=== PATIENT | female | born 1980 | race Caucasian/White ===

== ENCOUNTER 2016-10-04 14:00 | Emergency (ER) | payer OTHER ==
[~2016-10-04] VITALS: Ht 167.6 cm; Wt 81.8 kg
[~2016-10-04 14:00] MED LIST: BENZ1TAB7 PO; CHOL10008 PO; CLON1TAB PO; DOCU250C2 PO; DOXY1TAB3 PO; FERR-83 PO; HAL5 PO; LEVO100T6 PO; OMEG-38 PO; PRAZ2CAP2 PO
[2016-10-04 14:08] VITALS: BP 108/81; PULSE 65; O2SAT 91
--- NOTE | 2016-10-04 14:20 | ED.REPORT ---
HPI-Psychiatric Illness Date of Service Oct 04, 2016 ED Provider: Duane Goldsmith PA-C History of Present Illness: Sent by [facility] for revocation of LRO A 36 year old female with a history of PTSD, depression, anxiety, and bipolar disorder s/p previous suicide attempts and self-mutilation presents to the ED via Police from [facility] after a self-mutilation attempt earlier this week. She presents with a laceration to the LLQ of her abdomen which she claims is 48 hours old. The patient was initially cooperative but began hitting her head on the wall after she was gowned and needed to be restrained. She denies other complaints at this time. Nursing Notes Stated Complaint: EVAL Nursing Notes Reviewed: Yes ([employer], [employer] not reconciled) Allergies: Coded Allergies: No Known Allergies (Unverified , 06/28/16) UNABLE TO ASK PT. REVIEWED HX NOTES. Scheduled Benztropine Mesylate (Benztropine Mesylate) 1 Mg Tablet 1 MG PO BID Cholecalciferol (Vitamin D3) (Vitamin D3) 1,000 Unit Tab.chew 1,000 UNIT PO DAILY Clonazepam (Klonopin) 1 Mg Tablet 1 MG PO BID Docusate Sodium (Docusate Sodium) 250 Mg Capsule 250 MG PO BID Doxylamine/Pyridoxine 10-10 mg (Diclegis DR 10-10 mg) 1 Each Tablet.dr 1 TABLET PO TID Ferrous Sulfate (Ferrous Sulfate) 325 Mg Tablet 325 MG PO TID Haloperidol (Haloperidol) 5 Mg Tablet 10 MG PO TID Levothyroxine (Levothyroxine) 100 Mcg Tablet 100 MCG PO DAILY [place]-3/Dha/Epa/Fish Oil (Fish Oil 1,000 mg Softgel) 1 Each Capsule 1 EACH PO TID Prazosin (Prazosin) 2 Mg Capsule 4 MG PO HS General Time Seen by MD: 14:19 Chief Complaint Other (Self-mutilation) Hx Obtained From: Patient, Police Arrived By: Police Onset Occurred: 2 days ago Symptom Duration: Since onset Caused by: Cut self Location: : Abdomen Quality: Painful Severity: Current: Moderate Severity: Maximum: Moderate Associated with: Denies: Fever Pertinent Negative: Relieved by nothing Related History: Reports: Anxiety, Bipolar disorder, Depression, Prior suicide attempt(s) Immunizations: Unknown Recent Healthcare: No recent doctor visit Similar Sx Previous: Yes Risk-Psychiatric Illness Risk Notes: Not pertinent Suicide Risk Stratification Suicide Risk Factors - Adult: : Previous attempt: Prior psych admission RF Statements: Risk factors reviewed (not predictive) Past Medical History Past Medical History Notes: Medication list was obtained from [facility] on 10/04/2016: Prazosin 2 mg-2 caps at bedtime for nightmares Clonazepam 1 mg 1 tab by mouth twice a day for anxiety Haldol 10 mg 1 tab 3 times a day for paranoid thoughts, command hallucinations Viibryd 10mg 1 tab daily (with a note that "[place] does not have viibryd") Temazepam 15mg 1 tab PRN insomnia Cogentin 1mg 1 tab 2x day to prevent tardive dyskinesia Past Medical History PTSD Depression Anxiety Bipolar disorder Previous suicide attempts and self-mutilation Past Surgical History None Family History Noncontributory Smoking History Current Every Day Smoker Social History Pt is a . Alcohol Use: Denies alcohol use Drug Use: Denies drug use Other Social History: Local resident Ambulatory Status Independent Review of Systems HEENT: Denies congestion, headache, sore throat. Respiratory: Denies dyspnea, cough, shortness of breath, wheezing. Cardiovascular: Denies chest pain, palpitations. Gastrointestinal: Denies vomiting, diarrhea, abdominal pain. Genitourinary: Denies frequency, urgency, dysuria, hematuria. Otherwise as noted in HPI. Physical Exam General: Well appearing, well developed, well nourished, moderate distress. Head: Atraumatic, normocephalic. Eyes: No scleral icterus or injection. No discharge. Vision grossly intact. ENT: Voice clear, hearing grossly intact. Respiratory: Regular rate and rhythm. Breath sounds present, clear to auscultation and equal bilaterally. Cardiovascular: Regular rate and rhythm, without murmur, gallop or rub. No pedal edema. Gastrointestinal: Abdomen flat and non-tender without guarding or rebound. Bowel sounds normoactive. Skin: Warm and dry. 7 cm laceration through the dermis into the adipose tissue on the left lower anterior abdomen. Apparently healing 5 cm laceration on the anterior left abdomen with significant crusting and no sign of infection. Many scars on her anterior abdomen consistent with wounds similar to her acute injuries. Neurological: Tremulous Psychological: Alert and oriented, provides a reasonable story for why she is at the Hospital. Appears quite anxious, provides very limited answers to questions. Initial Vital Signs Vital Signs (First) Date Time Temp Pulse Resp B/P Pulse Ox O2 Delivery O2 Flow Rate FiO2 10/04/16 14:08 35.1 65 108/81 91 Room Air 10/04/16 14:34 20 Initial VS: Reviewed, Unavailable (incomplete, oredered), Vital signs abnormal Neck: Supple, Full range of motion Skin: Warm, Dry General/Constitutional: Awake, Alert Behavior: Positive: Uncooperative Unable to Evaluate: Positive: Uncooperative Head / Eyes: Normocephalic, PERRL Respiratory / Chest: No respiratory distress No signs of respiratory depression ABDOMEN: Numerous abdominal scars Healing chronic wound on abdomen Acute self-inflicted wound 4 cm in length, approximately 48 hrs old Interpretation & Diagnostics Lab Results Interpretation Result Diagram: 10/04/16 1559 10/04/16 1559 Test 10/04/16 14:41 10/04/16 15:48 10/04/16 15:59 10/04/16 20:55 Urine Opiates Screen Negative Urine Methadone Screen Negative Urine Barbiturates Screen Negative Urine Amphetamines Screen Negative Urine Benzodiazepines Screen Positive Urine Cocaine Metabolite Screen Negative Urine Cannabinoids Screen Negative Hold Man Top Tube Received (Received) White Blood Count 7.8th/mm3 (3.8-10.1) Red Blood Count 4.10mil/mm3 (3.90-5.20) Hemoglobin 11.8g/dL (12.0-15.6) Hematocrit 35.2% (35.0-46.0) Mean Corpuscular Volume 85.9fL (81-100) Mean Corpuscular Hemoglobin 28.8pg (27.0-35.0) Mean Corpuscular Hemoglobin Concent 33.5% (32.0-37.0) Red Cell Distribution Width 12.7% (12.3-15.4) Platelet Count 287bil/L (150-400) Neutrophils (%) (Auto) 78.4% (40-74) Lymphocytes (%) (Auto) 16.7% (14-46) Monocytes (%) (Auto) 4.4% (4-12) Eosinophils (%) (Auto) 0.1% (0-5) Basophils (%) (Auto) 0.3% (0-3) Sodium Level 139mEq/L (134-144) Potassium Level 4.4mEq/L (3.5-5.2) Chloride Level 102mEq/L (97-108) Carbon Dioxide Level 23mmol/L (18-29) Blood Urea Nitrogen 15mg/dL (6-20) Creatinine 0.89mg/dL (0.57-1.00) Estimat Glomerular Filtration Rate 103mL/min (>59) Glucose Level 98mg/dL (60-99) Calcium Level 9.1mg/dL (8.5-10.1) Total Bilirubin 0.5mg/dL (0.0-1.2) Aspartate Amino Transf (AST/SGOT) 15U/L (0-50) Alanine Aminotransferase (ALT/SGPT) 6U/L (0-32) Alkaline Phosphatase 55U/L (25-150) Total Protein 6.9g/dL (6.4-8.4) Albumin 4.1g/dL (3.4-5.0) Thyroid Stimulating Hormone (TSH) 1.140uIU/mL (0.450-4.500) Human Chorionic Gonadotropin, Qual 0.500 (Negative) Salicylates Level 3.0ug/mL (30-250) Acetaminophen Level 15.0ug/mL Rx (10-25) Alcohol, Quantitative < 10mg/dL (0-10) Urine Color Yellow (YELLOW) Urine Appearance Clear (CLEAR,HAZY) Urine pH 7.0 (5.0-8.0) Urine Specific [place] 1.020 (1.003-1.035) Urine Protein Negativemg/dL (NEG,TRACE) Urine Glucose (UA) Negativemg/dL (NEGATIVE) Urine Ketones 15mg/dL (NEGATIVE) Urine Occult Blood Small (NEGATIVE) Urine Nitrite Negative (NEGATIVE) Urine Bilirubin Negative (NEGATIVE) Urine Urobilinogen Normalmg/dL (NORMAL) Urine Leukocyte Esterase Negative (NEGATIVE) Urine RBC 11-50/hpf (0-2) Urine WBC 0-5/hpf (0-5) Urine Epithelial Cells Few/hpf (NONE-MOD) Urine Crystals None seen (NONE SEEN) Urine Bacteria Few/hpf (NONE-FEW) Urine Hyaline Casts None/lpf (NONE) Urine Granular Casts None seen (NONE SEEN) Urine Waxy Casts None seen (NONE SEEN) Urine Red Blood Cell Casts None seen (NONE SEEN) Urine White Blood Cell Casts None seen (NONE SEEN) Urine Mucus None seen (None Seen) Urine Trichomonas None seen (NONE SEEN) Urine Yeast None (NONE SEEN) Urinalysis Comment None Urine Culture Reflexed Not indicated Lab Results Interpretation: CBC normal CMP normal alcohol 0 U tox positive only for benzos which he been prescribed Procedures Procedure Notes: 7 cm laceration on the left lower quadrant, penetrate dermis into adipose tissue. 6 mL 2% lidocaine with epinephrine delivered via 27-gauge needle. Base well visualized, no foreign bodies found. Irrigated with 300 mL of normal saline. Closed with 4-0 Ethilon, 12 running sutures. Single-layer closure. Applied bacitracin, dressing. Patient tolerated procedure well, no complications. Performed by ARRON Goldsmith. Re-Eval/Medical Decision Med Decision/Clinical Course This is a 36-year-old female sent in from [facility] for revocation of LRO. Patient has an extensive psych history. She has multiple admissions, she has a history of self injury likes to cut on herself. She presented today with a large new laceration across the abdomen, that is 48 hours old. Please see the affidavits. I was called, she started to escalate, banging her head against the mcadams, required a code johns and briefly had been placed in 4. restraints. She was able to calm down, and restraints were removed. While in 4 pointrestraints, was anesthetized, cleaned, and repaired by the mid-level provider-see the note included. He was a fairly significant wound that saw about a centimeter deep into the subcutaneous tissues, not a superficial scratch by any means. There is no evidence it penetrated down to the layer of the muscle, or the peritoneum. It only required single-layer closure. Given its 48 hours it is a reasonable candidate for delayed primary closure. She is another wound that is nearly healing, no signs of active infection. U tox is negative except for benzos which she takes as a prescription, and alcohol 0. Labs are normal. I talked with the ASSEMBLING MACHINE OPERATOR, and at theDCR has been paged. The patient is being turned over to Dr. Baker At change of shift pending DCR evaluation A code Johns had to be called due to the fact that Tammy was ripping out her stitches and becoming combative. I immediately performed an evaluation during and after the code Johns. She pulled out a couple of stitches in her abdomen. She keeps reaching up towards the stitches. I feel now that we need to chemically restrain her for her safety. She has been accepted to [place]. Devonte the DCR has arranged for this. Source of Hx: Old records Re-Evaluation/Progress #1: Time of Eval: 14:26 Patient Status: Condition improved Re-Evaluation/Progress Note: A [id number] with the patient was performed when a janusz johns was called. The patient was uncooperative and banging her head on the wall, so she was placed in four-point restraints. Re-Evaluation/Progress #2: Time of Eval: 16:24 Re-Evaluation/Progress Note: Restraints removed. Re-Evaluation/Progress #3: Time of Eval: 22:25 Re-Evaluation/Progress Note: Patient remains stable and is medically cleared for psychiatric placement. Patient will be transferred to inpatient psychiatric facility in [place]. Re-Evaluation/Progress #4: Time of Eval: 23:00 Re-Evaluation/Progress Note: Janusz Man called. The patient was evaluated and placed in restraints after the patient began to rip out her stitches. Face to face evaluation done. Consultation : Consulted With: script worker Call Returned at: 22:19 Note: Spoke with the DCR, Devonte, who has secured psychiatric placement for the patient. She is [facility] by Jenniffer CHOW. Differential Diagnosis: Positive: Suicidal Discharge & Departure Shift Change Sign-Out Patient Care Transferred: Yes (Dr. Baker) Discussed Complaint(s): Yes Laboratory Evaluation: Back, reviewed by me Response to Therapy: Improved Impression: Primary Impression: Intentional self-harm Additional Impressions: Laceration of abdominal wall Encounter type: initial encounter Qualified Code: S31.119A - Laceration without foreign body of abdominal wall, unspecified quadrant without penetration into peritoneal cavity, initial encounter Deliberate self-cutting )( Condition at Discharge: Clear for psych facility Disposition: Transfer, Psychiatric Inpt Receiving Hospital: [facility] Transfer Accepted: Yes Transfer Accepted at: 22:18 Transfer Reason: Higher level of care Spoke with: Specialty physician (Jenniffer CHOW) Patient Status: Stable Patient Informed: Yes Discharge Condition All VS Reviewed: Yes Condition: Stable Referrals: NOPCP (PCP) Care Transferred to: Dr. Baker Care Transferred at: 18:00 Scribe Attestation Portions of this note were transcribed by Joanne Le and Joann Echevarria. I, Dr. Luna and Dr. Baker, personally performed the history, physical exam, and medical decision-making; I reviewed and confirmed the accuracy of the information in the transcribed note. Signed by: Jamarcus Blancas, 10/04/2016, 17:50 Signed by: Jamarcus Mcduffie, 09/27/2016, 23:18 Jeovany Luna MD Oct 04, 2016 14:20 JOANNE LE Oct 04, 2016 14:31 Duane Goldsmith PA-C Oct 04, 2016 15:50 Joann Echevarria Oct 04, 2016 22:22 Golden Baker DO Oct 04, 2016 23:14
[2016-10-04 14:34] VITALS: BP 108/76; PULSE 78; RESP 20; O2SAT 100
[2016-10-04 16:07] LABS: BASOPHILS % (AUTO) 0.3 % (0-3); EOSINOPHILS % (AUTO) 0.1 % (0-5); MONOCYTES % (AUTO) 4.4 % (4-12); Mean Corpuscular Hemoglobin 28.8 pg (27.0-35.0); Mean Corpuscular Volume 85.9 fL (81-100); NEUTROPHILS % (AUTO) 78.4 % (40-74); Platelet Count 287 bil/L (150-400)
[2016-10-04 17:41] VITALS: BP 118/85; PULSE 70; RESP 16; O2SAT 97
[2016-10-04 20:15] VITALS: BP 101/68; PULSE 72; RESP 16; O2SAT 95
[2016-10-04] MEDS ORDERED: TdaP Vaccine 0.5 mL Inj IM ONE (21:00)
[2016-10-04 21:40] LABS: APPEARANCE,URINE CLEAR (CLEAR,HAZY); COLOR,URINE YELLOW (YELLOW)
[2016-10-04 21:41] LABS: OCCULT BLOOD,URINE SMALL (NEGATIVE); UROBILINOGEN,URINE NORMAL (NORMAL)
[2016-10-04] MEDS ORDERED: Haloperidol 5 mg/mL Inj IM PRN (23:15)
[2016-10-04 23:41] VITALS: BP 100/70; PULSE 59; RESP 12; O2SAT 94
== END 2016-10-04 23:45 | disposition other institution (70) ==
LOC: SED 14:00
DX: S31.119A Laceration without foreign body of abdominal wall, unspecified quadrant without penetration into peritoneal cavity, initial encounter (principal); X78.9XXA Intentional self-harm by unspecified sharp object, initial encounter; Y92.9 Unspecified place or not applicable; Y93.89 Activity, other specified; Y99.8 Other external cause status; F31.9 Bipolar disorder, unspecified; F41.9 Anxiety disorder, unspecified; F43.10 Post-traumatic stress disorder, unspecified; F17.200 Nicotine dependence, unspecified, uncomplicated; Z91.5 Personal history of self-harm; Z23 Encounter for immunization
CPT/HCPCS: 12032; 36415; 80053; 81000; 84443; 84703; 85025; 90471; 90715; 99285; G0480

== ENCOUNTER 2017-01-01 17:34 | Inpatient (IN) | payer OTHER, MEDICAID ==
[~2017-01-01] VITALS: Ht 167.6 cm; Wt 82.0 kg
[2017-01-01 17:38] VITALS: BP 133/87; PULSE 80; RESP 18; O2SAT 97
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
[2017-01-01] MEDS ORDERED: TdaP Vaccine 0.5 mL Inj IM ONE (18:00)
[2017-01-01] MEDS ORDERED: 0.9% Sodium Chloride 1,000 ML IV ONE (18:00)
[2017-01-01 18:03] LABS: BASOPHILS % (AUTO) 0.2 % (0-3); EOSINOPHILS % (AUTO) 0 % (0-5); Mean Corpuscular Hemoglobin 28.5 pg (27.0-35.0); Mean Corpuscular Volume 86.7 fL (81-100); NEUTROPHILS % (AUTO) 75.8 % (40-74); Platelet Count 331 bil/L (150-400)
[2017-01-01] MEDS ORDERED: Haloperidol 5 mg/mL Inj IM PRN (19:30)
--- NOTE | 2017-01-01 19:33 | DRSVH ---
PROCEDURE: CT ABDOMEN AND PELVIS WITH CONTRAST TRAUMA (PNL 7509) INDICATIONS: Wound TECHNIQUE: After the administration of intravenous contrast, 5 mm thick sections acquired from the diaphragms to the symphysis. 5 mm thick coronal and sagittal reformats were acquired. Optional 10-minute delayed imaging may be performed from the kidneys to the bladder. For radiation dose reduction, the followi ng was used: automated exposure control, adjustment of mA and/or kV according to patient size. COMPARISON: None. FINDINGS: Image quality: Excellent. ABDOMEN: Lung bases: Lung bases are clear. Heart size is normal. No pericardial effusion. Inferior ribs ar e intact. No basal pleural effusions or pneumothorax. Solid organs: Liver and spleen are normal in size and enhancement, without lacerations. Gallbladder appears normal. Biliary system is non-dilated. Pancreas enhances normally, without transection. N o adrenal hematomas. Both kidneys enhance normally, without hydronephrosis or lacerations. Peritoneum and bowel: No free fluid or air. Unenhanced bowel loops demonstrate normal wall thicknes s and caliber. Nodes and vessels: No retroperitoneal or mesenteric adenopathy. Aorta and inferior vena cava are no rmal in size and enhancement. Miscellaneous: No ventral hernias. There is a ventral left-sided laceration through the skin surfac e, but not extending into the anterior left body wall, and no intra-abdominal free air is found. PELVIS: Genitourinary: Bladder wall thickness is normal. Several left-sided ovarian cysts are noted. There is a small amount of soft tissue prominence at the right posterolateral uterus border, without free fluid identified deep within the pelvis. Miscellaneous: No inguinal hernias or adenopathy. Bones: Pelvic ring and hip joints appear intact. No vertebral compression fractures. IMPRESSION: Soft tissue laceration anterior left lower abdominal body wall, not penetrating to the b paula wall border. No intra-abdominal free air. A small amount of fluid is present at the posterior r ight lateral border of the uterus, potentially a manifestation of a ruptured ovarian cyst. Dictated by: Casey Davila M.D. on 01/01/2017 at 19:27 Approved by: Casey Davila M.D. on 01/01/2017 at 19:31
[2017-01-01] MEDS ORDERED: Ketamine 100 mg/mL 5 mL Inj IV ONE (20:45)
[2017-01-01 22:21] VITALS: BP 121/74; PULSE 71; RESP 16; O2SAT 94
[2017-01-01] MEDS ORDERED: Haloperidol 5 mg/mL Inj IVPUSH ONE (23:10)
[2017-01-01] MEDS ORDERED: Dexmedetomidine 400 mCg/100 mL 400 MCG in IV Premix 1 EACH IV SCH (23:25)
[2017-01-02] VITALS (7 sets, daily range): BP systolic 104–136; BP diastolic 64–74; PULSE 60–85; RESP 12–20; O2SAT 95–98
[2017-01-02] MEDS: chlorproMAZINE 25 mg/mL Inj IM PRN ×2 (12:07→18:18)
[2017-01-02] MEDS ORDERED: LORazepam 1 mg Tablet PO PRN (16:20)
[2017-01-02] MEDS ORDERED: Alum-Mag Hydrox-Simeth 30 mL Suspension PO PRN (16:20)
[2017-01-02] MEDS ORDERED: Benzocaine-Menthol Lozenge 2/Pkg PO PRN (16:20)
[2017-01-02] MEDS ORDERED: Magnesium Hydroxide 10 mL Oral Concentration PO PRN (16:20)
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
--- NOTE | 2017-01-02 18:00 | NUR ---
Nurses Note Seclusion Patient remains on 1:1 with staff. She jumped out of her bed in her room and sat on the window sill proceeding to smash her head into the window and was unable to be redirected. Mago Man called and patient was placed in 4 point restraints for her safety.She received Thorazine 100mg IM at that time without sedation or ability to be calmed. Will continue to monitor 1:1 for safety and support. Addendum: 01/02/17 at 2019 by LUTHER SHIN RN Nurses Note 1814 Patient remains restless attempting to free self from the restraints. ROM completed and readjustment to restraints as patient has been attempting to reach her abdominal sutures.Continue 1:1 observations at arms length,encourage expression of thoughts and behavioral control.4 point restraints continue. Addendum: 01/02/17 at 2019 by LUTHRE SHIN RN Vital Signs at 1914 XP=891/70,P=85,R=16,T=36.5 Addendum: 01/02/17 at 2028 by LUTHER SHIN RN Nurses Note 2000 Patient remains in restraints,continues to struggle within them and has been unable to contract for safety and behavioral control. Patient stated "I know all that shit" when asked about previous DBT classes and mindfulness techniques. Will continue to encourage improved insight,behavioral control and ability to voice thoughts and feelings.
[2017-01-02] MEDS ORDERED: Thiamine 100 mg/mL 2 mL Inj ONE (18:14)
--- NOTE | 2017-01-02 18:29 | NUR ---
Nursing Admission Note: Patient arrived on the unit at 1408 in a wheel chair escorted by ED staff and security. JADE'd on a 72 hour hold for danger to self and others. Had been on the [place] suicide hotline and when law enforcement arrived pored a bottle of Tylenol PM down her throat. Brought in to the [facility] ED. Once upon the unit patient agreed to stay safe and was allowed to go to her room with a 1:1 staff member present and soon after fell asleep. Awoke a few hours later and climbed on top of the window sill and when staff arrived started banging her forehead on the window. It took 3 staff to assist patient off of the window sill. Mago dave called and patient put into restraints and received Thorazine 100 mg IM. Physician called and restraint orders initiated. 2 staff are with patient at present with patient struggling and pulling on the restraints. Will continue to monitor behavior and effectiveness of Thorazine.
--- NOTE | 2017-01-02 20:28 | NUR ---
Obs Dayshift Pt arrived on the unit, w/ a 1:1 in the room w/ her. Pt stayed in bed most of the day until approx dinner, got up walked the [place] and got a snack, then went back to bed. Pt shortly after climbed up on the counter in her room, refusing to get down and started banging her head into the window. Code was called as well as extra staff, and had to place hands on pt to get her down and escorted into Restraints. Pt continued for hours to pull at the restraints, pull at her weighted blanket in attempt to pull at the stitches in her stomach, sitting up and putting pressure on her stomach, etc. Laughing, and struggling against staff interventions. Continues in restraints w/ 1:1 at bedside.
[2017-01-02] MEDS: Omega-3 Fatty Acids 1,000 mg Capsule PO SCH (20:30)
--- NOTE | 2017-01-02 21:15 | NUR ---
Nurses Note Seclusion Patient received HS medications with much encouragement. Patient was moved to 2 restraints as a trial to maintain behavior control,will continue to assess.
--- NOTE | 2017-01-02 21:45 | NUR ---
Nurses Note Restraints Discontinued 2144 Patient maintained behavioral control through the trial of 2 restraints after accepting HS medications. She remained noncommittal when asked if she could remain safe but shook her head yes. Patient returned to her room,refused food and retired to bed with 1:1 staff at the door for safety and support. Addendum: 01/02/17 at 2326 by LUTHER SHIN RN Nurses Note Wound Patient has an abdominal wound left side of the abdomen approximately 6" long and has dehisced and is inflamed. Area cleansed with betadine and telfa pad with paper tape.Report to night nurse to follow up with MD in am.
[2017-01-03 01:45] VITALS: BP 118/78; PULSE 72; RESP 18
--- NOTE | 2017-01-03 01:55 | NUR ---
restraint note nursing s- patient unresponsive o- at 0045 patient went to use the toilet and removed her abdominal dressing. started to open the wound. hands were restrained. she would not agree to be safe and attempted to further injure herself. she was taken to the seclusion room and placed in 4 point restraints at 0050. dr. ayon informed of situation and gave orders at 0110. a dressing was applied. banged the wrist cuff intermittently. received 100 mg of thorazine and 2 mg of ativan in lt/rt deltoid. vs taken are wnl. has direct line of sight one to one observation. is currently restless in 4 point restraints. a- self harmful. p- assist with safety. will reduce restraint as behavior allows. beka arnold
[2017-01-03] MEDS: chlorproMAZINE 25 mg/mL Inj IM PRN ×2 (01:57→09:51)
--- NOTE | 2017-01-03 04:02 | NUR ---
restraint note nursing s- yes i'll talk to staff before i hurt myself. o- demonstrated enough behavioral control to be reduced for 4 point restraint by [place] [id number]. she continued to demonstrate safe behavior and make a marginal agreement to not harm herself. she was released form all restraints and returned to her room and bed at 0315. rapidly returned to sleep. has one to one staff direct observation. a- dressing intact, circulation and rom are wnl, no other apparent physical distress. p- continue one to one staffing for safety and assistance with maintaining safe/appropriate behavior.
--- NOTE | 2017-01-03 05:13 | NUR ---
Noc Observations Pt was in restraints at start off shift. Able to get her back to her room with 1:1 between [id number]. Asleep at 2230. She was then back up and to the bathroom where she pulled off the dressing to her wound and began banging her head in bathroom. 1:1 contacted staff and Pt was assisted back to seclusion/restraints at 0050. Pt continued to pull at restraints and try to get at wound. She did finally settle and was again trialed at 2pt restraint for half hour with calm behavior. Pt then agreed to seek staff before self-harming again. She was them moved back to her room with a 1:1 staff at 315. Pt observed via 1:1 staff and every 15 minutes as ordered
[2017-01-03] MEDS: Omega-3 Fatty Acids 1,000 mg Capsule PO SCH ×3 (08:30→20:30)
[2017-01-03] MEDS: PYRIDOXINE PO SCH ×3 (08:30→20:30)
[2017-01-03] MEDS: DOXYLAMINE PO SCH ×3 (08:30→20:30)
--- NOTE | 2017-01-03 10:42 | NUR ---
restraints 4pt at 0946 pt up on windowsill standing up banging head, resistive to getting down, with assistance sat on windowsill and escorted to bed with restraints, placed in 4 point restraints with pt giving slight resistance, continued to try to bang head, wrote order and circulation checked at time of application of restraints, debriefed patient of why she was put in restraints, "when can I get out?" asked patient if she could keep herself safe and pt did not answer, pt given IM PRNs as ordered
[2017-01-03 11:00] VITALS: BP 116/69; PULSE 81; RESP 15
--- NOTE | 2017-01-03 11:00 | NUR ---
restraint nursing note 1046 pt debriefed and each limb given ROM, pt will not verbalize ability to keep self safe, circulation checked 1:1 sitter with open door
--- NOTE | 2017-01-03 11:44 | NUR ---
restraints removed at 1142 Pt verbalized ability to keep self safe, walked to room and went to bed, haja robe on to keep pt away from incision as she has refused binder, incision with stitches still intact small open area in middle with rest well approximated
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
[2017-01-03] MEDS ORDERED: Haloperidol 5 mg/mL Inj IM PRN (12:40)
--- NOTE | 2017-01-03 17:40 | NUR ---
nursing note 7am-7pm S)"I signed the refusal of medications" O) pt refused PO medications at breakfast, ended up in restraints for banging head, removed from restraints after 2 hours with pt verbalizing that she would keep herself safe, 1:1 sitter for safety, pt out of room for snacks and drinks, no behavior outbursts or harm to self rest of shift, incision CDI stitches intact A)refusing medication before court, 1:1 sitter continues for safety P) court tomorrow, monitor pt for self harm to incision
--- NOTE | 2017-01-03 18:37 | NUR ---
Observations [id number] Pt was asleep upon start of shift. She had 1:1 observation throughout the day. Pt ended up in restraints due to self harm behavior, hitting head on the window. Pt did not attend meals, stating she was not hungry. Pt stayed in her room much of the day, sleeping and in bed. Pt was observed every 15 minutes of shift as directed.
--- NOTE | 2017-01-04 04:04 | NUR ---
nursing, nights, 11-7 s- remains non verbal. o- has one to one staffing with direct observation. appeared to sleep after 2129. up to the toilet with female staff at 2329. easily returned to sleep. up briefly for a drink at 0300. a- improved behavioral control, no apparent distress. p- monitor behavior/emotional state, quality, times and amount of sleep, use and effect of medication. beka
[2017-01-04] MEDS: DOXYLAMINE PO SCH ×3 (07:48→20:30)
[2017-01-04] MEDS: PYRIDOXINE PO SCH ×3 (07:48→20:30)
[2017-01-04] MEDS: Omega-3 Fatty Acids 1,000 mg Capsule PO SCH ×3 (07:48→20:57)
[2017-01-04 08:20] VITALS: BP 126/85; PULSE 105; RESP 20
--- NOTE | 2017-01-04 10:43 | NUR ---
Nursing: Day shift: Tammy was out for breakfast, checked tray, and returned to room without eating. She lay on her bed with covers over her head. She was cooperative with showing news writer her abdominal wound which has sutures in place and appears to be healing. Refused po a.m. medications at 0800 and again at 1000. is being observed by 1:1 staff. Met with public health social worker.
[2017-01-04] MEDS ORDERED: RES15 PO (10:58)
[2017-01-04] MEDS ORDERED: VILA10TA PO (10:58)
[2017-01-04] MEDS ORDERED: KLO1T PO (15:00)
[2017-01-04] MEDS ORDERED: OMEG1CAP56 PO (15:00)
[2017-01-04] MEDS ORDERED: MIRT30TA6 PO (15:01)
[2017-01-04] MEDS ORDERED: QUET100T69 PO (15:04)
[2017-01-04] MEDS ORDERED: QUET25TA73 PO (15:04)
--- NOTE | 2017-01-04 17:30 | NUR ---
[facility] Day Shift Pt begins shift on a 1:1 sitter status. 1:1 sitter status discontinued in the afternoon, due to pt's demonstrated ability to maintain her safety. Pt maintained behavioral control throughout the shift. Pt affect appears mostly flat, somewhat brighter when engaged with staff. Pt spends most of the shift resting in her room, occasionally pacing the hallways. Pt is not social with staff or peers when active on the unit, but is appropriate when engaged. Pt declined to attend group activities throughout the shift. Pt attended breakfast and lunch, but only ate approx 5% of lunch. Pt has not attended dinner at this time.
--- NOTE | 2017-01-04 21:53 | NUR ---
Counseling/[employer]: S/O: Patient slept 7 hours last night per staff. Unable to assess patient due to patient not wanting to cooperate. A: Patient is uncooperative, unkept, guarded, flat affect, irritable, poor insight, poor judgment. P: Follow care plan, coordinate out-patient providers, monitor behavior, unpredictable.
--- NOTE | 2017-01-04 22:09 | PCM.PNPSY ---
Subjective Date of Service Jan 04, 2017 Subjective Patient more talkative today. Requests to return home. Patient up briefly on windowsill but came down with staff direction. Abdominal wound still sutured but will heal by secondary closure. Patient indicated that med list from [place] was outdated. Sleep: 7+ Appetite: decreased Suicidal and homicidal ideation: denies Auditory hallucinations: denies Visual hallucinations: denies Other Psychotic Symptoms: denies Anxiety: denies Depression: denies Current Medications Current Medications Benztropine Mesylate 1 mg BID PO Last administered on 01/02/17 20:45; Admin Dose 1 MG; Start 01/02/17 at 20:30; Stop 01/04/17 at 12:40; Status DC Clonazepam 1 mg BID PO Last administered on 01/02/17 20:45; Admin Dose 1 MG; Start 01/02/17 at 20:30; Stop 01/04/17 at 12:40; Status DC Clonazepam 1 mg BID PRN PO Last administered on 01/04/17 14:00; Admin Dose 1 MG; Start 01/04/17 at 12:35 Docusate Sodium 250 mg BID PO Last administered on 01/02/17 20:44; Admin Dose 250 MG; Start 01/02/17 at 20:30 Haloperidol 10 mg TID PO Last administered on 01/02/17 20:45; Admin Dose 10 MG ; Start 01/02/17 at 20:30; Stop 01/04/17 at 12:40; Status DC Lorazepam 1-2mg PRN PRN IM Last administered on 01/03/17 09:56; Admin Dose 2 MG; Start 01/03/17 at 01:40 Prazosin HCl 4 mg HS PO Last administered on 01/02/17 20:44; Admin Dose 4 MG; Start 01/02/17 at 21:00 Quetiapine Fumarate 75 mg 08,1430 PO Last administered on 01/04/17 14:25; Admin Dose 75 MG; Start 01/04/17 at 14:30 Mental Status Exam Appearance: Unkept Attitude: Cooperative, Guarded Behavior: Other (withdrawn, but later more communicative) Affect: Restricted Mood: Dysthymic Thought Process/Associations: Logical/Sequential, Goal Directed Speech Production: Paucity Speech Rate: Lags/Latency Speech Articulation: Normal Thought Content: Appropriate Danger to Self/Suicidal Ideati: None Danger to Others: None Hallucinations: Auditory (Denies), Visual (Denies) Consciousness: Alert Orientation: Person, Place, Date, Situation Memory: Grossly Intact Estimate Intellectual Function: Average Basis for IQ estimate: Word use/vocabulary, Educational history Attention/Concentration & Cogn: Impaired Insight: Limited Judgement: Limited Result Diagram: 01/01/17 1745 01/01/171744 Mental Health Plan The patient is a 36-year-old female with a history of posttraumatic stress disorder, depression, borderline personality disorder, and PTSD, who presents with a self-inflicted injury to the abdomen, possible overdose, and has subsequently been detained by the [facility]. This appears to have been precipitated by her recent move out of the [facility] house which likely triggered her fear of abandonment or differentiation from parents. As the patient has been stalking the other psychiatrist on the unit, she will not be interacting with this individual but will be managed on the [facility] with primary care by this casualty underwriter or Dr. Ha. Medical will need to follow abdominal wound should it worsen. Patient has been able to leave wound alone today. Appears brighter and more cooperative. If patient maintains safety and similar affect, would likely be able to be discharged in the next few days. Patient should stay with parents until she follows up with his new therapist. [place] I: Post-traumatic stress disorder Major Depression with psychotic features, by history [place] II: Borderline personality disorder. [place] III: A 10 cm self-inflicted stab wound to the abdomen. [place] IV: Moderate. [place] V: Global Assessment of Functioning 35. Medications Vitamin D3 1000units po daily Clonazepam 1 mg 1 tab by mouth twice a day for anxiety Docusate 250mg po bid Ferrous sulfate 250mg po tid Fish Oil 1000mg three times per day Levothyroxine 100mcg po daily Mirtazapine 30mg nightly Naproxen 500mg po bid with food Prazosin 4mg at bedtime for nightmares Quetiapine 75mg bid and 100mg qhs Lorazepam 1mg po q 4hrs PRN with IM backup Chlorpromazine 100mg po q6hr PRN agitation/paranoia with IM backup Treatments 1. The patient is admitted to the Mental Health Unit. She was in restraints in the emergency department and will be transferred when appropriate. 2. She will be continued on all of her outpatient medications. 3. The patient will receive lorazepam 1 mg p.o. q.4 h. p.r.n. anxiety or agitation. She will also receive Thorazine 100mg IM/PO q.6 h. p.r.n. agitation , as haloperidol has not been effective. The patient often requires intramuscular medications and a 2nd opinion override has been requested. 4. The patient typically does not benefit from long-term hospitalizations; therefore, as soon as she has stabilized, the patient will be discharged. 5. The patient will be engaged in CBT or DBT therapy while on the unit, when available, and will be referred to her outpatient care. 6. The patient is in need of a one-to-one at this time for safety. 7. The patient is encouraged to participate with group and milieu activities. 8. The patient will be seen by the treatment team on a daily basis to assess symptoms, side effects and response to treatment. 9. [facility]. 10. Patient may be appropriate for discharge over weekend if remains stable. 11. Will file for 14 days of inpatient treatment. 12. Anticipated length of stay is 3-5 days. Nam Montalvo MD Jan 04, 2017 17:29
--- NOTE | 2017-01-05 04:39 | NUR ---
Nursing Noc Pt out to DR to watch TV and noted to socialize with other patient. Maintained behavioral control throughout this shift. Appears unkempt but cooperative with staff. Pt verbalized she would continue to maintain safety and not manipulate abdominal wound. Pt taking medications as prescribed without difficulty. Noted to be first asleep at 2230 and remained asleep throughout the night. Continuing Q15 minute safety checks throughout this shift. Monitoring emotional state, mood, behavior. BHCP
[2017-01-05] MEDS: PYRIDOXINE PO SCH (08:30)
[2017-01-05] MEDS: DOXYLAMINE PO SCH (08:30)
[2017-01-05] MEDS: Omega-3 Fatty Acids 1,000 mg Capsule PO SCH (08:49)
[2017-01-05 08:50] VITALS: BP 116/81; PULSE 91; RESP 16
--- NOTE | 2017-01-05 12:09 | PCM.DIMED ---
Discharge Instructions Date of Service Jan 05, 2017 Dates of Hospitalization Jan 02, 2017 at 14:16 Discharge Diagnosis Discharge Diagnosis [place] I: Post-traumatic stress disorder Major Depression with psychotic features, by history [place] II: Borderline personality disorder. [place] III: A 10 cm self-inflicted laceration to the abdomen, sutured on . [place] IV: Moderate. [place] V: Global Assessment of Functioning 50. Test Results CBC Test 01/01/17 17:45 White Blood Count 9.0th/mm3 (3.8-10.1) Red Blood Count 4.67mil/mm3 (3.90-5.20) Hemoglobin 13.3g/dL (12.0-15.6) Hematocrit 40.5% (35.0-46.0) Mean Corpuscular Volume 86.7fL (81-100) Mean Corpuscular Hemoglobin 28.5pg (27.0-35.0) Mean Corpuscular Hemoglobin Concent 32.8% (32.0-37.0) Red Cell Distribution Width 13.7% (12.3-15.4) Platelet Count 331bil/L (150-400) Neutrophils (%) (Auto) 75.8% (40-74) Lymphocytes (%) (Auto) 18.8% (14-46) Monocytes (%) (Auto) 5.0% (4-12) Eosinophils (%) (Auto) 0% (0-5) Basophils (%) (Auto) 0.2% (0-3) CMP Test 01/01/17 17:45 Sodium Level 138mEq/L Potassium Level 4.0mEq/L Chloride Level 102mEq/L Carbon Dioxide Level 17mmol/L Blood Urea Nitrogen 14mg/dL Creatinine 0.83mg/dL Estimat Glomerular Filtration Rate 112mL/min Glucose Level 131mg/dL Calcium Level 9.2mg/dL Total Bilirubin 0.6mg/dL Aspartate Amino Transf (AST/SGOT) 24U/L Alanine Aminotransferase (ALT/SGPT) 11U/L Alkaline Phosphatase 51U/L Total Protein 6.9g/dL Albumin 4.2g/dL Thyroid Stimulating Hormone (TSH) 2.600uIU/mL Diet No restrictions Activity No restrictions (Try to leave healing wound alone.) Call your provider Bleeding, Other (Increasing redness/swelling, pain, or pus from abdominal wound. ) Patient Instructions Should you have any thoughts of harming yourself or others, please call the crisis line, your provider, 911, or go to the nearest Emergency Department. Do not change or discontinue your medications without discussing with your provider. You have not been given a prescription your medication as you have indicated you have all of your current medications at home. Have your provider assess your abdominal wound. Sutures can be removed in 10- 14 days depending on how it is healing. Please do not remove the sutures yourself without instructions from your provider. Follow-up plan Mental Health Counselor Paige Verbal Appointment 01/07/17 at 10:00am [place] [address] [place] [address] Linda MD at 01/08/17 @ 2:00pm [address] [facility] [address] [place] [address] [place] clinic Chery Main on 01/10/17 @ 2:00pm [address] [facility] [address] [place] [address] Follow-up with PCP in: Other (For suture removal 01/12-01/16) Nam Montalvo MD Jan 05, 2017 12:09
[2017-01-05] MEDS ORDERED: NAPR250T PO (12:13)
--- NOTE | 2017-01-05 13:01 | NUR ---
Dock Guard./ c.m. S.:"I'm doing better." O.: met with pt. and MD together. Pt. slept "good" last night. She denied SI/HI, denied AH/VH or paranoid/delusional thoughts. She said that her mood and anxiety were at "pretty normal level" and she rated them at 6/10. She has follow up appt. with Gabby on January 07 at 10:00 am at [facility] in [facility] ([phone]). She has follow up appt. for meds with her Psychiatrist, Dr. Linda MD on January 08 at 14:00 at [facility] in [place] ([phone]). She also has follow up appt. with her counselor, Chery Thompson on January 10 at 14:00 at [facility] ([phone]). Pt. will stay with her parents for over the weekend and than she will go back to her own home. A.: pt. is cooperative, pleasant, has a bright affect and a good eye contact. P.: monitor behavior, follow care plan.
--- NOTE | 2017-01-05 13:01 | NUR ---
OBSERVATIONS 0900 TO 1250 Pt was pleasant and cooperative with staff. Pt appeared cheerful and positive, joking with staff, happy about discharge. Aside from interactions with staff, pt was isolative and spent most of the morning in her room. Pt decline meals. Pt discharged and was escorted from the facility at 1250.
--- NOTE | 2017-01-05 14:02 | PCM.DC.MED ---
Discharge Summary Date of Service Jan 05, 2017 Dates of Hospitalization Date of Hospital Admission Jan 02, 2017 at 14:16 Date of Discharge: Jan 05, 2017 Providers: Admitting Physician: Michael Ybarra MD Primary Care Physician: Adolfo Attending Physician: Michael Ybarra MD Diagnosis at Time of Discharge Diagnosis at Time of Discharge [place] I: Post-traumatic stress disorder Major Depression with psychotic features, by history [place] II: Borderline personality disorder. [place] III: A 10 cm self-inflicted laceration to the abdomen, sutured on . [place] IV: Moderate. [place] V: Global Assessment of Functioning 50. Brief History Chief Complaint "People are liars!" History of Present Illness The patient is a 36 year old female with history of PTSD, depression, borderline personality disorder and multiple prior suicide attempts and self- mutilation, who was brought to the emergency department by EMS after she overdosed on medication and abdominal laceration. The patient had attempted to open the wound and so had to be placed in restraint mitts. She was uncooperative with the examination and other than the chief complaint, began banging her head and had to be placed in restraints. The history is taken from the chart notes. The patient had moved out of her parents home and was living independently as of 12/20/16. The patient called crisis line to tell them about the suicide attempt and police were contacted. When police arrived the patient was combative and subsequently ketamine was given. They found two bottles of medication in the home: 0.5 mg clonazepam and Tylenol PM 500 mg and it was unclear whether ingestion had occurred. The patient was detained by the [facility]. According to prior notes, she has a long history of interpersonal conflicts and had been living at home with her parents but as noted above, had recently moved out. The patient has historically self-harmed in the context of leaving the home or feeling isolated from family. Medications in the past have included haloperidol, clonazepam, fluoxetine, and Wellbutrin. The patient currently has psychiatric care through [facility] and was last seen 12/20/16. Hospital Course The patient was admitted to the unit and initially was uncooperative and attempted to harm self by getting up on window sill and banging head on window hardware. Patient placed in restraints for safety. The day of court, she again got up on the windowsill but came down on request and remained appropriate for the remainder of the day and for the remainder of her stay. While the patient had manipulated the wound site, the sutures appeared intact. It is likely this will heal by secondary closure. Once the crisis is over, the patient typically does not benefit from further hospitalization, was requesting discharge, and was agreeable to staying with her parents over the weekend until she could be seen by her outside providers on Saturday. She also has IOP staff available over the weekend. At the time of discharge, the patient was reporting her mood as "good"and was feeling ready for discharge. Sleep was reported as "good" and appetite was reported as "could be better." Her anxiety was reported as 6/10 and depression as 6/10, which were reported as baseline for the patient. She denied auditory or visual hallucinations and any thought, intent or plan of hurting herself or others. She stated that she would be able to remain safe in the near future but acknowledged that chronic self harm is part of her behavior. She was able to acknowledge multiple support resources should she be in crisis. Exam Vital Signs (Last) Date Time Temp Pulse Resp B/P Pulse Ox O2 Delivery O2 Flow Rate FiO2 01/05/17 08:50 36.2 91 16 116/81 01/02/17 06:52 95 Room Air 01/01/17 22:21 2 Exam Discharge Mental Status Exam Appearance: Unkept Attitude: Cooperative, Pleasant Behavior: Good eye contact, smiling. Affect: Restricted, but appropriate Mood: Eager to discharge to home Thought Process/Associations: Logical/Sequential, Goal Directed Speech Production: Paucity Speech Rate: Normal Speech Articulation: Normal Thought Content: Appropriate Danger to Self/Suicidal Ideation: None, agrees to leave wound alone Danger to Others: None Hallucinations: Auditory (Denies), Visual (Denies) Consciousness: Alert Orientation: Person, Place, Date, Situation Memory: Grossly Intact Estimate Intellectual Function: Average Basis for IQ estimate: Word use/vocabulary, Educational history Attention/Concentration & Cognition: Fair Insight: Limited Judgement: Limited Test 01/01/17 17:45 01/01/17 21:36 01/01/17 21:39 White Blood Count 9.0th/mm3 (3.8-10.1) Red Blood Count 4.67mil/mm3 (3.90-5.20) Hemoglobin 13.3g/dL (12.0-15.6) Hematocrit 40.5% (35.0-46.0) Mean Corpuscular Volume 86.7fL (81-100) Mean Corpuscular Hemoglobin 28.5pg (27.0-35.0) Mean Corpuscular Hemoglobin Concent 32.8% (32.0-37.0) Red Cell Distribution Width 13.7% (12.3-15.4) Platelet Count 331bil/L (150-400) Neutrophils (%) (Auto) 75.8% (40-74) Lymphocytes (%) (Auto) 18.8% (14-46) Monocytes (%) (Auto) 5.0% (4-12) Eosinophils (%) (Auto) 0% (0-5) Basophils (%) (Auto) 0.2% (0-3) Sodium Level 138mEq/L (134-144) Potassium Level 4.0mEq/L (3.5-5.2) Chloride Level 102mEq/L (97-108) Carbon Dioxide Level 17mmol/L (18-29) Blood Urea Nitrogen 14mg/dL (6-20) Creatinine 0.83mg/dL (0.57-1.00) Estimat Glomerular Filtration Rate 112mL/min (>59) Glucose Level 131mg/dL (60-99) Calcium Level 9.2mg/dL (8.5-10.1) Total Bilirubin 0.6mg/dL (0.0-1.2) Aspartate Amino Transf (AST/SGOT) 24U/L (0-50) Alanine Aminotransferase (ALT/SGPT) 11U/L (0-32) Alkaline Phosphatase 51U/L (25-150) Total Protein 6.9g/dL (6.4-8.4) Albumin 4.2g/dL (3.4-5.0) Thyroid Stimulating Hormone (TSH) 2.600uIU/mL (0.450-4.500) Salicylates Level < 3.0ug/mL (30-250) Alcohols < 10mg/dL (0-10) Hold Urine Received (Received) Acetaminophen Level 15.0ug/mL Rx (10-25) Discharge Medications Discharge Medications Cholecalciferol (Vitamin D3) (Vitamin D3) 1,000 Unit Tab.chew 1,000 UNIT PO DAILY (Reported) Docusate Sodium (Docusate Sodium) 250 Mg Capsule 250 MG PO BID (Reported) Ferrous Sulfate (Ferrous Sulfate) 325 Mg Tablet 325 MG PO TID (Reported) Levothyroxine (Levothyroxine) 100 Mcg Tablet 100 MCG PO DAILY (Reported) Mirtazapine (Mirtazapine) 30 Mg Tablet 30 MG PO HS (Reported) [place]-3 Fatty Acids/Fish Oil ([place] 3 1,000 mg Softgel) 1 Each Capsule 1 EACH PO TID (Reported) Prazosin (Prazosin) 2 Mg Capsule 4 MG PO HS (Reported) Quetiapine Fumarate (Quetiapine Fumarate) 100 Mg Tablet 100 MG PO HS (Reported) Quetiapine Fumarate (Quetiapine Fumarate) 25 Mg Tablet 75 MG PO 0800, 1400 ( Reported) As needed Clonazepam (Clonazepam) 1 Mg Tablet 1 MG PO BID PRN PRN For Anxiety (Reported) Naproxen (Naproxen) 250 Mg Tablet 500 MG PO BIDWM PRN PRN For Pain Prescribed by: MICHAEL YBARRA MD Followup Plan Disposition: No indication for further hospitalization at this time, the patient was released from her 14 day hold into the care of her parents. The patient verbally consented to take the prescribed medications. The patient verbally expressed understanding of the risks, benefits, alternative treatment options, and risks of not taking the prescribed medication. The patient verbally expressed understanding of the medication instructions, that she will adhere to the prescribed medication, and that she will go to all aftercare scheduled appointments. Follow-up plan Mental Health Counselor Paige Verbal Appointment 01/07/17 at 10:00am [place] [address] [place] [address] Linda MD at 01/08/17 @ 2:00pm [address] [place] [id number] [place] clinic Chery Main on 01/10/17 @ 2:00pm [address] [place] [id number] Discharge Diet: No restrictions Discharge Activity: No restrictions (Try to leave healing wound alone.) Patient Instructions Should you have any thoughts of harming yourself or others, please call the crisis line, your provider, 911, or go to the nearest Emergency Department. Do not change or discontinue your medications without discussing with your provider. You have not been given a prescription your medication as you have indicated you have all of your current medications at home. Have your provider assess your abdominal wound. Sutures can be removed in 10- 14 days depending on how it is healing. Please do not remove the sutures yourself without instructions from your provider. Follow-up with PCP in: Other (For suture removal 01/12-01/16) Michael Ybarra MD Jan 05, 2017 14:02
--- NOTE | 2017-01-05 14:11 | NUR ---
[id number]. nurs. Discharge note. Pt verbalizing understanding of med plan and follow up apts. Pt had all needed meds at home, and her home meds given her from pharmacy. Pt continued to present with quiet reserved manner, isolating, coming out to unit to get needs met otherwise brief interaction, with some brief smiling and brief eye contact. Pt stating that she felt her generalized sense of anxiety was a 2/10 and that she was looking forward to going outside hospital and spending time with family. Pt denying current thoughts re. self harming and no episodes of this behaviour over noc or through day to time of dc. Pt's father transporting her home at 1250.
== END 2017-01-05 12:50 | disposition home or self-care (01) | DRG 885 ==
LOC: SED 17:34 → MHC 01-02 14:16
PROVIDERS: ADMIT Psychiatry & Neurology Psychiatry; ATTEND Psychiatry & Neurology Psychiatry
PROC: 0HQ7XZZ Repair Abdomen Skin, External Approach (ICD-10-PCS; principal; 2017-01-01)
DX: F32.3 Major depressive disorder, single episode, severe with psychotic features (principal); S31.119A Laceration without foreign body of abdominal wall, unspecified quadrant without penetration into peritoneal cavity, initial encounter; T14.91 Suicide attempt; F17.210 Nicotine dependence, cigarettes, uncomplicated; Z91.5 Personal history of self-harm; F43.10 Post-traumatic stress disorder, unspecified; F60.3 Borderline personality disorder

== ENCOUNTER 2017-01-13 10:24 | Inpatient (IN) | payer OTHER, MEDICAID ==
[~2017-01-13] VITALS: Ht 167.6 cm; Wt 82.0 kg
[~2017-01-13 10:24] MED LIST changes: -BENZ1TAB7 PO; -CLON1TAB PO; -DOXY1TAB3 PO; -HAL5 PO; +KLO1T PO; +MIRT30TA6 PO; +NAPR250T PO; -OMEG-38 PO; +OMEG1CAP56 PO; +QUET100T69 PO; +QUET25TA73 PO
[2017-01-13] MEDS ORDERED: Ketamine 100 mg/mL 5 mL Inj IM ONE ×2 (10:30→13:30)
[2017-01-13 10:34] VITALS: BP 124/76; PULSE 82; RESP 22; O2SAT 100
[2017-01-13 10:47] VITALS: BP 145/93; PULSE 85; RESP 28; O2SAT 100
[2017-01-13 11:12] VITALS: BP 149/104; PULSE 70; RESP 21; O2SAT 98
[2017-01-13 11:23] LABS: Mean Corpuscular Hemoglobin 28.1 pg (27.0-35.0); Mean Corpuscular Volume 82.3 fL (81-100)
--- NOTE | 2017-01-13 11:42 | ED.REPORT ---
HPI-Psychiatric Illness Date of Service Jan 13, 2017 ED Provider: Tha Alejandre DO Pt is a 36 year old female w/ a hx of multiple psych admits, hostile behavior towards hospital staff, PTSD, depression, anxiety, bipolar, suicide attempts and self harm, who presents to the ED via [place] police due to suicidal ideations and self harm. [place] calling Crisis Line because she was suicidal and wanting to "make the voices stop" who in turn called the police department. She was found with an unopened bottle of Tylenol PM. The patient is agitated and was aggressive with officials before arrival, stating that she does not believe the hospital or police can help her. She is agitated and aggressive at time of arrival and is placed in 4 point restraints. She also presents with a self-inflicted laceration about her right abdomen. Nursing Notes Stated Complaint: PSYCH Chief Complaint: Psychiatric Complaint Nursing Notes Reviewed: Yes Allergies: Coded Allergies: No Known Allergies (Unverified , 06/28/16) UNABLE TO ASK PT. REVIEWED HX NOTES. Scheduled Cholecalciferol (Vitamin D3) (Vitamin D3) 1,000 Unit Tab.chew 1,000 UNIT PO DAILY Docusate Sodium (Docusate Sodium) 250 Mg Capsule 250 MG PO BID Ferrous Sulfate (Ferrous Sulfate) 325 Mg Tablet 325 MG PO TID Levothyroxine (Levothyroxine) 100 Mcg Tablet 100 MCG PO DAILY Mirtazapine (Mirtazapine) 30 Mg Tablet 30 MG PO HS Claiborne-3 Fatty Acids/Fish Oil (Claiborne 3 1,000 mg Softgel) 1 Each Capsule 1 EACH PO TID Prazosin (Prazosin) 2 Mg Capsule 4 MG PO HS Quetiapine Fumarate (Quetiapine Fumarate) 100 Mg Tablet 100 MG PO HS Quetiapine Fumarate (Quetiapine Fumarate) 25 Mg Tablet 75 MG PO 0800, 1400 Scheduled PRN Clonazepam (Clonazepam) 1 Mg Tablet 1 MG PO BID PRN PRN For Anxiety Naproxen (Naproxen) 250 Mg Tablet 500 MG PO BIDWM PRN PRN For Pain General Time Seen by MD: 10:26 Chief Complaint Suicidal attempt Hx Obtained From: Patient, Police Unable to Obtain Hx: Patient condition, Uncooperative Arrived By: Police Risk-Psychiatric Illness Suicide Risk Stratification RF Statements: Risk factors reviewed Past Medical History Past Medical History Notes: [facility] Prazosin 2 mg-2 caps at bedtime for nightmares Clonazepam 1 mg 1 tab by mouth twice a day for anxiety Haldol 10 mg 1 tab 3 times a day for paranoid thoughts, command hallucinations Viibryd 10mg 1 tab daily (with a note that "[facility] does not have viibryd") Temazepam 15mg 1 tab PRN insomnia Cogentin 1mg 1 tab 2x day to prevent tardive dyskinesia Past Medical History PTSD Depression Anxiety Bipolar disorder Previous suicide attempts and self-mutilation Past Surgical History None Family History Noncontributory Smoking History Current Every Day Smoker Social History Pt is a . Alcohol Use: Denies alcohol use Drug Use: Denies drug use Other Social History: Local resident Ambulatory Status Independent Review of Systems Unable to Obtain ROS Patient condition, Uncooperative Physical Exam Initial Vital Signs Vital Signs (First) Date Time Temp Pulse Resp B/P Pulse Ox O2 Delivery O2 Flow Rate FiO2 01/13/17 10:34 36.2 82 22 124/76 100 01/13/17 10:47 Room Air Initial VS: Reviewed, Vital signs normal Head / Eyes: Atraumatic, Normocephalic, PERRL ENT: Mucous membranes moist, Conjunctiva normal, No scleral icterus Neck: Supple, Full range of motion Respiratory: Breath sounds normal, No respiratory distress Cardiovascular: Regular rate & rhythm, Heart sounds normal Extremities: Vascular intact, Neuro intact Skin: Warm, Dry General/Constitutional: Awake, Alert, Not toxic appearing No signs of trauma other than the self-inflicated laceration to the abdomen. Neurologic: Speech NL, No motor deficits, No sensory deficits Abnormal Mood/Affect: Positive: Irritable Unable to Evaluate: Positive: Uncooperative Agitated Hostile Abdomen: Atraumatic, Soft, No guarding, No rebound 8cm laceration to right side abdomen Interpretation & Diagnostics Lab Results Interpretation Result Diagram: 01/13/17 1108 01/13/17 1108 Test 01/13/17 11:08 White Blood Count 10.3th/mm3 (3.8-10.1) Red Blood Count 4.80mil/mm3 (3.90-5.20) Hemoglobin 13.5g/dL (12.0-15.6) Hematocrit 39.5% (35.0-46.0) Mean Corpuscular Volume 82.3fL (81-100) Mean Corpuscular Hemoglobin 28.1pg (27.0-35.0) Mean Corpuscular Hemoglobin Concent 34.2% (32.0-37.0) Red Cell Distribution Width 12.9% (12.3-15.4) Platelet Count 348bil/L (150-400) Sodium Level 135mEq/L (134-144) Potassium Level 4.8mEq/L (3.5-5.2) Chloride Level 100mEq/L (97-108) Carbon Dioxide Level 18mmol/L (18-29) Blood Urea Nitrogen 12mg/dL (6-20) Creatinine 0.83mg/dL (0.57-1.00) Estimat Glomerular Filtration Rate 112mL/min (>59) Glucose Level 106mg/dL (60-99) Calcium Level 9.7mg/dL (8.5-10.1) Total Bilirubin 0.4mg/dL (0.0-1.2) Aspartate Amino Transf (AST/SGOT) 19U/L (0-50) Alanine Aminotransferase (ALT/SGPT) 6U/L (0-32) Alkaline Phosphatase 58U/L (25-150) Total Protein 7.1g/dL (6.4-8.4) Albumin 4.6g/dL (3.4-5.0) Thyroid Stimulating Hormone (TSH) 1.830uIU/mL (0.450-4.500) Human Chorionic Gonadotropin, Qual Negative (Negative) Hold Man Top Tube Received (Received) Salicylates Level < 3.0ug/mL (30-250) Acetaminophen Level < 15.0ug/mL Rx (10-25) Alcohols < 10mg/dL (0-10) ECG Interpretation ECG Interpretation: Sinus rhythm rate 75 QTc 441 Time: 11:20 Interpreted by: ED physician Normal ECG Interpretation: No acute ischemic changes Procedures Laceration Management Time: 11:20 Procedure Performed by: ED physician Consent / Setup / Site Prep: No consent - emergent, Time-out performed, Hand hygiene observed, Stand sterile technique Location of Wound: Right side of the abdomen Wound Length: 8 cm Local Anesthesia: Lidocaine w epi 1% Digital Block: No Wound Preparation: Normal saline Debridement: None Irrigation: Copious Undermining / Margins: Flaps aligned Repair Skin: ___ O (3), Nylon # Sutures - Skin: 5 Closure Layers: 1 Suture Technique: Mattress Post-Procedure / Complications: Antibiotic oint applied, Dressing applied, No complications, Condition improved, Tolerated procedure well, Patient stable Re-Eval/Medical Decision Med Decision/Clinical Course Persistent psychosis not a good isabela voluntary not in a stable position to be discharged at this time. Patient will be admitted. Patient received multiple intramuscular doses of mood stabilizing medications including ketamine, Thorazine, as well as multiple doses of nausea medicine. She is medically cleared for a psychiatric facility. She was detained. Source of Hx: Old records Re-Evaluation/Progress #1: Time of Eval: 10:26 Re-Evaluation/Progress Note: The patient was placed into 4 point restraints at time of arrival due to hostility towards staff. Will attempt to remove restraints if she agrees to behave. Face to face eval performed at that time. Re-Evaluation/Progress #2: Time of Eval: 12:26 Patient Status: Condition worsened Re-Evaluation/Progress Note: Patient is agitated and has become physical with hospital staff. Mago correa called. Thorazine was ordered but unavailable. Ketamine was given. Re-Evaluation/Progress #3: Time of Eval: 16:00 Re-Evaluation/Progress Note: The patient was profusely vomiting throughout her time in the ED and was given multiple anti-emetic medications without much success. Consultation : Referral / Consult Name: Owen Ha MD Consulted With: Psychiatry Call Returned at: 16:31 Drink Mixer: Will see patient, Agrees with plan, Accepts admit Note: Agrees to admit patient. Counseled Regarding: Diagnosis, Lab results, Need for admission Discharge & Departure Impression: Primary Impression: Acute psychosis Discharge Condition All VS Reviewed: Yes Condition: Stable Referrals: NOPCP (PCP) Crit Care Except Billable Proc Time Spent: 75-104 minutes Services Performed: Patient management by me, Time spent at bedside, Reviewing test results, Reviewing imaging, Discussing patient care, Documentation in record Critical Care Notes: Acute agitation requiring multiple code flores and chemical sedation Scribe Attestation Portions of this note were transcribed by Bryant Rodriguez and Michael Cuadra. I, Dr. Alejandre personally performed the history, physical exam and medical decision-making; I reviewed and confirmed the accuracy of the information in the transcribed note. Signed by Bryant Rodriguez and Michael Cuadra, Jamarcus, 01/13/17 - 1200 [address] Cassie MAYER Jan 13, 2017 11:41 BRYANT RODRIGUEZ Jan 13, 2017 12:05 Michael Cuadra Jan 13, 2017 14:41
[2017-01-13] MEDS ORDERED: chlorproMAZINE 25 mg/mL Inj IM PRN (12:30)
[2017-01-13 13:27] VITALS: BP 114/62; PULSE 75; RESP 10; O2SAT 92
[2017-01-13] MEDS ORDERED: Promethazine 50 mg/mL Inj IM ONE (13:30)
[2017-01-13] MEDS ORDERED: Promethazine 25 mg/mL Inj ONE (13:41)
[2017-01-13 14:26] VITALS: BP 130/72; PULSE 71; RESP 14; O2SAT 99
[2017-01-13] MEDS ORDERED: Ondansetron 8 mg ODT Tablet PO ONE (14:40)
[2017-01-13] MEDS ORDERED: Magnesium Hydroxide 10 mL Oral Concentration PO PRN (16:50)
[2017-01-13] MEDS ORDERED: hydrOXYzine Pamoate 25 mg Capsule PO PRN (16:50)
[2017-01-13] MEDS ORDERED: Benzocaine-Menthol Lozenge 2/Pkg PO PRN (16:50)
[2017-01-13] MEDS ORDERED: Alum-Mag Hydrox-Simeth 30 mL Suspension PO PRN (16:50)
--- NOTE | 2017-01-13 17:00 | NUR ---
Nurses Admission Note 36 year old involuntary female JADE'd at 1500 as danger to self. Patient presented to the ER with police with a self inflicted abdominal wound right lower quadrant and then became uncooperative requiring 4 point restraints. Patient arrived to the unit in 4 point restraints as she had attempted multiple times in the ER to dehisce the wound and was combative to the ER nurse. She was awake,calm requesting to have the restraints removed "because I just want to sleep." Patient drank water and ate a jello but was nauseous from previous medications in the ER. Patient was removed from restraints before eating and has been napping. Will maintain patient on 1:1 for safety and support. Addendum: 01/13/17 at 6677 by LUTHER SHIN RN Nurses Note Evening Patient remains on 1:1 with staff for safety. She has been sleeping since after dinner. Her HS Seroquel 100mg, Minipress 4mg, Remeron 30mg.
[2017-01-13] MEDS: Omega-3 Fatty Acids 1,000 mg Capsule PO SCH (17:30)
[2017-01-14] MEDS ORDERED: OLANZapine Zydis ODT 5 mg Tablet PO PRN (03:25)
[2017-01-14 03:31] VITALS: BP 109/63; PULSE 68
--- NOTE | 2017-01-14 04:36 | NUR ---
Observations from [id number] Pt was out in the dining room getting water at 0245 and walked to the door by the nurses station, attempted to grab my badge and tried to trap me in the corner so as janusz dave was called and pt was escorted back to her room and put in 4 pt restraints. Pt was resistant to help and continued to try and resist staff. Pt has been monitored every 15 minutes.
--- NOTE | 2017-01-14 06:26 | NUR ---
Nursing Note 11pm to 7am Traffic Control Supervisor Pt with 1:1 sitter at bedside. Pt woke up and without acknowledging sitter and walked to bathroom. Affect flat and mood detached. Pt peeled off bandage covering newly applied sutures. When asked if pt. was in pain or wanting a clean dressing pt. was unresponsive and stared forward with a fixed gaze. Pt encouraged to go back to bed but instead, rapidly walked to day room with 1:1 sitter in toe and then headed for the door. 1:1 sitter attempted to redirect pt. away from door and she attempted to grab sitters badge and pushed her against the wall. Security was already present and assisted staff with moving pt. toward her room. Pt was agitated and struggling, attempting to break free, reaching toward her abdominal wound as if to reopen the incision as she has done multiple times during her inpatient stays. Mago dave called at 0247 and 4 point restraints applied at 0250. Pt required multiple staff to apply restraints and struggled with staff. Restraint order obtained from Dr. Ha at 0300. Pt given Ativan 2mg IM and Zyprexa 10 mg IM as she refused po medications. Attempted to process incident with pt during 2 hour assessment but she refused to communicate and participate in a safety plan. Circulation assessed. Pedal pulses were strong, fingers with good return, skin intact. Vital signs BP 109/63 p. 68 O2 Sat 97%. Pt released from restraints at 0645. Able to debrief with staff and verbalized agreement to refrain from self-injurious bx. Sitter at bedside. Monitored with q 15 minute face check for safety, location and accountability.
[2017-01-14] MEDS: LORazepam 2 mg Tablet PO PRN (09:26)
[2017-01-14] MEDS: Omega-3 Fatty Acids 1,000 mg Capsule PO SCH ×3 (09:30→17:30)
[2017-01-14 11:19] VITALS: BP 111/72; PULSE 67; RESP 16
--- NOTE | 2017-01-14 16:21 | NUR ---
Observations [id number] Pt observed by 1x1 throughout the shift. Pt was in restraints at start of shift and was unable to contract for stafety and put back in restraints. Pt then contracted for safety, was out of restraints for 20 minutes and began banging her head on the window and trying to reopen a wound that had been stitched. Pt was again put in restraints. Pt did not eat breakfast or lunch and states she has no appetite. Pt stated to this tag writer that she has been harming herself since she was 20 years old. Pt also states that she doesn't have any friends but wish she did. We discussed potentially volunteering or attending groups in the community and pt stated she was interested. Pt was observed every 15 minutes of shift as directed.
--- NOTE | 2017-01-14 17:29 | NUR ---
Interactive Graphic Designer./ c.m. S.:"I just want to go home." O.: met with pt. and MD together in pt.'s room. She was in bed in restrains with 1:1 sitter for safety. Pt. is JADE 72 hrs hold as DTS. She [place] [facility] [place] but she didn't stay with her parents how it was discussed originally. She admitted that it was hard for her to be in her apartment by herself. She felt restless. She didn't answer on question about SI/HI. She didn't tell about depression. She rated anxiety at 5/10. She had a hard time focusing on a conversation. A.: pt. is isolative, looks internally preoccupied and unable to focus. P.: monitor behavior, provide safety in the unit, monitor meds intake; follow care plan.
--- NOTE | 2017-01-14 19:47 | NUR ---
Nursing: Day shift: Tammy has has spent most of the day in restraints. She was observed to be escalating in self harm behavior at the end of the rutledge, was offered am meds which she refused, offered ATivan 2 mg po which she refused, and when she started banging her head against the window and tore off the dressing from her wound, a show of force was called and she code was escorted by security staff to room 230. See more below on amendment. Addendum: 01/14/17 at 2016 by RODDY WITT RN Had two restraint periods: From 0945 through 1325 and 1355 through 1755 with only 20 minutes between. During the first time, she attempted repeatedly to pick at the wound sutures. Arms were repositioned to not allow this behavior. Glove restraint was attempted but was not able to be used.At 1206, right hand restraint was removed to begin trial for pt safety to allow pt to eat lunch. Tammy did not eat any lunch. She DID not pick at wound with free right hand. Ana was offered meds scheduled meds again at noon but she refused. At 1304, restraints were reduced to 2 point restraints and at 1325, with pt agreeing to be safe, all restraints were removed. At 1353, Tammy walked to end of hallway and again banged her head twice on window. Code was called and she was transported by staff back to Room 230. Restraints reapplied at 1355. During this period, her hands were positioned so she was unable to pick at wound. By 1515, she was requesting restraint discontinuation. She was cooperative with ROM and circulation checks. Agreed verbally to behavioral contract to stay safe and restraints removed at 1755. Signed contract at 1800. PT stayed in her room with 1:1 staff until 1900. Has not tampered with wound between 1755 and 1900. A: Not safe from self harm even when she agrees to do so. P: Continue 1:1 observation staff.
--- NOTE | 2017-01-14 21:05 | NUR ---
Restraints Mago Man called @ 1929 pt attempting to pull out stitches in abdomen stating "I never gave them permission to put these in". Pt slammed her head in the window. Code team arrived and pt placed in 4 point restraints @ 1935. Dr Montalvo called and restraint order obtained @ 1941. Pt pulling at restraints and attempting to get at her abdominal stitches stating "I never gave them permission to put in my stitches". One minute pt tells her 1:1 sitter I will stay safe out of restraints and the next minute she asks "Do you got scissors? Do you have a knife?" This nursing staff attempted to debrief with patient about behaviors needed to be out restraints but pt unable to verbally agree to not hurt herself and to follow staff direction. Whil still in restraints pt attempting to position self to try and dig into to her abdominal stitches. Wrist restraints repositioned. Circulation checks performed every 15 minutes and ROM performed on limbs Q hour. Addendum: 01/14/17 at 2300 by MEGAN HILL RN 2129- Right leg restraint removed. Pt debriefed as to behavior needed to transition out of restraints. 2254- Left wrist restraint removed. Pt debriefed as to behavior needed to transition out of restraints. She verbally stated she will not hurt herself and would like to be out of restraints. Will reassess pt self harm behavior in an half hour. Addendum: 01/15/17 at 0053 by MEGAN HILL RN 2330- Pt reassessed. She had no self harm behaviors from the time of most recent reassessment. She verbally agreed to follow staff direction, stay in her room and not to self harm. Restraints ended @ 2335. 2345- Pt restrained @ 2345. Pt charged at 1:1 sitter and told the sitter she could hurt her. She did not follow through on this verbal threat. She was unable to maintain her behavioral contract and unwilling to follow staff direction. Security called and pt restrained @ 2345. Dr. Montalvo called and order obtained for restraints @ 2352. 1:1 sitter present, Q 15 minute circulation checks, Q hour ROM on limbs. Addendum: 01/15/17 at 0428 by MEGAN HILL RN 0345- Pt currently in 2 point restraints and repositioned to a more comfortable position. However she was unable to verbally agree to follow behavior contract and maintain non harm behaviors so that restraints could be fully removed. 1:1 sitter at bedside. Q 15" circulation checks and Q hourly ROM on restrained limbs. Pt has refused offered medications throughout the night stating "I do not want them. I have court tomorrow and I do not have to take them". Pt offered toileting and fluids/food Q [address] Montalvo called and notified. Restraint order obtained @ 0869. Will continue to reassess need for restraints. Addendum: 01/15/17 at 6314 by MEGAN HILL RN Pt has had no sleep tonight just intermittent periods of rest. She remains awake and unable to contract to no self harm if restraints are to be removed.
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
[2017-01-15 07:38] VITALS: BP 117/84; PULSE 89; RESP 20
[2017-01-15] MEDS: Omega-3 Fatty Acids 1,000 mg Capsule PO SCH ×3 (08:00→17:30)
--- NOTE | 2017-01-15 13:51 | NUR ---
Nursing Note Restraints S/O: Pt taken out of restraints at 0744. Asked pt what she needed to do to get out of restraints, pt replied, "Don't bang my head & don't pick at my sore." Pt taken out of restraints at 0744 after expressing understanding of rules. Pt in rutledge by exit door sitting on the floor for several hours. Pt in court this morning. She didn't not address the court, but remained silent only using head gestures for yes & no questions. Pt put on a 14 day MRO. Pt immediately left room walked down the rutledge & started banging her head against the window. Mago tenzin called at 1050. Pt refused to go to her room or stop banging her head. Pt placed in restraints at 1100 with 1:1 observation. Pt rechecked at 1130 & 1200. Pt refused to talk. She made no eye contact with staff. Circulation checks & ROM performed. ROM again checked at 1230. Pt initially fought going back into restraints, but became more compliant when reminded that she will need to be cooperative if she wants to get out of restraints. Pt had poor eye contact with no verbalization at all. Pt reassessed at 1400. Pt took Seroquel 75 mg. Pt verbally requested for restraints to be discontinued. Pt expressed understanding of behavior needed. She stated she liked to listen to music to help her calm down. Restraints discontinued at 1430. Pt walked back to her room calmly. A: Pt currently not needing restraints. P: Provide supportive environment. Monitor medications & effects. Monitor behavior. Addendum: 01/15/17 at 1445 by HARPAL MONTOYA RN Pt has bruises on bilateral inner arms from being taken to seclusion area to apply restraints
--- NOTE | 2017-01-15 15:11 | NUR ---
Commercial Fishing Vessel Operator./c.m. S./O.: pt. had court today and she was granted 14 MRO. She tried to hurt herself after that and she was put in restrains. Manufacturing Controls Engineer tried to meet with pt. but she refused to talk. Later afternoon pt. was out of restrains and she was standing in a rutledge near Nursing station. A.: pt. is isolative, unpredictable, has poor impulse control. P.: monitor behavior, provide safety in the unit; follow care plan.
[2017-01-15] MEDS: LORazepam 2 mg Tablet PO PRN (17:19)
--- NOTE | 2017-01-15 18:24 | NUR ---
Obs Dayshift Pt was sitting by the staff entrance/exit doors at the start of my shift. Pt remained there, refusing to move until her court started. Pt came out of court upset and ran out, down the rutledge and began w/ attempts to harm self. Mago dave was called and staff were needed to escort her to seclusion and placed in restraints for her own safety as well as staff and peers on the unit. Pt came out and was escorted back to her room in the afternoon and explained what was expected of her behavior while here on the unit. Pt continues to be very gamey, smiling inappropriately, answering some to none of the questions asked by staff. Pt continues w/ a 1:1 for personal safety, staff and peers safety. Pt is an elopement risk, little to no engaging w/ peers or staff. Ok ADL's, Good meals
--- NOTE | 2017-01-15 19:45 | NUR ---
Nurses Note Restraints Patient refusing to follow staff direction,digging her heels in and attempting to drag staff to the end of the hallway.Patient earlier signed a behavioral contract and is non-compliant. She refused her HS medications and continued to smile when encouraged. Patient was escorted to her room and placed into restraints as this behavior is a precursor to head banging and attempts to dehise her wounds which she earlier refused to have dressed after a shower that was 1:1 with staff. See flow sheet. Addendum: 01/15/17 at 2034 by LUTHER SHIN RN Nurses PRN Patient received Ativan 2mg and Zyprexa 10mg IM Right Deltoid for agitation that required restraints. Please refer to flow sheet.
--- NOTE | 2017-01-15 22:45 | NUR ---
Nurses Note Seclusion Discontinued Patient was removed from restraint at 2245. She refused to speak to staff during restraint to contract for safety. Patient later stated she wanted to sleep.Will remain on 1:1 with staff for safety and support. Right sided abdominal wound redressed,no drainage and approximating well.
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
[2017-01-16 03:08] VITALS: BP 106/67; PULSE 74
--- NOTE | 2017-01-16 03:27 | NUR ---
Restraints 0300- Pt placed in [address] Montalvo called & order obtained for 4 pt restraints. Pt attempting to walk down to end of hallway. Unwilling to follow staff direction, becoming agitated and resistive to staff. Non-compliant with behavioral contract. These following behaviors are precursors to her self injurious behaviors; head banging, climbing on window darell and attempting to pick at sutured self-inflicted abdominal wounds. Pt is nonverbal with staff, shook head no when offered po medication. In no physical distress, VS stable, Pulses present in all extremities. Face to face 1:1 for safety. Q15 minute circulation checks performed.
--- NOTE | 2017-01-16 04:36 | NUR ---
Discontinuation of Restraints 0418- Pt cooperative with Q15" circulation checks and ROM. She was able to verbalize behavior needed to be out of restraints. She stated "I need to listen to you guys". She said "yes" that she would listen to staff direction and not harm herself. She also agreed to stay in her room to sleep tonight. She said she was sleepy. She is covered with blankets but her hands are outside of her blankets and in view of her 1:1 sitter. Pt offered po medication but declined. She is quietly resting at this time with no self harm behaviors noted.
--- NOTE | 2017-01-16 05:53 | NUR ---
Sleep 11p-7a Pt slept from [id number] and 0445 to current time. Total sleep over 5 hours. She remains asleep with no self harm behaviors noted to current time.
[2017-01-16] MEDS: Omega-3 Fatty Acids 1,000 mg Capsule PO SCH ×3 (07:53→17:30)
--- NOTE | 2017-01-16 08:52 | NUR ---
RESTRAINTS Patient put in four point restraints at 0810 due to hitting head on window in room (x6) and picking at right flank wound, patient has removed dressing, wound appears intact, no bleeding or drainage. Multiple scratch [place] around wound, and old scars. Patient released to three point restraints at 0900 but immediately began scratching wound, patient was then retuned to four point restraints at 0905. Patient refusing to let MHA take her vital signs, denies anything to eat or drink, refused am medications at 0800. Patient observed using bathroom this morning before going into restraints approximately 0745, denies bathroom need at this time. Addendum: 01/16/17 at 1043 by RENAE NGUYEN RN REFUSING CARE Patient continues to refuse anything to eat or drink, uncooperative with MHA taking vital signs, temp 36.2, B/P 106/76. Patient was put in three point restraints at 1000 by releasing left ankle, neuro and circulation normal Q15 checks. Patient makes eye contact but has been for most part non verbal, resting quietly in bed, denies pain and care. Addendum: 01/16/17 at 1126 by RENAE NGUYEN RN RETURN TO 4 POINT Patient returned to four point restraints at 1120 due to scratching wound and uncooperative with care. Patient had been in three point left ankle released at 1000, then in two point at 1100 left hand released but continued to scratch and pick right flank wound. Patient ignored repeated warnings by nurse prior to reapplying four point restraints. Patient continues to be mostly nonverbal, denies food, water, and care. Addendum: 01/16/17 at 1555 by RENAE NGUYEN RN END OF RESTRAINTS MD in to see patient at 1310 and patient agreed to no self harm, wound not pick wound, and would not bang head. Patient released form restraints at 1330. Patient then walked halls and visited with fellow patient Paola who nurse overheard encouraging patient to not harm herself and cooperate with care. Patient ask to go outside to [facility] and nurse accompanied her there where she watched others play catch. SILVIA Brown who along with kathi CARRASCO (who is orienting) will continue 1:1 observation at 1500. Mago Johns called by SILVIA at 1530 due to patient banging head in [facility], after show of force patient agreed to go back to room. Patient currently walking halls under supervision of SILVIA Brown and LUNA armenta.
[2017-01-16 12:28] VITALS: BP 107/69; PULSE 77
--- NOTE | 2017-01-16 15:00 | NUR ---
Nurses Note Medications Patient remains on 1:1 with staff for safety.Patient had been in restraints for most of the day thus far for self injurious behaviors. Patient was on the patio with 1:1 staff and was banging her head on the windows and attempting to dehisce her abdominal wound. Patient refused to follow staff direction to stop the behaviors or move from the patio back to the unit or speak. Mago Donovan was called to return patient to the unit. Patient received Zyprexa 10mg and Ativan 2mg IM right hip at 1520 in her room. Patient has not been medication compliant refusing all medications today. She remains 1:1 with staff and currently is hiding behind her room door non verbal. Will assess medication response. Addendum: 01/16/17 at 1553 by LUTHER SIHN RN Amended: Links added.
--- NOTE | 2017-01-16 16:16 | NUR ---
Obs Dayshift Pt was in restraints at the beginning of this shift. While in restraints pt continues to refuse food and liquids, refusing meds, and any type of care. Pt gets out of restraints and quickly refuses to follow staff directions, or rules on the unit; hitting her head against the mcadams, scratching/picking at the wounds on her stomach, going beyond the boundaries on the unit, etc. Pt has need a show of support multi times today by Security, and extra staff. Pt is gamey, un-cooperative, inappropriate, staff splitting, tangential. Poor ADL's, Poor meals
--- NOTE | 2017-01-16 18:49 | NUR ---
Nipple Machine Operator/Counselor: S/O: Patient only slept 4.5 hours last night as per staff. S/I and H/I, no response. She denies auditory and visual hallucinations. Depression and anxiety, no response. A: Patient is guarded, uncooperative, anxious, blunted affect, unpredictable, limited insight, poor judgment. P: Follow care plan, coordinate out-patient providers.
--- NOTE | 2017-01-16 21:55 | NUR ---
behavior: pt. refused HS meds.
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
--- NOTE | 2017-01-17 02:03 | NUR ---
Behavior Pt picking at wound despite restraints in place. When asked why she is doing this she replied, "I can do what I want with my body." Placed sheet around patient so that she would not pick at her wound. Pt immediately wiggled out of the sheet and started to pick on her abdominal wound. Security called and patient placed in large black velcro vest to protect abdominal wound. Pt remains slightly restless. Attempts to pull off vest but unable.
--- NOTE | 2017-01-17 02:38 | NUR ---
restraint initial assessment 11-7 s- will you take my stitches out ? i don't understand. i have the right to do what i want. it's my body. o- sitting in the day room with one to one staff at the start of the shift. asked above question then made gesture to remove stitches. placed in 4 point restraints at 0000 01/17/17. dr moran gave telephone order at 0055. continues to try and reach stitches. placed in a safety vest at 0115. circ check q 15 min. rom q 1 hr x 5min. stated would maintain safety and restrains reduced to two points. has one to one direct line of sight observation. a- selectively communicative, behavior appears to be volitional, stitches appear unchanged, no apparent physical distress. p- will continue to assess and reduce restraints as behavior allows. beka Addendum: 01/17/17 at 0325 by HIPOLITO GOODMAN RN s/o- stated will comply with behavioral expectations. maintained safety after restrains reduced to 2 point at 0230. restraints removed at 0300. appeared to sleep at 0315. a- no apparent physical distress. p- remains in direct line of sight observation with one to one staffing. beka
[2017-01-17] MEDS: Omega-3 Fatty Acids 1,000 mg Capsule PO SCH ×3 (08:00→17:06)
--- NOTE | 2017-01-17 14:16 | NUR ---
Nursing Note [id number] Restraints started S/O: Pt out in dining area this morning. Early in the morning pt had head uncovered. Wound covered & pt showered. Pt started covering her head about 0900. Pt out on patio at 1115. Pt refusing to come in from patio. Pt taking dressing off wound. Pt not following behavioral contract. Mago dave called at 1220. Dr. Montalvo, RN, & security staff encouraged pt to come in. Pt offered meal, fluids, medication, & access to music. Pt con't to refused. Pt carried to room & restraints. Pt uncooperative. Not able to contract for safety. Capillary refill time checked every 15 minutes. ROM done every hour. Pt con't to be unable to contract for safety at this time. A: Pt needs use of restraints for safety. P: Provide supportive environment. Monitor medications & effects. Offer alternatives.
[2017-01-17 15:02] VITALS: BP 109/71; PULSE 77; RESP 16
--- NOTE | 2017-01-17 19:34 | NUR ---
Outdoor Education Teacher/Counselor: S/O: Patient only slept 2.5 hours last night as per staff. S/I and H/I, no response. She denies auditory and visual hallucinations. Depression and anxiety, no response. This marketing underwriter spoke with patient's parents and [facility] clinician, family meeting tomorrow with this marketing underwriter, psychiatrist, patient, patient's parents, and clinician (via telephone) at 11:30am. A: Patient is guarded, unkept, uncooperative, anxious, blunted affect, unpredictable, limited insight, poor judgment. P: Follow care plan, coordinate out-patient providers.
--- NOTE | 2017-01-17 21:35 | NUR ---
NURS Notes [id number] S: "I'm okay." O: Pt in four point restraints in pt room at start of shift. Transitioned to two point restraints at 1515. Discontinued restraints at 1553 after aravind for safety. When asked what she needed to do to get and stay out of restraints pt stated, "Stay safe. Not bang my head, not pick at my wounds, and listen to staff." No response when asked about depression, anxiety, SI, or AH Denied HI. Denied VH. Ate 100% of dinner and drank fluids, first food since on Saturday per A. A: Pt has become more cooperative. Pt continues to decline all medications. P: Continue with treatment plan. Provide clear boundaries and expectations.
--- NOTE | 2017-01-17 21:39 | NUR ---
Observations 0900 to 2130 Pt had 1:1 throughout the shift. Pt affect and mood was guarded, unpredictable, uncooperative, non verbal and labile. Pt was in her room and isolative most of the shift. Pt sat in TV area most of the morning with her mercado pulled over her head. Pt went out on patio and refused to come back in. Pt was talked to by several staff before code was called. Code madeline was called(see nurses note) Pt was minimally social when approached. Pt was offered breakfast and lunch but she declined. Pt ate 100% of dinner tonight and drank fluids. Pt was offered snack but declined. Pt was offered a shower but she declined. Pt watched [employer] game with peers in the evening. Pt was observed every 15 minutes throughout the shift as ordered.
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
--- NOTE | 2017-01-18 02:02 | NUR ---
initial seclusion note 11-7 s- selectively mute. this is bull shit. i know you think what you did was necessary. i wasn't doing anything. that's not true. why are you blowing this out of proportion. o-initially sitting with one to one then tried to push by staff after she was asked to remain in the dinning room or return to her room. responded with a blank stare when staff explained behavioral expectations. tried to erase assignment board. resisted staff intervention and continued to try to push by staff. resisted security direction to her room. required hands on and necessitating 4 point restraint to prevent self harm to sutures at midnight. is argumentative with staff about event leading to restraint when assessed. became somewhat more compliant and appropriate allowing restrain reduced to 2 point at 0200. has direct one to one observation staffing. q 15 minute circulation checks and q 1 hour rom. a- a/o x3, behavior appears volitional, entitled and manipulative during debriefing, no apparent physical distress. p- assist with demonstrating safe and appropriate behavior allowing removal from restraint. beka addendum has refrained for self harm during restraint reduction and agreed to adhere to her behavioral contract. restraints removed at 0230. is currently resting quietly with one to one direct observation. beka
--- NOTE | 2017-01-18 05:12 | NUR ---
nursing, nights, 11-7 s/o- has one to one direct line of sight observation. appeared to sleep after 0245. assessed q 15 minutes. a- no apparent distress. p- monitor behavior/emotional state, quality, times and amount of sleep, use and effect of medication. beka
[2017-01-18] MEDS: Omega-3 Fatty Acids 1,000 mg Capsule PO SCH ×3 (08:00→12:50)
[2017-01-18 09:50] VITALS: BP 97/66; PULSE 84; RESP 16
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
[2017-01-18] MEDS ORDERED: QUET100T69 PO (13:07)
--- NOTE | 2017-01-18 14:15 | NUR ---
Nursing: Day shift and discharge; One to one direct observation staff with Tammy this shift until 1315. Tammy was sitting in the corner of her room on the floor, covered by a blanket. She responded verbally and at 1000 after seeing the doctor. Initially refused a.m. medications but took them later. After 1130 family meeting with parents, she agreed to follow discharge instructions/plan, gathered belongings, and signed all forms. Pt stated she understood discharge plan. Denied any intent to self-harm as she left unit. Stated that she has ongoing depression and anxiety. No discharge prescriptions given to pt by doctor. Skin: Pt's wound on right abdomen, is healing. No redness, swelling, warmth. Sutures are in place. Pt [facility] Left unit, ambulatory, accompanied by parents at 1231.
--- NOTE | 2017-01-18 17:30 | NUR ---
Machine Washer/Counselor: S/O: Patient slept 3+ hours last night as per staff. Patient agreed to stay safe upon and after discharge. She denies H/I. She denies auditory and visual hallucinations. Out-patient appointments: WALTER Shearer, [facility], 01/21/17 and 01/23/17 at 1:00pm; Paige, [facility] [[email or web address]], [facility], 01/22/17 and 01/24/17 at 2:00pm; Grabiel Reid, [facility] [[email or web address]], 01/25/17 at 1:00pm. A: Patient is cooperative, hopeful, fair insight, fair judgment. P: Follow care plan, coordinate out-patient providers.
--- NOTE | 2017-01-21 14:19 | PCM.DC.MED ---
Discharge Summary Date of Service January 18, 2017 Dates of Hospitalization Date of Hospital Admission Jan 13, 2017 at 16:36 Date of Discharge: January 18, 2017 Providers: Admitting Physician: Owen Ha MD Primary Care Physician: Adolfo Attending Physician: Owen Ha MD Diagnosis at Time of Discharge Diagnosis at Time of Discharge [place] I: Post-traumatic stress disorder Major Depression with psychotic features, by history [place] II: Borderline personality disorder. [place] III: A 8 cm self-inflicted stab wound to the abdomen. [place] IV: Moderate. [place] V: Global Assessment of Functioning 40. Brief History Mental Health HPI Date of Service January 14, 2017 Admission Date/Time Jan 13, 2017 at 16:36 Reason for Admission Self harm, suicidal ideation, combative with police. Admission Status: Involuntary (Danger to Self) Source of Information: Patient Interview, Chart Review, Clinical Materials Accompanying, Observation Referral Agency/Hospital [facility] Chief Complaint "They put stitches in without my consent" History of Present Illness The patient is a 36 year old female with history of PTSD, depression, borderline personality disorder and multiple prior suicide attempts and self- mutilation, who was brought to the emergency department by [place] police due to suicidal ideation and self harm. [place] calling the Crisis Line reporting that she was suicidal and wanting to "make the voices stop" who in turn called the police department. She was found with an unopened bottle of Tylenol PM. The patient was agitated and was aggressive with officials before arrival, stating that she does not believe the hospital or police can help her. She is agitated and aggressive at time of arrival and is placed in 4 point restraints. She also presents with a self- inflicted laceration about her right abdomen. She required emergency doses of ketamine and Thorazine IM. The patient was only minimally cooperative with the examination and other than the chief complaint and was pulling at restraints throughout interview. The patient had recently been admitted on 01/01-01/05 and was discharged home with parents, but reportedly quickly returned to her apartment. According to prior notes, she has a long history of interpersonal conflicts and had been living at home with her parents but as noted above, had recently moved out. The patient has historically self-harmed in the context of leaving the home or feeling isolated from family. Medications in the past have included haloperidol, clonazepam, fluoxetine, and Wellbutrin. The patient currently has psychiatric care through [facility] and the [facility]. Presenting Symptoms: Mood (Months), with Psychotic Features (Days) Vegetative Functioning: Sleep (Decreased), Appetite (Decreased), Energy ( Unable to assess) Hospital Course The patient was admitted, and had another self-inflicted 8cm abdominal laceration. The 10cm previous laceration was healing well. The patient had several episodes of restraint due to attempting to manipulate laceration or other self injurious behavior such as jumping on the window sill to jump down or bang head, banging head on wall/window, etc. The patient had refrained from self-harm from the day prior to discharge up to the day of discharge. No medication changes were made per discussion with outpatient provider as quetiapine had just been increased at bedtime. A family meeting with the parents was held to discuss the increasing self-harm related to the patient's move to independent living. This was also discussed with her parents, and Gabby at [facility]. The plan was outlined as below: Spend this weekend with her parents For the next 2 weeks starting Saturday stay at her parents in the evening but go to her apartment in the morning and return by 6/630pm to her parents and spend the night. At the end of 2 weeks if everyone agrees it is the time, spend the night at her apartment. When she stays overnight at her apartment, she will have her parents come to dinner at her apartment or have them come in the evening for decaf coffee/tea, Her parents felt comfortable taking her home. We also discussed their summer plans and the tentative plan was to have patient fly to [place] directly after her parents had left in an RV, but to return home in the RV with them. [facility] was to attempt to find increased activities for her to do prior to her flight. At the time of discharge, the patient was reporting her mood was ready to go home. Sleep was reported as okay" 3+ hours per staff. And appetite was reported as down. Her anxiety was reported as its okay and depression as good. She denied auditory or visual hallucinations, paranoia, and any thought, active intent or plan of hurting herself or others. She did endorse chronic suicidal ideation. She denied medication side effects. Exam Vital Signs (Last) Date Time Temp Pulse Resp B/P Pulse Ox O2 Delivery O2 Flow Rate FiO2 01/18/17 09:50 36.4 84 16 97/66 01/13/17 14:26 99 01/13/17 13:27 Room Air Exam Discharge Mental Status Exam Appearance: Appropriate Attitude: Pleasant, generally cooperative Behavior: Somewhat anxious, incongruent smile at times, good eye contact Affect: Restricted Thought Process/Associations: Linear Speech Production: Paucity Speech Rate: Normal Speech Articulation: Normal Thought Content: Negativistic Danger to Self/Suicidal Ideation: Passive (chronic, denies acute) Danger to Others: None Hallucinations: Auditory (denies), Visual (denies) Consciousness: Alert Orientation: Person, Place, Date, Situation Memory: Grossly intact Estimate Intellectual Function: Average Basis for IQ estimate: Word use/vocabulary, Educational history, Employment history Attention/Concentration & Cognition: Slightly impaired Insight: Limited Judgement: Limited Test 01/13/17 11:08 White Blood Count 10.3th/mm3 (3.8-10.1) Red Blood Count 4.80mil/mm3 (3.90-5.20) Hemoglobin 13.5g/dL (12.0-15.6) Hematocrit 39.5% (35.0-46.0) Mean Corpuscular Volume 82.3fL (81-100) Mean Corpuscular Hemoglobin 28.1pg (27.0-35.0) Mean Corpuscular Hemoglobin Concent 34.2% (32.0-37.0) Red Cell Distribution Width 12.9% (12.3-15.4) Platelet Count 348bil/L (150-400) Sodium Level 135mEq/L (134-144) Potassium Level 4.8mEq/L (3.5-5.2) Chloride Level 100mEq/L (97-108) Carbon Dioxide Level 18mmol/L (18-29) Blood Urea Nitrogen 12mg/dL (6-20) Creatinine 0.83mg/dL (0.57-1.00) Estimat Glomerular Filtration Rate 112mL/min (>59) Glucose Level 106mg/dL (60-99) Calcium Level 9.7mg/dL (8.5-10.1) Total Bilirubin 0.4mg/dL (0.0-1.2) Aspartate Amino Transf (AST/SGOT) 19U/L (0-50) Alanine Aminotransferase (ALT/SGPT) 6U/L (0-32) Alkaline Phosphatase 58U/L (25-150) Total Protein 7.1g/dL (6.4-8.4) Albumin 4.6g/dL (3.4-5.0) Thyroid Stimulating Hormone (TSH) 1.830uIU/mL (0.450-4.500) Human Chorionic Gonadotropin, Qual Negative (Negative) Hold Man Top Tube Received (Received) Salicylates Level < 3.0ug/mL (30-250) Acetaminophen Level < 15.0ug/mL Rx (10-25) Alcohols < 10mg/dL (0-10) Discharge Medications Discharge Medications Cholecalciferol (Vitamin D3) (Vitamin D3) 1,000 Unit Tab.chew 1,000 UNIT PO DAILY (Reported) Docusate Sodium (Docusate Sodium) 250 Mg Capsule 250 MG PO BID (Reported) Ferrous Sulfate (Ferrous Sulfate) 325 Mg Tablet 325 MG PO TID (Reported) Levothyroxine (Levothyroxine) 100 Mcg Tablet 100 MCG PO DAILY (Reported) Mirtazapine (Mirtazapine) 30 Mg Tablet 30 MG PO HS (Reported) [place]-3 Fatty Acids/Fish Oil ([place] 3 1,000 mg Softgel) 1 Each Capsule 1 EACH PO TID (Reported) Prazosin (Prazosin) 2 Mg Capsule 4 MG PO HS (Reported) Quetiapine Fumarate (Quetiapine Fumarate) 25 Mg Tablet 75 MG PO 0800, 1400 ( Reported) Quetiapine Fumarate (Quetiapine Fumarate) 100 Mg Tablet 200 MG PO HS Prescribed by: MICHAEL MONTALVO MD As needed Clonazepam (Clonazepam) 1 Mg Tablet 1 MG PO BID PRN PRN For Anxiety (Reported) Naproxen (Naproxen) 250 Mg Tablet 500 MG PO BIDWM PRN PRN For Pain Prescribed by: MICHAEL MONTALVO MD Followup Plan Disposition: No indication for further retirement at this time, patient was released from hold as patient typically worsens with extended stays and parents felt comfortable that patient had returned to baseline. The patient verbally consented to take the prescribed medications. The patient verbally expressed understanding of the risks, benefits, alternative treatment options, and risks of not taking the prescribed medication. The patient verbally expressed understanding of the medication instructions, that she will adhere to the prescribed medication, and that she will go to all aftercare scheduled appointments. Follow-up plan [facility] Mon and Wed at 1pm with Celina Mtz and [place] at 2pm with IP Counselor Gabby Neff Fri at 1pm with Grabiel Reid Discharge Diet: No restrictions Discharge Activity: No restrictions Patient Instructions Should you have any thoughts of harming yourself or others, please call the crisis line, your provider, 911, or go to the nearest Emergency Department. Do not change or discontinue your medications without discussing with your provider. Your prescriptions have not been changed, continue as prescribed. Plan as discussed with family and Gabby: Spend this weekend with your parents For the next 2 weeks starting Saturday stay at your parents in the evening but go to your apartment in the morning and return 6/630pm to your parents and spend the night. At the end of 2 weeks if everyone agrees it is the time, spend the night at your apartment. When you stay overnight at your apartment, have your parents come to dinner at your apartment or have them come in the evening for decaf coffee/tea, Michael Montalvo MD January 18, 2017 22:42
== END 2017-01-18 13:55 | disposition home or self-care (01) | DRG 882 ==
LOC: SED 10:24 → MHC 16:36
PROVIDERS: ADMIT Psychiatry & Neurology Psychiatry; ATTEND Psychiatry & Neurology Psychiatry
PROC: 0HQ7XZZ Repair Abdomen Skin, External Approach (ICD-10-PCS; principal; 2017-01-13)
DX: F43.10 Post-traumatic stress disorder, unspecified (principal); R45.851 Suicidal ideations; F32.3 Major depressive disorder, single episode, severe with psychotic features; Z91.5 Personal history of self-harm; Z65.3 Problems related to other legal circumstances; F17.210 Nicotine dependence, cigarettes, uncomplicated; S31.119A Laceration without foreign body of abdominal wall, unspecified quadrant without penetration into peritoneal cavity, initial encounter; X78.9XXA Intentional self-harm by unspecified sharp object, initial encounter; Y93.9 Activity, unspecified; Y92.59 Other trade areas as the place of occurrence of the external cause; Y99.9 Unspecified external cause status; F60.3 Borderline personality disorder

== ENCOUNTER 2017-01-25 14:05 | Inpatient (IN) | payer MEDICAID, OTHER ==
[~2017-01-25] VITALS: Ht 167.6 cm; Wt 96.3 kg
[2017-01-25 14:09] VITALS: BP 130/84; PULSE 123; RESP 27; O2SAT 94
[2017-01-25 14:46] LABS: BASOPHILS % (AUTO) 0.2 % (0-3); EOSINOPHILS % (AUTO) 0 % (0-5); MONOCYTES % (AUTO) 5.7 % (4-12); Mean Corpuscular Volume 85.4 fL (81-100); NEUTROPHILS % (AUTO) 78.2 % (40-74); Platelet Count 286 bil/L (150-400)
[2017-01-25] MEDS ORDERED: ACETYLCYSTEINE IV SCH ×3 (15:35)
[2017-01-25] MEDS ORDERED: DEXTROSE 5% IV SCH ×3 (15:35)
--- NOTE | 2017-01-25 15:51 | ED.REPORT ---
HPI-Overdose/Alcohol Toxicity Date of Service January 25, 2017 ED Provider: Chas Benavides MD 36 y/o female with a hx of multiple psych admits, hostile behavior towards hospital staff, PTSD, depression, anxiety, bipolar, suicide attempts and self harm presents to the ED via EMS due to high Tylenol level of 252.6, onset 3 hours ago. The pt took 100 500 mg Tylenol pills. [facility]. She reports she vomited in the ambulance. She also has two open wounds on her abdomen that she reports inflicting on herself 2 days ago. The pt states that "little stuff happened" to her when asked about why she self-harms. The pt denies abusive childhood but reports she was jealous of the foster kids. She denies suicidal ideation. Nursing Notes Stated Complaint: OVERDOSE Chief Complaint: Psychiatric Complaint Nursing Notes Reviewed: Yes Allergies: Coded Allergies: No Known Allergies (Unverified , 06/28/16) UNABLE TO ASK PT. REVIEWED HX NOTES. Scheduled Cholecalciferol (Vitamin D3) (Vitamin D3) 1,000 Unit Tab.chew 1,000 UNIT PO DAILY Levothyroxine (Levothyroxine) 100 Mcg Tablet 100 MCG PO DAILY Mirtazapine (Mirtazapine) 30 Mg Tablet 30 MG PO HS Prazosin (Prazosin) 2 Mg Capsule 4 MG PO HS Quetiapine Fumarate (Quetiapine Fumarate) 25 Mg Tablet 75 MG PO 0800 + 1400 Quetiapine Fumarate (Quetiapine Fumarate) 100 Mg Tablet 200 MG PO HS Scheduled PRN Clonazepam (Clonazepam) 1 Mg Tablet 1 MG PO BID PRN PRN For Anxiety General Time Seen by Provider: 15:33 Chief Complaint Drug overdose Modifying Factors: Vomited post ingestion Initial Psychiatric Assessment: Deny suicidal intent/plan Hx Obtained From: Patient Arrived By: Ambulance Onset Occurred: 1 - 4 hours ago Symptom Duration: 1 - 4 hours Progression Since Onset: Constant Location: : Abdomen Quality: Painful Radiation: Does not radiate Severity: Current: Mild Severity: Maximum: Mild Recent Healthcare: Recent doctor visit Similar Sx Previous: No Past Medical History Past Medical History Notes: Medication list was obtained from [employer] [facility] on 10/04/2016: Prazosin 2 mg-2 caps at bedtime for nightmares Clonazepam 1 mg 1 tab by mouth twice a day for anxiety Haldol 10 mg 1 tab 3 times a day for paranoid thoughts, command hallucinations Viibryd 10mg 1 tab daily (with a note that "[facility] not [facility]ib[facility]") Temazepam 15mg 1 tab PRN insomnia Cogentin 1mg 1 tab 2x day to prevent tardive dyskinesia Past Medical History PTSD Depression Anxiety Bipolar disorder Previous suicide attempts and self-mutilation Past Surgical History None Family History Noncontributory Smoking History Current Every Day Smoker Social History Pt is a . Alcohol Use: Denies alcohol use Drug Use: Denies drug use Other Social History: Local resident Ambulatory Status Independent Review of Systems GI: Reports: Abdominal pain Psychiatric: Denies: Suicidal ideation Complete sys rev & neg: except as marked. Physical Exam Initial Vital Signs Vital Signs (First) Date Time Temp Pulse Resp B/P Pulse Ox O2 Delivery O2 Flow Rate FiO2 01/25/17 14:09 37.0 123 27 130/84 94 Room Air Initial VS: Reviewed Head / Eyes: Atraumatic, Normocephalic Neck: Supple, Non-tender, Full range of motion Extremities: Vascular intact, Neuro intact, No swelling, No tenderness General/Constitutional: Awake, Alert Respiratory / Chest: Atraumatic, Breath sounds NL, Breath sounds = bilat, No respiratory distress, No rales, No rhonchi, No wheezing Cardiovascular: Heart rate NL, Regular rhythm, Heart sounds NL, No gallop, No murmurs Abdomen: Soft, No guarding, No rebound Trauma - General: Positive: Laceration Vertical sagital orientation 8 cm laceration open down to the subcutaenous fat. Transverse 6cm laceration in upper abdominal quadrant. Neurologic: Oriented X3, Speech NL, No motor deficits, No sensory deficits Psychiatric: Not suicidal Abnormal Mood/Affect: Positive: Flat affect Interpretation & Diagnostics Lab Results Interpretation Result Diagram: 01/26/17 0535 01/26/17 0535 Test 01/25/17 14:10 01/25/17 18:20 Salicylates Level 3.0ug/mL (30-250) Urine Color Straw (YELLOW) Urine Appearance Clear (CLEAR,HAZY) Urine pH 6.0 (5.0-8.0) Urine Specific [place] 1.014 (1.003-1.035) Urine Protein Negativemg/dL (NEG,TRACE) Urine Glucose (UA) Negativemg/dL (NEGATIVE) Urine Ketones >80mg/dL (NEGATIVE) Urine Occult Blood Negative (NEGATIVE) Urine Nitrite Negative (NEGATIVE) Urine Bilirubin Negative (NEGATIVE) Urine Urobilinogen Normalmg/dL (NORMAL) Urine Leukocyte Esterase Negative (NEGATIVE) Urine RBC 0-2/hpf (0-2) Urine WBC 0-5/hpf (0-5) Urine Epithelial Cells Few/hpf (NONE-MOD) Urine Crystals None seen (NONE SEEN) Urine Bacteria None/hpf (NONE-FEW) Urine Hyaline Casts None/lpf (NONE) Urine Granular Casts None seen (NONE SEEN) Urine Waxy Casts None seen (NONE SEEN) Urine Red Blood Cell Casts None seen (NONE SEEN) Urine White Blood Cell Casts None seen (NONE SEEN) Urine Mucus None seen (None Seen) Urine Trichomonas None seen (NONE SEEN) Urine Yeast None (NONE SEEN) Urine Culture Reflexed Not indicated Procedures Laceration Management Time: 16:00 Procedure Performed by: ED physician Consent / Setup / Site Prep: Consent from patient, Hand hygiene observed, Stand sterile technique Location of Wound: Abdomen Wound Length: 6 cm, 8 cm Local Anesthesia: Lidocaine w epi 2% Digital Block: No Wound Preparation: Normal saline Debridement: None Irrigation: Copious Foreign Body Explore / Removal: Explored for foreign body Repair Skin: [place] Post-Procedure / Complications: Antibiotic oint applied, Dressing applied, No complications, Tolerated procedure well, Patient stable Re-Eval/Medical Decision Re-Evaluation/Progress : Time of Eval: 15:53 Re-Evaluation/Progress Note: Informed pt that her abdominal lacerations will be sutured. She understands and agrees with the plan. All questions adressed. Consultation : Referral / Consult Name: Richie Belcher MD Consulted With: Hospitalist Advanced Practice Professional: Accepts admit Counseled Regarding: Diagnosis, Lab results Discharge & Departure Impression: Primary Impression: Suicide attempt Additional Impressions: Acetaminophen overdose Encounter type: initial encounter Injury intent: intentional self-harm Qualified Code: T39.1X2A - Poisoning by 4-Aminophenol derivatives, intentional self-harm, initial encounter Stab wound of abdomen Encounter type: initial encounter Qualified Code: S31.119A - Laceration without foreign body of abdominal wall, unspecified quadrant without penetration into peritoneal cavity, initial encounter Deliberate self-cutting Disposition: ADMITTED TO HOSPITAL Discharge Condition All VS Reviewed: Yes Referrals: NOPCP (PCP) Scribe Attestation Portions of this note were transcribed by Karlo Campbell. I, , personally performed the history, physical exam and medical decision-making;I reviewed and confirmed the accuracy of the information in the transcribed note. Signed by Jamarcus Melendez. 01/25/17 1657 Chas Benavides MD January 25, 2017 15:51 Karlo Campbell January 25, 2017 16:39
[2017-01-25 16:36] VITALS: BP 146/70; PULSE 101; RESP 28; O2SAT 96
[2017-01-25] MEDS ORDERED: Ondansetron 2 mg/mL 2 mL Inj IVPUSH PRN (19:15)
[2017-01-25] MEDS ORDERED: Alum-Mag Hydrox-Simeth 30 mL Suspension PO PRN (19:15)
[2017-01-25] MEDS ORDERED: Heparin 5,000 Unit/mL Inj SUBQ SCH (19:15)
[2017-01-25] MEDS ORDERED: Polyethylene Glycol (PEG) 17 Gm Powder PO PRN (19:15)
[2017-01-25 19:16] VITALS: BP 123/86; PULSE 82; RESP 15; O2SAT 96
[2017-01-25 19:20] VITALS: BP 137/86; PULSE 79; RESP 20; O2SAT 99
[2017-01-25 19:46] LABS: APPEARANCE,URINE CLEAR (CLEAR,HAZY); COLOR,URINE STRAW (YELLOW); OCCULT BLOOD,URINE NEGATIVE (NEGATIVE); UROBILINOGEN,URINE NORMAL (NORMAL)
--- NOTE | 2017-01-25 20:06 | NUR ---
Admit Pt arrived on unit during shift change at apprx 1900 via stretcher from ED with all personal belongings. Able to transfer self to bed. VSS. Complained of nausea, administered Zofran 4mg, IV push. Oriented to room and call light. Bed locked, low position. SBA for safety. 1:1 sitter. Flat affect, cooperative with care.
--- NOTE | 2017-01-25 21:13 | PCM.HPMED ---
Subjective Date of Service January 25, 2017 Primary Provider: Admitting Physician: Richie Belcher MD Primary Care Physician: Adolfo Attending Physician: Richie Belcher MD Admit Status: From the Emergency Department, Remote Telemetry Chief Complaint: "I was trying to hurt myself" History of Present Illness: Patient is a 36-year-old white female with a history of multiple psychiatric admissions, history of hostile behavior towards hospital staff, PTSD, depression , anxiety, bipolar disorder, suicide attempts and self-harm who presented to [facility] emergency department via EMS services services due to a Tylenol overdose. According to Dr. Chas Benavides patient took 100 500 mg Tylenol tablets or pills. She then called the [place] who sent the emergency medical services. Patient reported that she vomited in the ambulance. She also had 2 open wounds on her abdomen that she reported inflicting herself 2 days ago. Patient stated that "little stuff happened" to her when ask why she self harms. Patient denies any abusive childhood but reports she was jealous of the court foster kids". She denies any suicidal ideation, she claims that she just wants to hurt herself. Patient was admitted to the hospital service for further evaluation and treatment. Review of Systems: General: Patient states she just wants to hurt herself but is not suicidal. She has no constitutional symptoms of fever, chills, sweats or other constitutional symptoms. HEENT: Patient has no headache, patient has no diplopia, patient has no changes in vision. Patient has no problems with their ears, nose or throat. Patient has no known dental problems. Patient has no pharyngitis or history of thrush. Neck: Patient has no stiffness in the neck. Patient has no lymphadenopathy. Patient has no other problems with their neck. Pulmonary: Patient has no shortness of breath, no cough, no expectoration of sputum. Patient has no pleurisy. Patient has no chest pain. Patient has no history of asthma or COPD. Cardiovascular: Patient has no chest pain. Patient has no history of heart murmur. Patient has no palpitations. Patient has no history of myocardial infarction. Patient has no history of coronary artery disease. Gastrointestinal: Patient has no history of hepatitis A, B or C. Patient has no history of peptic ulcer disease. Patient has no history of gastroesophageal reflux disease. Patient has no history of nausea, vomiting, or diarrhea. Patient has no history of hematemesis, hematochezia, or melena. Patient has no history of colitis. Renal: Patient has no history of kidney disease. No history of kidney stones. Genitourinary: Patient has no history of dysuria, frequency, or incontinence. Patient has no previous history of genitourinary problems. Musculoskeletal: Patient has no history of muscular skeletal problems. Neurologic: Patient has no history of stroke, no history of seizure, no history of TIA. Psychiatric: Patient has a history of PTSD, depression, anxiety, bipolar disorder, previous suicide attempts and self-mutilation. The remainder of the entire review of systems was reviewed with patient and is as mentioned above otherwise negative. Allergies Coded Allergies: No Known Allergies (Unverified , 06/28/16) UNABLE TO ASK PT. REVIEWED HX NOTES. Home Medications Scheduled Cholecalciferol (Vitamin D3) (Vitamin D3) 1,000 Unit Tab.chew 1,000 UNIT PO DAILY Docusate Sodium (Docusate Sodium) 250 Mg Capsule 250 MG PO BID Ferrous Sulfate (Ferrous Sulfate) 325 Mg Tablet 325 MG PO TID Levothyroxine (Levothyroxine) 100 Mcg Tablet 100 MCG PO DAILY Mirtazapine (Mirtazapine) 30 Mg Tablet 30 MG PO HS [place]-3 Fatty Acids/Fish Oil ([place] 3 1,000 mg Softgel) 1 Each Capsule 1 EACH PO TID Prazosin (Prazosin) 2 Mg Capsule 4 MG PO HS Quetiapine Fumarate (Quetiapine Fumarate) 25 Mg Tablet 75 MG PO 0800, 1400 Quetiapine Fumarate (Quetiapine Fumarate) 100 Mg Tablet 200 MG PO HS Scheduled PRN Clonazepam (Clonazepam) 1 Mg Tablet 1 MG PO BID PRN PRN For Anxiety Naproxen (Naproxen) 250 Mg Tablet 500 MG PO BIDWM PRN PRN For Pain PMH PTSD Depression Anxiety Bipolar disorder Previous suicide attempts and self-mutilation Surgical History Patient denies any history of having any surgery. She has had multiple repairs of self mutilation wounds on her abdomen. Family History Patient's father is 68 and healthy Patient's mother is 64 and healthy The patient has one brother who is healthy The patient has 1 sister who is healthy Social History Hx Alcohol Use: No Hx Substance Use: No Hx Tobacco Use: Yes (10 year smoker) Smoking Status: Former Smoker (The patient states she smoked one half a pack a day for 10 years.) Years of Smokin Living Arrangement: Alone Additional Information Patient was born in [place] and she grew up in [place]. She went to high school in [place] and graduated high school. She then went to college and a small school in [place] called [employer] studying accounting for a urinary half before dropping out. She dropped out enjoying the [employer] and after one year was honorably discharged. The reason for her discharge was for "cutting" and self mutilation. She now lives alone in an apartment and when I asked her what she does for fun she stated that she "likes soccer".. Exam Vital Signs Vital Sign - Last Date Time Temp Pulse Resp B/P Pulse Ox O2 Delivery O2 Flow Rate FiO2 01/25/17 19:20 36.6 79 20 137/86 99 Room Air Exam General: Patient is lying supine in bed with a flat affect. She does not appear to be in any distress. HEENT: Head is atraumatic and normocephalic. Eyes: Pupils are equally round and reactive to light and accommodation. Extraocular muscles are intact. Sclera are white, anicteric. Subconjunctival mucosa is pink. Ears and nose are unremarkable. Oropharynx: There is no mucosal lesions, there is no thrush, there is no pharyngitis. Neck: Is supple, there are no nodes, or masses or tenderness. Chest: Is clear to auscultation and percussion. There are no rales, rhonchi, wheezes or rubs. Heart: Rate, rhythm is regular. There is no murmur, rub or gallop appreciated. Abdomen: Good bowel sounds are present. Abdomen is obese, soft, nontender, no organomegaly or masses were appreciated. Of note there anywhere between 30 and 50 scars from "cutting" on her abdomen there are 2 bandages from today's repair , which Dr. Chas Benavides states that he had stapled closed, these bandages are clean dry and intact. Extremities: Are symmetrical and well perfused. There is no edema, there is no cellulitis, no rash. Neurologic: There are no focal neurological deficits. Cranial nerves II through XII are intact. There are no sensory or motor deficits. Psychiatric: Patients mood is calm and she shows no sign of agitation. However , her affect is very flat. Genital: Deferred Rectal: Deferred Lab and Diagnostics Result Diagram: 01/25/17 1410 01/25/17 1410 Assessment & Plan Patient is a 36-year-old white female with a history of multiple psychiatric admissions, history of hostile behavior towards hospital staff, PTSD, depression , anxiety, bipolar disorder, suicide attempts and self-harm who presented to [facility] emergency department via EMS services services due to a Tylenol overdose. According to Dr. Chas Benavides patient took 100 500 mg Tylenol tablets or pills. She then called the [facility] who sent the emergency medical services. Patient reported that she vomited in the ambulance. She also had 2 open wounds on her abdomen that she reported inflicting herself 2 days ago. Patient stated that "little stuff happened" to her when ask why she self harms. Patient denies any abusive childhood but reports she was jealous of the court foster kids". She denies any suicidal ideation, she claims that she just wants to hurt herself. Patient was admitted to the hospital service for further evaluation and treatment. # Acetaminophen overdose - Continue N-acetylcysteine per poison control recommendations - Check acetaminophen levels every 6 hours - Recommend psychiatric consult - Patient wants to harm herself and will need a sitter. - Follow labs including a CMP with liver function test in a.m. # History of PTSD, anxiety, depression, bipolar disorder and/or borderline personality disorder with history of previous self-mutilation and suicide attempts. - Patient needs a sitter - Patient needs a psychiatric consult - Continue home psychiatric medications Disposition: Patient will likely be here more than 2 midnights for the evaluation and treatment of the above conditions. Therefore, patient was admitted as an inpatient. Richie Belcher MD January 25, 2017 21:13
[2017-01-25 21:52] VITALS: BP 144/95; PULSE 70; RESP 18; O2SAT 99
[2017-01-26] MEDS: Heparin 5,000 Unit/mL Inj SUBQ SCH ×3 (00:30→14:53)
[2017-01-26 00:52] LABS: Mean Corpuscular Hemoglobin 28.4 pg (27.0-35.0); Mean Corpuscular Volume 84.1 fL (81-100)
[2017-01-26 01:12] LABS: INR 1.03 ratio
[2017-01-26 01:15] VITALS: BP 114/79; PULSE 65; RESP 18; O2SAT 98
[2017-01-26 04:51] VITALS: BP 114/79; PULSE 74; RESP 18; O2SAT 96
[2017-01-26 05:48] VITALS: PULSE 74
[2017-01-26 06:02] LABS: BASOPHILS % (AUTO) 0.1 % (0-3); EOSINOPHILS % (AUTO) 0.1 % (0-5); MONOCYTES % (AUTO) 6.5 % (4-12); Mean Corpuscular Hemoglobin 28.2 pg (27.0-35.0); Mean Corpuscular Volume 85.4 fL (81-100); NEUTROPHILS % (AUTO) 79.4 % (40-74); Platelet Count 247 bil/L (150-400)
[2017-01-26 09:28] VITALS: BP 118/82; PULSE 70; RESP 16; O2SAT 96
[2017-01-26 11:24] VITALS: PULSE 78
[2017-01-26 13:28] VITALS: BP 117/80; PULSE 75; RESP 18; O2SAT 98
--- NOTE | 2017-01-26 14:16 | NUR ---
Social Work: Screening Data: Pt is a 36 y/o female admitted for tylenol OD, abd wound/lac. Pt's PCP is not listed. Pt's insurance is [facility] and [facility] medicaid. Pt has a very recent hospitalization discharging on 01/18/17. states he will meet with pt this afternoon, and she may be medically cleared. CIRCULAR RIPSAW OPERATOR will continue to follow. DAVON Nice
--- NOTE | 2017-01-26 15:31 | PCM.DIMED ---
Discharge Instructions Date of Service January 26, 2017 Dates of Hospitalization January 25, 2017 at 18:43 Discharge Diagnosis Discharge Diagnosis Acetaminophen overdose History of PTSD, anxiety, depression, bipolar disorder and/or borderline personality disorder with history of previous self-mutilation and suicide attempts. Patient Instructions Our social insurance administrator has made appointment with mental health providers, please keep these appointments. Francis Yu MD January 26, 2017 15:31
--- NOTE | 2017-01-26 15:36 | PCM.DC.MED ---
Discharge Summary Date of Service January 26, 2017 Dates of Hospitalization Date of Hospital Admission January 25, 2017 at 18:43 Date of Discharge: January 26, 2017 Providers: Admitting Physician: Richie Belcher MD Primary Care Physician: Adolfo Attending Physician: Richie Belcher MD Diagnosis at Time of Discharge Diagnosis at Time of Discharge Acetaminophen overdose History of PTSD, anxiety, depression, bipolar disorder and/or borderline personality disorder with history of previous self-mutilation and suicide attempts. Consultations patient was seen by social service who put together a safe discharge plan for this patient; home with Mom, same meds, and mental health appointments next week.. Please see their documentation for further information. Brief History Patient is a 36-year-old white female with a history of multiple psychiatric admissions, history of hostile behavior towards hospital staff, PTSD, depression , anxiety, bipolar disorder, suicide attempts and self-harm who presented to [facility] emergency department via EMS services services due to a Tylenol overdose. According to Dr. Chas Benavides patient took 100 500 mg Tylenol tablets or pills. She then called the [place] who sent the emergency medical services. Patient reported that she vomited in the ambulance. She also had 2 open wounds on her abdomen that she reported inflicting herself 2 days ago. Patient stated that "little stuff happened" to her when ask why she self harms. Patient denies any abusive childhood but reports she was jealous of the court foster kids". She denies any suicidal ideation, she claims that she just wants to hurt herself. Patient was admitted to the hospital service for further evaluation and treatment. Hospital Course 15 -medicaloly cleared for dischargePatient is a 36-year-old white female with a history of multiple psychiatric admissions, history of hostile behavior towards hospital staff, PTSD, depression, anxiety, bipolar disorder, suicide attempts and self-harm who presented to [facility] emergency department via EMS services services due to a Tylenol overdose. According to Dr. Chas Benavides patient took 100 500 mg Tylenol tablets or pills. [facility] Patient reported that she vomited in the ambulance. She also had 2 open wounds on her abdomen that she reported inflicting herself 2 days ago. Patient stated that "little stuff happened" to her when ask why she self harms. Patient denies any abusive childhood but reports she was jealous of the court foster kids". She denies any suicidal ideation, she claims that she just wants to hurt herself. Patient was admitted to the hospital service for further evaluation and treatment. # Acetaminophen overdose, poa, resolved - N-acetylcysteine per poison control recommendations - last 2 levels < # History of PTSD, anxiety, depression, bipolar disorder and/or borderline personality disorder with history of previous self-mutilation and suicide attempts. -Social service put together a safe discharge plan with mother, mental health appointment next week, and same meds Exam Vital Signs (Last) Date Time Temp Pulse Resp B/P Pulse Ox O2 Delivery O2 Flow Rate FiO2 01/26/17 13:28 36.7 75 18 117/80 98 Room Air Exam Alert cooperative, pleasant Cardia reg GI unremarkable no tenderness no rash no edema Test 01/25/17 14:10 01/25/17 18:20 01/26/17 00:42 01/26/17 05:35 Salicylates Level 3.0ug/mL (30-250) Urine Color Straw (YELLOW) Urine Appearance Clear (CLEAR,HAZY) Urine pH 6.0 (5.0-8.0) Urine Specific [place] 1.014 (1.003-1.035) Urine Protein Negativemg/dL (NEG,TRACE) Urine Glucose (UA) Negativemg/dL (NEGATIVE) Urine Ketones >80mg/dL (NEGATIVE) Urine Occult Blood Negative (NEGATIVE) Urine Nitrite Negative (NEGATIVE) Urine Bilirubin Negative (NEGATIVE) Urine Urobilinogen Normalmg/dL (NORMAL) Urine Leukocyte Esterase Negative (NEGATIVE) Urine RBC 0-2/hpf (0-2) Urine WBC 0-5/hpf (0-5) Urine Epithelial Cells Few/hpf (NONE-MOD) Urine Crystals None seen (NONE SEEN) Urine Bacteria None/hpf (NONE-FEW) Urine Hyaline Casts None/lpf (NONE) Urine Granular Casts None seen (NONE SEEN) Urine Waxy Casts None seen (NONE SEEN) Urine Red Blood Cell Casts None seen (NONE SEEN) Urine White Blood Cell Casts None seen (NONE SEEN) Urine Mucus None seen (None Seen) Urine Trichomonas None seen (NONE SEEN) Urine Yeast None (NONE SEEN) Urine Culture Reflexed Not indicated Prothrombin Time 11.0sec (8.1-12.5) Prothromb Time International Ratio 1.03ratio White Blood Count 12.1th/mm3 (3.8-10.1) Red Blood Count 4.19mil/mm3 (3.90-5.20) Hemoglobin 11.8g/dL (12.0-15.6) Hematocrit 35.8% (35.0-46.0) Mean Corpuscular Volume 85.4fL (81-100) Mean Corpuscular Hemoglobin 28.2pg (27.0-35.0) Mean Corpuscular Hemoglobin Concent 33.0% (32.0-37.0) Red Cell Distribution Width 13.5% (12.3-15.4) Platelet Count 247bil/L (150-400) Neutrophils (%) (Auto) 79.4% (40-74) Lymphocytes (%) (Auto) 13.7% (14-46) Monocytes (%) (Auto) 6.5% (4-12) Eosinophils (%) (Auto) 0.1% (0-5) Basophils (%) (Auto) 0.1% (0-3) Sodium Level 136mEq/L (134-144) Potassium Level 3.5mEq/L (3.5-5.2) Chloride Level 100mEq/L (97-108) Carbon Dioxide Level 20mmol/L (18-29) Blood Urea Nitrogen 7mg/dL (6-20) Creatinine 0.78mg/dL (0.57-1.00) Estimat Glomerular Filtration Rate 120mL/min (>59) Glucose Level 111mg/dL (60-99) Calcium Level 8.6mg/dL (8.5-10.1) Magnesium Level 2.0mg/dL (1.6-2.6) Total Bilirubin 0.7mg/dL (0.0-1.2) Aspartate Amino Transf (AST/SGOT) 14U/L (0-50) Alanine Aminotransferase (ALT/SGPT) 7U/L (0-32) Alkaline Phosphatase 52U/L (25-150) Total Protein 5.8g/dL (6.4-8.4) Albumin 3.6g/dL (3.4-5.0) Test 01/26/17 12:32 Acetaminophen Level < 15.0ug/mL Rx (10-25) Discharge Medications Discharge Medications Cholecalciferol (Vitamin D3) (Vitamin D3) 1,000 Unit Tab.chew 1,000 UNIT PO DAILY (Reported) Levothyroxine (Levothyroxine) 100 Mcg Tablet 100 MCG PO DAILY (Reported) Mirtazapine (Mirtazapine) 30 Mg Tablet 30 MG PO HS (Reported) Prazosin (Prazosin) 2 Mg Capsule 4 MG PO HS (Reported) Quetiapine Fumarate (Quetiapine Fumarate) 25 Mg Tablet 75 MG PO 0800 + 1400 ( Reported) Quetiapine Fumarate (Quetiapine Fumarate) 100 Mg Tablet 200 MG PO HS Prescribed by: MICHAEL YBARRA MD As needed Clonazepam (Clonazepam) 1 Mg Tablet 1 MG PO BID PRN PRN For Anxiety (Reported) Followup Plan Patient Instructions Our social media campaign manager has made appointment with mental health providers, please keep these appointments. Francis Yu MD January 26, 2017 15:36
--- NOTE | 2017-01-26 16:11 | NUR ---
Discharge Patient ambulated off unit with family and sitter in a stable condition. IV DC'd intact, tele removed, all personal belongings with patient. No new medications to discuss, all other medications continued per home schedule with next due doses discussed -- patient and family verbalized understanding. Patient has scheduled appointments (made [facility] -- 4 this week) that she assured she would keep and go to all 4 of these appointments. Patient had no current suicidal ideation throughout shift or at DC, pleasant and cooperative-- discussed potential side effects (listed on patient carenotes) of acetaminophen OD in the next 48-72 hour period and when patient should to return to ED -- patient and family verbalized understanding.
--- NOTE | 2017-01-26 16:39 | NUR ---
Social Work: Discharge Data: Pt is on day 1 of hospitalization for tylenol overdose. medically cleared pt. FISHERIES TECHNICAL OFFICER completed MH assessment after speaking with psychiatry as she was recently admitted in the psych unit. See MH assessment. No d/c planning needs. Plan: Pt will d/c home via POV with her father today. See MH assessment for safety planning. DAVON Nice
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
== END 2017-01-26 16:05 | disposition home or self-care (01) | DRG 918 ==
LOC: EDUNIT# 14:05 → EDBD 14:05 → SED 14:05 → MPC 18:43
PROVIDERS: ADMIT Internal Medicine Infectious Disease; ATTEND Internal Medicine Infectious Disease
PROC: 0HQ7XZZ Repair Abdomen Skin, External Approach (ICD-10-PCS; principal; 2017-01-25)
DX: T39.1X2A Poisoning by 4-Aminophenol derivatives, intentional self-harm, initial encounter (principal); S31.119A Laceration without foreign body of abdominal wall, unspecified quadrant without penetration into peritoneal cavity, initial encounter; F17.210 Nicotine dependence, cigarettes, uncomplicated; Z91.5 Personal history of self-harm; F43.10 Post-traumatic stress disorder, unspecified; X78.9XXA Intentional self-harm by unspecified sharp object, initial encounter

== ENCOUNTER 2017-01-29 16:31 | Emergency (ER) | payer MEDICAID, OTHER ==
[~2017-01-29 16:31] MED LIST changes: -DOCU250C2 PO; -FERR-83 PO; -NAPR250T PO; -OMEG1CAP56 PO
[2017-01-29 17:10] VITALS: BP 135/95; PULSE 123; RESP 20; O2SAT 96
--- NOTE | 2017-01-29 17:26 | ED.REPORT ---
HPI-Psychiatric Illness Date of Service January 29, 2017 ED Provider: Dr. Garibay 36 y/o female with a hx of multiple psych admits, hostile behavior towards hospital staff, PTSD, depression, anxiety, bipolar, suicide attempts and self harm presents to the ED via the police for suicidal ideation, onset today. [facility] by [facility]amin[facility] overdose. The police arrived to pt holding a full bottle of pills with water glass at side, then became combative with police en route to ER. Hx at the ED was not adequately obtained due to pt being uncooperative. Nursing Notes Stated Complaint: SUICIDAL Chief Complaint: Psychiatric Complaint Nursing Notes Reviewed: Yes Allergies: Coded Allergies: No Known Allergies (Unverified , 06/28/16) UNABLE TO ASK PT. REVIEWED HX NOTES. Scheduled Cholecalciferol (Vitamin D3) (Vitamin D3) 1,000 Unit Tab.chew 1,000 UNIT PO DAILY Levothyroxine (Levothyroxine) 100 Mcg Tablet 100 MCG PO DAILY Mirtazapine (Mirtazapine) 30 Mg Tablet 30 MG PO HS Prazosin (Prazosin) 2 Mg Capsule 4 MG PO HS Quetiapine Fumarate (Quetiapine Fumarate) 25 Mg Tablet 75 MG PO 0800 + 1400 Quetiapine Fumarate (Quetiapine Fumarate) 100 Mg Tablet 200 MG PO HS Scheduled PRN Clonazepam (Clonazepam) 1 Mg Tablet 1 MG PO BID PRN PRN For Anxiety General Time Seen by MD: 17:26 Chief Complaint Suicidal ideation Hx Obtained From: Patient Arrived By: Police Onset Occurred: Just prior to arrival Symptom Duration: Since onset Severity: Current: No pain currently Severity: Maximum: No pain Recent Healthcare: Recent doctor visit Similar Sx Previous: Yes Risk-Psychiatric Illness Suicide Risk Stratification RF Statements: Risk factors reviewed Past Medical History Past Medical History Notes: Medication list was obtained from [employer] on 10/04/2016: Prazosin 2 mg-2 caps at bedtime for nightmares Clonazepam 1 mg 1 tab by mouth twice a day for anxiety Haldol 10 mg 1 tab 3 times a day for paranoid thoughts, command hallucinations Viibryd 10mg 1 tab daily (with a note that [facility]") Temazepam 15mg 1 tab PRN insomnia Cogentin 1mg 1 tab 2x day to prevent tardive dyskinesia Past Medical History PTSD Depression Anxiety Bipolar disorder Previous suicide attempts and self-mutilation Past Surgical History None Family History Noncontributory Smoking History Former Smoker Social History Pt is a . Alcohol Use: Denies alcohol use Drug Use: Denies drug use Other Social History: Local resident Ambulatory Status Independent Review of Systems Unable to Obtain ROS Uncooperative Complete sys rev & neg: except as marked. Physical Exam Initial Vital Signs Vital Signs (First) Date Time Temp Pulse Resp B/P Pulse Ox O2 Delivery O2 Flow Rate FiO2 01/29/17 17:10 37.0 123 20 135/95 96 Room Air Initial VS: Reviewed, Vital signs abnormal Head / Eyes: Atraumatic, Normocephalic, PERRL Neck: Supple, Full range of motion Respiratory: Breath sounds normal, Clear to auscultation, No respiratory distress Extremities: Vascular intact, Neuro intact, No swelling, No tenderness Skin: Warm, Dry, No cyanosis General/Constitutional: Alert Behavior: Positive: Uncooperative Reports she will not hurt herself at home by nodding. Neurologic: Oriented X3, No motor deficits, No sensory deficits Abnormal Thinking / Perception: Positive: Suicidal, with plan Cardiovascular: Regular rhythm, Heart sounds NL, No gallop, No murmurs Heart Rate / Rhythm: Positive: Tachycardia Abdomen: Soft, No guarding, No rebound Two healing lacceration. One mid-abdomen and another on left lateral abdomen. Each lacceration is greater than 6 cm. Interpretation & Diagnostics Lab Results Interpretation Test 01/29/17 17:19 Hold Urine Received (Received) Re-Eval/Medical Decision Med Decision/Clinical Course The patient has presented multiple times with the same complaint. She is not very cooperative here. For our social services specialist she did answer yes and no questions. He called her parents and they felt comfortable picking her up. With all of her suicide attempts the patient has called 911, and is unclear as to why she wants to be at our facility. 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 She did not overdose this time and did not injure herself. Police saw her graft for 1006 did not take any. Source of Hx: Old records Re-Evaluation/Progress : Time of Eval: 17:40 Re-Evaluation/Progress Note: Rechecked pt. Discussed lab, imaging results and diagnosis. Informed the pt of the plan to discharge. Pt understands and agrees with plan. F/U instructions and RTER warning given. All questions addressed. Counseled Regarding: Diagnosis, Need for follow-up, When/why to return to ED Discharge & Departure Impression: Primary Impression: Suicidal ideation Disposition: Home Discharge Condition All VS Reviewed: Yes Additional Instructions: Contact [facility] at [phone]. Follow up with your doctor for further evaluation. Return to the emergency department in case of suicide ideation. Referrals: [facility] Scribe Attestation Portions of this note were transcribed by Karlo Campbell. I, , personally performed the history, physical exam and medical decision-making;I reviewed and confirmed the accuracy of the information in the transcribed note. Signed by Jamarcus Melendez. 01/29/17 4108 copies to: [facility] Alyl Garibay MD January 29, 2017 17:26 Karlo Campbell January 29, 2017 17:36
[2017-01-29 18:45] VITALS: BP 118/78; PULSE 87; RESP 16; O2SAT 97
[2017-01-29 18:59] VITALS: BP 118/78; PULSE 87; RESP 16; O2SAT 97
== END 2017-01-29 19:01 | disposition home or self-care (01) ==
LOC: SED 16:31
DX: R45.851 Suicidal ideations (principal); F32.9 Major depressive disorder, single episode, unspecified; F31.9 Bipolar disorder, unspecified; Z91.5 Personal history of self-harm; Z87.891 Personal history of nicotine dependence

== ENCOUNTER 2017-02-13 13:19 | Inpatient (IN) | payer OTHER ==
[2017-02-13] VITALS (8 sets, daily range): BP systolic 114–135; BP diastolic 56–82; PULSE 71–121; RESP 18–36; O2SAT 96–98
[~2017-02-13] VITALS: Ht 167.6 cm; Wt 97.4 kg
[2017-02-13] MEDS ORDERED: 0.9% Sodium Chloride 1,000 ML IV ONE ×2 (13:25→15:25)
--- NOTE | 2017-02-13 13:27 | ED.REPORT ---
HPI-Overdose/Alcohol Toxicity Date of Service February 13, 2017 ED Provider: Dr. Jeovany Luna History of Present Illness: Please also see police affidavit The patient is a 36 year old female with a hx of multiple psych admits, hostile behavior towards hospital staff, PTSD, depression, anxiety, bipolar, suicide attempts and self harm presents to the ED via EMS following an overdose with 100 Tylenol PM one hour [employer] force [employer]. She called the Crisis Center herself after overdosing. When asked what day it is, the pt says it is, "misery." She is slow to respond to questions and does not provide full, coherent, sentences.Pt states she is, "afraid her mother is going to ." She was seen on 01/29/17 for suicidal ideation via acetaminophen overdose, at which time she was combative and hostile with staff. Pt is a very poor historian. Nursing Notes Stated Complaint: OVERDOSE Chief Complaint: Psychiatric Complaint Nursing Notes Reviewed: Yes ([facility], [facility] not reconciled) Allergies: Coded Allergies: No Known Allergies (Unverified , 06/28/16) UNABLE TO ASK PT. REVIEWED HX NOTES. Scheduled Cholecalciferol (Vitamin D3) (Vitamin D3) 1,000 Unit Tab.chew 1,000 UNIT PO DAILY Levothyroxine (Levothyroxine) 100 Mcg Tablet 100 MCG PO DAILY Mirtazapine (Mirtazapine) 30 Mg Tablet 30 MG PO HS Prazosin (Prazosin) 2 Mg Capsule 4 MG PO HS Quetiapine Fumarate (Quetiapine Fumarate) 25 Mg Tablet 75 MG PO 0800 + 1400 Quetiapine Fumarate (Quetiapine Fumarate) 100 Mg Tablet 200 MG PO HS Scheduled PRN Clonazepam (Clonazepam) 1 Mg Tablet 1 MG PO BID PRN PRN For Anxiety General Time Seen by Provider: 13:56 Chief Complaint Drug overdose Modifying Factors: Intentional Hx Obtained From: Patient, EMS Arrived By: Ambulance Onset Occurred: Just prior to arrival Symptom Duration: Since onset Recent Healthcare: Recent doctor visit Similar Sx Previous: Yes Risk-Overdose/Alcohol Tox )( Suicide Risk Stratification : Previous attempt: Prior psych admission (operative) RF Statements: Risk factors reviewed Past Medical History Past Medical History Notes: Medication list was obtained from [employer] on 10/04/2016: Prazosin 2 mg-2 caps at bedtime for nightmares Clonazepam 1 mg 1 tab by mouth twice a day for anxiety Haldol 10 mg 1 tab 3 times a day for paranoid thoughts, command hallucinations Viibryd 10mg 1 tab daily (with a note that [facility]") Temazepam 15mg 1 tab PRN insomnia Cogentin 1mg 1 tab 2x day to prevent tardive dyskinesia Past Medical History PTSD Depression Anxiety Bipolar disorder Previous suicide attempts and self-mutilation Past Surgical History None Family History Noncontributory Smoking History Former Smoker Social History Pt is a . Alcohol Use: Denies alcohol use Drug Use: Denies drug use Other Social History: Local resident Ambulatory Status Independent Review of Systems Unable to Obtain ROS Patient condition, Mental status Complete sys rev & neg: except as marked. Physical Exam Initial Vital Signs Vital Signs (First) Date Time Temp Pulse Resp B/P Pulse Ox O2 Delivery O2 Flow Rate FiO2 02/13/17 13:27 36.4 121 31 133/64 97 02/13/17 13:43 Room Air Initial VS: Reviewed, Unavailable (no vitals on chart) General/Constitutional: Awake Alertness: Positive: Unresponsive Respiratory / Chest: Atraumatic, Breath sounds NL, Breath sounds = bilat Cardiovascular: No murmurs Heart Rate / Rhythm: Positive: Tachycardia Abdomen: Soft 5 cm open laceration self inflicted today Neurologic: Oriented X3, No motor deficits Abnormal Mood/Affect: Positive: Depressed odd stare slow to respond to questions occasionally gives seemingly inappropriate answers cannot provide useful hx Head / Eyes: Normocephalic, PERRL, EOMI Back: Atraumatic, Full range of motion Upper Extremity / MS: Atraumatic, Full range of motion, No deformity Lower Extremity / Pelvis / MS: Atraumatic, Full range of motion, No deformity Interpretation & Diagnostics Lab Results Interpretation Result Diagram: 02/13/17 1335 02/13/17 1335 Test 02/13/17 13:35 White Blood Count 11.1th/mm3 (3.8-10.1) Red Blood Count 4.65mil/mm3 (3.90-5.20) Hemoglobin 13.0g/dL (12.0-15.6) Hematocrit 39.2% (35.0-46.0) Mean Corpuscular Volume 84.3fL (81-100) Mean Corpuscular Hemoglobin 28.0pg (27.0-35.0) Mean Corpuscular Hemoglobin Concent 33.2% (32.0-37.0) Red Cell Distribution Width 13.2% (12.3-15.4) Platelet Count 421bil/L (150-400) Sodium Level 136mEq/L (134-144) Potassium Level 4.1mEq/L (3.5-5.2) Chloride Level 99mEq/L (97-108) Carbon Dioxide Level 16mmol/L (18-29) Blood Urea Nitrogen 16mg/dL (6-20) Creatinine 1.05mg/dL (0.57-1.00) Estimat Glomerular Filtration Rate 85mL/min (>59) Glucose Level 181mg/dL (60-99) Calcium Level 9.2mg/dL (8.5-10.1) Total Bilirubin 0.5mg/dL (0.0-1.2) Aspartate Amino Transf (AST/SGOT) 19U/L (0-50) Alanine Aminotransferase (ALT/SGPT) 7U/L (0-32) Alkaline Phosphatase 63U/L (25-150) Total Protein 7.5g/dL (6.4-8.4) Albumin 4.4g/dL (3.4-5.0) Human Chorionic Gonadotropin, Qual Negative (Negative) Salicylates Level < 3.0ug/mL (30-250) Acetaminophen Level 482.7ug/mL Rx (10-25) Alcohols < 10mg/dL (0-10) Lab Results Interpretation: CBC mild leukocytosis CMP low CO2 Tylenol elevated, this is a preliminary initial Tylenol, form of 4 hours also pending Salicylates negative All negative Urine tox screen pending negative Procedures Laceration Management Time: 15:24 Procedure Performed by: ED resident Consent / Setup / Site Prep: No consent - emergent Location of Wound: Abdomen Wound Length: 4 cm Local Anesthesia: Lidocaine w epi 2% Wound Preparation: Hibiclens - Chlorhexidine Debridement: None Irrigation: Copious Foreign Body Explore / Removal: Explored for foreign body Repair Skin: Nylon (4-0 nylon) # Sutures - Skin: 9 Closure Layers: 1 Suture Technique: Simple Post-Procedure / Complications: Dressing applied, No complications Re-Eval/Medical Decision Med Decision/Clinical Course This is a 36-year-old female with an extensive psychiatric history who presents by EMS after reported overdose one hour ago with greater than 100 Tylenol PM. The patient is not physically cooperative and/or mildly sedated-although she is alert, with eyes open, she does not engage in a useful conversation right much history. I cannot confirm the history is provided by the EMS, and have very little additional contacts. The patient is multiple similar presentations and overdoses in the past. She has a mild tachycardia but no hypertension. She is not hypoxic. She is managing her without difficulty. She does have a large 4-5 cm laceration of the anterior abdomen that she tells me occurred earlier today, but is given various answers apparently to other staff. She has a history of numerous self- inflicted abdominal lacerations. She is up-to-date on tetanus. At this point careful monitoring is indicated. The patient's being hydrated. Routine blood work is being ordered, an initial Tylenol levels ordered-as well as a four-hour Tylenol level in this setting and the description of a dedicated Tylenol overdose was occurred. At this time is unclear if there are any additional coingestions beyond the Benadryl she admits to the Tylenol PM. She tells me the abdominal laceration occurred earlier today, and is being anesthetized irrigated with the plan of a laceration repair. Labs reveal an elevated Tylenol over 400, and given this is a 2 hour level N acetylcysteine is being ordered. Please note there is no appropriate order for this in [employer], so pharmacy has been consult only inputting the medication order. A 4 hour Tylenol level for formal evaluation is still ordered. Initial LFTs are normal. Patient has developed some nausea and receiving ondansetron. Patient is being admitted for continued management. She remains tachycardic and tachypneic. Source of Hx: Old records, EMS Consultation : Call Returned at: 15:15 Note: Case discussed with poison control, they agree with mucomysyt and recommend checking magnesium Differential Diagnosis: Positive: Intoxication, other drug, Overdose, intentional, Overdose, other, Suicidal attempt Counseled Regarding: Diagnosis, Lab results, Need for follow-up, When/why to return to ED Discharge & Departure Shift Change Sign-Out Patient Care Transferred: No Discussed Complaint(s): No Laboratory Evaluation: Ordered, not yet done Impression: Primary Impression: Suicide attempt Additional Impressions: Laceration of abdominal wall Encounter type: initial encounter Qualified Code: S31.119A - Laceration without foreign body of abdominal wall, unspecified quadrant without penetration into peritoneal cavity, initial encounter Acetaminophen overdose Encounter type: initial encounter Injury intent: intentional self-harm Qualified Code: T39.1X2A - Poisoning by 4-Aminophenol derivatives, intentional self-harm, initial encounter Diphenhydramine overdose Encounter type: initial encounter Injury intent: intentional self-harm Qualified Code: T45.0X2A - Poisoning by antiallergic and antiemetic drugs, intentional self-harm, initial encounter Overdose Encounter type: initial encounter Injury intent: intentional self-harm Qualified Code: T50.902A - Poisoning by unspecified drugs, medicaments and biological substances, intentional self-harm, initial encounter Metabolic acidosis Disposition: Home Discharge Condition All VS Reviewed: Yes Condition: Stable Referrals: [facility] (PCP) [facility] Care Transferred to: Mimi Attestation Portion of this note were transcribed by Nina Bruce. I, Dr. Luna, personally performed the history, physical exam, and medical decision-making: I reviewed and confirmed the accuracy for the information in the transcribed note. Signed by: mimi Flores, 02/13/17 1500 copies to: [facility] Jeovany Luna MD February 13, 2017 13:27 Nina Bruce February 13, 2017 13:30
[2017-02-13 13:54] LABS: Mean Corpuscular Volume 84.3 fL (81-100)
[2017-02-13] MEDS ORDERED: Bupivacaine 0.5%/EPI 50 mL Inj SUBQ ONE (14:15)
[2017-02-13] MEDS ORDERED: Ondansetron 2 mg/mL 2 mL Inj IVPUSH PRN (15:25)
[2017-02-13] MEDS ORDERED: Ondansetron 2 mg/mL 2 mL Inj IVPUSH ONE (15:25)
[2017-02-13] MEDS ORDERED: Alum-Mag Hydrox-Simeth 30 mL Suspension PO PRN ×2 (15:25→19:30)
[2017-02-13] MEDS ORDERED: 0.9% Sodium Chloride 1,000 ML IV SCH (15:25)
[2017-02-13] MEDS ORDERED: Acetylcysteine 5,000 mg/500 mL D5W IV ONE ×2 (16:30)
--- NOTE | 2017-02-13 17:34 | NUR ---
Admission patient arrived to room 3031 at 1715hrs, assumed care at that time. patient denies pain/discomfort. reports mild nausea and lightheadedness. patient did have one emesis enroute from ER. patient calm/cooperative with flat affect. she agrees to not harm herself or other while here. she agrees to cooperate with plan of care. 1:1 sitter.
--- NOTE | 2017-02-13 19:20 | PCM.HPMED ---
Subjective Date of Service February 13, 2017 Primary Provider: Admitting Physician: Burton Greer Primary Care Physician: [facility] Attending Physician: Burton Greer Chief Complaint: Tylenol overdose History of Present Illness: 36-year-old white female with a history of multiple psychiatric admissions, history of hostile behavior towards hospital staff, PTSD, depression, anxiety, bipolar disorder, suicide attempts and self-harm who presented to [facility] emergency department via EMS services services due to a Tylenol overdose. Patient reports taking about 100 Tylenol PM one hour prior to arrival. She called the Crisis Center herself after overdosing. She admits to trying to hurt herself but denies any suicide ideation at this time. She also reports cutting her abdomen with a blade. She notes that she has a [facility] whom she last saw about a week ago at which time she says everything was "fine". Review of Systems: Constitutional: Negative, except as otherwise mentioned in the history above. Ophthalmologic: Negative, except as otherwise mentioned in the history above. Cardiovascular: Negative, except as otherwise mentioned in the history above. Respiratory: Negative, except as otherwise mentioned in the history above. Gastrointestinal: Negative, except as otherwise mentioned in the history above. Genitourinary: Negative, except as otherwise mentioned in the history above. Musculoskeletal: Negative, except as otherwise mentioned in the history above. Neurological: Negative, except as otherwise mentioned in the history above. Psychiatric: Negative, except as otherwise mentioned in the history above. Hematologic/Lymphatic: Negative, except as otherwise mentioned in the history above. Allergic/Immunologic: Negative, except as otherwise mentioned in the history above. Allergies Coded Allergies: No Known Allergies (Unverified , 06/28/16) UNABLE TO ASK PT. REVIEWED HX NOTES. Home Medications Prazosin 2 Mg Capsule 4 Mg PO HS Clonazepam 1 Mg Tablet 1 Mg PO BID PRN Mirtazapine 30 Mg Tablet 30 Mg PO HS Quetiapine Fumarate 25 Mg Tablet 75 Mg PO BIDWM Quetiapine Fumarate 100 Mg Tablet 200 Mg PO HS Hormones And Synthetic Substit 100 Mcg PO QAM Exam Vital Signs & I/O Vital Sign- Last 8 Hours Date Time Temp Pulse Resp B/P Pulse Ox O2 Delivery O2 Flow Rate FiO2 02/13/17 17:19 36.7 91 18 135/82 97 Room Air 02/13/17 17:16 90 02/13/17 16:52 97 36 114/62 97 Room Air 02/13/17 15:08 116 31 126/63 97 Room Air 02/13/17 14:08 114 30 117/56 98 02/13/17 13:43 111 33 119/61 96 Room Air 02/13/17 13:27 36.4 121 31 133/64 97 Lab & Micro Results Laboratory Tests Test 02/13/17 13:35 02/13/17 15:58 White Blood Count 11.1th/mm3 (3.8-10.1) Red Blood Count 4.65mil/mm3 (3.90-5.20) Hemoglobin 13.0g/dL (12.0-15.6) Hematocrit 39.2% (35.0-46.0) Mean Corpuscular Volume 84.3fL (81-100) Mean Corpuscular Hemoglobin 28.0pg (27.0-35.0) Mean Corpuscular Hemoglobin Concent 33.2% (32.0-37.0) Red Cell Distribution Width 13.2% (12.3-15.4) Platelet Count 421bil/L (150-400) Sodium Level 136mEq/L (134-144) Potassium Level 4.1mEq/L (3.5-5.2) Chloride Level 99mEq/L (97-108) Carbon Dioxide Level 16mmol/L (18-29) Blood Urea Nitrogen 16mg/dL (6-20) Creatinine 1.05mg/dL (0.57-1.00) Estimat Glomerular Filtration Rate 85mL/min (>59) Glucose Level 181mg/dL (60-99) Calcium Level 9.2mg/dL (8.5-10.1) Magnesium Level 1.8mg/dL (1.6-2.6) Total Bilirubin 0.5mg/dL (0.0-1.2) Aspartate Amino Transf (AST/SGOT) 19U/L (0-50) Alanine Aminotransferase (ALT/SGPT) 7U/L (0-32) Alkaline Phosphatase 63U/L (25-150) Total Protein 7.5g/dL (6.4-8.4) Albumin 4.4g/dL (3.4-5.0) Human Chorionic Gonadotropin, Qual Negative (Negative) Salicylates Level < 3.0ug/mL (30-250) Acetaminophen Level 482.7ug/mL Rx (10-25) 324.1ug/mL Rx (10-25) Alcohols < 10mg/dL (0-10) Result Diagram: 02/13/17133402/13/171334 [facility] PTSD Depression Anxiety Bipolar disorder Previous suicide attempts and self-mutilation Surgical History Patient denies any history of having any surgery. She has had multiple repairs of self mutilation wounds on her abdomen. Family History Patient's father is 68 and healthy Patient's mother is 64 and healthy The patient has one brother who is healthy The patient has 1 sister who is healthy Social History Hx Alcohol Use: No Hx Substance Use: No Hx Tobacco Use: Yes Smoking Status: Current Every Day Smoker (/ ppd) Exam Vital Signs Vital Sign - Last Date Time Temp Pulse Resp B/P Pulse Ox O2 Delivery O2 Flow Rate FiO2 02/13/17 17:19 36.7 91 18 135/82 97 Room Air General: Alert, Oriented X3, Cooperative, No Acute Distress Head: Normal Eyes: PERRLA, EOMI, Scleral Anicteric Mouth: Mucous Membr Moist/[place] Neck: Supple Chest & Lungs: Chest Wall Normal, Clear to auscultation & percussion Cardiovascular: Regular Rate/Rhythm Pulses: NL carotid, radial, femoral, DP, PT Abdomen: Non-tender, Non-distended, Normoactive bowel tones, Soft Extremities: No cyanosis/clubbing/edma bilat Skin: Other ( Of note there anywhere between 30 and 50 scars from "cutting" on her abdomen there is a bandage from today's repair,) Neurological: Grossly Neurologically Intact, Cranial Nerves 2-12 Intact, Normal Speech Additional Information: Psych: flat affect and calm Lab and Diagnostics Result Diagram: 02/13/17133402/13/171334 Assessment & Plan 36-year-old white female with a history of multiple psychiatric admissions, history of hostile behavior towards hospital staff, PTSD, depression, anxiety, bipolar disorder, suicide attempts and self-harm who presented to [facility] emergency department via EMS services services due to a Tylenol overdose. # Acetaminophen overdose, acute and recurrent - Continue N-acetylcysteine per poison control recommendations - Check acetaminophen levels every 4 hours - Recommend psychiatric consult in am - Denies any suicidal ideation at this time but will still need a sitter over night - Follow labs including a CMP with liver function test in a.m. # History of PTSD, anxiety, depression, bipolar disorder and/or borderline personality disorder with history of previous self-mutilation and suicide attempts. - Patient needs a sitter - Patient needs a psychiatric consult - Continue home psychiatric medications for now Disposition: Patient will likely be here more than 2 midnights for the evaluation and treatment of the above conditions. GI Prophylaxis: Not indicated VTE Prophylaxis: Sub-Q Heparin (Unfractionated), SCDs Resuscitation Status: CPR: Attempt Resuscitation Time spent 45 min Burton Greer February 13, 2017 19:20
[2017-02-13] MEDS ORDERED: Polyethylene Glycol (PEG) 17 Gm Powder PO PRN (19:30)
[2017-02-13] MEDS: Ondansetron 2 mg/mL 2 mL Inj IVPUSH PRN (19:43)
[2017-02-13] MEDS ORDERED: MetoCLOpramide 5 mg/mL 2 mL Inj IVPUSH PRN (20:15)
[2017-02-13] MEDS ORDERED: ACETYLCYSTEINE IV SCH ×2 (20:30)
[2017-02-13] MEDS ORDERED: D5W IV SCH ×2 (20:30)
--- NOTE | 2017-02-13 22:16 | NUR ---
Nausea/Vomiting Pt complained of nausea. Administered Zofran 4mg, ineffective. Pt vomited apprx 50 cc emesis x2. notified. New order: Reglan 5mg IV push. Pt reports "some relief." No complaints of n/v at this time. Pt resting in bed with eyes closed. Will continue to monitor. Addendum: 02/14/17 at 0119 by DANIEL HOSKINS RN N/V Reglan, effective. No further complaints of n/v at this time. Call light within reach, using appropriately. Will continue to monitor.
[2017-02-14 00:48] VITALS: BP 124/83; PULSE 71; RESP 18; O2SAT 98
--- NOTE | 2017-02-14 03:39 | PCM.PNMED ---
Subjective Date of Service Feb 14, 2017 Subjective Nurse called to report that patient was agitated and threatening to leave the hospital She was trying to mess around with a wound in her abdomen [facility] called. Four point restraint ordered and indicated Naeem Mac MD Feb 14, 2017 03:39
[2017-02-14] MEDS ORDERED: Ziprasidone 20 mg/mL Inj IM ONE (05:00)
--- NOTE | 2017-02-14 05:06 | NUR ---
Behavior/Restraints/ Mago Man/ Denisha At apprx 0300 pt became restless, pulled off abd dressing and tried to pull out IV line. When asked why pt wanted to remove dressing pt stated, "I want to pull out my stitches." Pt then stated while laughing, "Im leaving. I don't want to stay here. You can't keep me here. I'm not JADE'd" Pt smiling while telling RN, "I want to hurt myself." " Do you know how many times I've overdosed and nothing has ever happened?" "Just let me ." Pt refused to sign a no harm contract. Refused HS medications or PRN medications to help with anxiety. Pt also denied agreeing to a verbal no harm contract during day shift.Behaviors accelerated she became even more agitated. Mago Man called. notified. Nursing general car yard supervisor notified. Spoke with JOSE Ritter from [facility]. Stone contacted [facility] and spoke with Ashely. RN notifed to call [facility] to get further instructions. 's new order: 4 pt locked restraints and an order for a CDMHP evaluation. It took 2 members of security and 6 staff members to restrain pt. Pt continued to be agitated despite being in restraints. She is continually trying to pull of abd dressing on right side, trying to pick at wounds on both left and right side and pull out IV line. notified. New order: Geodon 10mg IM. Sitter at bedside. Restraints documented q 2hrs and Restrain forms signed by , in chart. RN spoke with [facility] Ashely will will call [facility] after contacting [place]. Call light within reach. Continuing to monitor.
[2017-02-14 05:48] VITALS: PULSE 75
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
[2017-02-14 08:00] VITALS: PULSE 54
[2017-02-14 08:43] VITALS: BP 130/77; PULSE 82; RESP 22; O2SAT 95
--- NOTE | 2017-02-14 11:29 | NUR ---
Wound Note Wound orders received, patient seen at bedside, 36 yo female in 4 point restraints. Admitted to [facility] for Tylenol overdose, per ER MD patient has extensive history [facility] and a history of self harm. Today patient presents with multiple scars on her abdomen and a 5 cm recently sutured laceration at her left abdomen, there is no drainage or induration noted at wound, should heal by primary intention unless patient removes her own sutures prematurely which she verbalizes that she probably will once she gets home. Discouraged this behavior and placed a xeroform over the incision and sutures followed by an island dressing. No further wound needs at this time, dressing should not need changing during current hospitalization.
--- NOTE | 2017-02-14 11:52 | NUR ---
Social Work: Screening Data: Pt is a 36 y/o female admitted for overdose. Pt's PCP is Beni Neff [place], pt's insurance is [facility]. EMR reviewed, readmit score is 4, high. Pt has frequent admissions for suicidal attempts. MD ordered Psych to consult on pt. SIZING MACHINE OPERATOR will continue to follow. Assessment: Pt with MH history of multiple suicide attempts. Plan: SIZING MACHINE OPERATOR will continue to follow and will review Psych and MD recommendations. DAVON Nice
[2017-02-14 12:24] VITALS: BP 129/80; PULSE 66; RESP 20; O2SAT 99
[2017-02-14 14:38] LABS: Mean Corpuscular Hemoglobin 27.8 pg (27.0-35.0); Mean Corpuscular Volume 84.2 fL (81-100)
[2017-02-14 14:55] LABS: INR 1.11 ratio
[2017-02-14 15:09] LABS: Magnesium 1.9 mg/dL (1.6-2.6)
--- NOTE | 2017-02-14 17:01 | NUR ---
Restraints Cooperative behavior and requesting to sign no harm contract. Restraints d/cd. 2 attempts to pull IV line within 15 minutes and 1 attempt to pull dressing. Mago Man called and Provider notified resulting in 4pt locking restraints re-applied. Educated pt on need for medical hold at this time.
--- NOTE | 2017-02-14 17:26 | PCM.PNMED ---
Subjective Date of Service Feb 14, 2017 Subjective Patient just saying that she can go home and begins picking and pulling at IVs and her wounds. Exam Vital Signs Vital Sign - Last Date Time Temp Pulse Resp B/P Pulse Ox O2 Delivery O2 Flow Rate FiO2 02/14/17 12:24 36.5 66 20 129/80 99 Room Air Intake and Output 02/13/17 02/13/17 02/14/17 Cumulative From/Thru 15:00 23:00 07:00 02/13/17 13:27 - 02/14/17 06:29 Intake Total 1000 ml 1154 ml 1192 ml 3346 ml Output Total 50 ml 50 ml Balance 1000 ml 1104 ml 1192 ml 3296 ml Intake Oral 0 ml 0 ml IV Total 1000 ml 1154 ml 1192 ml 3346 ml Output Emesis 50 ml 50 ml # Bowel Movements 0 0 Exam Gen.-Obese female had seen her lying in bed in restraints as well as sitting up in a chair when it required 9 people to get her back in bed into the restraints that she was not cooperating and had been picking at her IV and wounds. Eyes- open conjunctiva clear, pupils equal nonicteric ENT- ears normal, nose normal Neck- supple/trach midline CVS- RRR no murmur or gallop Lungs regular nonlabored GI-generous abdomen Musc- moving 4 no obvious deformity Neuro- cranial nerves II through XII intact to gross examination, nonfocal Skin- warm and dry, no rashes/lesions/wounds noted Psych-silent/oppositional Lab and Diagnostics Result Diagram: 02/14/17 1425 02/14/17 1425 Assessment & Plan 36-year-old white female with a history of multiple psychiatric admissions, history of hostile behavior towards hospital staff, PTSD, depression, anxiety, bipolar disorder, suicide attempts and self-harm who presented to [facility] emergency department via EMS services services due to a Tylenol overdose. 02/14 patient has required restraints, she needs social work to clear her for suicidal ideation tomorrow she will be medically stable for discharge 02/15. Not candidate for inpatient psychiatry at [facility]. Complex patient being met for first time, high risk for complications. # Acetaminophen overdose, acute and recurrent- resolved May DC Mucomyst as well as IVs, patient continues to require 4-point restraints to keep herself from picking stuff - Continue N-acetylcysteine per poison control recommendations - Check acetaminophen levels every 4 hours - Recommend psychiatric consult in am - Denies any suicidal ideation at this time but will still need a sitter over night - Follow labs including a CMP with liver function test in a.m. # History of PTSD, anxiety, depression, bipolar disorder and/or borderline personality disorder with history of previous self-mutilation and suicide attempts. - Patient needs a sitter - Continue home psychiatric medications for now we have gotten psychiatry consult thank you very much -Recommendations are to continue [facility] psychotropic medication regimen without changes. This patient is not a candidate for psychiatric care at this facility given personality issues and their inability to make progress Disposition: Patient will likely be here more than 2 midnights for the evaluation and treatment of the above conditions. GI Prophylaxis: Not indicated VTE Prophylaxis: Sub-Q Heparin (Unfractionated), SCDs VTE Mechanical Devices: Venous Foot Pump Resuscitation Status: CPR: Attempt Resuscitation Santana Lozano MD Feb 14, 2017 17:26
[2017-02-14 18:15] VITALS: BP 129/83; PULSE 69; RESP 19; O2SAT 97
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
--- NOTE | 2017-02-15 05:31 | NUR ---
Restraints/ NOC Shift pt remains in 4 point locked restraints at this time. Every 2hrs the restraints have been removed for ROM and position changes. pt offered food/drink at those times, pt has continuously declined. pt verbalized that she would not say "yes" to those items even if she wanted them. pt declined to use the restroom for voiding needs or to have a bowel movement. pt did accept ind oral care and a new gown, but declined to take a bath, pt did received clean bed sheets. pt declined to take HS meds. pt denied having any pain during the night. reports shoulders "hurt" only when arms are above head, not when down by her sides. pt was able to remove both abd dressings x1 during NOC shift, dressings re-applied, abd binder in place to protect dressings and wounds. sitter at bedside. RN asked if pt had thoughts of hurting herself, pt replied "I will when I get out of here" pt requested to be removed from restraints, RN verbalized if the patient is able to not grab/pull/tug at abd dressings/wounds or IV that the need for restraints will be re-assessed. pt has declined to cooperate. pt has refused vital signs during the night. she has continued to flex her muscles during blood pressure attempts-unable to get a reading, pt has continued to wiggle out of the pulse oximeter-unable to get a reading. multiple unsuccessful attempts at different times have been tried to obtain vital signs. pt has not been cooperative with care during the night.
[2017-02-15 05:32] VITALS: PULSE 73
[2017-02-15] MEDS: Ondansetron 2 mg/mL 2 mL Inj IVPUSH PRN ×2 (07:43→12:37)
[2017-02-15 08:00] VITALS: PULSE 84
--- NOTE | 2017-02-15 12:43 | NUR ---
Social work Note - Mental Health evaluation ' Tammy Colon is a 36 yr old admitted for intentional Tylenol overdose. She was admitted on 02/13/17 for medical treatment. She is medically stable today. Pt states that she took a bottle of pills on Saturday because she was upset that her mother went to [place] on vacation. She states she took the pills and then waited about a half an hour before she called [facility] crisis line. EMS brought her to the ED for treatment. Current Mental Status: Pt is awake, alert x3. She recognized SUPERVISOR RECLAMATION from previous hospital stays. She is able to share information in short, clipped conversation, does not volunteer any information. Pt is in 4 point restraints as she is constantly cutting into her abdominal wounds, ripping out her IV's. She denies any current thoughts of suicidal ideation - states that she just wants to go home. She admits to constant thoughts of self harm - "they never go away". Pt is impulsive, appropriate hygiene, holds intensive eye contact. Pt has refused to eat or drink while in the hospital. She refuses to urinate - needed to be straight cathed, non-compliant with care. Pt has limited insight, impaired judgement. Psychiatric History: Pt has had multiple voluntary and involuntary hospitalizations - is connected with [facility] - SUPERVISOR RECLAMATION called [facility] and left a message for team. Pt is followed by the [facility] in [place]. Chemical Dependency: No hx of Drug use, ETOH Use Legal hx: None Suicide Risk: Pt denies any current suicidal ideation - states she will continue to self harm. Diagnosis: PTSD, Major Depressive Disorder, Borderline personality disorder Plan: SUPERVISOR RECLAMATION was directed by psychiatrist and MD to ask for [facility] for evaluation for inpt psych. Pt continues to show pattern of self harm, refusing to eat or drink or urinate. She needs to remain in 4 point restraints. KELSEY Ayala
--- NOTE | 2017-02-15 14:43 | NUR ---
INGOT CAR OPERATOR called [facility] asking for [facility] evaluation. [facility] states that they need [facility] to come to evaluate. INGOT CAR OPERATOR had called [facility] at 11:30 today - Pt's clinician Gabby is out of the office today and Pt's team was to call me back - at this time no calls or check in from [facility]. [facility] will reach out to [facility] to talk with clinician. Plan: Continue to work for [facility] to evaluate pt for [facility] hospitalization. KELSEY Ayala
--- NOTE | 2017-02-15 15:50 | NUR ---
Social work note NEWS VIDEO EDITOR and Aamir Marino Godinez crossing supervisor, met with pt - Pt is not willing to share information, and states that she wants to go home. She continues to refuse to eat, refuse to urinate and she admits that she would go home and cut herself. NEWS VIDEO EDITOR spoke with Barry at [facility] who will have [facility] dispatched to the room for eval. NEWS VIDEO EDITOR printed out records and relayed information to Floor RN and NEWS VIDEO EDITOR. Plan: [facility] to evaluate for involuntary placement. KELSEY Ayala
--- NOTE | 2017-02-15 16:31 | PCM.DIMED ---
Discharge Instructions Date of Service Feb 15, 2017 Dates of Hospitalization February 13, 2017 at 15:42 Discharge Diagnosis Discharge Diagnosis Tylenol overdose, self harm/cutting of abdomen Diet Discharge Diet: No restrictions Activity Discharge Activity: No restrictions Call your provider Call your provider for: Other (feeling like or actually harming yourself) Patient Instructions Follow-up plan Follow-up with outpatient treatment plan as previously once discharged from mental health unit Follow-up Provider: [facility] Follow-up with PCP in: 1 week Santana Lozano MD Feb 15, 2017 16:31
--- NOTE | 2017-02-15 16:41 | PCM.DC.MED ---
Discharge Summary Date of Service Feb 15, 2017 Dates of Hospitalization Date of Hospital Admission February 13, 2017 at 15:42 Date of Discharge: Feb 15, 2017 Providers: Admitting Physician: Burton Greer [facility] Attending Physician: Burton Greer Diagnosis at Time of Discharge Diagnosis at Time of Discharge Tylenol overdose, self harm/cutting of abdomen Consultations Psychiatry, Katia Brief History 36-year-old white female with a history of multiple psychiatric admissions, history of hostile behavior towards hospital staff, PTSD, depression, anxiety, bipolar disorder, suicide attempts and self-harm who presented to [facility] emergency department via EMS services services due to a Tylenol overdose. Patient reports taking about 100 Tylenol PM one hour prior to arrival. She called the Crisis Center herself after overdosing. She admits to trying to hurt herself but denies any suicide ideation at this time. She also reports cutting her abdomen with a blade. She notes that she has a psychiatrist at [facility] whom she last saw about a week ago at which time she says everything was "fine". Hospital Course 36-year-old white female with a history of multiple psychiatric admissions, history of hostile behavior towards hospital staff, PTSD, depression, anxiety, bipolar disorder, suicide attempts and self-harm who presented to [facility] emergency department via EMS services services due to a Tylenol overdose. 02/14 patient has required restraints, she needs social work to clear her for suicidal ideation tomorrow she will be medically stable for discharge 02/15. Not candidate for inpatient psychiatry at [facility]. Complex patient being met for first time, high risk for complications. 02/15 multiple attempts have been made to get this patient out of restraints and every time is pulling on her IV and her wounds. Despite signing behavioral contract she immediately returns to the same behaviors. We have spent the day trying to get social work, her personal counselor as well as [facility] to clear her as she has been medically clear for discharge since this morning. Because of her behaviors and need for CT torso even with heart restraints in place she manages to maneuver to pick at and damaged her wounds we have kept her and needed to continue renewing heart restraints. 02/16 at 1900 hrs. 02/15 I still was not sure what this patient's disposition was going to be. She was still in 4-point restraints and mental health was still evaluating her. Patient was finally admitted to the mental health unit here at [facility] in 4-point restraints, and as noted they attempted to remove them at least once overnight patient continued to be difficult to not comply and 4. heart restraints were replaced. It is a very sad and trying situation. # Acetaminophen overdose, acute and recurrent- resolved May DC Mucomyst as well as IVs, patient continues to require 4-point restraints to keep herself from picking stuff 02/14 - Continue N-acetylcysteine per poison control recommendations, course completed cinnamon and level less than 15 02/14 - psychiatric consult appreciated. [facility] Patient is not a candidate for inpatient psychiatry as her behaviors prevent any good from coming and she is very disruptive to the unit - Denies any suicidal ideation at this time but will still needs sitter, immediately picks at IVs and will soon as she is released 02/15 # History of PTSD, anxiety, depression, bipolar disorder and/or borderline personality disorder with history of previous self-mutilation and suicide attempts. - Patient needs a sitter - Continue home psychiatric medications -Recommendations are to continue [facility] psychotropic medication regimen without changes. This patient is not a candidate for psychiatric care at this facility given personality issues and their inability to make progress Exam Vital Signs (Last) Date Time Temp Pulse Resp B/P Pulse Ox O2 Delivery O2 Flow Rate FiO2 02/15/17 08:00 84 02/14/17 18:15 37.1 19 129/83 97 Room Air Exam Gen.-Obese female had seen her lying in bed in restraints as well as sitting up in a chair when it required 9 people to get her back in bed into the restraints that she was not cooperating and had been picking at her IV and wounds. Eyes- open conjunctiva clear, pupils equal nonicteric ENT- ears normal, nose normal Neck- supple/trach midline CVS- RRR no murmur or gallop Lungs regular nonlabored GI-generous abdomen, scars across all of it, on left lateral rectus 5 cm wound stitched up C/D/I, on the right 5 cm cut seems to be granulating well no evidence of infection healing by secondary intention Musc- moving 4 no obvious deformity Neuro- cranial nerves II through XII intact to gross examination, nonfocal Skin- warm and dry, no rashes/lesions/wounds noted Psych-silent/oppositional Test 02/13/17 13:35 02/14/17 14:25 02/15/17 13:25 02/15/17 16:05 Human Chorionic Gonadotropin, Qual Negative (Negative) Salicylates Level < 3.0ug/mL (30-250) White Blood Count 7.5th/mm3 (3.8-10.1) Red Blood Count 4.36mil/mm3 (3.90-5.20) Hemoglobin 12.1g/dL (12.0-15.6) Hematocrit 36.7% (35.0-46.0) Mean Corpuscular Volume 84.2fL (81-100) Mean Corpuscular Hemoglobin 27.8pg (27.0-35.0) Mean Corpuscular Hemoglobin Concent 33.0% (32.0-37.0) Red Cell Distribution Width 13.3% (12.3-15.4) Platelet Count 333bil/L (150-400) Prothrombin Time 11.9sec (8.1-12.5) Prothromb Time International Ratio 1.11ratio Activated Partial Thromboplast Time 27.8sec (22.8-33.0) Sodium Level 139mEq/L (134-144) Potassium Level 3.9mEq/L (3.5-5.2) Chloride Level 105mEq/L (97-108) Carbon Dioxide Level 17mmol/L (18-29) Blood Urea Nitrogen 9mg/dL (6-20) Creatinine 0.85mg/dL (0.57-1.00) Estimat Glomerular Filtration Rate 109mL/min (>59) Glucose Level 94mg/dL (60-99) Calcium Level 8.9mg/dL (8.5-10.1) Magnesium Level 1.9mg/dL (1.6-2.6) Total Bilirubin 0.9mg/dL (0.0-1.2) Aspartate Amino Transf (AST/SGOT) 19U/L (0-50) Alanine Aminotransferase (ALT/SGPT) 6U/L (0-32) Alkaline Phosphatase 50U/L (25-150) Total Protein 6.2g/dL (6.4-8.4) Albumin 3.8g/dL (3.4-5.0) Acetaminophen Level < 15.0ug/mL Rx (10-25) Hepatitis B Surface Antigen Negative (Negative) Hepatitis C Antibody <0.1s/co ratio (0.0-0.9) HIV (1&2) Ag and Ab, 4th Generation Non reactive (Non Reactive) HIV (1&2) Antibody Rapid Negative (Negative) Alcohols < 10mg/dL (0-10) Urine Opiates Screen Negative Urine Methadone Screen Negative Urine Barbiturates Screen Negative Urine Amphetamines Screen Negative Urine Benzodiazepines Screen Positive Urine Cocaine Metabolite Screen Negative Urine Cannabinoids Screen Negative Discharge Medications Discharge Medications Cholecalciferol (Vitamin D3) (Vitamin D3) 1,000 Unit Tab.chew 1,000 UNIT PO QAM (Reported) Levothyroxine (Levothyroxine) 100 Mcg Tablet 100 MCG PO QAM (Reported) Mirtazapine (Mirtazapine) 30 Mg Tablet 30 MG PO HS (Reported) Prazosin (Prazosin) 2 Mg Capsule 4 MG PO HS (Reported) Quetiapine Fumarate (Quetiapine Fumarate) 25 Mg Tablet 75 MG PO BIDWM (Reported ) 0800 AND 1400 Quetiapine Fumarate (Quetiapine Fumarate) 100 Mg Tablet 200 MG PO HS Prescribed by: MICHAEL YBARRA MD As needed Clonazepam (Clonazepam) 1 Mg Tablet 1 MG PO BID PRN PRN For Anxiety (Reported) Followup Plan Follow-up plan Follow-up with outpatient treatment plan as previously Discharge Diet: No restrictions Discharge Activity: No restrictions Follow-up Provider: [facility] Follow-up with PCP in: 1 week Santana Lozano MD Feb 15, 2017 16:41 Follow-up with outpatient treatment plan as previously Discharge Diet: No restrictions Discharge Activity: No restrictions Follow-up Provider: [facility] Follow-up with PCP in: 1 week Santana Lozano MD Feb 15, 2017 16:41
--- NOTE | 2017-02-15 18:19 | PCM.PNMED ---
Subjective Date of Service Feb 15, 2017 Subjective Trying to discharge the patient or transfer to psych unit. Every time she is taken out of 4 point restraints she attempts self-harm. She has a wound on her abdomen that should not keep her hospitalized as an inpatient. Exam Vital Signs Vital Sign - Last Date Time Temp Pulse Resp B/P Pulse Ox O2 Delivery O2 Flow Rate FiO2 02/15/17 08:00 84 02/14/17 18:15 37.1 19 129/83 97 Room Air Intake and Output 02/14/17 02/14/17 02/15/17 Cumulative From/Thru 15:00 23:00 07:00 02/13/17 13:27 - 02/15/17 00:00 Intake Total 1144 ml 4490 ml Output Total 800 ml 850 ml Balance 344 ml 3640 ml Intake Oral 0 ml 0 ml IV Total 1144 ml 4490 ml Output Urine Total 800 ml 800 ml Emesis 50 ml # Bowel Movements 0 Exam Gen.-Obese female had seen her lying in bed in restraints as well as sitting up in a chair when it required 9 people to get her back in bed into the restraints that she was not cooperating and had been picking at her IV and wounds. Eyes- open conjunctiva clear, pupils equal nonicteric ENT- ears normal, nose normal Neck- supple/trach midline CVS- RRR no murmur or gallop Lungs regular nonlabored GI-generous abdomen, scars across all of it, on left lateral rectus 5 cm wound stitched up C/D/I, on the right 5 cm cut seems to be granulating well no evidence of infection healing by secondary intention Musc- moving 4 no obvious deformity Neuro- cranial nerves II through XII intact to gross examination, nonfocal Skin- warm and dry, no rashes/lesions/wounds noted Psych-silent/oppositional Lab and Diagnostics Result Diagram: 02/14/17 1425 02/14/17 1425 Assessment & Plan 36-year-old white female with a history of multiple psychiatric admissions, history of hostile behavior towards hospital staff, PTSD, depression, anxiety, bipolar disorder, suicide attempts and self-harm who presented to [facility] emergency department via EMS services services due to a Tylenol overdose. 02/14 patient has required restraints, she needs social work to clear her for suicidal ideation tomorrow she will be medically stable for discharge 02/15. Not candidate for inpatient psychiatry at [facility]. Complex patient being met for first time, high risk for complications. 02/15 multiple attempts have been made to get this patient out of restraints and every time is pulling on her IV and her wounds. Despite signing behavioral contract she immediately returns to the same behaviors. We have spent the day trying to get social work, her personal counselor as well as CDP to clear her as she has been medically clear for discharge since this morning. Because of her behaviors and need for CT torso even with heart restraints in place she manages to maneuver to pick at and damaged her wounds we have kept her and needed to continue renewing heart restraints. Working with risk management, [facility] to get this both for this patient. She continues to be medically clear we can put a binder over her wounds to minimize her access to them. Easily an hour of time has been spent probably more trying to determine and arrange disposition for her today. # Acetaminophen overdose, acute and recurrent- resolved May DC Mucomyst as well as IVs, patient continues to require 4-point restraints to keep herself from picking stuff 02/14 - Continue N-acetylcysteine per poison control recommendations, course completed cinnamon and level less than 15 02/14 - psychiatric consult appreciated. [facility]. Patient is not a candidate for inpatient psychiatry as her behaviors prevent any good from coming and she is very disruptive to the unit - Denies any suicidal ideation at this time but will still needs sitter, immediately picks at IVs and will soon as she is released 02/15 # History of PTSD, anxiety, depression, bipolar disorder and/or borderline personality disorder with history of previous self-mutilation and suicide attempts. - Patient needs a sitter - Continue home psychiatric medications -Recommendations are to continue [facility] without changes. This patient is not a candidate for psychiatric care at this facility given personality issues and their inability to make progress GI Prophylaxis: Not indicated VTE Prophylaxis: Sub-Q Heparin (Unfractionated), SCDs VTE Mechanical Devices: Venous Foot Pump Resuscitation Status: CPR: Attempt Resuscitation Santana Lozano MD Feb 15, 2017 18:19
[2017-02-15 19:27] VITALS: BP 135/60; PULSE 80; RESP 20; O2SAT 99
--- NOTE | 2017-02-15 19:41 | NUR ---
SHIFT NOTE PT refused all meals and oral fluids during shift. Pt denied any pain but did report nausea, Zofran given X2, pt still vomited X3 during shift. Pt denied having to void during shift, bladder scanned @ 1530 >999. Pt then agreed to try and void after scan. Restrain were removed at 1600. Pt voided 600ml of dark urine. After using the bathroom pt sat in chair and stated that she did not want to go back into the bed. This RN had the pt sign the non-harm contract and stated to her that if she attempted at any time to hurt herself, a staff member, or remove her IV that she would be placed back into restraints. Pt then removed abdominal binder and left sided abd dressing. This RN attempted to put abd binder back on and pt refused. This RN called security and pt was placed back into her bed with 4 point restraints. Pt only mildly resist.
--- NOTE | 2017-02-15 20:19 | NUR ---
PREPARING FOR TRANSFER TO RN called to give report at 1999, spoke w/ Dulce, informed that receiving RN in on another call, and will call [facility] RN when finished w/ call. Pts saline lock IV discontinued. Remote telemetry discontinued. Pts restraints repositioned, ROM provided. Awaiting return phone call so report can be given. Sitter in room. Continue to monitor. Addendum: 02/15/17 at 2026 by BARB ELIZABETH RN Attempted to administer evening medications. Pt refused. Addendum: 02/15/17 at 2042 by BARB ELIZABETH RN Report given to JOSE Bishop in . Dario informed [facility] RN that pt will not be able to be transferred to until 2229, "after medication pass." Pt will be transferred via bed, w/ sitter and security.
--- NOTE | 2017-02-15 22:49 | NUR ---
PT TRANSFERRED TO Pt transferred to via hospital bed @ 2235, which pt will stay in. Pt continues to be in locked restraints. Pt escorted via bed by [facility] RN, LUNA, sitter and 2 security staff members. Pt placed in seclusion room. Pts chart and all belongings and paperwork transferred w/ pt. Belongings given to JOSE Bishop. Sitter remained w/ pt.
--- NOTE | 2017-02-16 01:17 | NUR ---
NOC OBS Pt arrived to unit in 4point restraints via hospital bed from [facility]. After about an hour Pt was willing to sign a behavior contract and agree to be safe to be out of restraints. Pt to room with 1:1 changed into scrubs, brushed teeth and went to bed. Noted nausea and vomiting prior to arrival to unit. Observed via 1:1 throughout shift.
--- NOTE | 2017-02-16 01:23 | NUR ---
Nursing Admit note Pt arrival at [address] [facility] via bed in four point restraints. Pt was JADE'ed at 1999 on 02/15/17. Reported that patient on 02/13 ingested 100 tylenol PM and cut her abdomen on left and right side. Pt medically cleared and admitted to our unit in four point restraints. Explained that patient has not eaten since admission or taken PO fluids. Pt received IV fluids through 02/14/17 for maintenance hydration. Pt reports generalized abdomen discomfort with zero rebound tenderness, also reports nausea. PRN medications offered and refused. Scheduled medications offered and refused. 1:1 sitter in use. Restraints discontinued at 2345, patient voided upon release of restraints and drank 900cc of water. Pt to room at that time, signed a behavioral contract and went to sleep in her bed. 1:1 sitter remains in use. Addendum: 02/16/17 at 0356 by MICHAEL LANCASTER RN Restraints Pt awakened at 0315 got out of bed removed safety vest, abdominal binder and dressings as she walked through the 1:1 sitter and out of room. Pt ambulated to end of unit and refused to cooperate with staff. After 15 minutes of attempted therapeutic communication, patient was ambulated back to seclusion with the assist of security personnel. informed and order received.
[2017-02-16] MEDS ORDERED: Benzocaine-Menthol Lozenge 2/Pkg PO PRN (06:20)
[2017-02-16] MEDS ORDERED: Magnesium Hydroxide 10 mL Oral Concentration PO PRN (06:20)
[2017-02-16] MEDS ORDERED: Alum-Mag Hydrox-Simeth 30 mL Suspension PO PRN (06:20)
--- NOTE | 2017-02-16 12:38 | PROG NOTE ---
[address] [address] PROGRESS NOTE PATIENT: CUAUHTEMOC DIAZ : 1980 MR#: [id number] ADMIT: 02/13/2017 JOB ID: [id number] DATE: 02/16/2017 SUBJECTIVE: I was asked by Dr. Ha, the psychiatrist, to evaluate the patient's right abdominal wound. The patient is currently in the psych justice, and she has an open wound on her right lower abdomen and a left-sided wound that has sutures on it. Looking through her medical records, she was found to have a right-sided abdominal self-inflicted laceration on January 13, and it was repaired by Dr. Tyler Alejandre in the emergency department with sutures. The patient is known to pick at her sutures and take them out. This right-sided abdominal wound has been mentioned several times in the subsequent ED visits. PHYSICAL EXAMINATION: The patient is currently in the psych justice in four-point restraints. Her vital signs showed temperature of 37.4, blood pressure 135/60, pulse is 80, respirations 20. She is currently in the psych justice being held down by nursing staff, and she is in four-point restraints. She is awake. The right abdominal wound is open. It is clean. There is healthy granulation tissue. It is approximately 8 cm in length in the right lower quadrant. There is no cellulitis surrounding this wound. The left abdominal wound has sutures in place, and there is no obvious drainage. ASSESSMENT AND PLAN: This is a 36-year-old female, who is currently in the psych justice with two self-inflicted abdominal wounds. The left side has sutures, and the right side seems to have occurred initially on January 13. Given that this is not a fresh wound, I would recommend wet-to-dry dressing changes at this time rather than closing up an old wound with either sutures or russell. I have discussed my recommendations with Dr. Ha, the psychiatrist that is working today. The patient does not need IV antibiotics for this right abdominal wound.
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
[2017-02-16 15:07] VITALS: BP 125/87; PULSE 87; RESP 14
--- NOTE | 2017-02-16 18:12 | NUR ---
WOUND CARE Patient remove sutures from right abdominal wound, Dr Main in to assess and wanted to close wound with sutures or russell but patient refused to have this done. Dr Main then directed nurse to pack wound wet to dry and cover with ABD dressing. Nurse then dress wound per instructions. Dr Main to consult with Dr Ha as to how to proceed, and it determined to let wound close without sutures at this time, monitor for signs of infection, and change dressing as needed. Patient remains in restraints due to continued picking at wounds and attempts to removing sutures on left abdominal wound. Patient refusing medications, food, and only drinking minimal water (50mls) this shift.
--- NOTE | 2017-02-16 18:35 | NUR ---
NURS Note Dayshift Pt in 4-point restraints at start of shift. Transitioned pt to 2 pt restraints at 0800. Pt stated that she could stay safe, not pick at wounds, not bang head, and comply with staff instructions and restraints discontinued at 1010. Pt [facility] to [facility] with 1:1 sitter. At 1040, pt removed bandages from wounds. Sitter and machine sign writer responded by asking patient to stop picking at open wound/remove stiches. When pt did not comply, we held pt's wrists to prevent self harm behavior. Pt notified that this behavior represented violation of contract and that pt would need to return to restraints PT refused to walk self willingly to seclusion room. Mago dave was called at 1040. 6 personnel responded, carried pt to seclusion and placed pt in 4 pt restraints at 1050. Pt has multiple scars and two wounds on abdomen. One wound is recently sutured the other is open. See note on wound care. 1:1 sitter with pt throughout shift. Performed ROM and repositioned limbs Q1H. Pt did not follow staff instructions during ROM exercises. Pt attempted to get out of restraints and pick at wound frequently while in restraints. Discussed stepwise plan to get pt out of restraints. The first step is that the pt need to demonstrate that we can trust her to follow staff instructions and not to self harm by following staff instructions during ROM exercises and not attempting to "get out" or removed binding/bandages. Pt had 1/3 of a large water cup at 0800 and no other fluids. Pt urinated at 1030, but has not since.
--- NOTE | 2017-02-17 01:18 | NUR ---
Seclusion ended @ 0110 Pt requested to take medication she had refused earlier in the evening. Pt agreed to no self harm behavior and to follow staff direction. Pt cooperative with care and returned to her room once seclusion ended. 1:1 staffing present to monitor for safety.
--- NOTE | 2017-02-17 02:11 | NUR ---
2230 Restraints to seclusion. Pt demonstrating ability to remain safe and verbalizes contract of no self harm at this time. Pt still refusing scheduled medications. Restraints discontinued pt voided and took po liquid. To seclusion at this time with safety vest in place. Addendum: 02/17/17 at 0510 by MICHAEL LANCASTER RN Pt has maintained safety throughout the shift after returning to room from seclusion. Noted to be asleep directly after returning to room at 0110. Pt also drank water and took medications as prescribed. 1:1 sitter in use.
--- NOTE | 2017-02-17 06:33 | NUR ---
Observations 1900 - 0700 Pt was in restraints in seclusion when the shift started. Pt has had 1:1 sitter during this shift. Pt was observed to be gamey, guarded, and uncooperative at start of the shift. Pt later agreed to stay safe and cooperate. Pt went to room 219 (see nurses note) Pt speech and eye contact was good. Pt was offered snack but she refused. Pt first appeared asleep at 0145 and has slept through the night. Pt was observed every 15 minutes through the night as ordered.
--- NOTE | 2017-02-17 12:35 | PCM.PNPSY ---
Subjective Date of Service Feb 17, 2017 Subjective I spent 30 minutes both reviewing treatment plan with our clinical team, interviewing the patient and providing supportive/educational psychotherapy. I spent more than 50% of the time counseling the patient. I reviewed the treatment plan with the patient and discussed options available including the potential risks, benefits and side effects. brandon reports a marked improvement in thought organization and mood stability. Staff reports that she has been cooperative, refraining from self-harm denying suicidal ideation and participating well in one-to-one with staff. She slept 10 hours and denies depression or psychotic symptoms review. She was worked out of seclusion and restraint last night. Her right abdominal wound has been wet and dry packed by the nursing staff. She has been taught how to change the dressing. She denies medication side effects. She was able to identify her medications and what they were used to treat. Current Medications Current Medications Cholecalciferol 1,000 unit DAILY PO Last administered on 02/17/17 09:06; Admin Dose 1,000 UNIT; Start 02/16/17 at 08:30 Levothyroxine Sodium 100 mcg DAILYAC PO Last administered on 02/17/17 09:06; Admin Dose 100 MCG; Start 02/16/17 at 07:30 Mirtazapine 30 mg HS PO Last administered on 02/17/17 00:51; Admin Dose 30 MG; Start 02/16/17 at 21:00 Prazosin HCl 4 mg HS PO Last administered on 02/17/17 00:50; Admin Dose 4 MG; Start 02/16/17 at 21:00 Quetiapine Fumarate 75 mg BIDWM PO Last administered on 02/17/17 09:07; Admin Dose 75 MG; Start 02/16/17 at 08:00 Quetiapine Fumarate 200 mg HS PO Last administered on 02/17/17 00:51; Admin Dose 200 MG; Start 02/16/17 at 21:00 Mental Status Exam Appearance: Neat/well groomed Attitude: Pleasant, Cooperative Behavior: No unusual behavior Affect: Well Modulated/Appropriate Mood: Euthymic Thought Process/Associations: Logical/Sequential, Goal Directed Speech Production: Normal Speech Rate: Normal Speech Articulation: Normal Thought Content: Appropriate Danger to Self/Suicidal Ideati: None Danger to Others: None Consciousness: Alert Orientation: Person, Place, Date, Situation Memory: Grossly Intact Estimate Intellectual Function: Average Basis for IQ estimate: Awareness current events, Word use/vocabulary, Educational history, Employment history Attention/Concentration & Cogn: Impaired Insight: Good Judgement: Limited Result Diagram: 02/14/17 1425 02/14/17 1425 Mental Health Plan The patient is a 36-year-old female with a history of posttraumatic stress disorder, depression, borderline personality disorder, and PTSD, who presents after an acetaminophen overdose on 02/13/2017 (Acetaminophen level on 02/13/2017 was initially 482, on 02/14/2017 it had come down to 15) and a self-inflicted reinjury to her right abdomen wound (she has 2 self- inflicted abdominal wounds, one on the left with 12 sutures and one on the right which had been packed and bandaged, per chart notes these were both Inflicted on 01/25/2017). This current episode appears to have been precipitated by her mother going to [place] and the imminent planned vacation on 02/18/17 with her planned flight to [facility] 02/23/17. This likely triggered her fear of abandonment. When I evaluated her today she had been out of restraints for several hours. She has been appropriate and following staff directions. She denies suicidal ideation and is no longer accounting self-harm behavior. We talked at length about a safety plan and Different coping mechanisms she could use to deal with stressful feelings of abandonment. [place] Bristol I: Post-traumatic stress disorder Major Depression with psychotic features, by history [place] II: Borderline personality disorder. [place] III: Acetaminophen overdose, self-inflicted lacerations. [place] IV: Moderate. [place] V: Global Assessment of Functioning 35. Medications Vitamin D3 1000 units daily Clonazepam 1mg po bid prn Docusate 250mg po bid FeSO4 324-325 po tid Synthroid 0.1mg po daily Naproxen 500mg po bid prn pain Quetiapine 75mg po bid and 200mg po at bedtime Prazosin 4mg at bedtime for nightmares Mirtazapine 30mg at bedtime. Treatments Patient is being provided with a high degree of safety through structure (one-to -one, seclusion and restraint) and active adult engagement. We will focus on developing improved coping skills and identifying stressors that may have led to current episode. We will attempt to: Integrate into therapeutic groups, milieu and individual therapy. Maintain in a closely monitored and structured unit Provide low-stimulation environment Obtain collateral data to assist in treatment planning Assess degree of lability of affect and impulse control Complete safety plan Decrease frequency of relapse and need for re-hospitalization Denies thoughts of harm to self and/or others Establish a consistent sleep pattern Medication effective in stabilization of mood and/or thought process Reduce the risk of imminent harm to self and/or others by providing a safe environment Tolerates medication without side effects Patient will be on the following psychiatric medications: Clonazepam 1mg po bid prn Quetiapine 75mg po bid and 200mg po at bedtime Prazosin 4mg at bedtime for nightmares Mirtazapine 30mg at bedtime. patient's legal status Patient is on a 72 involuntary treatment hold. Patient will be given the opportunity to talk to her cloud engagement partner and the ballistics expert forensic on saturday Disposition: home once patient is able to safety plan and has a period of stability here on the unit. Anticipated length of stay: 24-72 hours. Owen Ha MD Feb 17, 2017 12:34
[2017-02-17 17:09] VITALS: BP 94/63; PULSE 90; RESP 16
[2017-02-17] MEDS ORDERED: LORazepam 2 mg Tablet PO PRN (17:45)
--- NOTE | 2017-02-17 18:17 | NUR ---
[facility] Note At 1300 this sock and stocking ironer came onto the unit to sit with her on a 1:1 basis. It was reported that she was having a good day and that she was behaviorally appropriate. Patient was sleeping at the time until 1345. She then was resting in her room until 1415 where she got up and removed her brace. At this time, patient was asked if she was able to remove the brace around her torso or if she needed to keep it on. Trust was emphasized and a verbal contract was agreed upon. It was at 1430 that the nurse came in and informed this sock and stocking ironer that the torso brace needed to be kept on for the sake of the wounds on her abdomen. Patient was mute and smiling when she was addressed regarding the verbal agreement previously mentioned as well as the nurses conveyance of a behavioral contract already established. Patient smiled and denied stating that it was okay to remove the brace. She continued to either remain flat and mute or smiling and monosyllabic. Patient was given about five minutes of engagement to get her to put the brace on. At this point she got up and walked down the hallway to the corner by the door to get to the staff lounge. She remained guarded but smiling when speaking. She even made some jokes. Security was called and she was escorted down to the seclusion area of the unit after refusing to do so of her own volition. Patient was put into restraints with her abdomen brace back on. At 1650 patient was noted to have picked at her abdominal wounds despite the restrains and brace. A show of support was the used to reposition her and dress the wounds. Patient began to pick at her wounds three separate times after that with interventions
--- NOTE | 2017-02-17 18:36 | NUR ---
NURS Notes Dayshift Pt came out of restraints/seclusion at 0110 last night and was in the room with 1:1 sitter. Pt contracted for safety and agreed to follow staff instructions as a condition of remaining out of seclusion. At 1430, check writer went to pt for assessment. Pt had removed abdominal binder. In place for wound care ad safety. When check writer asked pt to put binder back on pt refused. Community Liaison Officer informed pt that her choice was to put the binder back on or check writer would call Dr. Ha for further instructions. Pt looked at check writer, smiled, and refused to answer verbally. While check writer was on the the phone with doctor, pt left , walked end of the rutledge, and stood at unit doors further violating behavioral contract. Per conversation with Dr. Ha, check writer informed pt that if she went back to and did not make any gestures to remove bandage that she could stay out of the binder. Pt smiled at check writer, refused to return to or respond to to requests. Staff called security at 1445. After several requests for pt to return to room with security present, pt continued to smile and was verbally unresponsive. temporary staff accountant informed pt that not following staff instruction represented a breach of the behavioral contract and that pt would need to return to seclusion. temporary staff accountant made several requests for pt to walk to seclusion without assistance which pt refused. Two security guards assisted pt in standing, pt walked to seclusion with security at each arm. Presented pt with option of going into seclusion, sat down on seclusion floor with door open, and proceeded to pick at bandage, at which point pt was put into 4 pt restraints. Staff returned for ROM at 1515. Pt struggled with staff returning to restraints. Once pt was returned to restraints, pt attempted to undo sutures. Gauze and Tegaderm was applied and binder replaced. Pt removed bandage and Velcro vest was applied. Pt continued to struggle against restraints and reach under vest. Pt was sweating, straining, struggling against restraints, and not responding to questions when staff arrive . Tightened restraints and administered 2 mg Ativan IM and 10 mg Olanzapine IM for agitation and anxiety per doctors orders. Staff has responded multiple times for similar events since. Staff will continue to monitor safety and adjust restraints as needed.
--- NOTE | 2017-02-17 19:14 | NUR ---
FATHER (NURS) Pt's father called. Parent's going to [place] for three weeks for sister's wedding, leaving Saturday02/19/17.
--- NOTE | 2017-02-17 22:16 | NUR ---
Seclusion ended @ 2154 Pt verbally agreed to maintain safety. She has not attempted self harm and has been cooperative with staff direction. She took oral medications & full glass of water, cooperated with full ROM of limbs, tolerated the removal of right leg restraint @ 2044 and left hand restraint @ 2114 with no self harm behaviors. All restraints removed @ 2154. Pt has abdominal dressing on and safety smock and has not attempted removal of either. 1:1 present at bedside for monitoring and safety. Addendum: 02/18/17 at 0511 by MEGAN HILL RN Pt continues with 1:1 sitter at bedside. She has been asleep in her room since 2299 with no self harm behavior or noted awakening. Total sleep this shift 7+ hours.
[2017-02-18 08:35] VITALS: BP 106/69; PULSE 101; RESP 16
--- NOTE | 2017-02-18 13:17 | PCM.DIMED ---
Discharge Instructions Date of Service Feb 18, 2017 Dates of Hospitalization February 13, 2017 at 15:42 Discharge Diagnosis Discharge Diagnosis [place] I: Post-traumatic stress disorder Major Depression with psychotic features, by history [place] II: Borderline personality disorder. [place] III: Acetaminophen overdose, self-inflicted lacerations on abdomen and left side with proximally 12 stitches right side with wet-to-dry wound dressing. [place] IV: Moderate. [place] V: Global Assessment of Functioning 45. Diet Discharge Diet: No restrictions Activity Discharge Activity: No restrictions Call your provider Call your provider for: Fever or Chills, Other (feeling like or actually harming yourself) Patient Instructions Patient Instructions I Strongly encouraged patient to follow up with outpatient care: 1-Recommended patient takes medication as prescribed and not alter this unless under the direct care of a provider. 2-Recommend client refrain from recreational drugs and alcohol while taking psychiatric medications. 3--Recommend patient attempt to find a therapist or group to deal with impulse control and interpersonal relationship issues Follow-up plan Follow-up with outpatient [facility] Follow-up with PCP in: 2 weeks Owen Ha MD Feb 18, 2017 13:17
--- NOTE | 2017-02-18 14:21 | NUR ---
nursing note: "Pt has been isolating in her room w/ the exception of lunch which she took in the group room.(Declined breakfast) She will respond appropriately(minimally) to staff questions and still contracts for safety inc after she leaves. Observed and coached her in her abd dressing change and she did well. She has supplies for several days after discharge. Her wounds : L abd incision is clean with approximated edges and no drainage, reddness or swelling. The wound on her right is also clean and open approximately 1 1/2 inches (when sitting up) red with about 1/2 inch area in the center that is lamar. . And drainage on the dressing was serosanguineous. No odor noted.
--- NOTE | 2017-02-18 15:50 | NUR ---
Observations [id number] Pt had 1:1 observations in the morning. Pt isolated to room, laying in bed. She let this contract technical writer obtain vitals and spoke to father on the phone. Pt met with doctor and discharge will occur at 1700. Pt did not eat breakfast, but did attend lunch. She sat in group room and played ping pong with another patient. Pt was observed every 15 minutes of shift as directed.
--- NOTE | 2017-02-18 17:10 | NUR ---
Discharge: Reviewed and signed all discharge paperwork with patient and she verbalizes understanding of meds and wound care. She was discharged to the care of her parents, with belongings, including valuables from the safe, and dressing/suture removal kit and instructions. Left @ 1700
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
== END 2017-02-18 17:00 | disposition home or self-care (01) | DRG 918 ==
LOC: SED 13:19 → MPC 15:42 → UNDODISIN 02-15 22:37 → MHC 02-15 23:28
PROVIDERS: ADMIT Internal Medicine; ATTEND Internal Medicine
PROC: 0HQ7XZZ Repair Abdomen Skin, External Approach (ICD-10-PCS; principal; 2017-02-13)
DX: T39.1X2A Poisoning by 4-Aminophenol derivatives, intentional self-harm, initial encounter (principal); F33.3 Major depressive disorder, recurrent, severe with psychotic symptoms; Y92.9 Unspecified place or not applicable; S31.119A Laceration without foreign body of abdominal wall, unspecified quadrant without penetration into peritoneal cavity, initial encounter; X78.8XXA Intentional self-harm by other sharp object, initial encounter; F17.210 Nicotine dependence, cigarettes, uncomplicated; F43.10 Post-traumatic stress disorder, unspecified; F60.3 Borderline personality disorder

== ENCOUNTER 2017-03-19 09:22 | Inpatient (IN) | payer OTHER ==
[~2017-03-19] VITALS: Ht 165.1 cm; Wt 90.9 kg
--- NOTE | 2017-03-19 09:22 | ED.REPORT ---
HPI-Psychiatric Illness Date of Service Mar 19, 2017 ED Provider: Dr. Alejandre Pt is a 37 y/o female with an extensive psych history including PTSD, major depression, anxiety, bipolar, multiple suicide attempts, abdominal self- mutilation, and borderline personality disorder, presenting to the ED via EMS and PD due to agitation and combativeness onset today. Per police report - At 07 :59 [place] Police were dispatched to her location because she called the [place] crisis line and told them that she was going to take 100 Tylenol and kill herself. She was located at a [place] trail along [facility]. Police found her with a new bottle of Tylenol PM. Police asked her if she would go to the hospital willingly which she refused and therefore she was taken into protective custody which she resisted. Medics were called and administered 300 mg of Ketamine with good results. She arrives to the ED sedated with 2 lacerations about her abdomen consistent with self harm. She states the wound on the left is 4 days old and the one on the right was inflicted just prior to police arriving. She was last admitted late January 2017 for a suicide attempt with Tylenol. No further history is able to be obtained secondary to combativeness. Nursing Notes Stated Complaint: MENTAL HEALTH EVALUATION Nursing Notes Reviewed: Yes Allergies: Coded Allergies: No Known Allergies (Unverified , 06/28/16) UNABLE TO ASK PT. REVIEWED HX NOTES. Scheduled Cholecalciferol (Vitamin D3) (Vitamin D3) 1,000 Unit Tab.chew 1,000 UNIT PO QAM Levothyroxine (Levothyroxine) 100 Mcg Tablet 100 MCG PO QAM Mirtazapine (Mirtazapine) 30 Mg Tablet 30 MG PO HS Prazosin (Prazosin) 2 Mg Capsule 4 MG PO HS Quetiapine Fumarate (Quetiapine Fumarate) 25 Mg Tablet 75 MG PO BIDWM 0800 AND 1400 Quetiapine Fumarate (Quetiapine Fumarate) 100 Mg Tablet 200 MG PO HS Scheduled PRN Clonazepam (Clonazepam) 1 Mg Tablet 1 MG PO BID PRN PRN For Anxiety General Time Seen by MD: 09:22 Chief Complaint Aggressive behavior Hx Obtained From: EMS, Police Unable to Obtain Hx: Uncooperative, Mental status Arrived By: Ambulance Onset Occurred: 1 - 4 hours ago Symptom Duration: Since onset Progression Since Onset: Constant Risk-Psychiatric Illness Suicide Risk Stratification RF Statements: Risk factors reviewed Past Medical History Past Medical History Notes: Medication list was obtained from [facility] on 10/04/2016: Prazosin 2 mg-2 caps at bedtime for nightmares Clonazepam 1 mg 1 tab by mouth twice a day for anxiety Haldol 10 mg 1 tab 3 times a day for paranoid thoughts, command hallucinations Viibryd 10mg 1 tab daily (with a note that "[facility] does not have viibry[facility]") Temazepam 15mg 1 tab PRN insomnia Cogentin 1mg 1 tab 2x day to prevent tardive dyskinesia Past Medical History PTSD Depression Anxiety Bipolar disorder Previous suicide attempts and self-mutilation Hypothyroid Past Surgical History None Family History Noncontributory Smoking History Current Every Day Smoker Social History Pt is a . Alcohol Use: Denies alcohol use Drug Use: Denies drug use Other Social History: Local resident Ambulatory Status Independent Review of Systems Unable to Obtain ROS Uncooperative, Mental status Physical Exam Initial Vital Signs Vital Signs (First) Date Time Temp Pulse Resp B/P Pulse Ox O2 Delivery O2 Flow Rate FiO2 03/19/17 09:41 36.2 101 16 150/70 94 Room Air Initial VS: Reviewed, Vital signs normal Head / Eyes: Atraumatic, Normocephalic, PERRL ENT: Mucous membranes moist, Conjunctiva normal, No scleral icterus Neck: Supple Respiratory: Breath sounds normal, Clear to auscultation, No respiratory distress Cardiovascular: Regular rate & rhythm, Heart sounds normal, Intact distal pulses Extremities: Vascular intact, Neuro intact, No swelling Skin: Warm, Dry, No cyanosis Alertness: Positive: Sedated Exam limited due to sedation from Ketamine given by medics Neurologic: No motor deficits Exam limited due to sedation from Ketamine given by medics PSYCH: Exam limited due to sedation from Ketamine given by medics Told police she was suicidal with plan to take Tylenol She was combative on scene Abdomen: Soft 2 7 cm deep lacerations with bandages already present. One on left appears to be old and healing One on right is acute and will require sutures Interpretation & Diagnostics Lab Results Interpretation Result Diagram: 03/19/1758 03/19/1758 Test 03/19/17 09:41 03/19/17 09:58 Hold Urine Received (Received) White Blood Count 8.9th/mm3 (3.8-10.1) Red Blood Count 4.39mil/mm3 (3.90-5.20) Hemoglobin 12.0g/dL (12.0-15.6) Hematocrit 36.6% (35.0-46.0) Mean Corpuscular Volume 83.4fL (81-100) Mean Corpuscular Hemoglobin 27.3pg (27.0-35.0) Mean Corpuscular Hemoglobin Concent 32.8% (32.0-37.0) Red Cell Distribution Width 14.0% (12.3-15.4) Platelet Count 332bil/L (150-400) Neutrophils (%) (Auto) 82.0% (40-74) Lymphocytes (%) (Auto) 12.8% (14-46) Monocytes (%) (Auto) 4.9% (4-12) Eosinophils (%) (Auto) 0% (0-5) Basophils (%) (Auto) 0.1% (0-3) Sodium Level 137mEq/L (134-144) Potassium Level 4.3mEq/L (3.5-5.2) Chloride Level 101mEq/L (97-108) Carbon Dioxide Level 20mmol/L (18-29) Blood Urea Nitrogen 10mg/dL (6-20) Creatinine 0.91mg/dL (0.57-1.00) Estimat Glomerular Filtration Rate 100mL/min (>59) Glucose Level 120mg/dL (60-99) Calcium Level 9.1mg/dL (8.5-10.1) Total Bilirubin 0.5mg/dL (0.0-1.2) Aspartate Amino Transf (AST/SGOT) 18U/L (0-50) Alanine Aminotransferase (ALT/SGPT) 8U/L (0-32) Alkaline Phosphatase 62U/L (25-150) Total Protein 6.7g/dL (6.4-8.4) Albumin 4.2g/dL (3.4-5.0) Thyroid Stimulating Hormone (TSH) 1.210uIU/mL (0.450-4.500) Human Chorionic Gonadotropin, Qual Negative (Negative) Salicylates Level < 3.0ug/mL (30-250) Acetaminophen Level < 15.0ug/mL Rx (10-25) Alcohols < 10mg/dL (0-10) Procedures Laceration Management Laceration Management: Performed by medical student and resident with observation and approval from Dr. Alejandre Required multiple doses of Ketamine to perform successfully Time: 16:45 Procedure Performed by: ED physician Consent / Setup / Site Prep: No consent - emergent (mental status), Hand hygiene observed, Stand sterile technique Location of Wound: Right abdomen Wound Length: 7 cm Local Anesthesia: Lidocaine w epi 1% Wound Preparation: Hibiclens - Chlorhexidine Debridement: None Irrigation: Copious Undermining / Margins: Flaps aligned Repair Skin: ___ O (3), Nylon # Sutures - Skin: 8 Closure Layers: 1 Suture Technique: Mattress Post-Procedure / Complications: Antibiotic oint applied, Dressing applied, No complications, Condition improved, Tolerated procedure well, Patient stable Re-Eval/Medical Decision Med Decision/Clinical Course Patient arrives reportedly suicidal and having said she was planning to take Tylenol however she did not. She admits to giving herself a laceration to the right side of her abdomen just prior to initiating contact with the police. The left side of her abdomen was cut approximately 4 days ago and for this reason is not sutured in the ER. Care is transferred to Dr. Baker pending the [facility] Source of Hx: Old records, EMS Re-Evaluation/Progress #1: Time of Eval: 09:22 Re-Evaluation/Progress Note: Face to face evaluation performed by Dr. Alejandre at time of arrival when 4 point restraints were placed for patient and staff safety Re-Evaluation/Progress #2: Time of Eval: 17:17 Re-Evaluation/Progress Note: Pt rechecked after sutures placed by medical student and resident. She is calmer now but still medicated with ketamine. Consultation : Consulted With: elementary school social worker Call Returned at: 11:41 Media Production Manager: Will see patient, Agrees with eval, Agrees with plan Counseled Regarding: Diagnosis, Lab results Discharge & Departure Impression: Primary Impression: Acute psychosis Additional Impressions: Suicidal ideation Intentional self-harm Laceration of abdominal wall Encounter type: initial encounter Qualified Code: S31.119A - Laceration without foreign body of abdominal wall, unspecified quadrant without penetration into peritoneal cavity, initial encounter Discharge Condition All VS Reviewed: Yes Condition: Stable [facility] Care Transferred to: Dr. Baker Care Transferred at: 18:00 Crit Care Except Billable Proc Time Spent: 30-74 minutes Services Performed: Patient management by me, Time spent at bedside, Reviewing test results, Reviewing imaging, Discussing patient care, Documentation in record Scribe Attestation Portions of this note were transcribed by Bryant Rodriguez. I, Dr. Alejandre, personally performed the history, physical exam and medical decision-making; I reviewed and confirmed the accuracy of the information in the transcribed note. Signed by Jamarcus Deleon, 03/19/17 - [id number] copies to: [facility] Tha Alejandre DO Mar 19, 2017 09:22 BRYANT RODRIGUEZ Mar 19, 2017 09:25
[2017-03-19 09:41] VITALS: BP 150/70; PULSE 101; RESP 16; O2SAT 94
[2017-03-19 10:07] LABS: BASOPHILS % (AUTO) 0.1 % (0-3); EOSINOPHILS % (AUTO) 0 % (0-5); MONOCYTES % (AUTO) 4.9 % (4-12); Mean Corpuscular Hemoglobin 27.3 pg (27.0-35.0); Mean Corpuscular Volume 83.4 fL (81-100); Platelet Count 332 bil/L (150-400)
[2017-03-19 10:18] VITALS: BP 109/70; PULSE 78; RESP 24; O2SAT 100
[2017-03-19] MEDS ORDERED: chlorproMAZINE 25 mg/mL Inj IM PRN (11:00)
[2017-03-19 11:57] VITALS: BP 111/64; PULSE 80; RESP 22; O2SAT 99
[2017-03-19] MEDS ORDERED: Ketamine 100 mg/mL 5 mL Inj IM ONE ×4 (13:25→16:35)
[2017-03-19 13:50] VITALS: BP 107/71; PULSE 93; RESP 16; O2SAT 100
[2017-03-19 17:37] VITALS: BP 118/76; PULSE 99; RESP 15; O2SAT 100
[2017-03-19 20:30] VITALS: BP 106/77; PULSE 92; RESP 18; O2SAT 97
[2017-03-19] MEDS: Haloperidol 5 mg/mL Inj IM PRN (20:38)
[2017-03-20] MEDS ORDERED: Haloperidol 5 mg/mL Inj IM PRN (02:35)
[2017-03-20] MEDS: Haloperidol 5 mg/mL Inj IM PRN (02:44)
[2017-03-20 07:53] VITALS: BP 113/81; PULSE 85; RESP 16; O2SAT 96
[2017-03-20 12:48] VITALS: BP 101/65; PULSE 92; RESP 16; O2SAT 97
[2017-03-20] MEDS ORDERED: OLANZapine Zydis ODT 5 mg Tablet PO SCH (15:30)
[2017-03-20 16:43] VITALS: BP 101/72; PULSE 88; RESP 18; O2SAT 96
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
[2017-03-20 20:32] VITALS: BP 102/72; PULSE 88; RESP 18; O2SAT 95
[2017-03-21 00:11] VITALS: BP 120/78; PULSE 89; RESP 18; O2SAT 99
[2017-03-21 05:49] VITALS: BP 112/79; PULSE 86; RESP 16; O2SAT 96
[2017-03-21 10:11] VITALS: BP 124/80; PULSE 87; RESP 18; O2SAT 98
[2017-03-21] MEDS ORDERED: Benzocaine-Menthol Lozenge 2/Pkg PO PRN (17:35)
[2017-03-22 00:45] VITALS: BP 123/86; PULSE 81; RESP 18; O2SAT 97
[2017-03-22 05:50] VITALS: BP 118/84; PULSE 86; RESP 16; O2SAT 98
[2017-03-22 07:14] VITALS: BP 110/77; PULSE 85; RESP 18; O2SAT 95
[2017-03-22 15:00] VITALS: BP 118/63; PULSE 85; RESP 20; O2SAT 97
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
[2017-03-23 05:54] VITALS: BP 98/64; PULSE 88; RESP 18; O2SAT 97
[2017-03-23 10:20] VITALS: BP 82/54; PULSE 90; RESP 16; O2SAT 97
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
[2017-03-23 13:57] VITALS: BP 130/88; PULSE 105; RESP 20; O2SAT 100
--- NOTE | 2017-03-23 14:12 | DIS ---
[address] [address] DISCHARGE SUMMARY PATIENT: CUAUHTEMOC DIAZ : 1980 MR#: [id number] ADMIT: 03/21/2017 JOB ID: [id number] DIS: IDENTIFICATION: The patient is a 37-year-old white female with a history of depression, borderline personality disorder, and PTSD. REASON FOR ADMISSION: Client presented to the ED with self-inflicted injuries to the abdomen and a plan to overdose on Tylenol. HOSPITAL COURSE: Client was admitted to the emergency department. She was unable to be admitted to the psych unit due to conflicts of interest with other patients on the unit. She was unable to be transferred to another crisis inpatient unit and was treated in the emergency department. Client was provided with a high degree of safety and structure in the ER with a seclusion room and a one-to-one staff. For the first three days she continued to have a desire to harm herself. She was restarted on her medications Klonopin, Seroquel, and Remeron. She tolerated these without difficulty. Each day of her admission she showed a decrease in the intensity of suicidal ideation and an increase in a desire to live. This morning when I met with her she denied suicidal ideation, plan, or intent. We had a long talk about safety planning and different coping strategies she could use. We were unable to identify the specific stressor that brought her in but she talked about being well supported with her psychiatrist at the [facility] and three different credit support specialist at [place] including a case fitter, a peer counselor, and a professional counselor. She is requesting discharge and I believe this is appropriate at this time. MENTAL STATUS: Client neatly dressed with a hospital gown. Her behavior was calm. Her attitude was cooperative and pleasant. Speech normal rate and rhythm. Mood dysphoric. Affect congruent, but with normal intensity. Thought process: Client was able to relate a coherent history. She did not appear to be responding to internal stimuli. Her thought process was generally logical, coherent, and spontaneous. Thought content: Significant for future planning how to take care of her needs. She denied suicidal ideation. She detailed a reasonable safety plan to me. Alert and oriented to person, place, and date. Insight and judgment appropriate. Impulse control highly contained yet rigid. Continues to have a difficult time handling impulses of anger, fear, and guilt. Reality testing intact. Competence to handle current stressors appears to have returned to baseline. DISCHARGE DIAGNOSIS: Wayne I: 1. Post-traumatic stress disorder. 2. Major depression with psychotic features by history. Wayne II: Borderline personality disorder. Wayne III: Two self-inflicted wounds to the abdomen. Wayne IV: Moderate. Wayne V: Current Global Assessment of Functioning equal to 40. DISCHARGE PLAN: Client to follow up with the CT, Dr. Richards, this following Saturday. Client is to follow up with [facility] case fitter, peer counselor, and professional counselor. DISCHARGE MEDICATIONS: 1. Klonopin 1 twice a day. 2. Seroquel 75 twice a day, 200 h.s. 3. Remeron 30 at h.s. 4. Prazosin 40 mg h.s. ACTIVITY AND DIET: Recommend client refrain from recreational drugs and alcohol while taking psychiatric medications. Recommend she not change her medications unless under the supervision of a physician. I have encouraged the client to follow up with all the above appointments. CONDITION ON DISCHARGE: Good. PROGNOSIS: Guarded. Client has a severe case of both PTSD, borderline depression, and major depressive disorder with psychotic features. CC: Dr. Richards at the [facility] case fitter
[2017-03-23 14:24] VITALS: BP 130/88; PULSE 105; RESP 20; O2SAT 100
== END 2017-03-23 14:26 | disposition home or self-care (01) | DRG 882 ==
LOC: SED 09:22 → OFED 03-21 14:27
PROVIDERS: ADMIT Psychiatry & Neurology Psychiatry; ATTEND Psychiatry & Neurology Psychiatry
PROC: 0HQ7XZZ Repair Abdomen Skin, External Approach (ICD-10-PCS; principal; 2017-03-21)
DX: F43.10 Post-traumatic stress disorder, unspecified (principal); F32.3 Major depressive disorder, single episode, severe with psychotic features; F60.3 Borderline personality disorder; E03.9 Hypothyroidism, unspecified; F17.210 Nicotine dependence, cigarettes, uncomplicated; S31.119A Laceration without foreign body of abdominal wall, unspecified quadrant without penetration into peritoneal cavity, initial encounter; X78.9XXA Intentional self-harm by unspecified sharp object, initial encounter

== ENCOUNTER 2017-03-27 18:39 | Inpatient (IN) | payer OTHER ==
[~2017-03-27] VITALS: Ht 167.6 cm; Wt 98.1 kg
[2017-03-27 18:46] VITALS: BP 143/88; PULSE 124; RESP 18; O2SAT 98
[2017-03-27] MEDS ORDERED: 0.9% Sodium Chloride 1,000 ML IV ONE (19:46)
[2017-03-27 19:52] LABS: Mean Corpuscular Hemoglobin 27.2 pg (27.0-35.0); Mean Corpuscular Volume 83.6 fL (81-100)
[2017-03-27 20:07] LABS: INR 0.91 ratio
--- NOTE | 2017-03-27 20:35 | ED.REPORT ---
HPI-General Illness Date of Service Mar 27, 2017 ED Provider: Hamilton Velasquez MD Pt is a 37 y/o female with an extensive psych history including PTSD, major depression, anxiety, bipolar, multiple suicide attempts, abdominal self- mutilation, and borderline personality disorder, presenting to the ED via EMS after an acetaminophen overdose in an attempt to end her life. 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 Denies any notable alleviating or exacerbating factors that would bring her feelings on. States that her depression is severe and feels similar to previous. She used a razor blade to cut herself on the R side of her abdomen. States that she previously had cut the L side of her abdomen but the doctor she saw decided to leave it open because it had been a couple of days. She denies overdosing on any other medication, fever, chills, nausea, chest pain, sob, hallucinations, or homicidal ideation. Pt has an extensive hx of psych admits and was most recently seen at [facility] on 03/19/17 and admitted for 3 days. Nursing Notes Stated Complaint: OVERDOSE Chief Complaint: Psychiatric Complaint Nursing Notes Reviewed: Yes Allergies: Coded Allergies: No Known Allergies (Unverified , 03/27/17) UNABLE TO ASK PT. REVIEWED HX NOTES. Scheduled Cholecalciferol (Vitamin D3) (Vitamin D3) 1,000 Unit Tab.chew 1,000 UNIT PO QAM Levothyroxine (Levothyroxine) 100 Mcg Tablet 100 MCG PO QAM Mirtazapine (Mirtazapine) 30 Mg Tablet 30 MG PO HS Prazosin (Prazosin) 2 Mg Capsule 4 MG PO HS Quetiapine Fumarate (Quetiapine Fumarate) 25 Mg Tablet 75 MG PO BIDWM 0800 AND 1400 Quetiapine Fumarate (Quetiapine Fumarate) 100 Mg Tablet 200 MG PO HS Scheduled PRN Clonazepam (Clonazepam) 1 Mg Tablet 1 MG PO BID PRN PRN For Anxiety General Time Seen by MD: 19:32 Chief Complaint Other (acetominophen overdose) Hx Obtained From: Patient, EMS Arrived By: Ambulance Sudden in Onset?: Yes Onset Occurred: 1 - 4 hours ago Symptom Duration: Since onset Recent Healthcare: Recent doctor visit, Recent hospitalization, Recent testing , Previous diagnosis Similar Sx Previous: Yes Past Medical History Past Medical History Notes: Medication list was obtained from [employer] on 10/04/2016: Prazosin 2 mg-2 caps at bedtime for nightmares Clonazepam 1 mg 1 tab by mouth twice a day for anxiety Haldol 10 mg 1 tab 3 times a day for paranoid thoughts, command hallucinations Viibryd 10mg 1 tab daily (with a note that "[place] does not have viibryd") Temazepam 15mg 1 tab PRN insomnia Cogentin 1mg 1 tab 2x day to prevent tardive dyskinesia Past Medical History PTSD Depression Anxiety Bipolar disorder Previous suicide attempts and self-mutilation Hypothyroid Past Surgical History None Family History Noncontributory Smoking History Never Smoker Social History Pt is a . Alcohol Use: Denies alcohol use Drug Use: Denies drug use Other Social History: Local resident Ambulatory Status Independent Review of Systems Full Review of Systems Constitutional: Denies: Chills, Fever Cardiovascular: Denies: Chest pain GI: Denies: Nausea Psychiatric: Reports: Depression, Suicidal ideation, Denies: Hallucinations, auditory, Hallucinations, visual, Homicidal ideation Complete sys rev & neg: except as marked. Physical Exam Nursing note and vitals reviewed. Constitutional: Well-developed, well-nourished. Not diaphoretic. Head: Normocephalic and atraumatic. Mouth/Throat: Oropharynx is clear and moist. No oropharyngeal exudate. Eyes: EOM are normal. Pupils are equal, round, and reactive to light. Neck: Supple, no tracheal deviation. Cardiovascular: Tachycardic, regular rhythm. Equal and intact distal pulses throughout. Pulmonary/Chest: Effort normal and breath sounds normal. No respiratory distress. Abdominal: Right sided 9 cm laceration deep into subcutaneous fat but does not appear to violate fascia. Another 7 cm laceration open to the left side of the abdomen that appears to be healing. No active bleeding. Musculoskeletal: Range of motion intact. No edema or tenderness appreciated. Neurological: AOx3. Grossly nonfocal exam. Strength and sensation intact and equal to bilateral upper and lower extremities. Skin: Warm and dry, no rashes or pallor appreciated. Psychiatric: Confirms suicidal ideation with plan as per above, denies homicidal ideation, or hallucinations . Flat affect Vital Signs Vital Signs Date Time Temp Pulse Resp B/P Pulse Ox O2 Delivery O2 Flow Rate FiO2 03/27/17 22:08 37.0 104 17 138/82 99 Room Air 03/27/17 18:46 37.1 124 18 143/88 98 Room Air Initial VS: Reviewed Interpretation & Diagnostics Lab Results Interpretation Result Diagram: 03/27/17 1935 03/27/17 1935 Test 03/27/17 19:35 03/27/17 21:24 White Blood Count 8.6th/mm3 (3.8-10.1) Red Blood Count 3.97mil/mm3 (3.90-5.20) Hemoglobin 10.8g/dL (12.0-15.6) Hematocrit 33.2% (35.0-46.0) Mean Corpuscular Volume 83.6fL (81-100) Mean Corpuscular Hemoglobin 27.2pg (27.0-35.0) Mean Corpuscular Hemoglobin Concent 32.5% (32.0-37.0) Red Cell Distribution Width 14.5% (12.3-15.4) Platelet Count 335bil/L (150-400) Prothrombin Time 9.7sec (8.1-12.5) Prothromb Time International Ratio 0.91ratio Activated Partial Thromboplast Time 27.9sec (22.8-33.0) Sodium Level 140mEq/L (134-144) Potassium Level 3.7mEq/L (3.5-5.2) Chloride Level 106mEq/L (97-108) Carbon Dioxide Level 18mmol/L (18-29) Blood Urea Nitrogen 10mg/dL (6-20) Creatinine 0.84mg/dL (0.57-1.00) Estimat Glomerular Filtration Rate 110mL/min (>59) Glucose Level 135mg/dL (60-99) Calcium Level 8.4mg/dL (8.5-10.1) Total Bilirubin 0.2mg/dL (0.0-1.2) Aspartate Amino Transf (AST/SGOT) 15U/L (0-50) Alanine Aminotransferase (ALT/SGPT) < 5U/L (0-32) Alkaline Phosphatase 61U/L (25-150) Total Protein 6.2g/dL (6.4-8.4) Albumin 3.8g/dL (3.4-5.0) Hold Man Top Tube Received (Received) Salicylates Level < 3.0ug/mL (30-250) Acetaminophen Level 237.8ug/mL Rx (10-25) Alcohols < 10mg/dL (0-10) Hold Urine Received (Received) ECG Interpretation ECG Interpretation: LVH with secondary repolarization abnormality prolonged QT interval Time: 19:42 Interpreted by: ED physician Rhythm / Conduction: Tachycardia (RATE 112) CT Abd / Pelvis Interpretation IMPRESSION: Multiple abdominal laceration/soft tissue defect with surrounding subcutaneous stranding. Left adnexal ring-enhancing structure possibly hemorrhagic left ovarian cyst, likely nonspecific. Further assessment could be performed with pelvic ultrasound in the nonemergent setting. No acute intra-abdominal abnormality. Dictated by: Edgar Heard M.D. on 03/27/2017 at 20:47 Approved by: Edgar Heard M.D. on 03/27/2017 at 20:51 Study type: Abdominal CT no contrast Interpretation / Wet Read by: Interpret - Radiologist Procedures Laceration Management Laceration Management: Right sided, abdominal, 9cm laceration deep into subcutaneous fat. Another 7cm by 7cm laceration open to the left side of the abdomen. Time: 23:52 Procedure Performed by: ED physician Consent / Setup / Site Prep: Informed consent provided, Consent from patient , Hand hygiene observed, Stand sterile technique Wound Length: 9 cm Local Anesthesia: Lidocaine w epi 1% Wound Preparation: Betadine Debridement: None Irrigation: Copious Foreign Body Explore / Removal: Explored for foreign body Repair Skin: Nylon # Sutures - Skin: 8 Repair Subcutaneous: ___ O (3), Vicryl Suture Technique: Running Post-Procedure / Complications: Antibiotic oint applied, Dressing applied, No complications, Condition improved, Tolerated procedure well, Patient stable Re-Eval/Medical Decision Med Decision/Clinical Course In summary, 37-year-old female with extensive psychiatric history presenting to the ED for evaluation after an admitted intentional overdose on approximately 100 pills of Tylenol PM. This happened about 30 minutes prior to her arrival here in the emergency department. Given the patient's history and clear time of ingestion, decision was made to start empiric N-acetylcysteine treatment here in the ED. She was also given activated charcoal. Laboratory studies reviewed, notable for currently normal LFTs (likely still too early postingestion), elevated Tylenol level though not currently at the 4 hour dalia. EKG demonstrates sinus tachycardia with a prolonged QT interval. Patient has numerous scars to her abdomen from previous cutting. The laceration on the right side of her abdomen from today appears to be deep with extensive involvement of subcutaneous tissue and fat, however upon repair of this complex laceration, no evidence of fascial penetration. CT scan of the patient's abdomen was obtained and did not demonstrate any intra-abdominal free air. Given the above, patient will be admitted for further evaluation and management of her toxic acetaminophen overdose, suicidal attempt. Patient is potentially critically ill without intervention though stable upon admission. Time of Eval: 19:32 Re-Evaluation/Progress Note: Pt checked. Ingestion within 4 hrs of arrival, activated charcoal was given. Time of Eval: 23:40 Re-Evaluation/Progress Note: Complex laceration repair performed. Pt tolerated procedure well. Consultation : Referral / Consult Name: Nahomi Curtis MD Consulted With: Hospitalist Call Returned at: 23:57 Furnace Cleaner: Agrees with eval, Agrees with plan, Accepts admit Note: Case discussed. Dr. Curtis accepts admit. Counseled Regarding: Diagnosis, Lab results, Need for admission Discharge & Departure Primary Impression: Acetaminophen overdose Encounter type: initial encounter Injury intent: intentional self-harm Qualified Code: T39.1X2A - Poisoning by 4-Aminophenol derivatives, intentional self-harm, initial encounter Additional Impressions: Laceration of abdominal wall Encounter type: initial encounter Qualified Code: S31.119A - Laceration without foreign body of abdominal wall, unspecified quadrant without penetration into peritoneal cavity, initial encounter Acute situational disturbance Self-mutilation Intentional self-harm Acetaminophen toxicity Encounter type: initial encounter Injury intent: intentional self-harm Qualified Code: T39.1X2A - Poisoning by 4-Aminophenol derivatives, intentional self-harm, initial encounter Disposition: ADMITTED TO HOSPITAL Discharge Condition All VS Reviewed: Yes Condition: Critical Referrals: [facility] Crit Care Except Billable Proc Time Spent: 75-104 minutes Services Performed: Patient management by me, Time spent at bedside, Reviewing test results, Reviewing imaging, Discussing patient care, Documentation in record Critical Care Notes: Please see MDM. [facility] Attestation Portion of this note were transcribed by Nina Bruce. I, Dr. Velasquez, personally performed the history, physical exam, and medical decision-making: I reviewed and confirmed the accuracy for the information in the transcribed note. Signed by: mimi Flores, 03/27/17 [id number] copies to: [facility] Hamilton Velasquez MD Mar 27, 2017 20:35 Nina Bruce Mar 27, 2017 21:03
--- NOTE | 2017-03-27 20:53 | DRSVH ---
PROCEDURE: CT ABDOMEN AND PELVIS WITH CONTRAST (PNL-7102) INDICATIONS: large lac to abdomen; eval for intraperitoneal air TECHNIQUE: After the administration of intravenous contrast, 5 mm thick sections acquired from the diaphragm to the symphysis. 5 mm coronal and sagittal reformats were acquired. For radiation dose reduction, the following was used: automated exposure control, adjustment of mA and/or kV according to patient siz e. COMPARISON: None. FINDINGS: Image quality: Degraded by motion artifact. ABDOMEN: Lung bases: Dependent atelectasis/scarring in the lung bases. Solid organs: Liver and spleen are normal in size and enhancement. Gallbladder negative. Biliary s ystem is non dilated. Pancreas enhances normally. No adrenal nodules. Kidneys demonstrate normal s ize and enhancement, without hydronephrosis. Peritoneum and bowel: Bowel loops demonstrate normal wall thickness and caliber. No free fluid or a ir. Appendix appears normal Nodes and vessels: No retroperitoneal or mesenteric adenopathy by size criteria. Aorta and inferior vena cava are normal in size. Miscellaneous: Small fat-containing umbilical hernia. Abdominal lacerations involving the anterior ab dominal wall. There is anterior abdominal wall subcutaneous stranding. PELVIS: Genitourinary: Bladder wall thickness is normal. There is a rim enhancing left adnexal lesion measu ring 1.5 cm which could be hemorrhagic cyst, indeterminate. Miscellaneous: No inguinal hernias or adenopathy. Bones: No suspicious bony lesions. No vertebral body compression fractures. IMPRESSION: Multiple abdominal laceration/soft tissue defect with surrounding subcutaneous stranding. Left adnexal ring-enhancing structure possibly hemorrhagic left ovarian cyst, likely nonspecific. Fur ther assessment could be performed with pelvic ultrasound in the nonemergent setting. No acute intra-abdominal abnormality. Dictated by: Edgar Heard M.D. on 03/27/2017 at 20:47 Approved by: Edgar Heard M.D. on 03/27/2017 at 20:51
[2017-03-27] MEDS ORDERED: Acetylcysteine 5,000 mg/500 mL D5W IV SCH ×2 (21:00)
[2017-03-27 22:08] VITALS: BP 138/82; PULSE 104; RESP 17; O2SAT 99
[2017-03-28] VITALS (7 sets, daily range): BP systolic 118–144; BP diastolic 77–96; PULSE 66–87; RESP 18; O2SAT 98–100
[2017-03-28] MEDS ORDERED: Ondansetron 2 mg/mL 2 mL Inj IVPUSH PRN (00:50)
[2017-03-28] MEDS ORDERED: Alum-Mag Hydrox-Simeth 30 mL Suspension PO PRN (00:50)
[2017-03-28] MEDS ORDERED: Polyethylene Glycol (PEG) 17 Gm Powder PO PRN (00:50)
[2017-03-28] MEDS ORDERED: D5W IV SCH ×2 (01:00)
[2017-03-28] MEDS ORDERED: ACETYLCYSTEINE IV SCH ×2 (01:00)
--- NOTE | 2017-03-28 01:39 | PCM.HPMED ---
Subjective Date of Service Mar 28, 2017 Primary Provider: Admitting Physician: Nahomi Curtis MD [facility] [place] Attending Physician: Nahomi Curtis MD Chief Complaint: Tylenol Overdose History of Present Illness: 37-year-old female with history of PTSD, major depression, borderline personality disorder, and multiple suicide attempts who presents to the ED by EMS after a suicide attempt by Tylenol overdose. After calling the crisis hotline, authorities found her next to an empty bottle of Tylenol PM. She reports that she took the whole bottle around 600pm, which was a 100 count bottle. She states that she had a tough therapy session earlier today, so she was stressed out and wanted to end her life. She also has a history of mutilation of her abdomen, which she used a razor blade to cut herself on the RLQ during this episode. She also reports a laceration on her LLQ that is a few days old. She denied any other associated symptoms including f/c, n/v, CP, SOB, DUARTE, dizziness, hallucinations, or HI. She also denied using any other drugs or overdosing on any other medications. Of note, she has had over a dozen SA in the past year and has been hospitalized here multiple times. She also had a previous Tylenol OD in January. Upon arrival to the ER, she was administered activated charcoal and initiated on NAC. She was noted to be mildly tachycardic and had a Tylenol level of 237. She had a large right abdominal lac that was sutured in the ED. There was also a large left abd lac that will require wound care. Review of Systems: Comprehensive review of systems was conducted with the patient and found to be negative except as noted above in HPI. Allergies Coded Allergies: No Known Allergies (Unverified , 03/27/17) UNABLE TO ASK PT. REVIEWED HX NOTES. Home Medications DISCHARGE MEDICATIONS from last admission 1. Vitamin D3 1000 units per day. 2. Klonopin 1 mg b.i.d. p.r.n. 3. Docusate 250 p.o. b.i.d. 4. FeSO4, 325 t.i.d. 5. Synthroid 0.1 daily. 6. Seroquel 75 twice a day and 200 h.s. 7. Prazosin 4 mg h.s. 8. Mirtazapine 30 mg h.s. PMH PTSD Depression Anxiety Bipolar disorder Previous suicide attempts and self-mutilation Surgical History Multiple abd lac repairs Family History Reports grandfather with diabetes Social History Occupation: unemployed currently Hx Alcohol Use: No Hx Substance Use: No Hx Tobacco Use: Yes (0.5 ppd) Smoking Status: Never Smoker Living Arrangement: Alone Exam Vital Signs Vital Sign - Last Date Time Temp Pulse Resp B/P Pulse Ox O2 Delivery O2 Flow Rate FiO2 03/27/17 22:08 37.0 104 17 138/82 99 Room Air Intake and Output 03/27/17 03/27/17 03/28/17 Cumulative From/Thru 14:59 22:59 06:59 03/27/17 18:46 - 03/27/17 19:56 Intake Total 1000 ml 1000 ml Balance 1000 ml 1000 ml Intake IV Total 1000 ml 1000 ml Exam General:Obese female who appears in NAD during my exam. She is cooperative and quiet. HEENT: Normocephalic, atraumatic. PERRLA, EOMI. Anicteric sclerae, moist conjunctivae, and no lid lag. Oropharynx free of erythema and cobble stoning with moist mucosa. Neck: Soft, NT, trachea midline Cardiovascular: Regular rate and rhythm with no murmurs, rubs, or gallops appreciated Pulmonary: Clear to auscultation bilaterally with no crackles, wheezes, or rhonchi. Normal respiratory effort with no use of accessory muscles. Abdomen: Soft, large 9cm laceration sutured and covered in clear dressing on RLQ , large 7 cm opened linear laceration on LLQ, wound bed is fibrinous and full of slough, mild periwound erythema. Extremities: No clubbing, cyanosis, edema, or lymphadenopathy appreciated. Skin: Other than lacerations on abdomen, skin is warm, dry and intact Neurological: Cranial nerves grossly intact. MS grossly intact, no focal weakness Psychiatric: Flat affect with poor judgment and insight. She is Alert and oriented Lab and Diagnostics Result Diagram: 03/27/17193403/27/[id number] X-Rays, CTs and MRIs PROCEDURE: CT ABDOMEN AND PELVIS WITH CONTRAST ([id number]) IMPRESSION: Multiple abdominal laceration/soft tissue defect with surrounding subcutaneous stranding. Left adnexal ring-enhancing structure possibly hemorrhagic left ovarian cyst, likely nonspecific. Further assessment could be performed with pelvic ultrasound in the nonemergent setting. No acute intra-abdominal abnormality. 12-lead ECG ECG Interpretation: LVH with secondary repolarization abnormality prolonged QT interval Time: 19:42 Interpreted by: ED physician Rhythm / Conduction: Tachycardia (RATE 112) Assessment & Plan 37-year-old female with history of PTSD, major depression, borderline personality disorder, and multiple suicide attempts who presents to the ED by EMS after a suicide attempt by Tylenol overdose. Acetaminophen overdose, acute and recurrent - Continue N-acetylcysteine per pharmacy protocol - Check acetaminophen levels Q4h - Recommend psychiatric consult in AM - Suicide Precautions in place - Placed on Telemetry for CV monitoring - Monitor LFTs - IV NS at 100mls/hr Mood disorders with Suicide Attempt, POA - History of PTSD, MDD, Bipolar d/o, Borderline PD - Will have a sitter for safety - Psych consult in the AM. - Plan to continue psychiatric regimen. Abdominal lacerations, POA -RLQ lac has been repaired by ED physician -Will obtain Wound care for LLQ lac that has been left open for a few days now. No s/s of systemic infection CODE STATUS: Full resuscitation Patient is admitted under inpatient status with expected length of stay greater than 2 midnights due to severity of presenting symptoms, risk of adverse event, and complexity of treatment plan. Pain Evaluation: Adequate Pain Control VTE Prophylaxis: Sub-Q Heparin (Unfractionated) Resuscitation Status: CPR: Attempt Resuscitation Attending Statement Pt seen and examined by myself and agree with above plan. Juan M Hoyos DO Mar 28, 2017 01:11 Nahomi Curtis MD Mar 28, 2017 06:13
[2017-03-28] MEDS: 0.9% Sodium Chloride 1,000 ML IV SCH ×3 (01:50→20:50)
--- NOTE | 2017-03-28 03:32 | NUR ---
Pt admitted to room 3021 at approx 0130, she was calm and cooperative during the admission interview and assessment, She has 2 resent cuts on her abdomen, both approximately 3 inches long. numerous self inflicted scars across her stomach and abdomen. Sat quietly during admission, denied any plan to harm herself yet refused to sign a no harm contract. Vital signs unremarkable , denies pain, . Pt received 2 doses of Acetylcysteine in ER. was just beginning the third dose when she pulled her IV out and has refused to allow an IV to be placed. Has refused to take PO medications. Has been placed in restraints , restraint orders have been signed by . Pt is oriented to self , has distorted perception of place and time. When asked what she would do if she were released immediately she just smiled, said she wouldn't tell us because she didn't want us to know what he had in mind Sitter at bedside. Tele: SR 30-90. Room Air.
[2017-03-28 07:06] LABS: BASOPHILS % (AUTO) 0.2 % (0-3); EOSINOPHILS % (AUTO) 0 % (0-5); MONOCYTES % (AUTO) 7.9 % (4-12); Mean Corpuscular Hemoglobin 27.2 pg (27.0-35.0); Mean Corpuscular Volume 83.4 fL (81-100); NEUTROPHILS % (AUTO) 68.5 % (40-74); Platelet Count 291 bil/L (150-400)
[2017-03-28] MEDS: Heparin 5,000 Unit/mL Inj SUBQ SCH ×2 (08:30→16:07)
[2017-03-28 09:12] LABS: INR 1.02 ratio
--- NOTE | 2017-03-28 13:52 | NUR ---
Restraints/Behavior Pt has denied any pain today. Pt refused all po medications. Patient has been of 4point restraints all shift. Pt has remained cooperative. Able to release each restraint and do range of motion and patient remained cooperative. Sitter at bedside. Cont to monitor.
--- NOTE | 2017-03-28 15:27 | NUR ---
Social Work: Screening / Multidisciplinary Rounds Data: Pt is a 37 y/o female admitted for aceteminophen overdose. Pt's PCP is [facility], pt's insurance is [employer]. Pt well known to hospital for suicidal attempts. Psych has been ordered. DISTRIBUTION CENTER SUPERVISOR ordered for consultation. DISTRIBUTION CENTER SUPERVISOR will follow up post psychiatric consultation and recommendations. Typically this pt returns home with her extensive support services, as inpt treatment has proved to be unsuccessful for her in the past. DISTRIBUTION CENTER SUPERVISOR will continue to follow. Assessment: Pt with mental health history, multiple suicide attempts. Plan: DISTRIBUTION CENTER SUPERVISOR will follow up post psychiatry. DISTRIBUTION CENTER SUPERVISOR will continue to follow. DAVON Nice
--- NOTE | 2017-03-28 16:11 | NUR ---
Wound Care 37 yo female with self inflicted abdominal wounds,right abdominal wound has been closed with sutures primarily, left abdominal wound is 6 cm x 2.5 cm x 0.6 cm deep, wound bed is granular in nature, needed minimal mechanical debridement today, no sign of infection. Redressed with aquacell ag and an island dressing. This patient is in restraints so dressing should remain in place for a while. Can be changed by nursing on q 48 hour basis.
[2017-03-28] MEDS ORDERED: Acetadote Dosing per Pharmacy XX SCH (17:00)
--- NOTE | 2017-03-28 18:34 | NUR ---
Discontinuation of Restraints 4 point restraints removed @ 1500 per provider request, provider present during removal. Sitter at the bedside. Patient agreeable to take seroquel 200mg (hs dose) and clonazepam for anxiety. Currently sleeping w/ sitter at the bedside. Has since been out of bed to void, refused meal tray, psych evaluation in the a.m. & likely discharge home if able. Passive, will answer questions appropriately otherwise likes to be left alone.
--- NOTE | 2017-03-28 18:37 | NUR ---
No IV Access Provider/Dr. Hull order to leave out IV access d/t patient ripping out her last one. Order to be written by primary RN.
--- NOTE | 2017-03-28 20:41 | PCM.PNMED ---
Subjective Date of Service Mar 28, 2017 Subjective Pt is not suicidal/homicidal. She was in restrains and the restrains were removed during this visit. Large abd lacerations, new and old, self-inflicted, very large open wound on left side. Several old superficial lacerations. States She cuts in abd to hide it. Acetaminophen levels normal. Exam Vital Signs Vital Sign - Last Date Time Temp Pulse Resp B/P Pulse Ox O2 Delivery O2 Flow Rate FiO2 03/28/17 13:07 66 03/28/17 12:07 36.4 18 122/79 98 Room Air Intake and Output 03/27/17 03/27/17 03/28/17 Cumulative From/Thru 15:00 23:00 07:00 03/27/17 18:46 - 03/28/17 01:51 Intake Total 1000 ml 1000 ml Balance 1000 ml 1000 ml IV Total 1000 ml 1000 ml Exam General: Laying in bed, no obvious signs of agitation HEENT: Piercing over her chin Heart: RRR, no s3/s4 Lungs: CTA, no crackles or wheezes Abd: Soft, Non distended, non-tender, large lacerations on either side of mid- abd, R side is repaired but not the left Ext: No edema Psych: Flat affect, no agitation, cooperative Neuro: No focal deficits IVs and Medications IV Fluids NSS 100 cc/hr Medications Reviewed: Medications were reviewed in detail Lab and Diagnostics Result Diagram: 03/28/1762103/28/17621 X-Rays, CTs and MRIs PROCEDURE: CT ABDOMEN AND PELVIS WITH CONTRAST (PNL-7102) IMPRESSION: Multiple abdominal laceration/soft tissue defect with surrounding subcutaneous stranding. Left adnexal ring-enhancing structure possibly hemorrhagic left ovarian cyst, likely nonspecific. Further assessment could be performed with pelvic ultrasound in the nonemergent setting. No acute intra-abdominal abnormality. 12-lead ECG ECG Interpretation: LVH with secondary repolarization abnormality prolonged QT interval Time: 19:42 Interpreted by: ED physician Rhythm / Conduction: Tachycardia (RATE 112) Assessment & Plan 37-year-old female with history of PTSD, major depression, borderline personality disorder, and multiple suicide attempts who presents to the ED by EMS after a suicide attempt by Tylenol overdose. Acetaminophen overdose, acute and recurrent - Charcoal was given in the er. Continue N-acetylcysteine per pharmacy protocol , 2 doses are given - Check acetaminophen levels Q4h: Normalized, we can discontinue - Suicide Precautions in place - Placed on Telemetry for CV monitoring - Monitor LFTs - IV NS at 100mls/hr -- Discontinue telemetry. No longer need to monitor acetaminophen levels -- Social Work behavioral assessment Mood disorders with Suicide Attempt, POA - History of PTSD, MDD, Bipolar d/o, Borderline PD - Will have a sitter for safety - Psych consult in the AM: Dr. Ha will see pt at 9AM on 03/29. I told him she will be medically ok for discharge. He he is asking to know if felt that the patient wants to go to psych unit versus home. Patient denies suicidal homicidal inclinations, and was to return home - Plan to continue psychiatric regimen. -- She did not take any medications but did agree to take medications this afternoon after it seen her. Restraints were discontinued. Abdominal lacerations, POA -RLQ lac has been repaired by ED physician -Will obtain Wound care for LLQ lac that has been left open for a few days now. No s/s of systemic infection -- Wound care following the left-sided laceration CODE STATUS: Full resuscitation Patient is admitted under inpatient status with expected length of stay greater than 2 midnights due to severity of presenting symptoms, risk of adverse event, and complexity of treatment plan. VTE Prophylaxis: Sub-Q Heparin (Unfractionated) Resuscitation Status: CPR: Attempt Resuscitation Time spent 25 minutes Santa Hull DO Mar 28, 2017 16:10
[2017-03-29] MEDS: Heparin 5,000 Unit/mL Inj SUBQ SCH ×2 (00:30→09:58)
[2017-03-29] MEDS: 0.9% Sodium Chloride 1,000 ML IV SCH (00:36)
--- NOTE | 2017-03-29 06:12 | NUR ---
Behavior Withdrawn during assessment with minimal interaction with RN. During suicide assessment when questioned regarding any active thoughts or suicide or a plan patient states "I would rather not answer that question". 1:1 provide for patient safety.
[2017-03-29 06:38] VITALS: BP 116/77; PULSE 83; RESP 18; O2SAT 98
[2017-03-29 11:29] VITALS: BP 119/82; PULSE 71; RESP 18; O2SAT 99
--- NOTE | 2017-03-29 12:34 | PCM.DIMED ---
Discharge Instructions Date of Service Mar 29, 2017 Dates of Hospitalization Mar 28, 2017 at 00:48 Discharge Diagnosis Discharge Diagnosis suicidal ideations, multiple psychiatric diagnoses including PTSD, MDD, Anxiety , Bipolar d/o, Self Mutilation Diet Discharge Diet: No restrictions Activity Discharge Activity: No restrictions Call your provider Call your provider for: Fever or Chills, Shortness of breath, Bleeding, Chest pain, Vomitting, Excessive diarrhea, Weakness (unilateral), Other Patient Instructions Patient Instructions Please take keflex as prescribed. Take probiotics to avoid diarrhea. Follow-up plan Please f/u with your psychiatrist in one week Please f/u with PACS as before. Please f/u with [facility] clinic in 2 days for wound care. Santa Hull DO Mar 29, 2017 12:05
[2017-03-29] MEDS ORDERED: CEPH-512 PO (12:36)
--- NOTE | 2017-03-29 13:41 | PCM.DC.MED ---
Discharge Summary Date of Service Mar 29, 2017 Dates of Hospitalization Date of Hospital Admission Mar 28, 2017 at 00:48 Date of Discharge: Mar 29, 2017 Providers: Admitting Physician: Nahomi Curtis MD Primary Care Physician: [facility] Attending Physician: Santa Almeida DO Diagnosis at Time of Discharge Diagnosis at Time of Discharge Suicidality, bipolar, borderline, , PTSD, MDD Consultations Psychiatric Procedures XRay, CTs & MRIs PROCEDURE: CT ABDOMEN AND PELVIS WITH CONTRAST (PNL-7102) IMPRESSION: Multiple abdominal laceration/soft tissue defect with surrounding subcutaneous stranding. Left adnexal ring-enhancing structure possibly hemorrhagic left ovarian cyst, likely nonspecific. Further assessment could be performed with pelvic ultrasound in the nonemergent setting. No acute intra-abdominal abnormality. ECG 12 Lead ECG Interpretation: LVH with secondary repolarization abnormality prolonged QT interval Time: 19:42 Interpreted by: ED physician Rhythm / Conduction: Tachycardia (RATE 112) Brief History 37-year-old female with history of PTSD, major depression, borderline personality disorder, and multiple suicide attempts who presents to the ED by EMS after a suicide attempt by Tylenol overdose. After calling the crisis hotline, authorities found her next to an empty bottle of Tylenol PM. She reports that she took the whole bottle around 600pm, which was a 100 count bottle. She states that she had a tough therapy session earlier today, so she was stressed out and wanted to end her life. She also has a history of mutilation of her abdomen, which she used a razor blade to cut herself on the RLQ during this episode. She also reports a laceration on her LLQ that is a few days old. She denied any other associated symptoms including f/c, n/v, CP, SOB, DUARTE, dizziness, hallucinations, or HI. She also denied using any other drugs or overdosing on any other medications. Of note, she has had over a dozen SA in the past year and has been hospitalized here multiple times. She also had a previous Tylenol OD in January. Upon arrival to the ER, she was administered activated charcoal and initiated on NAC. She was noted to be mildly tachycardic and had a Tylenol level of 237. She had a large right abdominal lac that was sutured in the ED. There was also a large left abd lac that will require wound care. Hospital Course 37-year-old female with history of PTSD, major depression, borderline personality disorder, and multiple suicide attempts who presents to the ED by EMS after a suicide attempt by Tylenol overdose. Acetaminophen overdose, acute and recurrent - Charcoal was given in the er. Continue N-acetylcysteine per pharmacy protocol , 2 doses are given - Check acetaminophen levels Q4h: Normalized, we can discontinue - Suicide Precautions in place - Placed on Telemetry for CV monitoring - Monitor LFTs - IV NS at 100mls/hr -- Discontinue telemetry. No longer need to monitor acetaminophen levels -- Social Work behavioral assessment: Psychiatrist Dr. Ha has seen the patient and cleared her for discharge, recommended outpatient treatment -- Patient's serum acetaminophen levels have normalized, she received 3 doses of an acetylcysteine Mood disorders with Suicide Attempt, POA - History of PTSD, MDD, Bipolar d/o, Borderline PD - sitter for safety - Psych consult in the AM: Dr. Ha will see pt at 9AM on 03/29. I told him she will be medically ok for discharge. He he is asking to know if felt that the patient wants to go to psych unit versus home. Patient denies suicidal homicidal inclinations, and was to return home -- She did not take any medications but did agree to take medications this afternoon after it seen her. Restraints were discontinued. On 03/28 -- Patient is seen ambulating in the hallways, taking her medications. She says she wants to go home, she denies homicidal and suicidal ideations. -- Patient will be seen by her psychiatrist for follow-up, continued PA-C Support system Abdominal lacerations, POA -RLQ lac has been repaired by ED physician -Will obtain Wound care for LLQ lac that has been left open for a few days now. No s/s of systemic infection -- Wound care following the left-sided laceration -- Patient is asked to follow up with [facility] wound care in 2 days for follow-up Soft tissue skin infection -- Patient is seen to have some purulence at the site of laceration repair, on the right side -- Keflex was given for 10 days with probiotics I recommended Hemorrhagic ovarian cyst F seen on the abdominal imaging -- Left adnexal ring-enhancing structure possibly hemorrhagic left ovarian cyst , likely nonspecific. Further assessment could be performed with pelvic ultrasound in the nonemergent setting. -- We will recommend that the PCP follows this 1 with a pelvic ultrasound CODE STATUS: Full resuscitation Patient is admitted under inpatient status with expected length of stay greater than 2 midnights due to severity of presenting symptoms, risk of adverse event, and complexity of treatment plan. Exam Vital Signs (Last) Date Time Temp Pulse Resp B/P Pulse Ox O2 Delivery O2 Flow Rate FiO2 03/29/17 11:29 36.4 71 18 119/82 99 Room Air Exam General: Laying in bed, no obvious signs of agitation HEENT: Piercing over her chin Heart: RRR, no s3/s4 Lungs: CTA, no crackles or wheezes Abd: Soft, Non distended, non-tender, large lacerations on either side of mid- abd, R side is repaired but not the left. Purulence is noted near the laceration site on the right side. Left-sided appears to be clean Ext: No edema Psych: Flat affect, no agitation, cooperative Neuro: No focal deficits Test 03/27/17 19:35 03/27/17 21:24 03/28/17 06:22 03/28/17 08:38 Hold Man Top Tube Received (Received) Salicylates Level < 3.0ug/mL (30-250) Alcohols < 10mg/dL (0-10) Hold Urine Received (Received) White Blood Count 8.7th/mm3 (3.8-10.1) Red Blood Count 4.04mil/mm3 (3.90-5.20) Hemoglobin 11.0g/dL (12.0-15.6) Hematocrit 33.7% (35.0-46.0) Mean Corpuscular Volume 83.4fL (81-100) Mean Corpuscular Hemoglobin 27.2pg (27.0-35.0) Mean Corpuscular Hemoglobin Concent 32.6% (32.0-37.0) Red Cell Distribution Width 14.7% (12.3-15.4) Platelet Count 291bil/L (150-400) Neutrophils (%) (Auto) 68.5% (40-74) Lymphocytes (%) (Auto) 23.2% (14-46) Monocytes (%) (Auto) 7.9% (4-12) Eosinophils (%) (Auto) 0% (0-5) Basophils (%) (Auto) 0.2% (0-3) Sodium Level 140mEq/L (134-144) Potassium Level 3.9mEq/L (3.5-5.2) Chloride Level 107mEq/L (97-108) Carbon Dioxide Level 17mmol/L (18-29) Blood Urea Nitrogen 7mg/dL (6-20) Creatinine 0.87mg/dL (0.57-1.00) Estimat Glomerular Filtration Rate 106mL/min (>59) Glucose Level 111mg/dL (60-99) Calcium Level 8.0mg/dL (8.5-10.1) Total Bilirubin 0.3mg/dL (0.0-1.2) Aspartate Amino Transf (AST/SGOT) 15U/L (0-50) Alanine Aminotransferase (ALT/SGPT) 5U/L (0-32) Alkaline Phosphatase 49U/L (25-150) Total Protein 5.7g/dL (6.4-8.4) Albumin 3.5g/dL (3.4-5.0) Prothrombin Time 10.9sec (8.1-12.5) Prothromb Time International Ratio 1.02ratio Activated Partial Thromboplast Time 27.5sec (22.8-33.0) Test 03/28/17 19:35 Acetaminophen Level < 15.0ug/mL Rx (10-25) Discharge Medications Discharge Medications Cephalexin (Keflex) 500 Mg Capsule 500 MG PO BID Prescribed by: SANTA ALMEIDA DO Cholecalciferol (Vitamin D3) (Vitamin D3) 1,000 Unit Tab.chew 1,000 UNIT PO QAM (Reported) Levothyroxine (Levothyroxine) 100 Mcg Tablet 100 MCG PO QAM (Reported) Mirtazapine (Mirtazapine) 30 Mg Tablet 30 MG PO HS (Reported) Prazosin (Prazosin) 2 Mg Capsule 4 MG PO HS (Reported) Quetiapine Fumarate (Quetiapine Fumarate) 25 Mg Tablet 75 MG PO BIDWM (Reported ) 0800 AND 1400 Quetiapine Fumarate (Quetiapine Fumarate) 100 Mg Tablet 200 MG PO HS Prescribed by: MICHAEL YBARRA MD As needed Clonazepam (Clonazepam) 1 Mg Tablet 1 MG PO BID PRN PRN For Anxiety (Reported) Time spent 35 minutes Santa Almeida DO Mar 29, 2017 12:07
--- NOTE | 2017-03-29 14:01 | NUR ---
Social Work Note - Discharge note Tammy Colon is a 37 yr old well know to this worker who was admitted after an intentional OD of Tylenol. Pt states she was feeling anxious, tried to call Crisis line and impulsively took medications - she could not identify what was stressing her out. Pt states that Dr Ha met with her today. Pt denies any suicidal ideation - wants to go home. Pt is cooperative with care, is aravind for safety. She states she has an appointment on Saturday at 1500 with Gabby Kearns at [facility]. Pt wants to d/c home with her parents who are willing to come and pick her up. Please see Dr Ha's note for full mental health assessment. SCOURING TRAIN OPERATOR spoke with Dr Ha who agrees that pt can be d/c home. SCOURING TRAIN OPERATOR called [facility] [phone] Spoke with Grabiel, Clinician who confirmed Pt's appointment on Saturday. Pt denies any needs, has crisis line phone number memorized. Plan: home with family, follow up on Saturday with [facility]. KELSEY Ayala
--- NOTE | 2017-03-29 14:04 | CONS ---
[address] [address] CONSULTATION REPORT PATIENT: CUAUHTEMOC DIAZ : 1980 MR#: [id number] ADMIT: 03/28/2017 JOB ID: [id number] DATE OF SERVICE: 03/29/2017 IDENTIFICATION: The patient is a 37-year-old white female with a history of PTSD, major depression and borderline personality disorder. She lives with her parents. REASON FOR ADMISSION: Client took a bottle of Tylenol approximately 100 on March 27, 2017. She then called for the EMS and was taken to the emergency department and transferred to internal medicine for treatment of a Tylenol overdose. REASON FOR CONSULT: I was asked to consult on the patient for evaluation and treatment of suicide potential. I met with her for a 60 minute evaluation and reviewed course and records kept by [facility]. Please refer to multiple recent consults and history and physicals done at [facility] on the patient. I have been consulted on her multiple times on the floor and on the psych unit during this and the previous year. Client's main issue is chronic suicidal ideation related to PTSD. Co-occurring issues are depression and a lack of social engagement. The condition is chronic and has been present for years. It is currently manifesting with symptoms of impulsivity and multiple suicide attempts due to lack of coping. All the above are made worse when she is not with her family, when she does not sleep well and when she is under stress. Today she denied suicidal ideation, plan or intent. She was showing no signs of emotional liability or cognitive deficits. Her judgment and insight appeared appropriate. For example, she detailed a safety plan which included returning to the [place] counter caser, counselor and therapist. She agreed to call the emergency department or her counselors if the suicidal thoughts return. She denied psychiatric review of systems for psychosis or lan. ALLERGIES: None. MEDICATIONS: 1. Klonopin 1 b.i.d. p.r.n. 2. Prazosin 4 h.s. 3. Mirtazapine 30 h.s. 4. Seroquel 75 twice a day, 200 h.s. 5. Synthroid 0.1 daily. 6. Iron sulfate 325 t.i.d. PAST MEDICAL HISTORY: Client has two abdominal lacerations in early stages of healing. FAMILY MEDICAL HISTORY: Grandfather had diabetes. PAST PSYCHIATRIC HISTORY: 1. PTSD. 2. Depression. 3. Anxiety. 4. Bipolar disorder. 5. Multiple previous suicide attempts and self-mutilation. PSYCHOSOCIAL HISTORY: See previous evaluations. MENTAL STATUS EXAMINATION: The client dressed in hospital gown lying comfortably on her bed. She had good eye contact. Her behavior was calm. Her attitude was cooperative and pleasant. Speech normal rate and rhythm. Mood euthymic. Affect congruent. No emotional liability. Normal intensity. Thought process: Client is able to relate a coherent history. No signs of psychosis. Her thought process is somewhat concrete, but she was able to appreciate both simple and complex abstractions. Thought content was significant for denying suicidal ideation and talking about a safety plan. She was future planning and talked a lot about not wanting to because she wanted to be there to be present with her cat. Alert and oriented to person, place and date. Insight and judgment appear to be at baseline and appropriate. Impulse control highly contained yet rigid. Has a difficult time handling impulses of anger, fear or guilt. Reality testing intact. Competence to handle current stressors appears to be at baseline. IMPRESSION: The patient is a 37-year-old white female with a history of unclear trauma who has developed a rather severe case of borderline personality disorder with chronic suicidal ideation and multiple recent suicide attempts. She and I worked to put together the best safety plan we could. She appeared to be an active partner in this process and consistently denied suicidal ideation while she was with me. She was future planning and I believe it is appropriate for discharge to home. DIAGNOSIS: AXIS I Posttraumatic stress disorder. AXIS II Borderline personality disorder. AXIS III Recent Tylenol overdose. AXIS IV Moderate. AXIS V Current global assessment of functioning equal to 40. DISCHARGE PLAN: 1. Recommend client be discharged to home on current psych medications Klonopin, Seroquel, prazosin and mirtazapine. 2. Recommend she followup with [facility] therapist or prescriber, Celina Suazo, counter caser, Gabby Kearns and peer counselor Grabiel. Thank you for a very interesting consult.
--- NOTE | 2017-03-29 16:00 | NUR ---
Discharge nursing Note: Patient was discharged to home at 1600. Patient had no IV to remove . All of patients discharge information was reviewed with her and her questions were answered to her satisfaction. Patient is to follow up with wound care clinic for her abdominal wound in two days. Extra bandages were given to patient to dress her wound at home as needed after discharge.Patient was escorted to the hospital lobby by nursing staff member and she was driven to home by her father.
== END 2017-03-29 16:02 | disposition home or self-care (01) | DRG 918 ==
LOC: EDBD 18:39 → SED 18:39 → EDUNIT# 18:39 → MPC 03-28 00:48
PROVIDERS: ADMIT Specialist; ATTEND Specialist
PROC: 0HQ7XZZ Repair Abdomen Skin, External Approach (ICD-10-PCS; principal; 2017-03-28)
DX: T39.1X2A Poisoning by 4-Aminophenol derivatives, intentional self-harm, initial encounter (principal); Y92.9 Unspecified place or not applicable; E03.9 Hypothyroidism, unspecified; S31.113A Laceration without foreign body of abdominal wall, right lower quadrant without penetration into peritoneal cavity, initial encounter; X78.8XXA Intentional self-harm by other sharp object, initial encounter; E66.9 Obesity, unspecified; F43.12 Post-traumatic stress disorder, chronic; F60.3 Borderline personality disorder; F32.9 Major depressive disorder, single episode, unspecified; Z68.34 Body mass index [BMI] 34.0-34.9, adult

== ENCOUNTER 2017-04-14 20:08 | Inpatient (IN) | payer OTHER ==
[~2017-04-14] VITALS: Ht 167.6 cm; Wt 94.0 kg
[2017-04-14 20:08] VITALS: BP 133/71; PULSE 113; RESP 20; O2SAT 99
[~2017-04-14 20:08] MED LIST changes: +CEPH-512 PO
--- NOTE | 2017-04-14 20:14 | ED.REPORT ---
HPI-Overdose/Alcohol Toxicity Date of Service Apr 14, 2017 ED Provider: Mark Jarrett MD Pt is a 37 y/o female w/ a hx of frequent intentional acetaminophen overdoses ( 6 in [place] records), PTSD, major depression, anxiety, bipolar, hypothyroid, presenting to the ED via EMS due to suicide attempt by ingesting 100 capsules of Tylenol PM (500 mg Tylenol, 25 mg Benadryl) at 16:00 today. She states she did vomit a small amount 30 minutes after ingestion. She denies alcohol or drug use. Nursing Notes Stated Complaint: OVERDOSE Chief Complaint: Substance Abuse Nursing Notes Reviewed: Yes Allergies: Coded Allergies: No Known Allergies (Unverified , 04/14/17) UNABLE TO ASK PT. REVIEWED HX NOTES. Scheduled Cephalexin (Keflex) 500 Mg Capsule 500 MG PO BID Cholecalciferol (Vitamin D3) (Vitamin D3) 1,000 Unit Tab.chew 1,000 UNIT PO QAM Levothyroxine (Levothyroxine) 100 Mcg Tablet 100 MCG PO QAM Mirtazapine (Mirtazapine) 30 Mg Tablet 30 MG PO HS Prazosin (Prazosin) 2 Mg Capsule 4 MG PO HS Quetiapine Fumarate (Quetiapine Fumarate) 25 Mg Tablet 75 MG PO BIDWM 0800 AND 1400 Quetiapine Fumarate (Quetiapine Fumarate) 100 Mg Tablet 200 MG PO HS Scheduled PRN Clonazepam (Clonazepam) 1 Mg Tablet 1 MG PO BID PRN PRN For Anxiety General Time Seen by Provider: 20:15 Chief Complaint Ingestion, acetaminophen Modifying Factors: Intentional Initial Psychiatric Assessment: Danger to self Hx Obtained From: Patient, EMS Arrived By: Ambulance Onset Occurred: 1 - 4 hours ago Symptom Duration: Since onset Severity: Current: No pain currently Severity: Maximum: No pain Recent Healthcare: Recent doctor visit, Recent testing, Previous diagnosis, Prior workup Similar Sx Previous: Yes Past Medical History Past Medical History Notes: Multiple visits to the ED for psychosis requiring 4 point restraints. Requires high doses of ketamine for sedation. Vomits after ketamine. Recurrent abdominal wall self-mutilation Past Medical History PTSD Depression Anxiety Bipolar disorder Multiple suicide attempts and self-mutilation Many suicide attempts with Tylenol Hypothyroid Past Surgical History None Family History Noncontributory Smoking History Never Smoker Social History Pt is a . Alcohol Use: Denies alcohol use Drug Use: Denies drug use Other Social History: Local resident Ambulatory Status Independent Review of Systems GI: Reports: Nausea, Vomiting Psychiatric: Reports: Depression, Suicidal ideation Complete sys rev & neg: except as marked. Physical Exam Initial Vital Signs Vital Signs (First) Date Time Temp Pulse Resp B/P Pulse Ox O2 Delivery O2 Flow Rate FiO2 04/14/17 20:08 37.6 113 20 133/71 99 Room Air Initial VS: Reviewed, Vital signs abnormal Head / Eyes: Atraumatic, Normocephalic, PERRL ENT: Mucous membranes moist, Conjunctiva normal, No scleral icterus Neck: Supple, Full range of motion Extremities: Vascular intact, Neuro intact, No swelling Skin: Warm, Dry, No cyanosis General/Constitutional: Awake, Alert, No acute distress, Cooperative, Not toxic appearing Respiratory / Chest: Breath sounds NL, Breath sounds = bilat, No respiratory distress, No rales, No rhonchi, No wheezing Cardiovascular: Regular rhythm, Heart sounds NL, No murmurs Heart Rate / Rhythm: Positive: Tachycardia Abdomen: Soft, Non-tender, No guarding, No rebound, No distention Multiple healed lacerations about the diffuse abdominal wall RLQ chronic well healing 4 cm laceration no drainage or discharge. LLQ 4 cm laceration into subcutaneous tissue with no active bleeding or discharge. Just medial to that is a 2 cm laceration which is chronic with no surrounding erythema or discharge. Neurologic: Oriented X3, Speech NL, No motor deficits, Memory NL Psychiatric: Affect NL, Mood NL Abnormal Thinking / Perception: Positive: Suicidal, with plan Calm and cooperative at time of interview/exam Interpretation & Diagnostics Lab Results Interpretation Result Diagram: 04/14/17203504/14/172035 Test 04/14/17 20:36 White Blood Count 10.5th/mm3 (3.8-10.1) Red Blood Count 4.27mil/mm3 (3.90-5.20) Hemoglobin 11.3g/dL (12.0-15.6) Hematocrit 34.8% (35.0-46.0) Mean Corpuscular Volume 81.5fL (81-100) Mean Corpuscular Hemoglobin 26.5pg (27.0-35.0) Mean Corpuscular Hemoglobin Concent 32.5% (32.0-37.0) Red Cell Distribution Width 14.5% (12.3-15.4) Platelet Count 407bil/L (150-400) Sodium Level 136mEq/L (134-144) Potassium Level 3.6mEq/L (3.5-5.2) Chloride Level 99mEq/L (97-108) Carbon Dioxide Level 15mmol/L (18-29) Blood Urea Nitrogen 12mg/dL (6-20) Creatinine 0.86mg/dL (0.57-1.00) Estimat Glomerular Filtration Rate 107mL/min (>59) Glucose Level 179mg/dL (60-99) Calcium Level 9.0mg/dL (8.5-10.1) Total Bilirubin 0.6mg/dL (0.0-1.2) Aspartate Amino Transf (AST/SGOT) 12U/L (0-50) Alanine Aminotransferase (ALT/SGPT) 5U/L (0-32) Alkaline Phosphatase 62U/L (25-150) Total Protein 7.4g/dL (6.4-8.4) Albumin 4.2g/dL (3.4-5.0) Salicylates Level < 3.0ug/mL (30-250) Acetaminophen Level 272.6ug/mL Rx (10-25) Alcohols < 10mg/dL (0-10) ECG Interpretation ECG Interpretation: Sinus tachycardia rate 116 Prolonged QT interval, QTc 524 Time: 20:52 Interpreted by: ED physician Normal ECG Interpretation: No acute ischemic changes Procedures Laceration Management Time: 20:24 Procedure Performed by: ED physician Consent / Setup / Site Prep: Consent from patient, Hand hygiene observed, Stand sterile technique Location of Wound: LLQ Wound Length: 4 cm Wound Preparation: Hibiclens - Chlorhexidine Debridement: None Undermining / Margins: Flaps aligned Repair Skin: [place] # Sutures - Skin: 8 Post-Procedure / Complications: No complications, Condition improved, Tolerated procedure well, Patient stable Re-Eval/Medical Decision Med Decision/Clinical Course 37 year old female started depression, bipolar, numerous suicide attempts presenting after intentional ingestion of 100 Tylenol PM's containing acetaminophen 500 mg and Benadryl 25 mg 4 hours prior to arrival. On arrival she was alert and oriented. She has a new laceration to her left lower quadrant into the subcutaneous which I stapled. Up-to-date tetanus. Her QTC is prolonged at 520. Her Tylenol level was grossly elevated 270s at 4 hours post-ingestion. She was given N-acetylcysteine. Case was discussed with poison control who had no further recommendations other than cardiac monitoring and supportive care. Patient was admitted to ICU. Re-Evaluation/Progress : Time of Eval: 22:00 Re-Evaluation/Progress Note: Pt rechecked. Informed pt of need for admission. Pt understands and agrees with plan for admission. All questions addressed. Consultation : Referral / Consult Name: Naeem Mac MD Consulted With: Hospitalist Call Returned at: 22:00 Store Clerk Cashier: Will see patient, Agrees with eval, Agrees with plan, Accepts admit Counseled Regarding: Diagnosis, Lab results, Need for admission Discharge & Departure Impression: Primary Impression: Intentional acetaminophen overdose Encounter type: initial encounter Qualified Code: T39.1X2A - Poisoning by 4- Aminophenol derivatives, intentional self-harm, initial encounter Additional Impressions: Suicide attempt Prolonged QT interval Self-mutilation Laceration of abdominal wall Encounter type: initial encounter Qualified Code: S31.119A - Laceration without foreign body of abdominal wall, unspecified quadrant without penetration into peritoneal cavity, initial encounter Intentional diphenhydramine overdose Encounter type: initial encounter Qualified Code: T45.0X2A - Poisoning by antiallergic and antiemetic drugs, intentional self-harm, initial encounter Major depression Major depression recurrence: recurrent Active/Remission status: currently active Major depression episode severity: severe Psychotic features: with psychotic features Qualified Code: F33.3 - Major depressive disorder, recurrent, severe with psychotic symptoms Disposition: ADMITTED TO HOSPITAL Discharge Condition All VS Reviewed: Yes Condition: Stable Referrals: [facility] (PCP) Crit Care Except Billable Proc Time Spent: 30-74 minutes Services Performed: Patient management by me, Time spent at bedside, Reviewing test results, Reviewing imaging, Discussing patient care, Documentation in record Scribe Attestation Portions of this note were transcribed by Bryant Rodriguez. I, Dr. Jarrett personally performed the history, physical exam and medical decision-making; I reviewed and confirmed the accuracy of the information in the transcribed note. copies to: [facility] Mark Jarrett MD Apr 14, 2017 20:14 BRYANT RODRIGUEZ Apr 14, 2017 20:24
[2017-04-14 20:42] LABS: Mean Corpuscular Hemoglobin 26.5 pg (27.0-35.0); Mean Corpuscular Volume 81.5 fL (81-100)
[2017-04-14 21:16] VITALS: BP 116/70; PULSE 98; RESP 26; O2SAT 96
[2017-04-14] MEDS ORDERED: Alum-Mag Hydrox-Simeth 30 mL Suspension PO PRN (21:50)
[2017-04-14 22:16] VITALS: BP 118/70; PULSE 96; RESP 26; O2SAT 97
[2017-04-14 22:42] VITALS: BP 126/74; PULSE 83; RESP 19; O2SAT 98
[2017-04-14] MEDS ORDERED: Acetylcysteine 5,000 mg/500 mL D5W IV ONE ×2 (23:00)
[2017-04-14 23:03] VITALS: BP 139/92; PULSE 99; RESP 29; O2SAT 99
[2017-04-15] VITALS (8 sets, daily range): BP systolic 121–149; BP diastolic 56–88; PULSE 60–101; RESP 19–28; O2SAT 96–99
--- NOTE | 2017-04-15 02:47 | PCM.HPMED ---
Subjective Date of Service Apr 14, 2017 Primary Provider: Admitting Physician: Primary Care Physician: Ryan,[facility] Attending Physician: Admit Status: From the Emergency Department Chief Complaint: Tylenol Overdose History of Present Illness: Tammy Colon is a 37-year-old female with a past medical history of multiple acetaminophen overdoses within the past 3 months, PTSD, major depression, anxiety, bipolar disorder, hypothyroidism who presents with suicide attempt with acetaminophen overdose. Per her report, she had approximately 100 capsules of Tylenol PM (500 mg Tylenol, 25 mg Benadryl) at approximately 1600 today. She says that she took the Tylenol with the intent to end her life, because she's upset at life. She does not mention any specific stressors. She reports that she did not overdose on any other medications or take any other illicit drugs or alcohol. She denies any recent sexual activity or any possibility of being . She also presents with self-inflicted razor blade lacerations on her left lower quadrant, made earlier today, and right lower quadrant, made 5 days ago. She also ripped out her IV because she didnt want it, even though she understood that it was required for her treatment. She says that she is nauseous and vomited throughout the encounter. She denies any chest pain, shortness of breath, headache, dizziness, fever or chills, dysuria, hematuria, changes in bowel habits, homicidal ideations, and visual or auditory hallucinations. It should be noted she's been here several times over the last couple of months for tylenol overdose and abdominal laceration. In the ED she was started on N-acetylcysteine and had LLQ wound stapled. Review of Systems: A comprehensive review of systems was conducted with the patient and found to be negative except as above in the History of Present Illness. Allergies Coded Allergies: No Known Allergies (Unverified , 04/14/17) UNABLE TO ASK PT. REVIEWED HX NOTES. Home Medications Scheduled Cephalexin (Keflex) 500 Mg Capsule 500 MG PO BID Cholecalciferol (Vitamin D3) (Vitamin D3) 1,000 Unit Tab.chew 1,000 UNIT PO QAM Levothyroxine (Levothyroxine) 100 Mcg Tablet 100 MCG PO QAM Mirtazapine (Mirtazapine) 30 Mg Tablet 30 MG PO HS Prazosin (Prazosin) 2 Mg Capsule 4 MG PO HS Quetiapine Fumarate (Quetiapine Fumarate) 25 Mg Tablet 75 MG PO BIDWM 0800 AND 1400 Quetiapine Fumarate (Quetiapine Fumarate) 100 Mg Tablet 200 MG PO HS Scheduled PRN Clonazepam (Clonazepam) 1 Mg Tablet 1 MG PO BID PRN PRN For Anxiety PMH PTSD Depression Anxiety Bipolar disorder Multiple suicide attempts and self-mutilation Many suicide attempts with Tylenol Hypothyroid Surgical History None Family History Grandfather with Diabetes Social History Hx Alcohol Use: No Hx Substance Use: No Hx Tobacco Use: Yes (0.5 ppd) Exam Vital Signs Vital Sign - Last Date Time Temp Pulse Resp B/P Pulse Ox O2 Delivery O2 Flow Rate FiO2 04/14/17 21:16 98 26 116/70 96 Room Air 04/14/17 20:08 37.6 Exam General: No acute distress, well-developed, well-nourished, actively dry heaving and vomiting throughout encounter HEENT: Normocephalic, atraumatic. External ears without defect. Pupils equal, round, and reactive to light and accommodation. Anicteric sclerae, moist conjunctivae, and no lid lag. Neck: Supple with full range of motion. No bruits. No lymphadenopathy or thyromegaly. Cardiovascular: Regular rate and rhythm with no murmurs, rubs, or gallops appreciated Pulmonary: Clear to auscultation bilaterally with no crackles, wheezes, or rhonchi. Normal respiratory effort with no use of accessory muscles. Abdomen: Bowel tones present. Soft, nontender, nondistended. No hepatosplenomegaly or masses appreciated. See skin below Extremities: No clubbing, cyanosis, edema, or lymphadenopathy appreciated. Skin: RLQ and LLQ with ~4 inch laceration. RLQ wound with pustluar drainage, covered with wound dressing. LLQ stapled without drainage. Abdominal wall with several well healed 4-6 inch laceration scars. Normal temperature, turgor, and texture; no rash, ulcers, or subcutaneous nodules appreciated. Neurological: Cranial nerves grossly intact. Normal muscle strength, tone, and bulk. Reflexes, coordination, and sensory function within normal limits. No known gait impairment. Psychiatric: Alert and oriented to person, place, and time. Patient had intent to kill herself with overdose as she was upset at life. She is refusing treatment and pulled out IV line. Lab and Diagnostics Labs Item Value Date Time Acetaminophen Level 237.8 ug/mL Rx *H 03/27/171934 Alcohols < 10 mg/dL 03/27/171934 Salicylates Level < 3.0 ug/mL L 03/27/171934 Lactic Acid Level 3.6 mmol/L H 04/14/172246 Aspartate Amino Transf (AST/SGOT) 12 U/L 04/14/172035 Alanine Aminotransferase (ALT/SGPT) 5 U/L 04/14/172035 Total Bilirubin 0.6 mg/dL 04/14/172035 Alkaline Phosphatase 62 U/L 04/14/172035 Result Diagram: 04/14/17203504/14/172035 12-lead ECG Sinus Tachycardia Prolonged QTc (524) Assessment & Plan Tammy Colon is a 37-year-old female with history of PTSD, major depression, borderline personality disorder, and multiple suicide attempts who presents to the ED after a suicide attempt by Tylenol overdose. Acute Acetaminophen Overdose, Present on Admission, Active - Continue N-acetylcysteine per pharmacy protocol - Check acetaminophen levels Q4h - Monitor LFT - Psychiatric consultation - Trend lactic acid Q2h Mood disorders with Suicide Attempt, Present on Admission, Active - History of PTSD, MDD, Bipolar d/o, Borderline PD - Will have a sitter for safety - Patient on 4 point restraints for safety. Q4h provider check. - Plan to continue psychiatric regimen. Abdominal lacerations, POA Patient with two new lacerations on abdomen, LLQ and RLQ - ED stapled LLQ wound - RLQ lac wound care consult Code Status: Full code Patient Status: Patient is admitted under inpatient status with expected length of stay greater than 2 midnights due to severity of presenting symptoms, risk of adverse event, and complexity of treatment plan. VTE Prophylaxis: Sub-Q Heparin (Unfractionated) VTE Mechanical Devices: Intermittant Pneumatic CD Resuscitation Status: CPR: Attempt Resuscitation Time spent 1 hour critical care time spend Attending Statement The patient was seen and examined together with Dr. Cedeno on 04/14 and I agree with the history, exam and plan as outlined in the note above. Naeem Cedeno DO Apr 14, 2017 22:01 Naeem Mac MD Apr 15, 2017 03:04
[2017-04-15] MEDS ORDERED: Alum-Mag Hydrox-Simeth 30 mL Suspension PO PRN (02:50)
[2017-04-15] MEDS ORDERED: Polyethylene Glycol (PEG) 17 Gm Powder PO PRN (02:50)
[2017-04-15] MEDS ORDERED: Senna-Docusate 8.6-50 mg Tablet PO PRN (02:50)
[2017-04-15] MEDS ORDERED: D5W IV ONE ×2 (03:00)
[2017-04-15] MEDS ORDERED: ACETYLCYSTEINE IV ONE ×2 (03:00)
[2017-04-15 03:01] LABS: BASOPHILS % (AUTO) 0.1 % (0-3); EOSINOPHILS % (AUTO) 0 % (0-5); MONOCYTES % (AUTO) 7.1 % (4-12); Mean Corpuscular Hemoglobin 26.7 pg (27.0-35.0); Mean Corpuscular Volume 79.8 fL (81-100); NEUTROPHILS % (AUTO) 79.3 % (40-74); Platelet Count 339 bil/L (150-400)
--- NOTE | 2017-04-15 04:24 | NUR ---
Admission Pt admitted to CCU from the ER. Pt transferred herself from the ER [facility] to the hospital bed. Pt calm and cooperative. Pt has a flat affect. Pt answers questions with one word but for the most part appear to be accurate. Admission assessments and med. rec. completed. IV patent in patient's left wrist infusing Acetylcysteine bag #1. TELE: SR, SpO2 >95% on RA. VSS/WNL. Pt has fresh abdominal wound to left lateral abdomen that is put together with 8 russell by the ER MD. Pt has an abdominal wound to her right lateral abdomen that is covered with a dressing. Minimal secretions on dressing. Wound is un-approximated and the size of a deck of cards length-padron.
--- NOTE | 2017-04-15 04:29 | NUR ---
Violent Restraints Pt ripped out her IV line. 1:1 sitter who came up with patient from the ER called for this RN to come in and dress/speak with patient. Pt even further withdrawn. Pt states she didn't want the IV any longer. Dressing applied, bleeding stopped. Pt silently objecting to care at this time. Resident MDs in to speak with patient in person/assess the patient. Pt refusing IV. Since patient was admitted to hospital with a Tylenol Overdose/Suicide attempt, it was discussed with MD that she was unable to refuse care at this time. Security called along with multiple RNs to restrain patient in 4 point locked restraints. IV started in patient's right AC with single attempt. Restraints started 04/[address] Mac to see patient within 15 minutes, signed violent restraint form and assessed patient. Pt reaching towards and attempting to undo/re-open wound to left and right lateral abdomen. 0400-Patient less agitated. Patient given Ativan 1mg IVP twice with good effect. Pt calm and occasionally cooperative with care. Pt still withdrawn and maintains a flat affect. Pt removed from 4 point restraints and placed in 2 point restraints because she still occasionally reaches for abdominal wounds. 1:1 sitter with patient due to extreamely high risk for suicide/close observation.
--- NOTE | 2017-04-15 08:21 | NUR ---
Called and spoke with Pratima in patient access at [facility] and this patient is 100% service connected permanent and total. Pratima is checking with inpatient psych and then she is looking at bed census but at this time there is no beds available. Updated JOURNEYMAN LINEMAN
[2017-04-15] MEDS: Heparin 5,000 Unit/mL Inj SUBQ SCH ×2 (08:30→16:30)
--- NOTE | 2017-04-15 08:54 | NUR ---
Restraints At 0825 pt became restless throwing her legs off the side of the bed and pulled a staple out of her left abdominal incision. Security called. Placed pt in 4 point restraints and administered 1mg Ativan IV push. Pt has a large (4 inches) in length open laceration with no dressing. Wound care called and nursing order placed. Pt receives seroquel PO, order for NPO at this time.
--- NOTE | 2017-04-15 13:12 | NUR ---
Inpatient Wound Nurse Patient seen by [facility] for wound care of abdominal lacerations. Patient stated that she makes these with a razor blade. Evidence of numerous healed lacerations noted across entire abdomen. L abdomen: Most lateral wound has been stapled with opening at proximal end. 6.25 cm L x 0.5 cm W x 2 cm D at proximal end. Beefy red tissue noted, bleeds easily. Wound was cleansed with NS, blotted dry, periwound swabbed with skin prep, then approximated with one steristrip. Moving medially, a second wound was found, measuring 4 cm L x 1 cm W x 0.2 cm D. This wound appears to be well into healing process, epithelialized and crusting with slight ooze. Wound was cleansed with NS, blotted dry, periwound swabbed with skin prep, then covered with Adaptic. These L abdominal wounds were covered with one bordered Mepilex that covered both. R abdomen: Most lateral wound was gaping open, measured 9 cm L x 2 cm W x 2.5 cm D, draining serosanguinous fluid. It was cleansed with NS, blotted dry, periwound swabbed with skin prep and wound bed filled with Aquacel Ag Extra. Two additional wounds noted moving in a medial direction, each crusted and epithelialized with dry wound beds. They were cleansed, blotted dry, and these R abdominal wounds were covered with one sacral bordered Mepilex that covered all three. Dressings can be changed every other day unless draining or dressings become saturated. DEEPTI will follow.
--- NOTE | 2017-04-15 14:59 | NUR ---
NUTRITION ASSESSMENT Assess: 37 YO F admitted for acetaminophen overdose. Pt requiring restraints and sitter. Psych consult pending. Pt with self-inflicted abdominal lacerations. Diet advanced to general but pt has refused. PMHX: PTSD, depression, bipolar disorder, suicide attempts, self mutilation, hypothyroid. DIET: General. PO refusal. LABS: Glu 131. MEDICATIONS: Reviewed. GI: No BM noted. SKIN: Multiple abdominal lacerations. orthopedic cast specialist following. ANTHROPOMETRICS: Wt: 99.0 kg, BMI 35.2 kg/m2, Admit wt: 98.7 kg, IBW: 59.1 kg. ESTIMATED NEEDS: BMI Calories: 9461-0755 kcal/day (20-22 kcal/kg BW) Protein: 71-89 g/day (1.2-1.5 g/kg IBW) NUTRITION DIAGNOSIS: 1) Inadequate oral intake related to psych issues as evidenced by refusal of meals. INTERVENTION: 1) Continue current diet as ordered. If PO intake remains low, will consider adding supplements though it may not be beneficial if pt is refusing to eat due to psych issues. MONITOR/EVALUATE: PO intake, supplement needs, labs, wounds, GI/nutrition status. Follow per moderate nutrition risk guidelines.
--- NOTE | 2017-04-15 16:21 | NUR ---
Nausea Pt was offered a bedpan for toileting, pt refused and agreed she would be cooperative and cause no harm to self or others with getting to BSC and back to bed if restraints were released temporarily. Security called and waited outside room. Pt was cooperative and pleasant with following directions. Urine dumped before RN could send sample. WC placed dressings to be changed every other day. Pt refused lab draws and PO medications. General diet ordered, pt refused meal r/t nausea and emesis. notified no new orders for anti-nausea meds at this time. Prolonged QT. Pt mother called and stated she would check on her cat and to tell pt "they are not mad at her".
--- NOTE | 2017-04-15 19:15 | NUR ---
Vomiting Pt vomited small amt clear yellow emesis onto floor. Per sitter, emesis was sudden. Pt voiced no residual feelings of nausea. Pt continues to have poor po intake, declined dinner.
--- NOTE | 2017-04-15 20:16 | PCM.PNMED ---
Subjective Date of Service Apr 15, 2017 Subjective Assessment: Patient in 4-point restraints on exam. Patient remains actively suicidal, she states that she does not want any medical intervention at this time. She continues to fight nurses from attaining labs and for this reason resolution area sediment the levels were not obtained. Events Overnight: Patient was combative and attempted to take out her IV lines and remove russell from abdominal laceration. For this reason 4-point strengths were required. ROS: Denies fever/chills, nausea/vomiting, headache, weakness, abdominal pain, chest pain, shortness of breath, increased swelling in hands or feet. Exam Vital Signs Vital Sign - Last Date Time Temp Pulse Resp B/P Pulse Ox O2 Delivery O2 Flow Rate FiO2 04/15/17 16:02 36.6 73 19 147/88 99 Room Air Intake and Output 04/14/17 04/14/17 04/15/17 Cumulative From/Thru 15:00 23:00 07:00 04/14/17 20:08 - 04/15/17 05:19 Intake Total 742 ml 742 ml Output Total 400 ml 400 ml Balance 342 ml 342 ml Intake Oral 0 ml 0 ml IV Total 742 ml 742 ml Emesis 400 ml 400 ml # Voids 0 0 Exam General: No acute distress, well-developed, well-nourished HEENT: Normocephalic, atraumatic. External ears without defect. Pupils equal, round, and reactive to light and accommodation. Anicteric sclerae, moist conjunctivae. Cardiovascular: Regular rate and rhythm with no murmurs, rubs, or gallops appreciated Pulmonary: Clear to auscultation bilaterally with no crackles, wheezes, or rhonchi. Normal respiratory effort with no use of accessory muscles. Abdomen: Bowel tones present. Soft, obese, nondistended. Multiple abdominal lacerations, 10 cm purulent laceration on the right flank, 8 cm laceration on the left flank closed with russell. Extremities: No clubbing, cyanosis, edema Skin: Normal temperature, turgor, and texture; no rash, ulcers, or subcutaneous nodules appreciated. Neurological: Cranial nerves grossly intact. Reflexes, coordination, and sensory function within normal limits. Normal muscle strength, tone, and bulk. Psychiatric: Alert and oriented to person, place, and time. States that she does not want to be in the hospital and would prefer if we would "let her ." IVs and Medications IV Fluids 1 L normal saline delivered with IV medications. Medications Reviewed: Medications were reviewed in detail Medications High-risk medications include: Clonazepam Ativan Lab and Diagnostics Result Diagram: 04/15/1724904/15/17249 12-lead ECG Sinus Tachycardia Prolonged QTc (524) Assessment & Plan Tammy Colon is a 37-year-old female with history of PTSD, major depression, borderline personality disorder, and multiple suicide attempts who presents to the ED after a suicide attempt by Tylenol overdose. Acute Acetaminophen Overdose, Present on Admission, Active - N-acetylcysteine per pharmacy protocol finished at 1900 - Acetaminophen levels ordered Q4h, patient not cooperating with lab draws, however we can safely assume based on decreasing acetaminophen levels already seen that after the acetaminophen protocol the patient's acetaminophen level was essentially 0. - Last acetaminophen level draw 36.9 - LFT remained within normal range - Psychiatric consultation in place, Dr. Ha to see her tomorrow when she is medically cleared. - Lactic acid returned to normal levels. Mood disorders with Suicide Attempt, Present on Admission, Active - History of PTSD, MDD, Bipolar d/o, Borderline PD - Will have a sitter for safety - Patient on 4 point restraints for safety. Q4h provider check. - Plan to continue psychiatric regimen. Abdominal lacerations, POA Patient with two new lacerations on abdomen, LLQ and RLQ - ED stapled LLQ wound - RLQ lac wound care consult Code Status: Full code Patient Status: Patient will remain in the hospital overnight and when she is medically cleared she will be seen by psychiatry for inpatient evaluation. VTE Prophylaxis: Sub-Q Heparin (Unfractionated) VTE Mechanical Devices: Intermittant Pneumatic CD Resuscitation Status: CPR: Attempt Resuscitation Attending Statement The patient was seen and examined together with Dr. Lai on 04/15/2017 and I agree with the history, exam and plan as outlined in the note above. . Wan Lai DO Apr 15, 2017 20:16 Clayton Galvez MD Apr 18, 2017 18:31
[2017-04-15] MEDS ORDERED: KCl 40 mEq/D5W 500 mL 40 MEQ in IV Premix 1 EACH IV ONE (22:55)
[2017-04-16] MEDS: Heparin 5,000 Unit/mL Inj SUBQ SCH ×3 (00:25→08:24)
[2017-04-16 02:57] VITALS: BP 143/77; PULSE 78; RESP 17; O2SAT 96
--- NOTE | 2017-04-16 06:51 | NUR ---
P) LOC Pt. alert and agitated, non-compliant with almost every request, 1:1 sitter in attendance, attempts to reach abdominal dressings even with restraints, refused PO medications, fought lab draws, pulling frequently against restraints, unable to reason with pt. I) Continue 1:1 monitoring for pt. safety, cont. restraints, E) Currently resting quietly with eyes closed, frequently agitated when she wakes.
[2017-04-16 07:18] VITALS: BP 113/64; PULSE 84; RESP 21; O2SAT 97
--- NOTE | 2017-04-16 07:35 | NUR ---
Social Work Note: Brief Note Data& Assessment: EMR reviewed. Tammy Colon is a 37 year old female admitted on 04/14/2017 for overdose. Pt has [employer] insurance coverage. Pt discussed with MD. Per , psych plans to see pt today once pt is medically clear. SW to rule out a call to [facility] for [facility] dispatch pending medical clearance and appropriateness for detainment. SW to await for psych MD consult and MD orders. SW to continue to follow. Plan: Pt is not medically cleared at this time. Per , psych to see pt today. SW to follow for MD orders. DAVON Tran
--- NOTE | 2017-04-16 08:25 | NUR ---
Refusing all medications.
[2017-04-16 12:23] VITALS: BP 109/68; PULSE 80; RESP 17; O2SAT 98
--- NOTE | 2017-04-16 13:06 | PCM.PNMED ---
Subjective Date of Service Apr 16, 2017 Subjective Tammy Colon is a 37-year-old female with history of PTSD, major depression, borderline personality disorder, and multiple suicide attempts who presents to the ED after a suicide attempt by Tylenol overdose. Assessment: Patient in 4-point restraints at this time as she continues to be actively opposed to her medical care, and remains a danger to staff as well as to herself. Patient states that she would like to return home but suggest that if she were able to do so she would continue the same course of action which she has taken over the last couple of months in trying to end her life. Events Overnight: No acute events overnight. ROS: Denies fever/chills, nausea/vomiting, headache, weakness, abdominal pain, chest pain, shortness of breath, increased swelling in hands or feet. Exam Vital Signs Vital Sign - Last Date Time Temp Pulse Resp B/P Pulse Ox O2 Delivery O2 Flow Rate FiO2 04/16/17 12:23 36.9 80 17 109/68 98 Room Air Intake and Output 04/15/17 04/15/17 04/16/17 Cumulative From/Thru 15:00 23:00 07:00 04/14/17 20:08 - 04/16/17 06:26 Intake Total 832 ml 713 ml 2287 ml Output Total 1350 ml 0 ml 1750 ml Balance -518 ml 713 ml 537 ml Intake Oral 0 ml 0 ml 0 ml IV Total 832 ml 713 ml 2287 ml Output Urine Total 1000 ml 0 ml 1000 ml Emesis 350 ml 750 ml # Voids 0 # Bowel Movements 0 0 0 Exam General: No acute distress, well-developed, well-nourished HEENT: Normocephalic, atraumatic. External ears without defect. Pupils equal, round, and reactive to light and accommodation. Anicteric sclerae, moist conjunctivae. Cardiovascular: Regular rate and rhythm with no murmurs, rubs, or gallops appreciated Pulmonary: Clear to auscultation bilaterally with no crackles, wheezes, or rhonchi. Normal respiratory effort with no use of accessory muscles. Abdomen: Bowel tones present. Soft, obese, nondistended. Multiple abdominal lacerations, 10 cm purulent laceration on the right flank, 8 cm laceration on the left flank closed with russell. Extremities: No clubbing, cyanosis, edema Skin: Normal temperature, turgor, and texture; no rash, ulcers, or subcutaneous nodules appreciated. Neurological: Cranial nerves grossly intact. Reflexes, coordination, and sensory function within normal limits. Normal muscle strength, tone, and bulk. Psychiatric: Alert and oriented to person, place, and time. States that she does not want to be in the hospital and would prefer if we would "let her ." IVs and Medications IV Fluids No IV fluids required. Medications Reviewed: Medications were reviewed in detail Medications No high-risk medications required. Lab and Diagnostics Result Diagram: 04/15/17 0250 04/15/17 2140 12-lead ECG Sinus Tachycardia Prolonged QTc (524) Assessment & Plan Tammy Colon is a 37-year-old female with history of PTSD, major depression, borderline personality disorder, and multiple suicide attempts who presents to the ED after a suicide attempt by Tylenol overdose. Acute Acetaminophen Overdose, Present on Admission, Active - N-acetylcysteine per pharmacy protocol finished at 1900 on 04/15 - Initially Acetaminophen levels ordered Q4h, levels now normal, no more labs required this time. - Last draw 2100 on 04/15 shows a sedimentation medicine levels below threshold. - LFTs remained within normal range - Lactic acid returned to normal levels. - Patient is medically cleared at this time to be able to proceed with inpatient psych placement - Psychiatric consultation in place, Dr. Ha saw her today and suggest that she will be made inpatient, there is some question as to which facility she will be placed in however psychiatry will coordinate with social work to ensure that appropriate placement is made. Mood disorders with Suicide Attempt, Present on Admission, Active - History of PTSD, MDD, Bipolar d/o, Borderline PD - Will have a sitter for safety - Patient on 4 point restraints for safety. Q4h provider check. - Plan to continue psychiatric regimen. - Patient refusing meds today. Continue with inpatient psych evaluation and placement Abdominal lacerations, POA Patient with two new lacerations on abdomen, LLQ and RLQ - ED stapled LLQ wound - RLQ lac wound care consult Code Status: Full code Disposition: Patient medically cleared at this time. Dr. Ha saw the patient today and will make recommendations as to where she may be placed for inpatient therapy. Per Dr. Ha this may require another 24-48 hours to coordinate. VTE Prophylaxis: Sub-Q Heparin (Unfractionated) VTE Mechanical Devices: Intermittant Pneumatic CD Resuscitation Status: CPR: Attempt Resuscitation Attending Statement The patient was seen and examined together with Dr. Lai on 04/16/2017 and I agree with the history, exam and plan as outlined in the note above. . Wan Lai DO Apr 16, 2017 13:06 Clayton Galvez MD Apr 18, 2017 18:32
--- NOTE | 2017-04-16 13:38 | CONS ---
[address] [address] CONSULTATION REPORT PATIENT: CUAUHTEMOC DIAZ : 1980 MR#: [id number] ADMIT: 04/14/2017 JOB ID: [id number] DATE OF SERVICE: 04/16/2017 IDENTIFICATION: The patient is a 37-year-old, white female with a history of both major depression, borderline personality and posttraumatic stress disorder. She is a and was in the [facility]. She is well known to the [facility] and has had multiple recent admissions to the ER and the medical floor for suicidal behavior and overdoses. She currently lives with her parents. Client is well followed by the intensive outpatient team through nearly daily case management, therapy, and psychiatric care. REASON FOR ADMISSION: Client attempted overdose by ingesting 100 capsules of Tylenol P.M. (500 mg Tylenol/25 mg Benadryl) at around 4 p.m. on April 14, 2017. She states she waited 4 hours trying to ensure that the overdose would be potentially lethal before calling paramedics. REASON FOR CONSULT: I was asked to consult for evaluation and treatment of suicidal potential. I met with the patient for a 60-minute evaluation and reviewed course and records kept by [facility]. Please refer to multiple recent consults or history and physicals done at [facility] on this patient. I myself have been consulted multiple times on the floor and have treated her on our inpatient psych unit over this past and previous year. She is also well known to my colleagues, Dr. Montalvo and Dr. Espinoza. Client's main issue is chronic suicidal ideation related to loss of meaning and purpose after she was discharged from the [facility]. Co-occurring issues are depression, lack of social engagement, and poor coping skills. The condition is chronic and has been present for years. It is currently manifesting with symptoms of impulsivity and multiple recent suicide attempts due to lack of coping. She tends to isolate in her apartment with her cat and then after several days and weeks begins first cutting on herself. This temporarily relieves emotional pain of anxiety and depression. When this stops working, she tends to escalate using increasingly lethal doses of Tylenol. She states it produces a euphoria and a sedation that she finds pleasant. When she becomes scared of dying, she calls the emergency department. All the above symptoms are made worse when she is not with her family, when she does not sleep well, or when she is not have people to help her process her stress. Today, she denies suicidal ideation, plan or intent. Although she did not show signs of emotional liability, her insight and judgment remain impaired and I am concerned about the imminent risk of danger if she was discharged home. She was unable to detail a safety plan for me. She denied psychiatric review of systems for psychosis or lan. ALLERGIES: None. MEDICATIONS: 1. Seroquel 75 twice a day, 200 h.s. 2. Prazosin 4 h.s. 3. Mirtazapine 30 h.s. 4. Levothyroxine 100 daily. 5. Klonopin 1 mg b.i.d. as needed. PAST MEDICAL HISTORY: Client has had two abdominal lacerations due to cutting a month ago. FAMILY MEDICAL HISTORY: Grandfather had diabetes. PAST PSYCHIATRIC HISTORY: Multiple previous suicide attempts and self-mutilation, major depression, borderline personality disorder, and PTSD. PSYCHOSOCIAL HISTORY: See previous evaluations. Client has had extensive documentation of her psychosocial history. MENTAL STATUS: Client dressed in hospital gown, lying in two-point restraints. Prior to my interview, she had been wrestling with the nurses, trying to take off her IV, even though she was in two-point restraints. With me, she had good eye contact and her behavior was calm. Her attitude was cooperative and pleasant, and speech normal rate and rhythm. Mood euthymic. Affect was congruent with normal solubility, normal intensity. Her thought process: Client is unable to relate a coherent history. Although she shows no signs of psychosis, her thought process is concrete and she sees suicide as her only option. It is very black and white thinking with tunnel vision. Her thought content was significant for reporting no suicidal ideation but unable to detail a safety plan. She was no longer future planning, and I had the sense that she was continuing to desire . Alert and oriented to person, place, and date. Insight and judgment remain impaired. Impulse control poor. Client is continuing to require two-point restraints in order to prevent self-harm. Reality testing is difficult to assess in her current situation. Her competence to handle current stressors is currently being overwhelmed. IMPRESSION: Client is a 37-year-old, white female with a history of unclear trauma, who has developed a rather severe case of borderline personality disorder with chronic suicidal ideation and three different severe Tylenol overdoses in the past month requiring intensive care unit care each time. She and I attempted to work out a safety plan, but she was unable to do this and was not in a space where she was future planning for her self-care. I had the distinct impression that if she was released she would be in imminent risk of self-harm. DIAGNOSIS: [place] I. 1. Major depressive disorder, 2. Posttraumatic stress disorder. [place] II. Borderline personality disorder. [place] III. Recent Tylenol overdose. [place] IV. Moderate. [place] V. Current Global Assessment of Functioning equal to 30. PLAN: Client is not a good isabela voluntary. Recommend DM be called to do an evaluation for alf. Unfortunately, the patient is presently stalking one of our psychiatrists and he is currently working this week on the unit. As a result, we are not able to take her on our unit and will need to transfer her to another inpatient residential treatment program. I will follow her on a daily basis until we can get her transferred. I agree with current medications and requirement for ongoing two-point restraints until client can demonstrate the ability to work with nursing staff. I will continue to follow with you. Thanks for including me in this consult.
[2017-04-16 16:11] VITALS: BP 108/84; PULSE 94; RESP 23; O2SAT 97
--- NOTE | 2017-04-16 17:31 | NUR ---
Sitter at bedside, interacting intermittently. Denies pain. No PO intake this shift, though encouraged. IVFs TKO. UOP 2200mls, up to BSC with SBA. No stool. Mental Health consult today. Vitals signs stable, afebrile.
--- NOTE | 2017-04-16 18:00 | NUR ---
Social Work Note: Continue Discharge Planning/VOA Data& Assessment: Per MD, pt is medically clear. Per Psych MD, pt requires inpt hospitalization (see mental health evaluation by psychiatrist) and recommended [facility] dispatch. SW called [facility] and requested dispatch, [facility] states that pt [facility] must be contacted first to see if they would like to evaluate pt themselves. [facility] contacting [facility], if IOP agrees with detainment, [facility] will dispatch [facility]. GIL compiled packet for either [facility] or [facility] and placed on pt chart, fnps and LINE LOCATOR notified. SW to continue to follow and follow up with [facility] vs. [facility] depending on who comes to see pt tonight. Plan: [facility] contacted and information for [facility] dispatch provided. Per [facility] either [facility] or [facility] will come to see pt tonight. Packet on chart for the clinician who comes to see her. All updated and agreeable to plan. If pt is detained, bed search to begin as our own care center does not have a bed that is appropriate for pt at this time. DAVON Tran
[2017-04-16 20:22] VITALS: PULSE 80; RESP 24; O2SAT 96
[2017-04-16] MEDS: Dextrose 5% 0.45% NaCl 1,000 ML IV SCH (20:24)
[2017-04-17] MEDS: Heparin 5,000 Unit/mL Inj SUBQ SCH ×4 (00:30→17:00)
[2017-04-17] MEDS: Dextrose 5% 0.45% NaCl 1,000 ML IV SCH ×2 (05:43→18:09)
--- NOTE | 2017-04-17 06:27 | NUR ---
PT REFUSES TO GET OUT OF BED AND REFUSED VITAL SIGNS ALL SHIFT PT SAID SHE DOES NOT HAVE TO URINATE
--- NOTE | 2017-04-17 07:47 | NUR ---
Safety/behavior Pt has been refusing BP checks despite education, rarely answers to yes/no questions when asked or moves head side to side for a NO, 1:1 sitter at bedside, locked wrist restraints on, pt still pulls on restraints and fidgety in bed. Pt refused po nourishments when offered and has not voided through the shift. Denies any urges to void.
[2017-04-17 08:16] VITALS: BP 101/58; PULSE 85; RESP 22; O2SAT 96
[2017-04-17 12:30] VITALS: BP 129/70; PULSE 80; RESP 22; O2SAT 98
--- NOTE | 2017-04-17 13:02 | NUR ---
Inpatient Wound Nurse Patient seen in follow up for self-inflicted lacerations to L and R abdomen. Patient had removed all dressings applied two days ago, stated that she did not want wound care, did not care if wounds became infected, wanted them to remain unhealing. She was combative despite restraints, security was called to provide additional safety so that wound care could be completed. Wound on R lateral abdomen noted with scattered pattern of very thin, loose yellow film that was cleansed out of wound bed. Bed is beefy red and granulating, non-odorous, edges well adhered but far from approximated. Drainage is serosanguinous. Wound was filled with Aquacel Ag and covered with bordered 4x4 Mepilex. Wound on lateral L abdomen appears with fewer russell, patient admits to having removed "as many as I can." Most of wound remains approximated, entire wound was covered with steristrips. More medial wound appears as a wide, shallow glossy pink wound bed, slight granulation at wound edges, draining small amount of serosanguinous fluid, non-odorous. One bordered 4 x 4 Mepilex was used to cover both wounds. Hopefully these dressings can remain in place 48 hours and CWON will change on Saturday.
--- NOTE | 2017-04-17 13:02 | PCM.PNPSY ---
Subjective Date of Service Apr 17, 2017 Subjective I spent 30 minutes both reviewing treatment plan with our clinical team, interviewing the patient and providing supportive/educational psychotherapy. I spent more than 50% of the time counseling the patient. I reviewed the treatment plan with the patient and discussed options available including the potential risks, benefits and side effects. Ana reports a marked improvement in thought organization and mood stability. Staff reports that she has been requiring a 1-1 and that if she does not have that she tends to pull out her IVs and pick at her wounds. She reports good sleep and denies manic or psychotic symptoms review. She reports an ongoing suicidal ideation with intent to successfully kill herself and leave this world. The only thing keeping her from successfully committing the attempt is the sadness that she imagines her parents would feel and the abandonment that her Would experience. She denies medication side effects. She was able to identify her medications and what they were used to treat. Current Medications Current Medications Dextrose/Sodium Chloride 1,000 ml @ 80 mls/hr [id number] IV Last administered on 05:43; Admin Dose 80 MLS/HR; Start 04/16/17 at 17:40 Potassium Chloride In D5W 40 meq/Premix 500 ml @ 125 mls/hr Q4H ONCE IV Last administered on 04/16/17 00:20; Admin Dose 125 MLS/HR; Start 04/15/17 at 22:55; Stop 04/16/17 at 02:54; Status DC Mental Status Exam Vital Signs Vital Signs Date Time Temp Pulse Resp B/P Pulse Ox O2 Delivery O2 Flow Rate FiO2 04/17/17 12:30 37.0 80 22 129/70 98 Room Air 04/17/17 08:16 36.8 85 22 101/58 96 Room Air Appearance: Neat/well groomed Attitude: Pleasant Behavior: No unusual behavior Affect: Restricted Mood: Depressed Thought Process/Associations: Goal Directed Speech Production: Normal Speech Rate: Normal Speech Articulation: Normal Thought Content: Negativistic Danger to Self/Suicidal Ideati: Active, Plan (to overdose on Tylenol or to produce a laceration the results in a significant amount of blood to produce ), Intent Danger to Others: None Consciousness: Alert Orientation: Person, Place, Date, Situation Memory: Grossly Intact Estimate Intellectual Function: Above Average Basis for IQ estimate: Awareness current events, Word use/vocabulary, Educational history, Employment history Attention/Concentration & Cogn: Grossly Intact Cognitive Testing Method: Abstract Reasoning during interview, Proverb interpretation, Serial computations Insight: Limited Judgement: Poor Result Diagram: 04/15/17 0250 04/15/17 2140 Mental Health Plan [place] : [place] I. 1. Major depressive disorder, 2. Posttraumatic stress disorder. [place] II. Borderline personality disorder. [place] III. Recent Tylenol overdose. [place] IV. Moderate. [place] V. Current Global Assessment of Functioning equal to 30. Treatments Patient is being provided with a high degree of safety through monitoring in the intensive care unit, and a 1-1 sitter providing active adult engagement . I am focusing on improved coping skills and identifying stressors that may have led to current episode. Recommend an involuntary treatment hold be pursued per social work and that a [facility] designated mental health professional evaluation be performed We will attempt to: * Maintain in a closely monitored and structured unit * Provide low-stimulation environment * Assess degree of lability of affect and impulse control * Complete safety plan * Decrease frequency of relapse and need for re-hospitalization * Denies thoughts of harm to self and/or others * Establish a consistent sleep pattern * Medication effective in stabilization of mood and/or thought process * Reduce the risk of imminent harm to self and/or others by providing a safe environment * Tolerates medication without side effects Patient will be on the following psychiatric medications: Seroquel 75 twice a day 200 at bedtime Prazosin for at bedtime Remeron 30 at bedtime Levothyroxine 100 g daily Klonopin 1 mg twice a day when necessary anxiety Patient's legal status Patient not a good isabela voluntary recommend [facility] dispatched inpatient be placed on an involuntary hold. Anticipated number of hospital days to achieve above goals: 7 Disposition: Home Owen Ha MD Apr 17, 2017 13:02
--- NOTE | 2017-04-17 14:02 | NUR ---
Social Work-continued d/c planning: Data & assessment:EMR Reviewed. SW updated by RN at rounds that no one from either IOP or [facility] came to see pt last night. SW placed a call to [facility] who informed SW that IOP was supposed to reach out to SW. GIL placed a call to Gabby Kearns at [facility] [phone]. Gabby states she has spoken with her dispatch supervisor Aamir and they are in agreement that detainment would not be beneficial for the pt. [facility] will not dispatch a [facility] unless IOP is in agreement. Gabby and IOP feel like detainment has not benefited pt at all. Gabby confirms they will will follow up with pt and she can provide transport home for pt. Gabby states pt typically discharges to her parents home and she can either set this up or SW can assist. SW to meet with pt and discuss. SW to update MD. SW will continue to follow. Plan:Pt to likely discharge home when medically stable. [facility] will not dispatch [facility] unless IOP is in agreement with plan. IOP does not agree and feels like pt could be served on an outpt basis. IOP can provide transport home.SW will continue to follow. DAVON Anders
--- NOTE | 2017-04-17 14:11 | NUR ---
NUTRITION FOLLOW-UP Assess: 37 YO F admitted for acetaminophen overdose. Pt requiring restraints and sitter. Psych is following. Pt has a general diet order but she is refusing all meals. She has had poor/minimal PO intake x3 days. PMHX: PTSD, depression, bipolar disorder, suicide attempts, self-mutilation, hypothyroid. DIET: General. PO refusal. LABS: Reviewed. K 3.4 MEDICATIONS: Reviewed. GI: No BM noted. SKIN: Multiple abdominal lacerations. call specialist following. ANTHROPOMETRICS: Wt: 97.9 kg, BMI 34.8 kg/m2, Admit wt: 98.7 kg, IBW: 59.1 kg. ESTIMATED NEEDS: BMI Calories: 2131-1500 kcal/day (20-22 kcal/kg BW) Protein: 70-90 g/day (1.2-1.5 g/kg IBW) NUTRITION DIAGNOSIS: 1) Inadequate oral intake related to psych issues as evidenced by refusal of meals. --PERSISTS INTERVENTION: 1) Continue current diet as ordered. At this time, adding supplements will not be beneficial as pt is refusing to eat due to psych issues. 2) If pt continues to refuse PO intake x7 days, recommend nutrition support be considered at pt is full code MONITOR/EVALUATE: PO intake, labs, wounds, GI/nutrition status. Follow per high nutrition risk guidelines.
--- NOTE | 2017-04-17 15:32 | NUR ---
Patient has been communicating appropriately and has request and Addendum: 04/17/17 at 1534 by WILDER LAM CNA *and request to use the bathroom, she allowed staff to assist her to bathroom. She is still requesting to be discharged home.
[2017-04-17 16:41] VITALS: BP 128/79; PULSE 78; RESP 24; O2SAT 98
--- NOTE | 2017-04-17 17:38 | NUR ---
Social Work: Continued d/c planning Data: CHEESE WEIGHER spoke with MD and explained the IOP did not feel pt needed inpt treatment and therefore [facility] would not be dispatched. MD requested phone number for pt's IOP and spoke with them. MD updated CHEESE WEIGHER that IOP now feels pt could benefit from inpt treatment. CHEESE WEIGHER asked what changed and MD states that they feel that pt has been escalating. CHEESE WEIGHER paged [facility] to request a page to IOP for CHEESE WEIGHER as it is now after their work hours. ED CHEESE WEIGHER will be paged by IOP and follow up on this case tonight regarding IOP seeing pt tonight and getting an affidavit of if they believe pt needs inpt or not. Then possibly following up with [facility]. CHEESE WEIGHER updated RN, , and pt. Plan: ED CHEESE WEIGHER awaiting phone call from pt's IOP regarding seeing pt tonight and getting an affidavit of if they believe pt needs inpt or not. Then possibly following up with [facility]. CHEESE WEIGHER will continue to follow. DAVON Nice
--- NOTE | 2017-04-17 18:15 | PCM.PNMED ---
Subjective Date of Service Apr 17, 2017 Subjective Assessment: Patient assessed again this morning in 2. restraints, continues to state that she is opposed to her care and would like to be discharged from hospital. Events Overnight: No acute events overnight. ROS: Denies fever/chills, nausea/vomiting, headache, weakness, abdominal pain, chest pain, shortness of breath, increased swelling in hands or feet. Due to the patient being comatose, a review of systems was unable to be obtained. Exam Vital Signs Vital Sign - Last Date Time Temp Pulse Resp B/P Pulse Ox O2 Delivery O2 Flow Rate FiO2 04/17/17 16:41 36.9 78 24 128/79 98 Room Air Intake and Output 04/16/17 04/16/17 04/17/17 Cumulative From/Thru 15:00 23:00 07:00 04/14/17 20:08 - 04/17/17 06:25 Intake Total 120 ml 947 ml 3354 ml Output Total 2200 ml 0 ml 3950 ml Balance -2080 ml 947 ml -596 ml Intake Oral 0 ml 0 ml 0 ml IV Total 120 ml 947 ml 3354 ml Output Urine Total 2200 ml 0 ml 3200 ml Emesis 750 ml # Voids 0 0 # Bowel Movements 0 0 0 Exam General: No acute distress, well-developed, well-nourished HEENT: Normocephalic, atraumatic. External ears without defect. Pupils equal, round, and reactive to light and accommodation. Anicteric sclerae, moist conjunctivae. Cardiovascular: Regular rate and rhythm with no murmurs, rubs, or gallops appreciated Pulmonary: Clear to auscultation bilaterally with no crackles, wheezes, or rhonchi. Normal respiratory effort with no use of accessory muscles. Abdomen: Bowel tones present. Soft, obese, nondistended. Multiple abdominal lacerations, 10 cm purulent laceration on the right flank, 8 cm laceration on the left flank closed with russell. Extremities: No clubbing, cyanosis, edema Skin: Normal temperature, turgor, and texture; no rash, ulcers, or subcutaneous nodules appreciated. Neurological: Cranial nerves grossly intact. Reflexes, coordination, and sensory function within normal limits. Normal muscle strength, tone, and bulk. Psychiatric: Alert and oriented to person, place, and time. States that she does not want to be in the hospital and would prefer if we would "let her ." IVs and Medications Medications Reviewed: Medications were reviewed in detail Lab and Diagnostics Result Diagram: 04/15/17 0250 04/15/17 2140 12-lead ECG Sinus Tachycardia Prolonged QTc (524) Assessment & Plan Tammy Colon is a 37-year-old female with history of PTSD, major depression, borderline personality disorder, and multiple suicide attempts who presents to the ED after a suicide attempt by Tylenol overdose. Acute Acetaminophen Overdose, Present on Admission, Active - N-acetylcysteine per pharmacy protocol finished at 1900 on 04/15 - Initially Acetaminophen levels ordered Q4h, levels now normal, no more labs required this time. - Last draw 2100 on 04/15 shows a sedimentation medicine levels below threshold. - LFTs remained within normal range - Lactic acid returned to normal levels. - Patient is medically cleared at this time to be able to proceed with inpatient psych placement - Psychiatric consultation in place, Dr. Ha saw her on 04/15 and suggest that she will be made inpatient, - [facility] was contacted via social work who stated that her outpatient psych provider was not recommending inpatient services at this time, and based on these recommendations [facility] was unable to proceed. - Through a conversation with the patient's outpatient psychiatric provider we discussed the fact that previous attempts at inpatient psych have been unsuccessful in changing her behavior. It appears that these short jaunts of inpatient treatment have been unsuccessful, however the current situation as it stands is also not helpful to the patient, and is in fact dangerous. Based on this history, I highly recommend the patient be admitted to a psych facility with a long-term goal of healing rather than solely medication management. The patient's outpatient provider is in agreement with these goals. - [facility] will be contacted again and made aware that the patient's outpatient provider is now on board with inpatient management. - At the moment, there is some question as to which facility she will be placed in, however, psychiatry will coordinate with social work to ensure that appropriate placement is made. Mood disorders with Suicide Attempt, Present on Admission, Active - History of PTSD, MDD, Bipolar d/o, Borderline PD - Will have a sitter for safety - Patient on 4 point restraints for safety. Q4h provider check. - Plan to continue psychiatric regimen. - Patient refusing meds today. Continue with inpatient psych evaluation and placement Abdominal lacerations, POA Patient with two new lacerations on abdomen, LLQ and RLQ - ED stapled LLQ wound - RLQ lac wound care consult Code Status: Full code Disposition: Patient medically cleared at this time. Dr. Ha saw the patient in 04/15 and will make recommendations as to where she may be placed for inpatient therapy. Per Dr. Ha this may require another 24-48 hours to coordinate. VTE Prophylaxis: Sub-Q Heparin (Unfractionated) VTE Mechanical Devices: Intermittant Pneumatic CD Resuscitation Status: CPR: Attempt Resuscitation Attending Statement The patient was seen and examined together with Dr. Lai on 04/17/2017 and I agree with the history, exam and plan as outlined in the note above. . Wan Lai DO Apr 17, 2017 18:15 Clayton Galvez MD Apr 18, 2017 18:32
--- NOTE | 2017-04-17 18:19 | NUR ---
Refusing Care/Ripping off Abdominal Dressings Pt. has refused care throughout shift and refused meals throughout the day. Pt. has also refused scheduled medications. Throughout shift Pt. has been trying to rip off her abdominal dressing succeeding in ripping the right lower lateral dressing off twice and failed attempts to rip off left lower lateral dressing. Pt. states she wants to tear off the russell on the left lateral dressing. Pt. has been appropriate otherwise not being violent to staff.
[2017-04-17 20:31] VITALS: BP 127/85; PULSE 82; RESP 20; O2SAT 98
--- NOTE | 2017-04-17 20:34 | NUR ---
Social Work Note D/A/P: Pt was seen and evaluated by Ritu Bauer with [facility]. Per Ritu, Pt was able to safety plan and was willing to be discharged home to meet with her decorating and assembly supervisor Gabby tomorrow at 1400. Ritu indicated to OFFICE REP that she did not feel that she could recommend hospitalization or evaluation by [facility] and so did not provide an affidavit. OFFICE REP spoke with Karolina at [facility] who explained that, because Pt is able to safety plan for discharge home, this constitutes a reasonable, less restrictive option and so no [facility] could be dispatched tonight. OFFICE REP paged the hospitalist and is still awaiting a response. Cheryl Armenta, OFFICE REP, AAC
[2017-04-18] MEDS: Heparin 5,000 Unit/mL Inj SUBQ SCH ×3 (00:30→16:30)
[2017-04-18 04:35] VITALS: BP 114/81; PULSE 75; RESP 22; O2SAT 96
--- NOTE | 2017-04-18 06:29 | NUR ---
Pt was calm and cooperative through the night. Still refusing meds and refusing to eat. Up to BSC without difficulty. Sitter at bedside. Drsg to right abd changed.
[2017-04-18] MEDS: Dextrose 5% 0.45% NaCl 1,000 ML IV SCH (06:44)
[2017-04-18] MEDS ORDERED: Ondansetron 2 mg/mL 2 mL Inj IVPUSH ONE (11:10)
--- NOTE | 2017-04-18 11:51 | NUR ---
Social Work-continued d/c planning: Data & assessment:EMR Reviewed. Pt is on day 4 of hospitalization for overdose per H&P. GIL updated by this morning that he would like to speak with Ritu from [employer], phone number provided. called GIL back after discussion with Ritu and states that Ritu would prefer for Gabby Kearns pt's regular therapist to come and see pt today and make that decision. GIL placed a call to Gabby and she states she can come to the hospital and see pt. Gabby saw pt and is now in agreement of detainment through [facility]. Gabby to complete Affidavit and fax this back to GIL. Once this has been obtained, SW to call [facility] to dispatch [facility]. GIL will continue to follow. Plan:YOLANDA has seen pt and is now in agreement with [facility], affidavit to be completed and faxed over, once this is obtained SW to call [facility]. GIL will continue to follow. DAVON Anders
--- NOTE | 2017-04-18 14:25 | PCM.PNPSY ---
Subjective Date of Service Apr 18, 2017 Subjective I spent 30 minutes both reviewing treatment plan with our clinical team, interviewing the patient and providing supportive/educational psychotherapy. I spent more than 50% of the time counseling the patient. I reviewed the treatment plan with the patient and discussed options available including the potential risks, benefits and side effects. Ana reports a desire to go home today. She sits in two point restraint due to actively attempting to open her abdominal wound if not in restraint. Staff reports that she has been requiring a 1-1 and that if she does not have that she tends to pick at an open her self-inflicted abdominal wounds. She denies manic or psychotic symptoms review. She reports an ongoing suicidal ideation with intent to successfully kill herself and leave this world. The only thing keeping her from successfully committing the attempt is the sadness that she imagines her parents would feel and the abandonment that they would potentially experience. She denies medication side effects. She was able to identify her medications and what they were used to treat. Current Medications Current Medications Dextrose/Sodium Chloride 1,000 ml @ 80 mls/hr [id number] IV Last administered on 06:44; Admin Dose 80 MLS/HR; Start 04/16/17 at 17:40 Ondansetron HCl 4 mg ONCE ONCE IVPUSH Last administered on 04/18/17 11:37; Admin Dose 4 MG; Start 04/18/17 at 11:10; Stop 04/18/17 at 11:14; Status DC Mental Status Exam Appearance: Neat/well groomed Attitude: Pleasant Behavior: No unusual behavior Affect: Restricted Mood: Depressed Thought Process/Associations: Goal Directed Speech Production: Normal Speech Rate: Normal Speech Articulation: Normal Thought Content: Negativistic Danger to Self/Suicidal Ideati: Active, Plan (to overdose on Tylenol or to produce a laceration the results in a significant amount of blood to produce ), Intent Danger to Others: None Consciousness: Alert Orientation: Person, Place, Date, Situation Memory: Grossly Intact Estimate Intellectual Function: Above Average Basis for IQ estimate: Awareness current events, Word use/vocabulary, Educational history, Employment history Attention/Concentration & Cogn: Grossly Intact Cognitive Testing Method: Abstract Reasoning during interview, Proverb interpretation, Serial computations Insight: Limited Judgement: Poor Result Diagram: 04/15/17 0250 7/2139 Mental Health Plan Tammy is a 37-year-old, white female with a history of unclear trauma, who has a severe case of borderline personality disorder with chronic suicidal ideation and three different severe Tylenol overdoses in the past month requiring intensive care unit care each time. Again today She and I revisited working on a safety plan, but she was unable to do this and was not able to participate in up future planning for her self- care. She was unable to work with me to develop a reasonable safety plan. It is my impression that if she was released to a less restrictive she would be in imminent risk of self-harm. [place] I. 1. Major depressive disorder, 2. Posttraumatic stress disorder. [place] II. Borderline personality disorder. [place] III. Recent Tylenol overdose. [place] IV. Moderate. [place] V. Current Global Assessment of Functioning equal to 30. Treatments Patient is being provided with a high degree of safety through monitoring in the intensive care unit, and a 1-1 sitter providing active adult engagement . I am focusing on improved coping skills and identifying stressors that may have led to current episode. Recommend an involuntary treatment hold be pursued per social work and that a [facility] designated mental health professional evaluation be performed We will attempt to: * Maintain in a closely monitored and structured unit * Provide low-stimulation environment * Assess degree of lability of affect and impulse control * Complete safety plan * Decrease frequency of relapse and need for re-hospitalization * Denies thoughts of harm to self and/or others * Establish a consistent sleep pattern * Medication effective in stabilization of mood and/or thought process * Reduce the risk of imminent harm to self and/or others by providing a safe environment * Tolerates medication without side effects Patient will be on the following psychiatric medications: Seroquel 75 twice a day 200 at bedtime Prazosin for at bedtime Remeron 30 at bedtime Levothyroxine 100 g daily Klonopin 1 mg twice a day when necessary anxiety Patient's legal status Patient not a good isabela voluntary recommend [facility] dispatched inpatient be placed on an involuntary hold. Anticipated number of hospital days to achieve above goals: 7 Disposition: Home Owen Ha MD Apr 18, 2017 14:25
--- NOTE | 2017-04-18 14:49 | PCM.PNMED ---
Subjective Date of Service Apr 18, 2017 Subjective Tammy Colon is a 37-year-old female with history of PTSD, major depression, borderline personality disorder, and multiple suicide attempts who presents to the ED after a suicide attempt by Tylenol overdose. Assessment: I discussed with the patient this morning the barriers that we are currently facing at having her admitted as an inpatient and reiterated the reasons that I feel so strongly that this should happen. The pt continues to state that she does not want this intervention, however, per nursing staff she stated that if she could be placed in an inpatient facility that is really willing to work with her as apposed to just throwing medications at her, that she would agree to this treatment. At this time, she does not believe that such a place exists and is therefore averse to inpatient therapy. I discussed with her the fact that it may take some time to accomplish this, however, I am willing to do whatever it takes to make this happen for her. The current system of stapling her each time she comes in and kicking her out the door a few days later based on recommendations of care providers who seem to be unfamiliar with the gravity of her situation is not beneficial to her. Tammy also recognizes this fact and states that she feels as though no one cares about her situation. Overnight: [facility] was contacted and sent out an IOP who came this morning to evaluate the pt and wrote a note saying that she does not think that Tammy needs to be referred to inpatient psych. ROS: Nausea, vomiting, anorexia. Denies CP, abdominal pain, SOB, headache, swelling of arms or legs. Exam Vital Signs Vital Sign - Last Date Time Temp Pulse Resp B/P Pulse Ox O2 Delivery O2 Flow Rate FiO2 04/18/17 04:35 36.5 75 22 114/81 96 Room Air Intake and Output 04/17/17 04/17/17 04/18/17 Cumulative From/Thru 15:00 23:00 07:00 04/14/17 20:08 - 04/18/17 06:05 Intake Total 974 ml 0 ml 4328 ml Output Total 0 ml 402 ml 4352 ml Balance 974 ml -402 ml -24 ml Intake Oral 0 ml 0 ml 0 ml IV Total 974 ml 4328 ml Output Urine Total 0 ml 400 ml 3600 ml Emesis 2 ml 752 ml # Voids 1 1 # Bowel Movements 0 1 1 Exam General: No acute distress, well-developed, well-nourished HEENT: Normocephalic, atraumatic. External ears without defect. Pupils equal, round, and reactive to light and accommodation. Anicteric sclerae, moist conjunctivae. Cardiovascular: Regular rate and rhythm with no murmurs, rubs, or gallops appreciated Pulmonary: Clear to auscultation bilaterally with no crackles, wheezes, or rhonchi. Normal respiratory effort with no use of accessory muscles. Abdomen: Bowel tones present. Soft, obese, nondistended. Multiple abdominal lacerations, 10 cm purulent laceration on the right flank, 8 cm laceration on the left flank closed with russell. Extremities: No clubbing, cyanosis, edema Skin: Normal temperature, turgor, and texture; no rash, ulcers, or subcutaneous nodules appreciated. Neurological: Cranial nerves grossly intact. Reflexes, coordination, and sensory function within normal limits. Normal muscle strength, tone, and bulk. Psychiatric: Alert and oriented to person, place, and time. States that she does not want to be in the hospital and would prefer if we would "let her ." IVs and Medications IV Fluids 130 mL per hour dextrose/normal saline Medications Reviewed: Medications were reviewed in detail Lab and Diagnostics Result Diagram: 04/15/17 0250 04/15/17 2140 12-lead ECG Sinus Tachycardia Prolonged QTc (524) Assessment & Plan Tammy Colon is a 37-year-old female with history of PTSD, major depression, borderline personality disorder, and multiple suicide attempts who presents to the ED after a suicide attempt by Tylenol overdose. On 04/17 [facility] was contacted via social work who stated that her outpatient psych provider was not recommending inpatient services at this time, and based on these recommendations [facility] was unable to proceed. Through a conversation with the patient's outpatient psychiatric provider we discussed the fact that previous attempts at inpatient psych have been unsuccessful in changing her behavior. It appears that these short jaunts of inpatient treatment have been unsuccessful, however the current situation as it stands is also not helpful to the patient, and is in fact dangerous. Her outpatient provider agreed to assess the patient again and produce the affidavit required. Social work was contacted and another social work nurse from her [facility] came to assess the patient. On 04/18 I came to the floor to find a note placed by the [facility] suggesting again that the patient should not be admitted as an inpatient. I discussed with this provider her reasoning for this recommendation. She states that previous to this encounter she was familiar with Tammy's case, however she had not yet met the patient. Her recommendations were based solely on this single encounter. After discussion she stated that if the patient's primary outpatient psych provider was on board with the plan to provide inpatient care, that she would also agree to this plan. A query was sent out that morning to the patient's outpatient provider who swiftly came and was able to fill out the affidavit. I discussed with the patient this morning the barriers that we are currently facing at having her admitted as an inpatient and reiterated the reasons that I feel so strongly that this should happen. The pt continues to state that she does not want this intervention, however, per nursing staff she stated that if she could be placed in an inpatient facility that is really willing to work with her as apposed to just throwing medications at her, that she would agree to this treatment. At this time, she does not believe that such a place exists and is therefore averse to inpatient therapy. I discussed with her the fact that it may take some time to accomplish this, however, I am willing to do whatever it takes to make this happen for her. The current system of stapling her each time she comes in and kicking her out the door a few days later based on recommendations of care providers who seem to be unfamiliar with the gravity of her situation, or simply unsure what to do in this case is not beneficial to Tammy. Tammy also recognizes this fact and states that she feels as though no one cares about her situation. For these reasons, I highly recommend the patient be admitted to an inpatient facility where she is able to receive the treatment that she needs including cognitive behavioral therapy, in conjunction with the long-term goal of healing rather than solely medication management. As the patient is a , there would be a variety of programs in which she may be able to participate which could provide the care that she needs. The patient's outpatient provider is in agreement with these goals. Acute Acetaminophen Overdose, Present on Admission, Active - N-acetylcysteine per pharmacy protocol finished at 1900 on 04/15 - Initially Acetaminophen levels ordered Q4h, levels now normal, no more labs required this time. - Last draw 2100 on 04/15 shows a sedimentation medicine levels below threshold. - LFTs remained within normal range - Lactic acid returned to normal levels. - Patient is medically cleared at this time to be able to proceed with inpatient psych placement - Psychiatric consultation in place, Dr. Ha saw her on 04/15 and suggest that she will be made inpatient, - [facility] was contacted again and made aware that the patient's outpatient provider is now on board with inpatient management. - At the moment, there is some question as to which facility she will be placed in, however, psychiatry will coordinate with social work to ensure that appropriate placement is made. Mood disorders with Suicide Attempt, Present on Admission, Active - History of PTSD, MDD, Bipolar d/o, Borderline PD - Will have a sitter for safety - Patient on 4 point restraints for safety. Q4h provider check. - Plan to continue psychiatric regimen. - Patient refusing meds today. Continue with inpatient psych evaluation and placement Abdominal lacerations, POA Patient with two new lacerations on abdomen, LLQ and RLQ - ED stapled LLQ wound - RLQ lac wound care consult Code Status: Full code Disposition: Patient medically cleared at this time. Dr. Ha saw the patient in 04/15 and will make recommendations as to where she may be placed for inpatient therapy. The [facility] is now contacted and will make recommendations for inpatient psych placement. VTE Prophylaxis: Sub-Q Heparin (Unfractionated) VTE Mechanical Devices: Intermittant Pneumatic CD Resuscitation Status: CPR: Attempt Resuscitation Attending Statement The patient was seen and examined together with Dr. Lai on 04/18/2017 and I agree with the history, exam and plan as outlined in the note above. . Wan Lai DO Apr 18, 2017 14:49 Clayton Galvez MD Apr 21, 2017 16:16
[2017-04-18] MEDS ORDERED: Promethazine Inj 25 MG in Dextrose 5%-Pha MIX 50 ML IV ONE (16:45)
[2017-04-18 16:47] VITALS: BP 131/81; PULSE 82; RESP 16; O2SAT 98
--- NOTE | 2017-04-18 17:38 | NUR ---
Social Work: Brief Note PHOTOLITHOGRAPHIC STRIPPER obtained affidavit from [facility] counselor Paige Kearns. PHOTOLITHOGRAPHIC STRIPPER attempted to [facility], their phone number is not in services. Paige gave another number to PHOTOLITHOGRAPHIC STRIPPER to try, this number was not for the correct service. Floor PHOTOLITHOGRAPHIC STRIPPER passed this along to ED PHOTOLITHOGRAPHIC STRIPPER who will follow up this evening. PHOTOLITHOGRAPHIC STRIPPER updated and RN. DAVON Nice
--- NOTE | 2017-04-18 18:23 | NUR ---
Restraints/Vomiting/[facility] Visit Pt. has been out of 2pt restraints since ~1500 when parents where to visit her. Pt. up till now has been compliant and has shown no indication that she wants to pull out her IV or her abdominal dressings. Pt. has been nauseated through out shift and vomited twice. MD made aware. DMHP will arrive in ~1hr per ER SW, urine sent to lab for urine toxic screen and test. Pt. still has 1:1 sitter. Will continue to monitor.
[2017-04-18 18:37] LABS: APPEARANCE,URINE SLIGHTLY CLOUDY (CLEAR,HAZY); COLOR,URINE YELLOW (YELLOW); OCCULT BLOOD,URINE NEGATIVE (NEGATIVE); PH,URINE 5.5 (5.0-8.0); UROBILINOGEN,URINE NORMAL (NORMAL)
[2017-04-18 20:26] VITALS: BP 128/76; PULSE 84; RESP 17; O2SAT 96
[2017-04-18 21:16] VITALS: BP 133/92; PULSE 79; RESP 18; O2SAT 95
--- NOTE | 2017-04-18 21:30 | NUR ---
Transfer / refused meds Patient transferred by wheelchair to room 1005. Transfer uneventful. Security unlocked belongings from closet in 2014 and placed them in her new closet in 1005. Medications given to JOSE Valdez. Sitter remains at bedside. Prior to transfer patient refused her HS medications. "They don't help me anyways". Reported to TREVER GARCIA.
--- NOTE | 2017-04-19 00:15 | NUR ---
Refusing evening meds states they don't help. No attempts of self harm so far tonight. resting quietly with sitter at bedside.
[2017-04-19] MEDS: Heparin 5,000 Unit/mL Inj SUBQ SCH ×3 (00:30→16:30)
[2017-04-19 04:37] VITALS: BP 116/79; PULSE 86; RESP 18; O2SAT 96
[2017-04-19 09:13] VITALS: BP 115/82; PULSE 84; RESP 24; O2SAT 96
--- NOTE | 2017-04-19 11:50 | PCM.PNPSY ---
Subjective Date of Service Apr 19, 2017 Subjective I spent 30 minutes providing supportive/educational psychotherapy. I spent more than 50% of the time counseling the patient. I reviewed the treatment plan with the patient and discussed options available including the potential risks, benefits and side effects. Ana reports a desire to go home today yesterday also complains of suicidal ideation and believes that she would cut on herself or overdose on Tylenol within the next several days if discharged. The nursing staff was able to work her out of two point restraint and she has been able to follow staff directions for the past 12 hours. She denies manic or psychotic symptoms review. She reports an ongoing suicidal ideation with intent to successfully kill herself and leave this world. The only thing keeping her from successfully committing the attempt is the sadness that she imagines her parents would feel and the abandonment that they would potentially experience. She denies medication side effects. She was able to identify her medications and what they were used to treat. Current Medications Current Medications Ondansetron HCl 4 mg 4 mg ONCE ONCE IVPUSH Last administered on 04/18/17 11:37 ; Admin Dose 4 MG; Start 04/18/17 at 11:10; Stop 04/18/17 at 11:14; Status DC Promethazine HCl/ Dextrose/Water 51 ml @ 153 mls/hr ONCE ONCE IV Last administered on 04/18/17 17:27; Admin Dose 153 MLS/HR; Start 04/18/17 at 16:45; Stop 04/18/17 at 17:04; Status DC Mental Status Exam Vital Signs Vital Signs Date Time Temp Pulse Resp B/P Pulse Ox O2 Delivery O2 Flow Rate FiO2 04/19/17 09:13 37.0 84 24 115/82 96 Room Air 04/19/17 04:37 36.8 86 18 116/79 96 Room Air Appearance: Neat/well groomed Attitude: Pleasant Behavior: No unusual behavior Affect: Restricted Mood: Depressed Thought Process/Associations: Goal Directed Speech Production: Normal Speech Rate: Normal Speech Articulation: Normal Thought Content: Negativistic Danger to Self/Suicidal Ideati: Active, Plan (to overdose on Tylenol or to produce a laceration the results in a significant amount of blood to produce ), Intent Danger to Others: None Consciousness: Alert Orientation: Person, Place, Date, Situation Memory: Grossly Intact Estimate Intellectual Function: Above Average Basis for IQ estimate: Awareness current events, Word use/vocabulary, Educational history, Employment history Attention/Concentration & Cogn: Grossly Intact Cognitive Testing Method: Abstract Reasoning during interview, Proverb interpretation, Serial computations Insight: Limited Judgement: Poor Result Diagram: 04/15/17 0250 04/15/172139 Mental Health Plan Tammy is a 37-year-old, white female with a history of unclear trauma, who has a severe case of borderline personality disorder with chronic suicidal ideation and three different severe Tylenol overdoses in the past month requiring intensive care unit care each time. She and I revisited working on a safety plan, but she was unable to do this and was not able to participate in up future planning for her self- care. She was unable to work with me to develop a reasonable safety plan. It is my impression that if she was released to a less restrictive she would be in imminent risk of self-harm. Today she remains extremely dysphoric and intent on committing suicide. Toluca Toluca I. 1. Major depressive disorder, 2. Posttraumatic stress disorder. Toluca II. Borderline personality disorder. Toluca III. Recent Tylenol overdose. Toluca IV. Moderate. Toluca V. Current Global Assessment of Functioning equal to 30. Treatments Patient is being provided with a high degree of safety through monitoring in the intensive care unit, and a 1-1 sitter providing active adult engagement . I am focusing on improved coping skills and identifying stressors that may have led to current episode. Recommend an involuntary treatment hold be pursued per social work and that a [facility] designated mental health professional evaluation be performed We will attempt to: * Maintain in a closely monitored and structured unit * Provide low-stimulation environment * Assess degree of lability of affect and impulse control * Complete safety plan * Decrease frequency of relapse and need for re-hospitalization * Denies thoughts of harm to self and/or others * Establish a consistent sleep pattern * Medication effective in stabilization of mood and/or thought process * Reduce the risk of imminent harm to self and/or others by providing a safe environment * Tolerates medication without side effects Patient will be on the following psychiatric medications: Seroquel 75 twice a day 200 at bedtime Prazosin for at bedtime Remeron 30 at bedtime Levothyroxine 100 g daily Klonopin 1 mg twice a day when necessary anxiety Patient's legal status Patient not a good isabela voluntary recommend [facility] dispatched inpatient be placed on an involuntary hold. Anticipated number of hospital days to achieve above goals: 7 Disposition: Home Owen Ha MD Apr 19, 2017 11:50
--- NOTE | 2017-04-19 12:07 | NUR ---
Inpatient Wound Nurse This NEHALON RN stopped in patient's room to check on her and patient stated, "No! not you!" although she was grinning and laughed. DEEPTI RN explained that no wound care was needed if dressings were intact and patient stated that they were. Her primary RN confirmed that dressings were intact. Patient was instructed to keep dressing clean and dry and avoid removing them and that if they were removed, NEHALON RN would reapply. Patient encouraged to follow safety plan and attend all discharge appointments. Wound care will follow patient daily until discharge, expect every other day dressing changes.
[2017-04-19 12:35] VITALS: BP 123/84; PULSE 78; RESP 20; O2SAT 98
--- NOTE | 2017-04-19 13:35 | NUR ---
NUTRITION FOLLOW-UP Assess: 37 YO F admitted for acetaminophen overdose. Pt requiring restraints and sitter. Psych is following. Pt has a general diet order but she is refusing all meals. She has had poor/minimal PO intake x5 days. Pt experienced n/v x2 on 04/18. PMHX: PTSD, depression, bipolar disorder, suicide attempts, self-mutilation, hypothyroid. DIET: General. PO refusal x5 days LABS: Reviewed. (last labs 04/15) MEDICATIONS: Reviewed. GI: BMx2 04/18 SKIN: Multiple abdominal lacerations. qi specialist following. ANTHROPOMETRICS: Wt: 98.5 kg, BMI 35.0 kg/m2, Admit wt: 98.7 kg, IBW: 59.1 kg. ESTIMATED NEEDS: BMI Calories: 1211-0910 kcal/day (20-22 kcal/kg BW) Protein: 70-90 g/day (1.2-1.5 g/kg IBW) NUTRITION DIAGNOSIS: 1) Inadequate oral intake related to psych issues as evidenced by refusal of meals. --PERSISTS INTERVENTION: 1) Continue current diet as ordered. At this time, adding supplements will not be beneficial as pt is refusing to eat due to psych issues. 2) If pt continues to refuse PO intake x7 days, recommend nutrition support be considered at pt is full code MONITOR/EVALUATE: PO intake, labs, wounds, GI/nutrition status. Follow per high nutrition risk guidelines.
--- NOTE | 2017-04-19 13:47 | PCM.PNMED ---
Subjective Date of Service Apr 19, 2017 Subjective No new complaints or events. Awaiting [facility] eval for inpatient psych admission Exam Vital Signs Vital Sign - Last Date Time Temp Pulse Resp B/P Pulse Ox O2 Delivery O2 Flow Rate FiO2 04/19/17 12:35 36.5 78 20 123/84 98 Room Air Intake and Output 04/18/17 04/18/17 04/19/17 Cumulative From/Thru 15:00 23:00 07:00 04/14/17 20:08 - 04/19/17 05:17 Intake Total 1707 ml 0 ml 6035 ml Output Total 2000 ml 6352 ml Balance -293 ml 0 ml -317 ml Intake Oral 0 ml 0 ml 0 ml IV Total 1707 ml 6035 ml Output Urine Total 2000 ml 5600 ml Emesis 752 ml # Voids 1 2 4 # Bowel Movements 1 0 2 Exam General: No acute distress, well-developed, well-nourished HEENT: Normocephalic, atraumatic. External ears without defect. Pupils equal, round, and reactive to light and accommodation. Anicteric sclerae, moist conjunctivae. Cardiovascular: Regular rate and rhythm with no murmurs, rubs, or gallops appreciated Pulmonary: Clear to auscultation bilaterally with no crackles, wheezes, or rhonchi. Normal respiratory effort with no use of accessory muscles. Abdomen: Bowel tones present. Soft, obese, nondistended. Multiple abdominal lacerations, 10 cm laceration on the right flank, 8 cm laceration on the left flank closed with russell. Extremities: No clubbing, cyanosis, edema Skin: Normal temperature, turgor, and texture; no rash, ulcers, or subcutaneous nodules appreciated. Neurological: Cranial nerves grossly intact. Reflexes, coordination, and sensory function within normal limits. Normal muscle strength, tone, and bulk. Psychiatric: Alert and oriented to person, place, and time. States that she does not want to be in the hospital and would prefer if we would "let her ." IVs and Medications Medications Reviewed: Medications were reviewed in detail Lab and Diagnostics Result Diagram: 04/15/17 0250 04/15/17 2140 12-lead ECG Sinus Tachycardia Prolonged QTc (524) Assessment & Plan Tammy Colon is a 37-year-old female with history of PTSD, major depression, borderline personality disorder, and multiple suicide attempts who presents to the ED after a suicide attempt by Tylenol overdose. Acute Acetaminophen Overdose, Present on Admission, Active - N-acetylcysteine per pharmacy protocol finished at 1900 on 04/15 - Initially Acetaminophen levels ordered Q4h, levels now normal, no more labs required this time. - Last draw 2100 on 04/15 shows below threshold. - LFTs remained within normal range - Lactic acid returned to normal levels. - Patient is medically cleared at this time to be able to proceed with inpatient psych placement - Psychiatric consultation in place, Dr. Ha saw her on 04/15 and suggest that she will be made inpatient, - [facility] was contacted again and made aware that the patient's outpatient provider is now on board with inpatient management. - At the moment, there is some question as to which facility she will be placed in, however, psychiatry will coordinate with social work to ensure that appropriate placement is made. Mood disorders with Suicide Attempt, Present on Admission, Active - History of PTSD, MDD, Bipolar d/o, Borderline PD - Will have a sitter for safety - Patient on 4 point restraints for safety. Q4h provider check. - Plan to continue psychiatric regimen. - Patient refusing meds today. Continue with inpatient psych evaluation and placement Abdominal lacerations, POA Patient with two new lacerations on abdomen, LLQ and RLQ - ED stapled LLQ wound - RLQ lac wound care consult Code Status: Full code Disposition: Patient medically cleared at this time. psych saw her gave recommendations as to where she may be placed for inpatient therapy. The [facility] is now contacted and will make recommendations for inpatient psych placement. VTE Prophylaxis: Sub-Q Heparin (Unfractionated) VTE Mechanical Devices: Intermittant Pneumatic CD Resuscitation Status: CPR: Attempt Resuscitation Manuel Avila MD Apr 19, 2017 13:47
--- NOTE | 2017-04-19 14:48 | NUR ---
Social Work: Continued d/c planning Pt was detained on a 72 hour hold by the [facility] on 04/18/17 at 20:50pm. They attempted to find placement that night, unsuccessfully. [facility] [facility] called the following mental health units for placement for pt today: [facility], : No beds today, accepted referral and will call back regarding pt. [facility]: [phone]: Calling back regarding bed availability. [facility], : No beds available. [facility], : No bed available. [facility], : No bed available. Locations unable to take pt at any time: [facility]: Cannot take pt due to her stalking one of the Psychiatrists currently on staff. [facility]: States they are unable to deal with pt's wound". [facility] will continue to call for placement for this pt. DAVON Nice Addendum: 04/19/17 at 1543 by RHEA MAURO [facility] called [facility] back, states that they cannot take pt due to her abdominal wounds and the acuity on their unit is too high. DAVON Nice Addendum: 04/19/17 at 1601 by RHEA SERRANO [place] called [facility], they cannot take pt due to her open wounds and behaviors. DAVON Nice
[2017-04-19 16:39] VITALS: BP 127/86; PULSE 88; RESP 16; O2SAT 97
--- NOTE | 2017-04-19 19:27 | NUR ---
Med Refusal Patient continues to refuse medications this shift. Patient answers questions appropriately, with no attempts of self harm this shift. Care is ongoing.
[2017-04-19 20:00] VITALS: BP 144/91; PULSE 81; RESP 20; O2SAT 96
[2017-04-20] MEDS: Heparin 5,000 Unit/mL Inj SUBQ SCH ×3 (00:30→16:30)
[2017-04-20 04:02] VITALS: BP 118/81; PULSE 78; RESP 22; O2SAT 96
--- NOTE | 2017-04-20 04:58 | NUR ---
Med Refusal Patient continues to refuse medication despite education. 1:1 sitter present all evening. Pt had an uneventful night, and appeared to have been able to get some sleep. Will continue to monitor and continue Q1 hour checks.
--- NOTE | 2017-04-20 12:36 | PCM.PNMED ---
Subjective Date of Service Apr 20, 2017 Subjective No new complaints or events. Exam Vital Signs Vital Sign - Last Date Time Temp Pulse Resp B/P Pulse Ox O2 Delivery O2 Flow Rate FiO2 04/20/17 04:02 36.6 78 22 118/81 96 Room Air Intake and Output 04/19/17 04/19/17 04/20/17 Cumulative From/Thru 15:00 23:00 07:00 04/14/17 20:08 - 04/20/17 06:08 Intake Total 474 ml 800 ml 7309 ml Output Total 300 ml 475 ml 7127 ml Balance 174 ml 325 ml 182 ml Intake Oral 474 ml 800 ml 1274 ml IV Total 6035 ml Output Urine Total 475 ml 6075 ml Emesis 752 ml Other 300 ml 300 ml # Voids 0 2 6 # Bowel Movements 0 2 Exam General: No acute distress, well-developed, well-nourished HEENT: Normocephalic, atraumatic. External ears without defect. Cardiovascular: Regular rate and rhythm with no murmurs, rubs, or gallops appreciated Pulmonary: Clear to auscultation bilaterally with no crackles, wheezes, or rhonchi. Normal respiratory effort with no use of accessory muscles. Abdomen: Bowel tones present. Soft, obese, nondistended. Multiple abdominal lacerations, 10 cm laceration on the right flank, 8 cm laceration on the left flank closed with russell. Extremities: No clubbing, cyanosis, edema Skin: Normal temperature, turgor, and texture; no rash, ulcers, or subcutaneous nodules appreciated. Neurological: Cranial nerves grossly intact. Reflexes, coordination, and sensory function within normal limits. Normal muscle strength, tone, and bulk. Psychiatric: Alert and oriented to person, place, and time. States that she does not want to be in the hospital and would prefer if we would "let her ." IVs and Medications Medications Reviewed: Medications were reviewed in detail Lab and Diagnostics Result Diagram: 04/15/17 0250 04/15/17 2140 12-lead ECG Sinus Tachycardia Prolonged QTc (524) Assessment & Plan Tammy Colon is a 37-year-old female with history of PTSD, major depression, borderline personality disorder, and multiple suicide attempts who presents to the ED after a suicide attempt by Tylenol overdose. Acute Acetaminophen Overdose, Present on Admission, Active - N-acetylcysteine per pharmacy protocol finished at 1900 on 04/15 - Initially Acetaminophen levels ordered Q4h, levels now normal, no more labs required this time. - Last draw 2100 on 04/15 shows below threshold. - LFTs remained within normal range - Lactic acid returned to normal levels. - Patient is medically cleared at this time to be able to proceed with inpatient psych placement - Psychiatric consultation in place, Dr. Ha saw her on 04/15 and suggest that she will be made inpatient, - [facility] was contacted again and made aware that the patient's outpatient provider is now on board with inpatient management. - At the moment, there is some question as to which facility she will be placed in, however, psychiatry will coordinate with social work to ensure that appropriate placement is made. Mood disorders with Suicide Attempt, Present on Admission, Active - History of PTSD, MDD, Bipolar d/o, Borderline PD - Will have a sitter for safety - Patient on 4 point restraints for safety. Q4h provider check. - Plan to continue psychiatric regimen. - Patient refusing meds today. Continue with inpatient psych evaluation and placement Abdominal lacerations, POA Patient with two new lacerations on abdomen, LLQ and RLQ - ED stapled LLQ wound - RLQ lac wound care consult Code Status: Full code Disposition: Patient medically cleared at this time. psych saw her gave recommendations as to where she may be placed for inpatient therapy. The [facility] is now contacted and will make recommendations for inpatient psych placement.72 hr involuntary hold will on Saturday VTE Prophylaxis: Sub-Q Heparin (Unfractionated) VTE Mechanical Devices: Intermittant Pneumatic CD Resuscitation Status: CPR: Attempt Resuscitation Manuel Avila MD Apr 20, 2017 12:36
--- NOTE | 2017-04-20 13:22 | NUR ---
Behavior Patient has been passive this shift. She is pleasant, calm, and answers questions when you ask her. During AM assessment, this RN spent about 30 minutes in the patient's room talking with her and charting. During this time, the patient didn't initiate conversation but did participate. Patient has had a poor appetite during this shift and when asked patient states it's not out of her normal not to have breakfast or lunch. Continuing to offer food options that patient might enjoy eating. Morning medications were refused by the patient this AM, but will continue to offer during each rounding and when they are scheduled to be taken. 1:1 sitter at bedside for safety.
--- NOTE | 2017-04-20 14:48 | PCM.PNPSY ---
Subjective Date of Service Apr 20, 2017 Subjective The patient stated that the precipitant for her current admission was President [employer] actions towards transgender individuals in the and her concern that gays and lesbians could be discriminated against in the workplace. The patient also noted that she had a change in her therapist and does not get along with her current therapist and is requesting an alternate. She reports she did get along with a previous male therapist but he was switched to a different therapist following 2 overdoses. The patient currently follows up with [facility] twice a week and with a peer counselor once a week. We discussed the fact that she has little interaction with others outside of her medical issues resulting from self-harm. She reports that the internal thoughts are that she would "be a pussy if I don't [manipulate her wounds]... I would be a bad Marine." She reports medications are effective when she takes them but has been medication non-adherent in the hospital. The patient reports that she is stopped taking quetiapine recently as she is afraid that she will not hear people if they come into her home. Sleep: "Not so good" Appetite: "Holding down water." Suicidal and homicidal ideation: Denies current but is expressed chronic and recent acute. Auditory hallucinations: Denies Visual hallucinations: Denies Other Psychotic Symptoms: Anxiety: "High due to uncertainty." Depression: "It is okay, I just talk to my sister." Current Medications Current Medications Promethazine HCl/ Dextrose/Water 51 ml @ 153 mls/hr ONCE ONCE IV Last administered on 04/18/17t 17:27; Admin Dose 153 MLS/HR; Start 04/18/17 at 16:45; Stop 04/18/17 at 17:04; Status DC Mental Status Exam Appearance: Neat/well groomed Attitude: Pleasant Behavior: No unusual behavior Affect: Restricted Mood: Anxious Thought Process/Associations: Goal Directed Speech Production: Normal Speech Rate: Normal Speech Articulation: Normal Thought Content: Negativistic Danger to Self/Suicidal Ideati: Passive Danger to Others: None Hallucinations: Auditory (Denies), Visual (Denies) Consciousness: Alert Orientation: Person, Place, Date, Situation Memory: Grossly Intact Estimate Intellectual Function: Average Basis for IQ estimate: Awareness current events, Word use/vocabulary, Educational history, Employment history Attention/Concentration & Cogn: Grossly Intact Cognitive Testing Method: Abstract Reasoning during interview, Proverb interpretation, Serial computations Insight: Limited Judgement: Poor Result Diagram: 04/15/17 0250 04/15/172139 Mental Health Plan The patient is a 37-year-old female with borderline personality disorder and chronic suicidal ideation and three different severe Tylenol overdoses in the past month requiring intensive care following each episode. The patient has been unable to create a safety plan so far. We discussed the need to have increased contact in a meaningful way with her family and suggested dinner twice a week and a sleepover once per week. The patient stated that she was willing to try as things are becoming worse and "I could not get any lower." Given her behavior last week and her failure to take medications she is still at significant risk of harm and we will need to continue to pursue inpatient placement. Should the patient begin taking medication and engage in a safety plan, it may be more appropriate for organization with the [place], [facility] , and discharge. Acworth Acworth I. 1. Major depressive disorder, 2. Posttraumatic stress disorder. Acworth II. Borderline personality disorder. Acworth III. Recent acetaminophen overdose. Acworth IV. Moderate. Acworth V. Current Global Assessment of Functioning equal to 30. Medications Quetiapine 75 twice a day and 200 at bedtime Prazosin 4 mg at bedtime Mirtazapine 30 at bedtime Levothyroxine 100 g daily Clonazepam 1 mg twice a day when necessary anxiety Treatments 1. The patient is admitted to the intensive care unit 2. The patient has consistently reported suicidal ideation and has manipulated her wounds. She is also declining medications and is therefore in need of continued one-to-one 3. The patient will be followed by a psychiatrist on a daily basis to assess symptoms, side effects and response to treatment. 4. The patient will be encouraged to take her medications as prescribed. 5. As the patient has been stalking a psychiatrist currently present on the mental health unit as she is not appropriate for admission to the unit and has typically not benefited from services there. 6. Encouraged patient to contact family as noted above. If successful patient may be appropriate for discharge early next week. 7. If patient continues to refuse medications will need to file for additional inpatient time. Nam Montalvo MD Apr 20, 2017 14:48 Acworth I. 1. Major depressive disorder, 2. Posttraumatic stress disorder. Acworth II. Borderline personality disorder. Acworth III. Recent Tylenol overdose. Acworth IV. Moderate. Acworth V. Current Global Assessment of Functioning equal to 30. Treatments Patient is being provided with a high degree of safety through monitoring in the intensive care unit, and a 1-1 sitter providing active adult engagement . I am focusing on improved coping skills and identifying stressors that may have led to current episode. Recommend an involuntary treatment hold be pursued per social work and that a [facility] designated mental health professional evaluation be performed We will attempt to: * Maintain in a closely monitored and structured unit * Provide low-stimulation environment * Assess degree of lability of affect and impulse control * Complete safety plan * Decrease frequency of relapse and need for re-hospitalization * Denies thoughts of harm to self and/or others * Establish a consistent sleep pattern * Medication effective in stabilization of mood and/or thought process * Reduce the risk of imminent harm to self and/or others by providing a safe environment * Tolerates medication without side effects Patient will be on the following psychiatric medications: Seroquel 75 twice a day 200 at bedtime Prazosin for at bedtime Remeron 30 at bedtime Levothyroxine 100 g daily Klonopin 1 mg twice a day when necessary anxiety Patient's legal status Patient not a good isabela voluntary recommend [facility] dispatched inpatient be placed on an involuntary hold. Anticipated number of hospital days to achieve above goals: 7 Disposition: Home Nam Montalvo MD Apr 20, 2017 14:48
--- NOTE | 2017-04-20 18:35 | NUR ---
Patient continues to refuse all medications. Stated "I just want to take my nighttime meds.". Encouraged patient to take the medications on a correct schedule to improve function. She has also refused all meals this shift and has minimal to drink as well. Continuing to encourage increased PO intake. 1:1 sitter at bedside and sitter continues to encouraged PO intake. Rounding continues. Safety precautions in place.
[2017-04-20 19:20] VITALS: BP 115/79; PULSE 79; RESP 22; O2SAT 97
[2017-04-20 23:37] VITALS: BP 100/68; PULSE 88; RESP 20; O2SAT 96
[2017-04-21] MEDS: Heparin 5,000 Unit/mL Inj SUBQ SCH ×3 (00:10→15:38)
--- NOTE | 2017-04-21 02:56 | NUR ---
Behavior/Medication Patient A&OX3 and pleasant this evening. Remains passive in nature but participates in assessment and answers questions as needed. This evening patient also agreed to take all evening medications, except for the 0030 heparin. 1:1 sitter at bedside. Will continue to monitor and continue Q1 hour checks.
[2017-04-21 04:21] VITALS: BP 99/66; PULSE 78; RESP 22; O2SAT 97
--- NOTE | 2017-04-21 08:35 | NUR ---
Social Work: Continued d/c planning Pt was detained on a 72 hour hold by the [facility] on 04/18/17 at 20:50pm. The 72 hour hold does not include the weekend. TOUR CONSULTANT called the following mental health units for placement for pt today: Left voice mail, awaiting phone call back: -[facility], : Left voice mail. -[facility], : Left voice mail. -[facility], : No answer, voice mail service down. No beds available this AM: -[facility], : No beds available. -[facility], : No bed available. -[facility], : No bed available. Locations unable to take pt at any time: -[facility]: Cannot take pt due to her stalking one of the Psychiatrists currently on staff. -[place]: States they are unable to deal with pt's wound. -[facility], : cannot take pt due to her open wounds and behaviors. -[facility]: [phone]: cannot take pt due to her abdominal wounds and the acuity on their unit is too high. -[facility], : Only accepts voluntary pts. TOUR CONSULTANT will continue to call daily regarding bed availability for this pt. DAVON Nice Addendum: 04/21/17 at 1434 by RHEA SERRANO DAVON received a voice mail back from [facility] who is an only adolescent facility. She gave T[facility] CONSULTANT the phone number for [facility]. [facility], : They have no beds available today. They state they may have some discharges tomorrow. DAVON Nice
--- NOTE | 2017-04-21 11:41 | PCM.PNMED ---
Subjective Date of Service Apr 21, 2017 Subjective No new complaints or events.still suicidal and requests a sitter Exam Vital Signs Vital Sign - Last Date Time Temp Pulse Resp B/P Pulse Ox O2 Delivery O2 Flow Rate FiO2 04/21/17 04:21 36.6 78 22 99/66 97 Room Air Intake and Output 04/20/17 04/20/17 04/21/17 Cumulative From/Thru 15:00 23:00 07:00 04/14/17 20:08 - 04/21/17 06:06 Intake Total 150 ml 220 ml 7679 ml Output Total 0 ml 600 ml 7727 ml Balance 150 ml -380 ml -48 ml Intake Oral 150 ml 220 ml 1644 ml IV Total 6035 ml Output Urine Total 0 ml 600 ml 6675 ml Emesis 752 ml Other 300 ml # Voids 1 7 # Bowel Movements 0 2 Exam General: No acute distress, well-developed, well-nourished HEENT: Normocephalic, atraumatic. External ears without defect. Cardiovascular: Regular rate and rhythm with no murmurs, rubs, or gallops appreciated Pulmonary: Clear to auscultation bilaterally with no crackles, wheezes, or rhonchi. Normal respiratory effort with no use of accessory muscles. Abdomen: Bowel tones present. Soft, obese, nondistended. Multiple abdominal lacerations, 6 cm laceration on the right flank, 4 cm laceration on the left flank closed with russell. Extremities: No clubbing, cyanosis, edema Skin: Normal temperature, turgor, and texture; no rash, ulcers, or subcutaneous nodules appreciated. Neurological: Cranial nerves grossly intact. Reflexes, coordination, and sensory function within normal limits. Normal muscle strength, tone, and bulk. Psychiatric: Alert and oriented to person, place, and time. States that she does not want to be in the hospital and would prefer if we would "let her ." IVs and Medications Medications Reviewed: Medications were reviewed in detail Lab and Diagnostics Result Diagram: 04/15/17 0250 04/15/17 2140 12-lead ECG Sinus Tachycardia Prolonged QTc (524) Assessment & Plan Tammy Colon is a 37-year-old female with history of PTSD, major depression, borderline personality disorder, and multiple suicide attempts who presents to the ED after a suicide attempt by Tylenol overdose. Acute Acetaminophen Overdose, Present on Admission, Active - N-acetylcysteine per pharmacy protocol finished at 1900 on 04/15 - Initially Acetaminophen levels ordered Q4h, levels now normal, no more labs required this time. - Last draw 2100 on 04/15 shows below threshold. - LFTs remained within normal range - Lactic acid returned to normal levels. - Patient is medically cleared at this time to be able to proceed with inpatient psych placement - Psychiatric consultation in place, Dr. Ha saw her on 04/15 and suggest that she will be made inpatient, - [facility] was contacted again and made aware that the patient's outpatient provider is now on board with inpatient management. - At the moment, there is some question as to which facility she will be placed in, however, psychiatry will coordinate with social work to ensure that appropriate placement is made. Mood disorders with Suicide Attempt, Present on Admission, Active - History of PTSD, MDD, Bipolar d/o, Borderline PD - Will have a sitter for safety - Patient on 4 point restraints for safety. Q4h provider check. - Plan to continue psychiatric regimen. - Patient refusing meds today. Continue with inpatient psych evaluation and placement Abdominal lacerations, POA Patient with two new lacerations on abdomen, LLQ and RLQ - ED stapled LLQ wound - RLQ lac wound care consult Code Status: Full code Disposition: Patient medically cleared at this time. psych saw her gave recommendations as to where she may be placed for inpatient therapy. The [facility] is contacted and will make recommendations for inpatient psych placement.72 hr involuntary hold will on Saturday VTE Prophylaxis: Sub-Q Heparin (Unfractionated) VTE Mechanical Devices: Intermittant Pneumatic CD Resuscitation Status: CPR: Attempt Resuscitation Manuel Avila MD Apr 21, 2017 11:41
--- NOTE | 2017-04-21 12:26 | PCM.PNPSY ---
Subjective Date of Service Apr 21, 2017 Subjective The patient reports doing better today. She took her medications last night and today. She reports no side effects. She does indicate that quetiapine had been increased to 400 mg, prazosin to 5 mg, and mirtazapine to 45 mg recently. She stated that she contacted her parents and that she will have dinner with them on and Saturday and as Saturday is often a trigger night, she will stay overnight on Sundays. If released from her hold on Saturday or Saturday, she would stay with her family. She reports a willingness to work on safety planning as "I am just tired of coming to the hospital so much." She is unable to say other reasoning for her change in attitude. The patient reports that she has been able to take some food and has been taking in fluids. She did not have a problem with nausea with medications. Sleep: "Pretty good" Appetite: "Better." Suicidal and homicidal ideation: Denies current but is expressed chronic and recent acute. Auditory hallucinations: Denies Visual hallucinations: Denies Other Psychotic Symptoms: N/A Anxiety: "Just wanting to get out of here." Depression: "It is a little better" Mental Status Exam Vital Signs Vital Signs Date Time Temp Pulse Resp B/P Pulse Ox O2 Delivery O2 Flow Rate FiO2 04/21/17 04:21 36.6 78 22 99/66 97 Room Air Appearance: Neat/well groomed Attitude: Pleasant Behavior: No unusual behavior Affect: Restricted Mood: Anxious Thought Process/Associations: Goal Directed Speech Production: Normal Speech Rate: Normal Speech Articulation: Normal Thought Content: Negativistic Danger to Self/Suicidal Ideati: Passive Danger to Others: None Hallucinations: Auditory (Denies), Visual (Denies) Consciousness: Alert Orientation: Person, Place, Date, Situation Memory: Grossly Intact Estimate Intellectual Function: Average Basis for IQ estimate: Awareness current events, Word use/vocabulary, Educational history, Employment history Attention/Concentration & Cogn: Grossly Intact Cognitive Testing Method: Abstract Reasoning during interview, Proverb interpretation, Serial computations Insight: Limited Judgement: Limited Result Diagram: 04/15/17 0250 04/15/17 2140 Mental Health Plan The patient is a 37-year-old female with borderline personality disorder and chronic suicidal ideation and three different severe Tylenol overdoses in the past month requiring intensive care following each episode. The patient has been unable to create a safety plan so far. We discussed the need to have increased contact in a meaningful way with her family and suggested dinner twice a week and a sleepover once per week. The patient stated that she was willing to try as things are becoming worse and "I could not get any lower." Given her behavior last week and her failure to take medications she was felt to be at high risk of self-harm and so further inpatient treatment had been requested. At this time, the patient is taking medications and is cooperating with a safety and discharge plan. She is also being proactive about medication adjustments and the need for a new therapist. Should we be able to find a new therapist for her through the ID, further half-way would likely not be beneficial. Shelby Shelby I. 1. Major depressive disorder, 2. Posttraumatic stress disorder. Shelby II. Borderline personality disorder. Shelby III. Recent acetaminophen overdose. Shelby IV. Moderate. Shelby V. Current Global Assessment of Functioning equal to 30. Medications Per Review of ID records, Medications should be: Quetiapine 75 twice a day and 400 at bedtime Prazosin 5 mg at bedtime Mirtazapine 45 at bedtime Levothyroxine 100 g daily (, but appears to need renewal as outpatient) Clonazepam 1 mg twice a day when necessary anxiety Treatments 1. The patient is admitted to the intensive care unit 2. The patient has consistently reported suicidal ideation and has manipulated her wounds. She is also declining medications and is therefore in need of continued one-to-one 3. The patient will be followed by a psychiatrist on a daily basis to assess symptoms, side effects and response to treatment. 4. The patient will be encouraged to take her medications as prescribed. 5. As the patient has been stalking a psychiatrist currently present on the mental health unit as she is not appropriate for admission to the unit and has typically not benefited from services there. 6. Adjust medications as noted above. 7. If alternate therapist is located on Saturday anticipated discharge Saturday or Saturday to the care of her parents. 8. If patient continues to refuse medications or develops more self-harm behavior will need to file for additional inpatient time. Nam Montalvo MD Apr 21, 2017 12:26
[2017-04-21 13:07] VITALS: BP 98/61; PULSE 86; RESP 21; O2SAT 97
--- NOTE | 2017-04-21 15:38 | NUR ---
Meds/mood Pt pleasant and cooperative with care. Takes medications as ordered, except for Heparin injections. She does make eye contact and smile/laugh with nursing staff. Denies current plans/thoughts of hurting herself or others. Ambulated in halls multiple times with sitter. 1:1 sitter present in room at all times. Abd dressing x2 changed per instructions.
[2017-04-21 20:21] VITALS: BP 104/72; PULSE 84; RESP 20; O2SAT 96
[2017-04-22] MEDS: Heparin 5,000 Unit/mL Inj SUBQ SCH ×2 (00:30→07:56)
--- NOTE | 2017-04-22 05:10 | NUR ---
Mood / Safety Continues to be passive and cooperative with care (continues to decline heparin shot.) Disinclined to engage in conversation. Observed sleeping well through night. 1:1 sitter present in room at all times for safety.
[2017-04-22 06:54] VITALS: BP 103/69; PULSE 85; RESP 20; O2SAT 94
--- NOTE | 2017-04-22 12:23 | NUR ---
Inpatient Wound Nurse Patient seen in follow up for abdominal wounds. L most lateral wound with small amount of odorous, purulent drainage noted on removed dressing. Patient was squirming away from CWON and would not answer if periwound was tender with palpation. No erythema noted. Some russell remain, all steristrips were removed with dressing as they were saturated. Wound medial to this wound is healing slowly, shallow wound bed is beefy red and granulating, no apparent drainage. Wounds were cleansed, lateral wound was covered with steristrips and both wounds covered with one bordered Mepilex dressing. R abdominal wound requires absorbant filler and so Silverlon was removed, as it is not as absorbant as Aquacel Extra Ag, which was cut to fit and placed into wound bed after cleansing. Wound is beefy red and granulating, patient was a bit squirmy, made measurments difficult but wound does appear to be filling in. Sacral bordered Mepilex was placed over wound and adjacent (medial) wound which remains crusted and closed. Patient was instructed not to open wounds or remove dressings, steristrips or packing. She was reminded that since discharge is her goal, compliance with wound care would likely help her meet her goal. She did not indicate understanding or intended compliance, sitter and patient's primary RN are aware. CWON will continue to follow patient. If dressings remain intact, they can be changed Q 48 hours. If they are noted with increased drainage, they should be changed more frequently.
--- NOTE | 2017-04-22 13:33 | NUR ---
NUTRITION FOLLOW-UP Assess: 37 YO F admitted for acetaminophen overdose. Pt requiring restraints and sitter. Psych is following. Pt has a general diet order but she is refusing most meals. Pt has eaten a small amount of 2 meals in the last 3 days. She has had poor/minimal PO intake x 8 days. PMHX: PTSD, depression, bipolar disorder, suicide attempts, self-mutilation, hypothyroid. DIET: General. PO refusal-25%. 15-25% X 2 meals. LABS: Reviewed. (last labs 04/15) MEDICATIONS: Reviewed. GI: BM x 2 (04/18) SKIN: Multiple abdominal lacerations. nuclear medicine specialist following. ANTHROPOMETRICS: Wt: 94.0 kg, BMI 33.4 kg/m2, Admit wt: 98.7 kg, IBW: 59.1 kg. ESTIMATED NEEDS: BMI Calories: 6197-5932 kcal/day (20-22 kcal/kg BW) Protein: 70-90 g/day (1.2-1.5 g/kg IBW) NUTRITION DIAGNOSIS: 1) Inadequate oral intake related to psych issues as evidenced by refusal of meals. --PERSISTS/SLIGHTLY IMPROVED. INTERVENTION: 1) Continue current diet as ordered. At this time, adding supplements will not be beneficial as pt is refusing to eat due to psych issues. 2) If pt continues to refuse PO intake, consider nutrition support. MONITOR/EVALUATE: PO intake, labs, wounds, GI/nutrition status. Follow per high nutrition risk guidelines.
--- NOTE | 2017-04-22 15:11 | PCM.DIMED ---
Nam Montalvo MD 04/22/17 1511: Discharge Instructions Date of Service Apr 22, 2017 Dates of Hospitalization Apr 14, 2017 at 21:57 Discharge Diagnosis Discharge Diagnosis [place] I. 1. Major depressive disorder, 2. Posttraumatic stress disorder. [place] II. Borderline personality disorder. [place] III. Recent acetaminophen overdose, abdominal laceration. [place] IV. Moderate. [place] V. Current Global Assessment of Functioning equal to 40. Test Results Test Results CBC Test 04/15/17 02:50 White Blood Count 8.6th/mm3 (3.8-10.1) Red Blood Count 4.20mil/mm3 (3.90-5.20) Hemoglobin 11.2g/dL (12.0-15.6) Hematocrit 33.5% (35.0-46.0) Mean Corpuscular Volume 79.8fL (81-100) Mean Corpuscular Hemoglobin 26.7pg (27.0-35.0) Mean Corpuscular Hemoglobin Concent 33.4% (32.0-37.0) Red Cell Distribution Width 14.6% (12.3-15.4) Platelet Count 339bil/L (150-400) Neutrophils (%) (Auto) 79.3% (40-74) Lymphocytes (%) (Auto) 13.3% (14-46) Monocytes (%) (Auto) 7.1% (4-12) Eosinophils (%) (Auto) 0% (0-5) Basophils (%) (Auto) 0.1% (0-3) CMP Test 04/15/17 04:45 04/15/17 21:40 Lactic Acid Level 0.8mmol/L Sodium Level 140mEq/L Potassium Level 3.4mEq/L Chloride Level 102mEq/L Carbon Dioxide Level 18mmol/L Blood Urea Nitrogen 9mg/dL Creatinine 0.81mg/dL Estimat Glomerular Filtration Rate 115mL/min Glucose Level 93mg/dL Calcium Level 9.1mg/dL Total Bilirubin 0.9mg/dL Aspartate Amino Transf (AST/SGOT) 18U/L Alanine Aminotransferase (ALT/SGPT) 6U/L Alkaline Phosphatase 56U/L Total Protein 6.9g/dL Albumin 4.0g/dL Diet Discharge Diet: No restrictions Activity Discharge Activity: Other (avoid placing tension on wound.) Call your provider Call your provider for: Fever or Chills, Bleeding, Other (worsening redness, pus) Patient Instructions Patient Instructions Should you have any thoughts of harming yourself or others, please call the crisis line, your provider, 911, or go to the nearest Emergency Department. Do not change or discontinue your medications without discussing with your provider. You have been given a prescription for 30 days supply of your new medication Have your provider assess your abdominal wound every other day at the wound care clinic and follow their directions. Your russell will need to come out after approximately 14 days. Follow-up plan Prescriber Dr. Linda MD on 04/23/17 @ 10:00am (per patient report) [address] [address] [facility] Chery Rossy on 04/23/17 @ 10:30am (per patient report) [address] [address] Mental Health Counselor Gabby on 04/25/17 at 14:00 (2pm) [facility] [address] [place] [address] Gabby on 04/29/17 at 12:00 [facility] [address] [place] [address] Peer Counselor Grabiel on 04/26/17 at 13:00 (1pm) [facility] [address] [place] [address] Manuel Avila MD 04/22/17 1528: Discharge Instructions Patient Instructions Additional Information Please follow-up with wound care clinic every other day for wound care/dressing change No indication for antibiotics Nam Montalvo MD Apr 22, 2017 15:11 Manuel Avila MD Apr 22, 2017 15:28
[2017-04-22] MEDS ORDERED: MIRT45TA5 PO (15:14)
[2017-04-22] MEDS ORDERED: QUET100T69 PO (15:14)
[2017-04-22] MEDS ORDERED: PRAZ5CAP PO (15:14)
--- NOTE | 2017-04-22 15:26 | PCM.DC.MED ---
Discharge Summary Date of Service Apr 22, 2017 Dates of Hospitalization Date of Hospital Admission Apr 14, 2017 at 21:57 Date of Discharge: Apr 22, 2017 Providers: Admitting Physician: Naeem Mac MD Primary Care Physician: Ryan,[facility] Attending Physician: Manuel Avila MD Diagnosis at Time of Discharge Diagnosis at Time of Discharge [place] I. 1. Major depressive disorder, 2. Posttraumatic stress disorder. [place] II. Borderline personality disorder. [place] III. Recent acetaminophen overdose, abdominal laceration. [place] IV. Moderate. [place] V. Current Global Assessment of Functioning equal to 40. Consultations Psychiatry/medicine coordinating care while on medical unit. Procedures ECG 12 Lead Sinus Tachycardia Prolonged QTc (524) Brief History Per Dr. Ha's initial consultation: IDENTIFICATION: The patient is a 37-year-old, white female with a history of both major depression, borderline personality and posttraumatic stress disorder. She is a and was in the [facility]. She is well known to the [facility] and has had multiple recent admissions to the ER and the medical floor for suicidal behavior and overdoses. She currently lives with her parents. Client is well followed by the intensive outpatient team through nearly daily case management, therapy, and psychiatric care. REASON FOR ADMISSION: Client attempted overdose by ingesting 100 capsules of Tylenol P.M. (500 mg Tylenol/25 mg Benadryl) at around 4 p.m. on April 14, 2017. She states she waited 4 hours trying to ensure that the overdose would be potentially lethal before calling paramedics. REASON FOR CONSULT: I was asked to consult for evaluation and treatment of suicidal potential. I met with the patient for a 60-minute evaluation and reviewed course and records kept by [facility]. Please refer to multiple recent consults or history and physicals done at [facility] on this patient. I myself have been consulted multiple times on the floor and have treated her on our inpatient psych unit over this past and previous year. She is also well known to my colleagues, Dr. Ybarra and Dr. Espinoza. Client's main issue is chronic suicidal ideation related to loss of meaning and purpose after she was discharged from the [facility]. Co-occurring issues are depression, lack of social engagement, and poor coping skills. The condition is chronic and has been present for years. It is currently manifesting with symptoms of impulsivity and multiple recent suicide attempts due to lack of coping. She tends to isolate in her apartment with her cat and then after several days and weeks begins first cutting on herself. This temporarily relieves emotional pain of anxiety and depression. When this stops working, she tends to escalate using increasingly lethal doses of Tylenol. She states it produces a euphoria and a sedation that she finds pleasant. When she becomes scared of dying, she calls the emergency department. All the above symptoms are made worse when she is not with her family, when she does not sleep well, or when she is not have people to help her process her stress. Today, she denies suicidal ideation, plan or intent. Although she did not show signs of emotional liability, her insight and judgment remain impaired and I am concerned about the imminent risk of danger if she was discharged home. She was unable to detail a safety plan for me. She denied psychiatric review of systems for psychosis or lan. Per Medical: Tammy Colon is a 37-year-old female with a past medical history of multiple acetaminophen overdoses within the past 3 months, PTSD, major depression, anxiety, bipolar disorder, hypothyroidism who presents with suicide attempt with acetaminophen overdose. Per her report, she had approximately 100 capsules of Tylenol PM (500 mg Tylenol, 25 mg Benadryl) at approximately 1600 today. She says that she took the Tylenol with the intent to end her life, because she's upset at life. She does not mention any specific stressors. She reports that she did not overdose on any other medications or take any other illicit drugs or alcohol. She denies any recent sexual activity or any possibility of being . She also presents with self-inflicted razor blade lacerations on her left lower quadrant, made earlier today, and right lower quadrant, made 5 days ago. She also ripped out her IV because she didnt want it, even though she understood that it was required for her treatment. She says that she is nauseous and vomited throughout the encounter. She denies any chest pain, shortness of breath, headache, dizziness, fever or chills, dysuria, hematuria, changes in bowel habits, homicidal ideations, and visual or auditory hallucinations. It should be noted she's been here several times over the last couple of months for tylenol overdose and abdominal laceration. In the ED she was started on N-acetylcysteine and had LLQ wound stapled. Hospital Course The patient was admitted to the medical unit as she has reportedly been attempting to follow one of the inpatient psychiatrists while he is in the community and it was felt to be counter-therapeutic to have them on the same unit at the same time. She was therefore followed by psychiatry on the medical floor. The patient has not participated in activities when at the [facility] in the past and it was not felt to adversely affect her treatment course. The patient was initially quite suicidal and despondent and was attempting to manipulate her wound, requiring restraints to prevent self harm. The patient was seen by an IOP member who did not feel that the patient needed extended inpatient treatment. The patient refused medications until 04/20/17 at which point she began taking medications as prescribed. She was continued on her medications which were verified as current at the [facility]. Following this, she was also able to avoid manipulating her wound and actively engaged in a discussion of her current symptoms. The patient expressed a renewed desire to engage in a more effective treatment plan as she stated that she felt that she had hit bottom and was not finding the recurrent cycle of self-harm and hospitalization to be meeting her needs. She expressed a desire to have a more involved therapist who was more task based, working on incidents and responses/resolution as they arise. Her mother expressed a renewed hope given the patient's improved engagement and was wanting to work with the IOP program to find an appropriate, integrated therapist who could meet the patient's needs and IOP needs. We discussed the need to work with her peer counselor/case packer and sealer to determine what needs were not being met in her current therapy and what she felt that she did need in a new therapist. We also discussed the need to not have a therapist in a silo given the risk of splitting/fragmentation of care. We had previously attempted to have the patient engage with her parents more frequently but were unsuccessful. The patient was more pro-active during this stay and discussed with her family that she will go to her parents house on and Saturday for dinner and stay overnight on Saturday as this is a trigger day for her. Hopefully, this will allow the patient to have a better sense of connection with her parents such that when she is alone in her apartment or they are on trips it does not result in self-harm behavior. We also reviewed a CBT thought record form which she felt (in principal) was helpful and could use as an example with her therapist should she so choose. The patient demonstrated no side effects and was reporting no active suicidality. The patient planned to stay with her parents overnight and then go to appointments at the [facility] in the morning. She was released from her hold to the care of her parents. At the time of discharge, the patient was reporting her mood as "ready to go." Sleep was reported as "pretty good" and appetite was reported as "better" reporting that she had eating approximately half of her evening meal. Her anxiety and depression were reported as stable. She endorsed chronic passive suicidality without specific plan or intent. She denied auditory or visual hallucinations and any thought, intent or plan of hurting others. Per Medical: Tammy Colon is a 37-year-old female with history of PTSD, major depression, borderline personality disorder, and multiple suicide attempts who presents to the ED after a suicide attempt by Tylenol overdose. Acute Acetaminophen Overdose, Present on Admission, Active - N-acetylcysteine per pharmacy protocol finished at 1900 on 04/15 - Initially Acetaminophen levels ordered Q4h, levels now normal, no more labs required this time. - Last draw 2100 on 04/15 shows below threshold. - LFTs remained within normal range - Lactic acid returned to normal levels. - Patient is medically cleared at this time to be able to proceed with inpatient psych placement - Psychiatric consultation in place, Dr. Ha saw her on 04/15 and suggest that she will be made inpatient, - [facility] was contacted again and made aware that the patient's outpatient provider is now on board with inpatient management. - At the moment, there is some question as to which facility she will be placed in, however, psychiatry will coordinate with social work to ensure that appropriate placement is made. Mood disorders with Suicide Attempt, Present on Admission, Active - History of PTSD, MDD, Bipolar d/o, Borderline PD - Will have a sitter for safety - Patient on 4 point restraints for safety. Q4h provider check. - Plan to continue psychiatric regimen. - Patient refusing meds today. Continue with inpatient psych evaluation and placement Abdominal lacerations, POA Patient with two new lacerations on abdomen, LLQ and RLQ - ED stapled LLQ wound - RLQ lac wound care consult Code Status: Full code Disposition: Patient medically cleared at this time. psych saw her gave recommendations as to where she may be placed for inpatient therapy. The [facility] is contacted and will make recommendations for inpatient psych placement.72 hr involuntary hold will on Saturday night Exam Vital Signs (Last) Date Time Temp Pulse Resp B/P Pulse Ox O2 Delivery O2 Flow Rate FiO2 04/22/17 06:54 36.7 85 20 103/69 94 Room Air Exam Discharge Mental Status Exam Appearance: Neat/well groomed Attitude: Pleasant Behavior: No unusual behavior Affect: Restricted but appropriate Mood: Mildly anxious Thought Process/Associations: Goal Directed Speech Production: Normal Speech Rate: Normal Speech Articulation: Normal Thought Content: Negativistic Danger to Self/Suicidal Ideation: Chronic, passive with no plan or intent at this time. Danger to Others: None Hallucinations: Auditory (Denies), Visual (Denies) Consciousness: Alert Orientation: Person, Place, Date, Situation Memory: Grossly Intact Estimate Intellectual Function: Average Basis for IQ estimate: Awareness current events, Word use/vocabulary, Educational history, Employment history Attention/Concentration & Cognition: Grossly Intact Cognitive Testing Method: Abstract Reasoning during interview, Proverb interpretation, Serial computations Insight: Improving Judgment: Improving Test 04/14/17 20:36 04/15/17 02:50 04/15/17 04:45 04/15/17 21:15 Prothrombin Time 10.7sec (8.1-12.5) Prothromb Time International Ratio 1.00ratio Salicylates Level < 3.0ug/mL (30-250) Alcohols < 10mg/dL (0-10) White Blood Count 8.6th/mm3 (3.8-10.1) Red Blood Count 4.20mil/mm3 (3.90-5.20) Hemoglobin 11.2g/dL (12.0-15.6) Hematocrit 33.5% (35.0-46.0) Mean Corpuscular Volume 79.8fL (81-100) Mean Corpuscular Hemoglobin 26.7pg (27.0-35.0) Mean Corpuscular Hemoglobin Concent 33.4% (32.0-37.0) Red Cell Distribution Width 14.6% (12.3-15.4) Platelet Count 339bil/L (150-400) Neutrophils (%) (Auto) 79.3% (40-74) Lymphocytes (%) (Auto) 13.3% (14-46) Monocytes (%) (Auto) 7.1% (4-12) Eosinophils (%) (Auto) 0% (0-5) Basophils (%) (Auto) 0.1% (0-3) Lactic Acid Level 0.8mmol/L (0.4-2.0) Acetaminophen Level < 15.0ug/mL Rx (10-25) Test 04/15/17 21:40 04/18/17 18:18 Sodium Level 140mEq/L (134-144) Potassium Level 3.4mEq/L (3.5-5.2) Chloride Level 102mEq/L (97-108) Carbon Dioxide Level 18mmol/L (18-29) Blood Urea Nitrogen 9mg/dL (6-20) Creatinine 0.81mg/dL (0.57-1.00) Estimat Glomerular Filtration Rate 115mL/min (>59) Glucose Level 93mg/dL (60-99) Calcium Level 9.1mg/dL (8.5-10.1) Total Bilirubin 0.9mg/dL (0.0-1.2) Aspartate Amino Transf (AST/SGOT) 18U/L (0-50) Alanine Aminotransferase (ALT/SGPT) 6U/L (0-32) Alkaline Phosphatase 56U/L (25-150) Total Protein 6.9g/dL (6.4-8.4) Albumin 4.0g/dL (3.4-5.0) Urine Color Yellow (YELLOW) Urine Appearance Slightly cloudy Urine pH 5.5 (5.0-8.0) Urine Specific Secor 1.020 (1.003-1.035) Urine Protein Negativemg/dL (NEG,TRACE) Urine Glucose (UA) Negativemg/dL (NEGATIVE) Urine Ketones 40mg/dL (NEGATIVE) Urine Occult Blood Negative (NEGATIVE) Urine Nitrite Negative (NEGATIVE) Urine Bilirubin Negative (NEGATIVE) Urine Urobilinogen Normalmg/dL (NORMAL) Urine Leukocyte Esterase Negative (NEGATIVE) Urine RBC 0-2/hpf (0-2) Urine WBC 0-5/hpf (0-5) Urine Epithelial Cells Moderate/hpf (NONE-MOD) Urine Crystals None seen (NONE SEEN) Urine Bacteria Moderate/hpf (NONE-FEW) Urine Hyaline Casts None/lpf (NONE) Urine Granular Casts None seen (NONE SEEN) Urine Waxy Casts None seen (NONE SEEN) Urine Red Blood Cell Casts None seen (NONE SEEN) Urine White Blood Cell Casts None seen (NONE SEEN) Urine Mucus None seen (None Seen) Urine Trichomonas None seen (NONE SEEN) Urine Yeast None (NONE SEEN) Urinalysis Comment None Urine Culture Reflexed Indicated Urine Opiates Screen Negative Urine Methadone Screen Negative Urine Barbiturates Screen Negative Urine Amphetamines Screen Negative Urine Benzodiazepines Screen Positive Urine Cocaine Metabolite Screen Negative Urine Cannabinoids Screen Negative Discharge Medications Discharge Medications Cholecalciferol (Vitamin D3) (Vitamin D3) 1,000 Unit Tab.chew 1,000 UNIT PO QAM (Reported) Levothyroxine (Levothyroxine) 100 Mcg Tablet 100 MCG PO QAM (Reported) Mirtazapine (Mirtazapine) 45 Mg Tablet 45 MG PO HS Prescribed by: MICHAEL YBARRA MD Prazosin (Minipress) 5 Mg Capsule 5 MG PO HS Prescribed by: MICHAEL YBARRA MD Quetiapine Fumarate (Quetiapine Fumarate) 25 Mg Tablet 75 MG PO BIDWM (Reported ) 0800 AND 1400 Quetiapine Fumarate (Quetiapine Fumarate) 100 Mg Tablet 400 MG PO HS Prescribed by: MICHAEL YBARRA MD As needed Clonazepam (Clonazepam) 1 Mg Tablet 1 MG PO BID PRN PRN For Anxiety (Reported) Followup Plan Disposition: No indication for further hospitalization at this time, the patient was released from her 72 hour hold into the care of her parents with follow-up and coordination with her outpatient team. The patient verbally consented to take the prescribed medications. The patient verbally expressed understanding of the risks, benefits, alternative treatment options, and risks of not taking the prescribed medication. The patient verbally expressed understanding of the medication instructions, that she will adhere to the prescribed medication, and that she will go to all aftercare scheduled appointments. Follow-up plan Prescriber Dr. Linda MD on 04/23/17 @ 10:00am (per patient report) [address] [address] [facility] Chery Blair on 04/23/17 @ 10:30am (per patient report) [address] [address] Mental Health Counselor Gabby on 04/25/17 at 14:00 (2pm) [facility] [address] [place] [address] Gabby on 04/29/17 at 12:00 [facility] [address] [place] [address] Peer Counselor Grabiel on 04/26/17 at 13:00 (1pm) [facility] [address] [place] [address] DBT groups at 10am [facility] [address] [place] [address] Discharge Diet: No restrictions Discharge Activity: Other (avoid placing tension on wound.) Patient Instructions Should you have any thoughts of harming yourself or others, please call the crisis line, your provider, 911, or go to the nearest Emergency Department. Do not change or discontinue your medications without discussing with your provider. You have been given a prescription for 30 days supply of your new medication Have your provider assess your abdominal wound every other day at the wound care clinic and follow their directions. Your russell will need to come out after approximately 14 days. Chery Blair has requested a copy of this note be faxed to Michael Ybarra MD Apr 22, 2017 15:26
--- NOTE | 2017-04-22 15:32 | PCM.DIMED ---
Discharge Instructions Date of Service Apr 22, 2017 Dates of Hospitalization Apr 14, 2017 at 21:57 Discharge Diagnosis Discharge Diagnosis #Acute Acetaminophen Overdose, Present on Admission, Active -Received N-acetylcysteine #Mood disorders with Suicide Attempt, Present on Admission, Active Please follow psychiatric discharge instructions #Abdominal lacerations, POA Laceration healing well. No sign of infection. Please follow-up wound care clinic for dressing change No indication for antibiotics Diet Discharge Diet: No restrictions Activity Discharge Activity: Other (avoid placing tension on wound.) Call your provider Call your provider for: Fever or Chills, Bleeding, Other (worsening redness, pus) Patient Instructions Patient Instructions Should you have any thoughts of harming yourself or others, please call the crisis line, your provider, 911, or go to the nearest Emergency Department. Do not change or discontinue your medications without discussing with your provider. You have been given a prescription for 30 days supply of your new medication Have your provider assess your abdominal wound every other day at the wound care clinic and follow their directions. Your russell will need to come out after approximately 14 days. Follow-up plan Prescriber Dr. Linda MD on 04/23/17 @ 10:00am (per patient report) [address] [address] [facility] Chery Blair on 04/23/17 @ 10:30am (per patient report) [address] [address] Mental Health Counselor Gabby on 04/25/17 at 14:00 (2pm) [facility] [address] [place] [address] Gabby on 04/29/17 at 12:00 [facility] [address] [place] [address] Peer Counselor Grabiel on 04/26/17 at 13:00 (1pm) [facility] [address] [place] [address] Follow-up Provider: [facility] Follow-up with PCP in: 1 week Provider: [facility],WOUND Manuel Avila MD Apr 22, 2017 15:32
--- NOTE | 2017-04-22 15:43 | PCM.PNMED ---
Subjective Date of Service Apr 22, 2017 Subjective RLQ abdominal laceration healing. scanty nonpurulent discharge. Exam Vital Signs Vital Sign - Last Date Time Temp Pulse Resp B/P Pulse Ox O2 Delivery O2 Flow Rate FiO2 04/22/17 06:54 36.7 85 20 103/69 94 Room Air Intake and Output 04/21/17 04/21/17 04/22/17 Cumulative From/Thru 15:00 23:00 07:00 04/14/17 20:08 - 04/22/17 05:38 Intake Total 1040 ml 100 ml 8819 ml Output Total 0 ml 7727 ml Balance 1040 ml 100 ml 1092 ml Intake Oral 1040 ml 100 ml 2784 ml IV Total 6035 ml Output Urine Total 0 ml 6675 ml Emesis 752 ml Other 300 ml # Voids 1 0 8 # Bowel Movements 0 2 Exam General: No acute distress, well-developed, well-nourished HEENT: Normocephalic, atraumatic. External ears without defect. Cardiovascular: Regular rate and rhythm with no murmurs, rubs, or gallops appreciated Pulmonary: Clear to auscultation bilaterally with no crackles, wheezes, or rhonchi. Normal respiratory effort with no use of accessory muscles. Abdomen: Bowel tones present. Soft, obese, nondistended. Multiple abdominal lacerations, 6 cm laceration on the right flank, 4 cm laceration on the left flank closed with russell. Extremities: No clubbing, cyanosis, edema Skin: Normal temperature, turgor, and texture; no rash, ulcers, or subcutaneous nodules appreciated. Neurological: Cranial nerves grossly intact. Reflexes, coordination, and sensory function within normal limits. Normal muscle strength, tone, and bulk. Psychiatric: Alert and oriented to person, place, and time. States that she does not want to be in the hospital and would prefer if we would "let her IVs and Medications Medications Reviewed: Medications were reviewed in detail Lab and Diagnostics 12-lead ECG Sinus Tachycardia Prolonged QTc (524) Assessment & Plan The patient was admitted to the medical unit as she has reportedly been attempting to follow one of the inpatient psychiatrists while he is in the community and it was felt to be counter-therapeutic to have them on the same unit at the same time. She was therefore followed by psychiatry on the medical floor. The patient has not participated in activities when at the [facility] in the past and it was not felt to adversely affect her treatment course. The patient was initially quite suicidal and despondent and was attempting to manipulate her wound, requiring restraints to prevent self harm. The patient refused medications until 04/20/17 at which point she began taking medications as prescribed. She was also able to avoid manipulating her wound and actively engaged in a discussion of her current symptoms. The patient expressed a renewed desire Per Medical: Tammy Colon is a 37-year-old female with history of PTSD, major depression, borderline personality disorder, and multiple suicide attempts who presents to the ED after a suicide attempt by Tylenol overdose. Acute Acetaminophen Overdose, Present on Admission, Active - N-acetylcysteine per pharmacy protocol finished at 1900 on 04/15 - Initially Acetaminophen levels ordered Q4h, levels now normal, no more labs required this time. - Last draw 2100 on 04/15 shows below threshold. - LFTs remained within normal range - Lactic acid returned to normal levels. - Patient is medically cleared at this time to be able to proceed with inpatient psych placement versus home. deferred to psychiatric Mood disorders with Suicide Attempt, Present on Admission, Active - History of PTSD, MDD, Bipolar d/o, Borderline PD - Required a sitter for safety - Plan to continue psychiatric regimen. Abdominal lacerations, POA Patient with two new lacerations on abdomen, LLQ and RLQ - ED stapled LLQ wound - RLQ lac wound care following. Laceration healing. Follow-up wound care clinic for dressing changes every other day. No need for antibiotics. Code Status: Full code Disposition: Patient medically cleared at this time. Medicine service signed off. Psychiatrist Dr Montalvo discussed and coordinated outpatient follow-up with multiple mental health providers and discharged patient home. I thank Dr Montalvo and drug abuse social worker Luana for working tirelessly on her discharge VTE Prophylaxis: Sub-Q Heparin (Unfractionated) VTE Mechanical Devices: Intermittant Pneumatic CD Resuscitation Status: CPR: Attempt Resuscitation Manuel Avila MD Apr 22, 2017 15:43
--- NOTE | 2017-04-22 16:01 | NUR ---
Social Work: Discharge/Multidisciplinary Rounds/Psychiatric Consult Rounding D: EMR reviewed. Pt is on day 8 of hospitalization. Pt was detained JADE and on 72 hour hold. Pt discussed in multidisciplinary rounds. Per multidisciplinary rounds, pt is medically stable for discharge. Discharge pending psychiatry evaluation and 72 hold. SW discussed pt with Psychiatry and Psychiatry is willing to release pt and has worked with pt to develop a safe discharge plan. A: Per Psychiatry, pt stated that she contacted her parents and that she will have dinner with them on and Saturday and as Saturday is often a trigger night, she will stay overnight on Sundays. Pt released from her hold and will discharge home with mom today. Pt to stay with mother evonne and follow-up with MH therapist Gabby Kearns at [facility]. Pt reports a willingness to work on safety planning as "I am just tired of coming to the hospital so much." Sleep: "Pretty good" Appetite: "Better." Suicidal and homicidal ideation: Denies current but is expressed chronic and recent acute. Auditory hallucinations: Denies. Visual hallucinations: Denies. Other Psychotic Symptoms: N/A. Anxiety: "Just wanting to get out of here." Depression: "It is a little better." Per Pyschiatry, no indication for further hospitalization at this time, the patient was released from her 72 hour hold into the care of her parents with follow-up and coordination with her outpatient team. The patient verbally consented to take the prescribed medications. The patient verbally expressed understanding of the risks, benefits, alternative treatment options, and risks of not taking the prescribed medication. The patient verbally expressed understanding of the medication instructions, that she will adhere to the prescribed medication, and that she will go to all aftercare scheduled appointments. Follow-up plan: Prescriber Dr. Linda MD on 04/23/17 @ 10:00am (per patient report) [address] [facility] [address] [place] [address] [facility] Chery Blair on 04/23/17 @ 10:30am (per patient report) [address] [facility] [address] [place] [address] Mental Health Counselor Gabby on 04/25/17 at 14:00 (2pm) [facility] [address] [place] [address] Gabby on 04/29/17 at 12:00 [facility] [address] [place] [address] Peer Counselor Grabiel on 04/26/17 at 13:00 (1pm) [facility] [address] [place] [address] Discharge Diet: No restrictions Discharge Activity: Other (avoid placing tension on wound.) Patient Instructions Should you have any thoughts of harming yourself or others, please call the crisis line, your provider, 911, or go to the nearest Emergency Department. Do not change or discontinue your medications without discussing with your provider. You have been given a prescription for 30 days supply of your new medication Have your provider assess your abdominal wound every other day at the wound care clinic and follow their directions. Your russell will need to come out after approximately 14 days. P: SW placed T/C to pt's mother after receiving clearance to discharge pt from Psychiatry. Pt to discharge home with mother to transport via POV at 1600 today. DAVON Harris
--- NOTE | 2017-04-22 16:18 | NUR ---
Discharge Patient DC to home with her dad. Discharge education and emphasis on following up on outpatient appointments and getting prescriptions filled. IV access DC'd with no signs or symptoms of infection. Mental health plan emphasized with patient and father. Patient verbalizes understanding of all.
== END 2017-04-22 16:04 | disposition home or self-care (01) | DRG 908 ==
LOC: SED 20:08 → CCU 21:57 → PCC 04-15 10:15 → OSC 04-18 21:09
PROVIDERS: ADMIT Hospitalist; ATTEND Internal Medicine
PROC: 0JQ80ZZ Repair Abdomen Subcutaneous Tissue and Fascia, Open Approach (ICD-10-PCS; principal; 2017-04-14)
DX: T39.1X2A Poisoning by 4-Aminophenol derivatives, intentional self-harm, initial encounter (principal); F33.3 Major depressive disorder, recurrent, severe with psychotic symptoms; F43.10 Post-traumatic stress disorder, unspecified; E03.9 Hypothyroidism, unspecified; S31.114A Laceration without foreign body of abdominal wall, left lower quadrant without penetration into peritoneal cavity, initial encounter; X78.9XXA Intentional self-harm by unspecified sharp object, initial encounter; Z91.5 Personal history of self-harm; Y92.009 Unspecified place in unspecified non-institutional (private) residence as the place of occurrence of the external cause; Y93.9 Activity, unspecified

== ENCOUNTER 2017-06-15 10:03 | Inpatient (IN) | payer OTHER ==
[2017-06-15] VITALS (9 sets, daily range): BP systolic 125–147; BP diastolic 74–97; PULSE 66–110; RESP 16–33; O2SAT 96–100
[~2017-06-15] VITALS: Ht 167.6 cm; Wt 98.0 kg
[~2017-06-15 10:03] MED LIST changes: -CEPH-512 PO; -MIRT30TA6 PO; +MIRT45TA5 PO; -PRAZ2CAP2 PO; +PRAZ5CAP PO
[2017-06-15] MEDS ORDERED: 0.9% Sodium Chloride 1,000 ML IV ONE ×2 (10:12→14:30)
--- NOTE | 2017-06-15 10:14 | ED.REPORT ---
HPI-Psychiatric Illness Date of Service Jun 15, 2017 ED Provider: Jeovany Luna MD The pt is a 37 y/o female with hx of self-mutilation, bipolar disorder, depression, anxiety, violent behavior, and suicide attempt who presents to the ED via EMS due to a Tylenol overdose. The pt reports taking 7 tabs of Tylenol PM at 0730 this morning, but denies attempting suicide. Pt called the Crisis line after her ingestion. She states she is "scared someone wants to hurt me." She denies any other ingestions. The pt self-mutilated on the L abdomen this morning and on the R abdomen on Saturday. Both wounds are bandaged well with materials from wound care. The pt last saw her psychiatrist a week ago. She denies taking her medications but will not state why. Pt does not give credible answers upon interview. Nursing Notes Stated Complaint: OVERDOSE Nursing Notes Reviewed: Yes ([employer], [employer] not reconciled) Allergies: Coded Allergies: No Known Allergies (Unverified , 04/14/17) UNABLE TO ASK PT. REVIEWED HX NOTES. Scheduled Cholecalciferol (Vitamin D3) (Vitamin D3) 1,000 Unit Tab.chew 1,000 UNIT PO QAM Levothyroxine (Levothyroxine) 100 Mcg Tablet 100 MCG PO QAM Mirtazapine (Mirtazapine) 45 Mg Tablet 45 MG PO HS Prazosin (Minipress) 5 Mg Capsule 5 MG PO HS Quetiapine Fumarate (Quetiapine Fumarate) 25 Mg Tablet 75 MG PO BIDWM 0800 AND 1400 Quetiapine Fumarate (Quetiapine Fumarate) 100 Mg Tablet 400 MG PO HS Scheduled PRN Clonazepam (Clonazepam) 1 Mg Tablet 1 MG PO BID PRN PRN For Anxiety General Time Seen by MD: 10:12 Chief Complaint Drug overdose-intentional Hx Obtained From: Patient Arrived By: Ambulance Onset Occurred: 1 - 4 hours ago Symptom Duration: Since onset Caused by: Cut self, Overdose Location: : Abdomen (R and L) Pertinent Negative: Pt denies other symptoms Immunizations: Unknown Recent Healthcare: Recent doctor visit, Recent hospitalization Similar Sx Previous: Yes Risk-Psychiatric Illness Suicide Risk Stratification Suicide Risk Factors - Adult: : Previous attempt: Prior psych admission RF Statements: Risk factors reviewed (not predictive) Past Medical History Past Medical History Notes: Multiple visits to the ED for psychosis requiring 4 point restraints. (Multiple admissions for both acetaminophen overdoses, and psychosis, last admit 04/14-04/22/17) Requires high doses of ketamine for sedation. Vomits after ketamine. Recurrent abdominal wall self-mutilation Past Medical History PTSD Depression Anxiety Bipolar disorder Multiple suicide attempts and self-mutilation Many suicide attempts with Tylenol Hypothyroid Past Surgical History Laceration repair multiple Family History Noncontributory Smoking History Current Every Day Smoker Social History Pt is a . Alcohol Use: Denies alcohol use Drug Use: Denies drug use Other Social History: Local resident Ambulatory Status Independent Review of Systems Unable to Obtain ROS Patient condition, Mental status Physical Exam Initial Vital Signs Vital Signs (First) Date Time Temp Pulse Resp B/P Pulse Ox O2 Delivery O2 Flow Rate FiO2 06/15/17 10:45 35.0 110 20 131/76 99 Room Air Initial VS: Reviewed, Unavailable (none on chart, ordered) Head / Eyes: Atraumatic, Normocephalic, PERRL Respiratory: Breath sounds normal, Clear to auscultation, No respiratory distress Cardiovascular: Regular rate & rhythm, Heart sounds normal, Intact distal pulses Extremities: Vascular intact, Neuro intact General/Constitutional: Awake answers questions but is slow Mental Status: Positive: Pharmacologically sedated mildy sedated Speech is clear but slow Abnormal Mood/Affect: Positive: Depressed, Flat affect Decreased psychomotor activity Limited insight Poor judgement Suicidal ENT: Mucous membranes moist Trauma / Burn / Environmental: Positive: Laceration Not warm and dry Numerous scarring from previous self-mutilation to abdomen Small superficial self-inflicted wound on the L forearm large 7 cm subcutaneous laceration on the left abdomen from this morning, and equally large laceration on the right side that is multiple days old with no signs of infection Interpretation & Diagnostics Lab Results Interpretation Result Diagram: 06/15/17 1010 06/15/17 1010 Test 06/15/17 10:10 06/15/17 10:28 06/15/17 10:30 White Blood Count 17.7th/mm3 (3.8-10.1) Red Blood Count 4.63mil/mm3 (3.90-5.20) Hemoglobin 11.9g/dL (12.0-15.6) Hematocrit 36.6% (35.0-46.0) Mean Corpuscular Volume 79.0fL (81-100) Mean Corpuscular Hemoglobin 25.7pg (27.0-35.0) Mean Corpuscular Hemoglobin Concent 32.5% (32.0-37.0) Red Cell Distribution Width 16.1% (12.3-15.4) Platelet Count 492bil/L (150-400) Sodium Level 138mEq/L (134-144) Potassium Level 3.5mEq/L (3.5-5.2) Chloride Level 99mEq/L (97-108) Carbon Dioxide Level 15mmol/L (18-29) Blood Urea Nitrogen 12mg/dL (6-20) Creatinine 0.88mg/dL (0.57-1.00) Estimat Glomerular Filtration Rate 104mL/min (>59) Glucose Level 284mg/dL (60-99) Calcium Level 8.6mg/dL (8.5-10.1) Total Bilirubin 0.6mg/dL (0.0-1.2) Aspartate Amino Transf (AST/SGOT) 15U/L (0-50) Alanine Aminotransferase (ALT/SGPT) 7U/L (0-32) Alkaline Phosphatase 77U/L (25-150) Total Protein 7.4g/dL (6.4-8.4) Albumin 4.4g/dL (3.4-5.0) Human Chorionic Gonadotropin, Qual Negative (Negative) Hold Urine Received (Received) Salicylates Level < 3.0ug/mL (30-250) Acetaminophen Level 471.9ug/mL Rx (10-25) Alcohols < 10mg/dL (0-10) Lab Results Interpretation: CBC nonspecific with acidosis CMP mildly low CO2, mild hyperglycemia LFTs normal Bowel: Negative Salicylates negative Serum osmolality is normal, cochlear osmolality is 285 a match with no osmolar gap Screen positive for benzos and TCAs Tylenol elevated negative ECG Interpretation ECG Interpretation: sinus tachycardic 104 mild QTC prolongation unchanged from previous no other toxidromic findings Time: 10:28 Interpreted by: ED physician Re-Eval/Medical Decision Med Decision/Clinical Course This is a 37-year-old female who has a long history of mental illness, multiple overdoses, presents admitting to a Tylenol PM overdose claimed she only took "7 tabs". The patient is currently, cooperative- but she has often had agitation requiring chemical sedation and or restraint in the past. She has several recent admissions for psychosis and significant Tylenol overdoses requiring medical therapy. She gives an initial ingestion time of approximately 3 and half hours ago. She also admits to cutting on herself again, with a cut on the left side of her abdomen metastases from earlier today, and a cut on the right side she claims is from the beginning of this past week. On exam, she is slow, soft flat affect, and seems just slightly sedated at least according to previous visits where seen her, however she is able to answer questions, is no slurred speech, no evidence of respiratory depression, she has not had dry mucous membranes, slight hot as a hair, has no complaints of urinary retention is able provide a urine sample. (In other she does not have a clear anticholinergic toxidrome) She does have sizable lacerations on either side of the abdomen that are fairly deep into the subcutaneous tissue, but nowhere near approaching evisceration or organ or penetration of the peritoneum giving her habitus Labwork was drawn, and is notable for mild nonspecific acidosis received IV fluids. She has mild hyperglycemia. She has significant Tylenol elevation receiving Mucomyst as a result. She will require medical admission. Has been requested psychiatric evaluation will be indicated once medically cleared. No deterioration and in improved over the course of her ED stay. He demonstrated no significant sedation. She remained cooperative. Her left abdominal laceration was repaired by the resident without complication of her supervision. The right laceration could not be repaired during to that time scale involved in the delayed presentation. It will have to heal by secondary intention. Patient does have a mild metabolic acidosis, there is no osmolar gap, she has trace hyperglycemia I doubt DKA (patient is not a type I diabetic as far as I can tell from the records). Patient is being hydrated, and repeat CMP obtained. Source of Hx: Old records Re-Evaluation/Progress : Time of Eval: 13:47 Re-Evaluation/Progress Note: Pt rechecked. Informed pt of diagnosis and plan for admission. The pt understands and agrees with plan for admission. All questions addressed at this time. Consultation #1: Referral / Consult Name: Nahomi Curtis MD Consulted With: Hospitalist Call Returned at: 13:17 Informatics Specialist: Will see patient, Agrees with eval, Agrees with plan, Accepts admit Note: Dr. Curtis agrees to admit pt. Consultation #2: Consulted With: line out worker Call Returned at: 11:20 Informatics Specialist: Will see patient Note: Discussed pt's case. Will see pt. Differential Diagnosis: Positive: Suicidal, Negative: Alcohol abuse, Bipolar disorder Counseled Regarding: Diagnosis, Lab results, Need for admission Discharge & Departure Impression: Primary Impression: Overdose on Tylenol Encounter type: initial encounter Injury intent: intentional self-harm Qualified Code: T39.1X2A - Poisoning by 4-Aminophenol derivatives, intentional self-harm, initial encounter Additional Impressions: Overdose of drug Encounter type: initial encounter Injury intent: intentional self-harm Qualified Code: T50.902A - Poisoning by unspecified drugs, medicaments and biological substances, intentional self-harm, initial encounter Intentional overdose of drug in tablet form Suicidal ideation Laceration Metabolic acidosis Laceration of abdominal wall Encounter type: initial encounter Qualified Code: S31.119A - Laceration without foreign body of abdominal wall, unspecified quadrant without penetration into peritoneal cavity, initial encounter Disposition: ADMITTED TO HOSPITAL Discharge Condition All VS Reviewed: Yes Condition: Stable Referrals: [facility] (PCP) Crit Care Except Billable Proc Time Spent: 30-74 minutes Services Performed: Patient management by me, Time spent at bedside, Reviewing test results, Reviewing imaging, Discussing patient care, Documentation in record Scribe Attestation Portions of this note were transcribed by Gardenia Kelly. I , Dr. Jeovany Luna personally performed the history, physical exam and medical decision-making; I reviewed and confirmed the accuracy of the information in the transcribed note. Signed by: Jamarcus Langford, 06/15/17. copies to: [facility] Procedures Laceration Management Laceration Management: Depth of laceration examined on bloodless field, no foreign body. Time: 11:15 Procedure Performed by: ED resident Consent / Setup / Site Prep: Informed consent provided, Consent from patient , Time-out performed, Hand hygiene observed, Stand sterile technique Location of Wound: Left abdomen Wound Length: 8 cm Local Anesthesia: Lidocaine 1% Digital Block: No Wound Preparation: Normal saline Repair Skin: ___ O (4), Nylon # Sutures - Skin: 14 Repair Subcutaneous: ___ O (4), Vicryl # Sutures - SubQ: 3 Closure Layers: 2 Suture Technique: Simple Post-Procedure / Complications: Antibiotic oint applied, Dressing applied, No complications, Condition improved, Tolerated procedure well, Patient stable Jeovany Luna MD Jun 15, 2017 10:14 Gardenia French Jun 15, 2017 11:35 KAREN KELLY Jun 15, 2017 13:47
[2017-06-15 10:26] LABS: Mean Corpuscular Hemoglobin 25.7 pg (27.0-35.0)
[2017-06-15] MEDS ORDERED: Bupivacaine-MPF 0.5% 30 mL Inj INFILTRATE ONE (10:45)
[2017-06-15] MEDS ORDERED: Acetadote Dosing per Pharmacy XX ONE (12:30)
[2017-06-15] MEDS ORDERED: Acetylcysteine 5,000 mg/500 mL D5W IV SCH ×2 (13:30)
[2017-06-15] MEDS ORDERED: Polyethylene Glycol (PEG) 17 Gm Powder PO PRN (13:45)
[2017-06-15] MEDS ORDERED: Alum-Mag Hydrox-Simeth 30 mL Suspension PO PRN (13:45)
[2017-06-15] MEDS ORDERED: Ondansetron 2 mg/mL 2 mL Inj IVPUSH PRN (13:45)
--- NOTE | 2017-06-15 14:10 | PCM.HPMED ---
Subjective Date of Service Jun 15, 2017 Primary Provider: Admitting Physician: Nahomi Curtis MD Primary Care Physician: Clinic,[facility] Attending Physician: Nahomi Curtis MD Admit Status: From the Emergency Department, Full Admit, [facility], [facility] Telemetry Chief Complaint: Tylenol PM overdose with suicidal ideation History of Present Illness: Is a 37-year-old female who has a history of bipolar disorder, self-mutilation, anxiety with multiple suicide attempts in the past. She has had multiple Tylenol overdoses with admissions here in the past. She is followed by psychiatry. Today she claims she took 7 tabs of Tylenol PM at about 7:30 AM. Patient also had recurrent self-mutilation on left side of her abdomen this morning and on the right side on Saturday. Self-mutilation cut on Saturday is taking care of by wound care. She is more somnolent than usual although is able to get up out of bed with assistance to the commode. She is being cooperative with staff. Her Tylenol level in the emergency room today at 10:10 AM is 471.9. I will level was less than 10 and salicylates less than 3. Review of Systems: Difficult to get a history from patient. But denies any fevers chills chest pain or shortness of breath. All other review of systems are attempted to be reviewed and are negative except for as in history of present illness. Allergies Coded Allergies: No Known Allergies (Unverified , 04/14/17) UNABLE TO ASK PT. REVIEWED HX NOTES. Home Medications Scheduled Cholecalciferol (Vitamin D3) (Vitamin D3) 1,000 Unit Tab.chew 1,000 UNIT PO QAM Levothyroxine (Levothyroxine) 100 Mcg Tablet 100 MCG PO QAM Mirtazapine (Mirtazapine) 45 Mg Tablet 45 MG PO HS Prazosin (Minipress) 5 Mg Capsule 5 MG PO HS Quetiapine Fumarate (Quetiapine Fumarate) 25 Mg Tablet 75 MG PO BIDWM 0800 AND 1400 Quetiapine Fumarate (Quetiapine Fumarate) 100 Mg Tablet 400 MG PO HS Scheduled PRN Clonazepam (Clonazepam) 1 Mg Tablet 1 MG PO BID PRN PRN For Anxiety PMH Past Medical History Notes: Multiple visits to the ED for psychosis requiring 4 point restraints. (Multiple admissions for both acetaminophen overdoses, and psychosis, last admit 04/14-04/22/17) Requires high doses of ketamine for sedation. Vomits after ketamine. Recurrent abdominal wall self-mutilation Past Medical History PTSD Depression Anxiety Bipolar disorder Multiple suicide attempts and self-mutilation Many suicide attempts with Tylenol Hypothyroid Past Surgical History Laceration repair multiple Family History Grandfather with a history of diabetes Social History Hx Alcohol Use: No Hx Substance Use: No Hx Tobacco Use: Yes (0.5 ppd) Smoking Status: Current Every Day Smoker Exam Vital Signs Vital Sign - Last Date Time Temp Pulse Resp B/P Pulse Ox O2 Delivery O2 Flow Rate FiO2 06/15/17 13:02 86 28 125/74 100 06/15/17 10:52 Room Air 06/15/17 10:45 35.0 Exam Constitutional: Middle-aged female who is somewhat wide-eyed and minimally verbal slightly tremulous Head: Normocephalic atraumatic Eyes: Eyes are wide open extraocular muscles are intact somewhat dilated but react to light bilaterally Mouth: No lesions Neck: No adenopathy Chest: Clear to auscultation Cor: Regular rate and rhythm S1-S2 without murmur Abdomen: Soft nontender bowel sounds present she does have multiple areas of previous lacerations there is one that is sutured on the left side and medial to that there is one that has packing present Extremities: No pedal edema Psych: Right now has blunted affect Skin: No rashes Neuro: She is alert she is oriented 3, motor strength is intact bilaterally Lab and Diagnostics Labs Laboratory Tests 72 Hours Test 06/15/17 10:10 06/15/17 10:28 06/15/17 10:30 White Blood Count 17.7th/mm3 (3.8-10.1) Red Blood Count 4.63mil/mm3 (3.90-5.20) Hemoglobin 11.9g/dL (12.0-15.6) Hematocrit 36.6% (35.0-46.0) Mean Corpuscular Volume 79.0fL (81-100) Mean Corpuscular Hemoglobin 25.7pg (27.0-35.0) Mean Corpuscular Hemoglobin Concent 32.5% (32.0-37.0) Red Cell Distribution Width 16.1% (12.3-15.4) Platelet Count 492bil/L (150-400) Sodium Level 138mEq/L (134-144) Potassium Level 3.5mEq/L (3.5-5.2) Chloride Level 99mEq/L (97-108) Carbon Dioxide Level 15mmol/L (18-29) Blood Urea Nitrogen 12mg/dL (6-20) Creatinine 0.88mg/dL (0.57-1.00) Estimat Glomerular Filtration Rate 104mL/min (>59) Glucose Level 284mg/dL (60-99) Calcium Level 8.6mg/dL (8.5-10.1) Total Bilirubin 0.6mg/dL (0.0-1.2) Aspartate Amino Transf (AST/SGOT) 15U/L (0-50) Alanine Aminotransferase (ALT/SGPT) 7U/L (0-32) Alkaline Phosphatase 77U/L (25-150) Total Protein 7.4g/dL (6.4-8.4) Albumin 4.4g/dL (3.4-5.0) Human Chorionic Gonadotropin, Qual Negative (Negative) Hold Urine Received (Received) Salicylates Level < 3.0ug/mL (30-250) Acetaminophen Level 471.9ug/mL Rx (10-25) Alcohols < 10mg/dL (0-10) Result Diagram: 06/15/17 1010 06/15/17 1010 12-lead ECG Sinus tachycardia at a rate of 104 otherwise no abnormalities except for QTC is 532. Assessment & Plan # Acetaminophen overdose, acute, present on admission -Continue with N-acetylcysteine IV 20 hour protocol which was initiated in the emergency room -Check a.m.: Weight with stiff, CMP, Tylenol level, INR, PTT -Obtain lactic acid level now as bicarbonate was a little bit low #-Diphenhydramine overdose, acute, present on admission -IV fluid hydration -Placed on telemetry -Treat any presenting agitation with IV Ativan when necessary -QTC is prolonged and we will need to place on telemetry and monitor # Suicidal ideation with bipolar disorder, acute, present on admission -Suicidal precautions -Consult psychiatry when medically stable # Abdominal lacerations, acute, present on admission -Secondary to self-mutilation left side new black has been sutured per ER M.D. -Observed for any signs and symptoms of infection # DVT prophylaxis -Generally patient is active with these overdoses so will not need subcutaneous anticoagulation # CODE STATUS -Full code GI Prophylaxis: H2 huey Resuscitation Status: CPR: Attempt Resuscitation Time spent 60 minutes Nahomi Curtis MD Jun 15, 2017 14:10
[2017-06-15] MEDS ORDERED: Acetadote Dosing per Pharmacy XX SCH (17:00)
[2017-06-15] MEDS ORDERED: D5W IV SCH ×2 (17:30)
[2017-06-15] MEDS ORDERED: ACETYLCYSTEINE IV SCH ×2 (17:30)
[2017-06-15] MEDS ORDERED: Promethazine Inj 12.5 MG in Dextrose 5%-Pha MIX 50 ML IV PRN (17:30)
[2017-06-15] MEDS: 0.9% Sodium Chloride 1,000 ML IV SCH ×2 (17:47→23:10)
--- NOTE | 2017-06-15 18:18 | NUR ---
Admit/restraints Pt admitted to P[facility], report received by and care initiated by charge nurse Wendi Mcduffie. Report received from Wendi 1 hour following pt arrival to floor. Cardiac: Pt denies CP, Tele SR 70-80 Resp: SPO2 mid 90s on RA. Pt denies SOB GI/: Pt has been having intermittent nausea and vomitting. Dr Curtis notified. Neuro: A&Ox3, MIMS, pt pulled out IV shortly after arrival to [facility]. Pt also pulling at stitches on left abdomen. Soft restraints applied to pt for safety. New IV started after restraints placed and fluids continued.
[2017-06-15] MEDS ORDERED: .Epic Conversion Completed XX PRN (19:00)
--- NOTE | 2017-06-15 20:00 | NUR ---
Restraints/Safety: Bilateral soft wrist restraint in place. Pt. refuses to sign self harm contract. Restraints in place due to pt. intentionally pulling at lines and sutures in abdomen per day shift report. Discussed incident with pt., who admits to intentionally pulling at lines and sutures. Pt. states that at this time she is uncertain what her actions may be if restraints are discontinued, and that she would likely pull at lines and stitches again (per pt.). Restraints remain in place for safety at this time. Pt. behavior unpredictable. Will continue to monitor.
[2017-06-15] MEDS ORDERED: Famotidine Inj 20 MG in IV Premix 1 EACH IV SCH (20:30)
== END 2017-06-16 01:26 | disposition admitted as inpatient to this hospital (09) | DRG 951 ==
LOC: EDBD 10:03 → SED 10:03 → PCC 13:53
PROVIDERS: ADMIT Specialist; ATTEND Specialist
DX: R69 Illness, unspecified (principal)